=== PATIENT | female | born 1940 | race Caucasian/White ===

== ENCOUNTER 2020-04-09 10:05 | Outpatient (REF) | payer MEDICARE, SELFPAY ==
[2020-04-09 13:27] LABS: MANUAL DIFF FLAG NO
[2020-04-09 13:39] LABS: Basophils Percent Auto 0.5 % (0-2); Eosinophils Absolute Auto 0.2 X10*3/uL (0.0-0.4); Eosinophils Percent Auto 3.2 % (0-4); Hematocrit 36.4 % (37-47); Hemoglobin 11.6 g/dl (12.0-16.0); Imm Gran Abs Auto 0.03 X10*3/uL (0.00-0.03); Imm Gran Pct Auto 0.5 % (0.0-0.4); Lymphocytes Absolute Auto 1.4 X10*3/uL (1.2-4.9); Lymphocytes Percent Auto 25.9 % (20-40); Mean Corpuscular HGB Conc 31.9 g/dl (31.0-35.0); Mean Corpuscular Hemoglobin 29.7 pg (27.0-33.0); Mean Corpuscular Volume 93.3 fL (80-98); Mean Platelet Volume 11.3 fL (9.4-12.3); Monocytes Absolute Auto 0.5 X10*3/uL (0.1-1.2); Monocytes Percent Auto 8.8 % (2-11); Neutrophils Absolute Auto 3.4 X10*3/uL (2.0-8.3); Neutrophils Percent Auto 61.1 % (45-73); Platelet Count 184 X10*3/uL (160-400); Red Cell Distribution Width 12.6 % (11.0-16.0); White Blood Count 5.6 X10*3/uL (4.8-10.8)
[2020-04-09 13:41] LABS: Estimated Average Glucose 128 mg/dL; Hemoglobin A1c % 6.1 %
[2020-04-09 14:14] LABS: Alanine Aminotransferase 7 U/L (0-31); Albumin Level 4.3 g/dL (3.5-5.0); Alkaline Phosphatase 95 U/L (39-117); Anion Gap 14 (12-20); Aspartate Amino Transferase 16 U/L (5-31); Bilirubin Total 0.4 mg/dL (0.0-1.0); Blood Urea Nitrogen 23 mg/dL (9-16); Calcium 9.4 mg/dL (8.4-10.2); Carbon Dioxide 33 mmol/L (22-29); Chloride 96 mmol/L (96-108); Estimated Glomerular Filt Rate 29; Glucose Random 116 mg/dL (60-115); Potassium 4.3 mmol/l (3.3-5.1); Sodium 139 mmol/L (135-145); Total Protein 6.7 g/dL (6.5-8.0)
[2020-04-09 14:27] LABS: Creatinine Urine 25.46 mg/dL; Microalbum/Creatinine Ratio Ur 19.6 ug/mg cr
== END 2020-04-09 10:06 | disposition home or self-care (01) ==
LOC: HO.10HDL 10:05
PROVIDERS: Visit Provider Internal Medicine
DX: E11.22 Type 2 diabetes mellitus with diabetic chronic kidney disease (principal); I12.9 Hypertensive chronic kidney disease with stage 1 through stage 4 chronic kidney disease, or unspecified chronic kidney disease; N18.9 Chronic kidney disease, unspecified; J44.9 Chronic obstructive pulmonary disease, unspecified
CPT/HCPCS: 36415; 80053; 82043; 83036; 85025

== ENCOUNTER 2020-05-11 10:51 | Outpatient (REF) | payer MEDICARE, SELFPAY ==
--- NOTE | 2020-05-11 | MR_ITS ---
EXAMINATION: MR LUMBAR SPINE WITHOUT CONTRAST CLINICAL INFORMATION: Bilateral leg radicular symptoms. COMPARISON: MRI dated 03/20/2017. TECHNIQUE: MRI of the lumbar spine was obtained using routine sequences without contrast. FINDINGS: VERTEBRAL BODIES AND PARASPINAL STRUCTURES: Chronic fatty marrow changes present at the vertebra and bony pelvis. Reduced intradiscal signal and mild to moderate multilevel disc space narrowing with endplate spurring again evident. There is a rightward curvature of the upper lumbar spine. Worsened right lateral endplate edematous changes noted at L4-L5. The paraspinal soft tissues are normal. Sigmoid colonic diverticulosis partially assessed. Bilateral renal cysts are visible. There is significant dilatation of the right renal collecting system and right ureter, otherwise incompletely assessed. CONUS MEDULLARIS AND CAUDA EQUINA: Normal, terminating at the level of L1. No lower cord signal abnormality is seen. The cauda equina nerve roots are normal. SPINAL LEVELS: L1-L2: Disc bulge present with a shallow right paracentral disc protrusion mildly impressing upon the right L2 nerve root in the subarticular zone. Mild facet arthropathy without central canal stenosis and foramina. L2-L3: Diffuse disc bulge present with mild bilateral foraminal encroachment. Hypertrophic facet arthropathy without central canal stenosis. L3-L4: Disc bulge and stable facet arthropathy without central canal stenosis. Bulging disc results in [id number] right foraminal narrowing. Osseous spurring and bulging disc more significantly encroach upon the left neural foramen with the left L3 nerve root, as on prior imaging. L4-L5: Generalized disc bulge with hlqpzoxp-fi-vqbqob facet arthrosis. No central canal stenosis. Previous right subarticular zone disc protrusion has resorbed. Gonidfej-qe-qqtvwm bilateral foraminal narrowing, as on prior imaging. L5-S1: Mild anterolisthesis and disc bulge with severe facet arthropathy, not significantly changed. Facet spurring encroaches upon the right subarticular zone with mass effect upon the right S1 nerve root, as on the prior study. Ezxqefjw-gj-dlpeds foraminal narrowing with compression of the right L5 nerve root due to bulging disc and facet spurring, also stable. MR/MR lumbar spine wo con IMPRESSION: Massive right-sided hydroureteronephrosis. The possibility of an underlying distal obstructing lesion or bladder mass cannot be ruled out. A dedicated CT scan of the abdomen and pelvis with contrast is recommended for further evaluation. New shallow right paracentral disc protrusion at L1-L2 with mild mass effect upon the right L2 nerve root. Previous shallow right subarticular zone disc protrusion at L4-L5 has resorbed. Otherwise, relatively stable moderate multilevel spondylosis without central canal stenosis. Imaging findings discussed with at 3:04 p.m. on 05/11/2020.
== END 2020-05-11 10:52 | disposition home or self-care (01) ==
LOC: HO.MRI 10:51
PROVIDERS: Visit Provider Physician Assistant Medical
DX: M54.16 Radiculopathy, lumbar region (principal)
CPT/HCPCS: 72148

== ENCOUNTER 2020-05-20 10:49 | Outpatient (REF) | payer MEDICARE, SELFPAY ==
[2020-05-20 14:24] LABS: Glucose Urine UA NEG (NEG); Leukocyte Esterase Urine 1+ (NEG); Nitrite Urine NEG (NEG); Urine Blood NEG (NEG); Urine Ketones NEG (NEG); Urine Protein NEG (NEG-TRACE)
[2020-05-20 14:27] LABS: Appearance Urine CLEAR; Color Urine YELLOW
[2020-05-20 14:36] LABS: RBC Urine 0-2 /HPF (0); Squamous Epithelial Cell Urine 1+ /LPF
== END 2020-05-20 10:50 | disposition home or self-care (01) ==
LOC: HO.HMGCLDS 10:49
PROVIDERS: PCP Internal Medicine; Visit Provider Internal Medicine
DX: R30.0 Dysuria (principal)
CPT/HCPCS: 81001; 81003; 87086

== ENCOUNTER 2020-07-09 09:58 | Outpatient (REF) | payer MEDICARE, SELFPAY ==
[2020-07-09 13:51] LABS: MANUAL DIFF FLAG NO
[2020-07-09 14:02] LABS: Basophils Percent Auto 0.6 % (0-2); Eosinophils Absolute Auto 0.3 X10*3/uL (0.0-0.4); Eosinophils Percent Auto 3.9 % (0-4); Glucose Urine UA NEG (NEG); Hemoglobin 10.9 g/dl (12.0-16.0); Imm Gran Abs Auto 0.02 X10*3/uL (0.00-0.03); Imm Gran Pct Auto 0.3 % (0.0-0.4); Leukocyte Esterase Urine 1+ (NEG); Lymphocytes Absolute Auto 1.2 X10*3/uL (1.2-4.9); Lymphocytes Percent Auto 18.9 % (20-40); Mean Corpuscular HGB Conc 31.1 g/dl (31.0-35.0); Mean Corpuscular Hemoglobin 29.7 pg (27.0-33.0); Mean Corpuscular Volume 95.4 fL (80-98); Mean Platelet Volume 11.1 fL (9.4-12.3); Monocytes Absolute Auto 0.6 X10*3/uL (0.1-1.2); Monocytes Percent Auto 9.1 % (2-11); Neutrophils Absolute Auto 4.3 X10*3/uL (2.0-8.3); Neutrophils Percent Auto 67.2 % (45-73); Nitrite Urine NEG (NEG); Platelet Count 213 X10*3/uL (160-400); Red Blood Count 3.67 X10*6/uL (4.20-5.50); Red Cell Distribution Width 13.2 % (11.0-16.0); UACC Culture Trigger YES; Urine Blood NEG (NEG); Urine Ketones NEG (NEG); Urine Protein NEG (NEG-TRACE); White Blood Count 6.4 X10*3/uL (4.8-10.8)
[2020-07-09 14:04] LABS: Appearance Urine CLEAR; Color Urine YELLOW
[2020-07-09 14:14] LABS: Estimated Average Glucose 134 mg/dL; Hemoglobin A1c % 6.3 %
[2020-07-09 14:20] LABS: Bacteria Urine TRACE /LPF; RBC Urine 0-2 /HPF (0); Squamous Epithelial Cell Urine 2+ /LPF
[2020-07-09 14:29] LABS: Creatinine Urine 104.48 mg/dL; Microalbum/Creatinine Ratio Ur 18.1 ug/mg cr
[2020-07-09 14:43] LABS: Alanine Aminotransferase 9 U/L (0-31); Albumin Level 4.2 g/dL (3.5-5.0); Alkaline Phosphatase 90 U/L (39-117); Anion Gap 13 (12-20); Aspartate Amino Transferase 15 U/L (5-31); Bilirubin Total 0.4 mg/dL (0.0-1.0); Blood Urea Nitrogen 24 mg/dL (9-16); C Reactive Protein 1.18 mg/dL (< or = 0.50); Calcium 9.3 mg/dL (8.4-10.2); Carbon Dioxide 35 mmol/L (22-29); Chloride 97 mmol/L (96-108); Estimated Glomerular Filt Rate 33; Glucose Random 112 mg/dL (60-115); Potassium 4.3 mmol/l (3.3-5.1); Sodium 141 mmol/L (135-145); Total Protein 6.5 g/dL (6.5-8.0)
[2020-07-09 15:08] LABS: Free T4 (Free Thyroxine) 1.05 ng/dL (0.71-1.85); Thyroid Stimulating Hormone 2.21 uIU/mL (0.32-4.0)
== END 2020-07-09 09:59 | disposition home or self-care (01) ==
LOC: HO.10HDL 09:58
PROVIDERS: Visit Provider Internal Medicine
DX: E11.22 Type 2 diabetes mellitus with diabetic chronic kidney disease (principal); I12.9 Hypertensive chronic kidney disease with stage 1 through stage 4 chronic kidney disease, or unspecified chronic kidney disease; N18.9 Chronic kidney disease, unspecified; N13.30 Unspecified hydronephrosis; J44.9 Chronic obstructive pulmonary disease, unspecified
CPT/HCPCS: 36415; 80053; 81001; 81003; 82043; 83036; 84439; 84443; 85025; 86140; 87086

== ENCOUNTER 2020-07-16 09:02 | Outpatient (REF) | payer MEDICARE, SELFPAY ==
--- NOTE | 2020-07-16 09:04 | CT_ITS ---
EXAMINATION: CT ABDOMEN AND PELVIS WITHOUT CONTRAST CLINICAL INFORMATION: Right hydronephrosis. COMPARISON: None TECHNIQUE: Multidetector volumetric imaging was performed from the superior aspect of the liver through the pubic symphysis. Sagittal and coronal reformatted images were obtained on the technologist's workstation. This CT examination was performed using dose optimization techniques as appropriate, variously including the following: *Automated exposure control *Adjustment of mA and/or kV according to patient size (this includes techniques or standardized protocols for targeted exams where dose is matched to indication/reason for exam; i.e. extremities or head) *Use of iterative reconstruction technique DLP: 595 mGy-cm FINDINGS: LUNG BASES: Minimal atelectatic changes are seen in the left lung base. There is a small bulla medially in the left lower lobe. The heart size is normal. LIVER, GALLBLADDER, AND BILIARY TREE: The liver is normal in size, shape, and attenuation. No focal hepatic lesion or biliary ductal dilatation is present. The gallbladder is unremarkable with no evidence of radiopaque gallstones, gallbladder wall thickening, or obvious pericholecystic inflammatory changes. PANCREAS: The pancreas is atrophic. SPLEEN: Unremarkable. ADRENAL GLANDS: Unremarkable. KIDNEYS AND URETERS: The kidneys are normal in size, shape, and attenuation. There are no radiopaque renal calculi seen. However, there is soft tissue mass or thick debris in the right distal ureter measuring 27 Hounsfield units with tokplwra-tf-qdnhff hydroureteronephrosis measuring 3 Hounsfield units consistent with water consistency. The left kidney appears unremarkable. BLADDER: Unremarkable. GASTROINTESTINAL TRACT: There is diffuse sigmoid and scattered rest of the colon diverticulosis without mural thickening or pericolic fat stranding. No colonic distention seen. The small bowel loops are unremarkable. ABDOMINAL WALL: No significant hernia is appreciated. LYMPH NODES: Normal. VASCULAR: There is atherosclerotic calcification of the abdominal aorta without aneurysmal dilatation. PELVIC VISCERA: No free fluid or free air. The uterus is likely surgically absent or atrophied. OSSEOUS STRUCTURES: There are degenerative disc changes, vacuum disc phenomenon and moderate spondylosis throughout the lumbar spine. No fracture or lytic process seen. CT/CT abdomen pelvis wo con IMPRESSION: 1. Moderate to significant right hydroureteronephrosis with a soft tissue mass or thick dependent debris in right distal ureter. Recommend cystoscopy. 2. No radiopaque urolith seen. 3. Colonic diverticulosis without diverticulitis.
== END 2020-07-16 09:03 | disposition home or self-care (01) ==
LOC: HO.CT 09:02
PROVIDERS: PCP Internal Medicine; Visit Provider Internal Medicine
DX: N13.2 Hydronephrosis with renal and ureteral calculous obstruction (principal)
CPT/HCPCS: 74176

== ENCOUNTER → 2020-07-20 14:28 | Outpatient (BNVA) | payer MEDICARE, SELFPAY | PROVIDERS: PCP Internal Medicine; Visit Provider Urology | DX: R39.15 Urgency of urination (principal); N13.30 Unspecified hydronephrosis | CPT/HCPCS: 99202 ==

== ENCOUNTER 2020-07-23 10:40 | Outpatient (REF) | payer MEDICARE, SELFPAY ==
[2020-07-23 17:12] LABS: Blood Urea Nitrogen 27 mg/dL (9-16); Estimated Glomerular Filt Rate 31
== END 2020-07-23 10:41 | disposition home or self-care (01) ==
LOC: HO.HMGCLDS 10:40
PROVIDERS: PCP Internal Medicine; Visit Provider Urology
DX: N26.1 Atrophy of kidney (terminal) (principal); N13.30 Unspecified hydronephrosis
CPT/HCPCS: 36415; 82565; 84520

== ENCOUNTER → 2020-07-27 10:51 | Outpatient (REF) | payer MEDICARE, SELFPAY ==
--- NOTE | ~2020-07-27 | NM_ITS ---
EXAMINATION: RENAL DYNAMIC IMAGING STUDY WITH LASIX CLINICAL INFORMATION: Atrophy of kidney. COMPARISON: No previous radionuclide renal scan is available for comparison. The diagnostic CT scan of the abdomen and pelvis, dated 07/16/2020, is available for comparison. TECHNIQUE: Serial gamma scintillation camera images were obtained over the posterior trunk during the initial transit and subsequent distribution of a bolus intravenous injection of 10 mCi of Tc-99m DTPA. At 30 minutes later, 40 mg of Lasix was administered intravenously and an additional 30 minutes of images obtained. FINDINGS: Initial rapid sequence images show prompt perfusion to the left kidney, but this is moderately diminished, as the intensity is significantly less then that of the adjacent spleen on the early images. There is markedly diminished perfusion to the right kidney. Subsequent sequential static images obtained up to 30 minutes show fair but abnormally decreased concentration and the left kidney and moderately to markedly diminished concentration in the right kidney. Excretory function is visualized on the left by 3 minutes post injection. This excretory activity is well visualized in the left renal pelvis which does not appear dilated and in faint activity visualized in the left ureter. The left ureter is visualized by 4 minutes post injection and initial filling of the the urinary bladder at this time is also noted. Excretory function is not well visualized on the right throughout the study, with progressively increasing activity that appears to be predominantly cortical in location. When compared to the CT scan dated 07/16/2020, the markedly dilated right renal collecting system and in particular the dilated right renal pelvis does not show significant accumulation of activity on this current study. The dilated tortuous right ureter visible on the CT images is also not well visualized. Following Lasix administration, there is progressive clearance of activity from the left renal pelvis and filling of the urinary bladder. No definite excretory activity on the right is visualized at any time. Meaningful T-1/2 washout times following Lasix administration cannot be calculated on either side. On the left, there is no significant retention at the time of Lasix administration, and on the right no definite excretory function is visualized. The relative function of the two kidneys based on the 2-3 minute images are: Left 75% and right 25%. NM/NM renal imaging IMPRESSION: LEFT KIDNEY: Mildly diminished perfusion and function. No hydronephrosis or outflow obstruction is present. RIGHT KIDNEY: Poor perfusion and function. The quantitation noted above likely overestimates the functional capacity of the right kidney, as although there is cortical accumulation by 2 to 3 minutes post injection, almost no activity appears to pass into the right renal collecting system which is known to be markedly hydronephrotic.
== END ==
LOC: HO.NUCMED 10:51
PROVIDERS: Visit Provider Urology
DX: N26.1 Atrophy of kidney (terminal) (principal); N13.30 Unspecified hydronephrosis
CPT/HCPCS: 78700; A9539; J1940

== ENCOUNTER → 2020-08-16 07:57 | Day surgery (SDC) | payer MEDICARE, SELFPAY ==
[2020-08-10 12:23] VITALS: BMI 32.3
--- NOTE | 2020-08-13 12:41 | HO.ANESPROP2 ---
Documented by User: Amanda Ramsey 08/13/20 12:44 HPI - Anesthesia Eval Consult details Narrative: 79yo F for Cystoscopy, Ureteroroscopy, Retro, Laser PMFSH Active Problems Active Problems: All Active Problems (Updated 08/10/20 @ 12:02 by Moira Fernández) Hydronephrosis (Acute) Urinary urgency (Acute) Past Medical History Medical History Anxiety Back pain CKD (chronic kidney disease) COPD (chronic obstructive pulmonary disease) DM type 2 (diabetes mellitus, type 2) Elevated cholesterol Family history of anesthesia complication Fibromyalgia GERD (gastroesophageal reflux disease) Hiatal hernia Hypertension On beta elizabeth at home Osteoarthritis Peripheral neuropathy PONV (postoperative nausea and vomiting) Restless leg syndrome Surgical History Surgical History History of cholecystectomy History of hysterectomy History of total left knee replacement Hx of appendectomy Hx of bilateral cataract extraction Hx of colonoscopy Hx of tonsillectomy Social History Social History Are you a primary care management coordinator to a significant other at home: No Do you presently have visiting nurse or other home services: No Smoking Status: Former smoker Smoking Quit Date: ~ 30 yrs ago Use of substances other than those prescribed or required for medical reasons: No Have you been hit, kicked, punched, or otherwise hurt by someone within the past year? If so, by whom?: No Advance Directives: No Advance Directives Information Provided: No Advance Directives on File: No Recently lost weight without trying: No Meds Allergies Allergy/AdvReac Type Severity Reaction Status Date / Time Sulfa (Sulfonamide Allergy Severe Anaphylaxis Verified 08/16/20 08:20 Antibiotics) sulfamethoxazole Allergy Severe ANAPHYLAXIS Verified 08/16/20 08:20 [From BACTRIM] influenza virus vaccine, Allergy Intermediate ARTHRITIC Verified 08/16/20 08:20 specific EFFECTS [FLU VACCINE] nitrofurantoin AdvReac Mild GI UPSET Verified 08/16/20 08:20 [From MACRODANTIN] oxycodone [From PERCOCET] AdvReac Mild GI UPSET Unverified 07/20/20 14:53 Home Medications Medication Instructions Recorded Confirmed Last Taken Type alprazolam 0.5 mg tablet 0.25 mg PO BID PRN 07/20/20 08/10/20 Unknown History amitriptyline 10 mg tablet 10 mg PO BEDTIME 07/20/20 08/10/20 Unknown History atenolol 25 mg tablet 25 mg PO DAILY 07/20/20 08/10/20 08/16/20 06:50 History calcium carbonate 215 mg calcium 215 mg PO BID 07/20/20 08/10/20 Unknown History (500 mg) chewable tablet carbidopa 25 mg-levodopa 100 mg 1 tab PO BEDTIME 07/20/20 08/10/20 Unknown History tablet carbidopa 25 mg-levodopa 100 mg 1 tab PO BID 07/20/20 08/10/20 08/16/20 06:50 History tablet furosemide 40 mg tablet 80 mg PO DAILY 07/20/20 08/10/20 Unknown History glucosamine-chondroitin 250 mg-200 2 tab PO TID 07/20/20 08/10/20 Unknown History mg tablet lisinopril 5 mg tablet 5 mg PO DAILY 07/20/20 08/10/20 Unknown History metformin 500 mg tablet 500 mg PO DAILY 07/20/20 Unknown History omega-3 fatty acids 1,000 mg 1,000 mg PO DAILY 07/20/20 08/10/20 Unknown History capsule omeprazole 20 mg capsule,delayed 40 mg PO DAILY 07/20/20 08/10/20 08/16/20 06:50 History release potassium chloride 10 mEq 10 meq PO DAILY 07/20/20 08/10/20 Unknown History tablet,extended release(part/cryst) tramadol 50 mg tablet 50 mg PO BID PRN 07/20/20 08/10/20 Unknown History atorvastatin 1 tab PO DAILY 08/10/20 08/10/20 Unknown History diltiazem HCl 1 cap PO DAILY 08/10/20 08/10/20 08/16/20 06:50 History fluticasone propionate [Flovent 1 puff INHALATION BID 08/10/20 08/10/20 Unknown History HFA] gabapentin 1 cap PO BID 08/10/20 08/10/20 08/16/20 06:50 History ipratropium bromide [Atrovent HFA] INHALATION 08/10/20 08/16/20 06:50 History Exam Exam Date and Time: August 13, 2020 124 Height,Weight and Vital Signs: Height 5 ft 6 in Weight 90.718 kg Pertinent Lab Results Pertinent Lab Results: Laboratory Tests 07/09/20 07/09/20 07/23/20 10:10 10:10 10:45 WBC 6.4 Hgb 10.9 L Hct 35.0 L Plt Count 213 Sodium 141 Potassium 4.3 Chloride 97 Carbon Dioxide 35 H BUN 27 H Creatinine 1.59 H Assessment and Plan Assessment Anesthesia Assessment: Chart Reviewed Documented by User: Anabel Bergeron 08/16/20 09:05 [facility] Past Medical History Medical History Anxiety Back pain CKD (chronic kidney disease) COPD (chronic obstructive pulmonary disease) DM type 2 (diabetes mellitus, type 2) Elevated cholesterol Family history of anesthesia complication Fibromyalgia GERD (gastroesophageal reflux disease) Hiatal hernia Hypertension On beta elizabeth at home Osteoarthritis Peripheral neuropathy PONV (postoperative nausea and vomiting) Restless leg syndrome Surgical History Surgical History History of cholecystectomy History of hysterectomy History of total left knee replacement Hx of appendectomy Hx of bilateral cataract extraction Hx of colonoscopy Hx of tonsillectomy Social History Social History Are you a primary care management coordinator to a significant other at home: No Do you presently have visiting nurse or other home services: No Smoking Status: Former smoker Smoking Quit Date: ~ 30 yrs ago Use of substances other than those prescribed or required for medical reasons: No Have you been hit, kicked, punched, or otherwise hurt by someone within the past year? If so, by whom?: No Advance Directives: No Advance Directives Information Provided: No Advance Directives on File: No Recently lost weight without trying: No Meds Allergies Allergy/AdvReac Type Severity Reaction Status Date / Time Sulfa (Sulfonamide Allergy Severe Anaphylaxis Verified 08/16/20 08:20 Antibiotics) sulfamethoxazole Allergy Severe ANAPHYLAXIS Verified 08/16/20 08:20 [From BACTRIM] influenza virus vaccine, Allergy Intermediate ARTHRITIC Verified 08/16/20 08:20 specific EFFECTS [FLU VACCINE] nitrofurantoin AdvReac Mild GI UPSET Verified 08/16/20 08:20 [From MACRODANTIN] oxycodone [From PERCOCET] AdvReac Mild GI UPSET Unverified 07/20/20 14:53 Home Medications Medication Instructions Recorded Confirmed Last Taken Type alprazolam 0.5 mg tablet 0.25 mg PO BID PRN 07/20/20 08/10/20 Unknown History amitriptyline 10 mg tablet 10 mg PO BEDTIME 07/20/20 08/10/20 Unknown History atenolol 25 mg tablet 25 mg PO DAILY 07/20/20 08/10/20 08/16/20 06:50 History calcium carbonate 215 mg calcium 215 mg PO BID 07/20/20 08/10/20 Unknown History (500 mg) chewable tablet carbidopa 25 mg-levodopa 100 mg 1 tab PO BEDTIME 07/20/20 08/10/20 Unknown History tablet carbidopa 25 mg-levodopa 100 mg 1 tab PO BID 07/20/20 08/10/20 08/16/20 06:50 History tablet furosemide 40 mg tablet 80 mg PO DAILY 07/20/20 08/10/20 Unknown History glucosamine-chondroitin 250 mg-200 2 tab PO TID 07/20/20 08/10/20 Unknown History mg tablet lisinopril 5 mg tablet 5 mg PO DAILY 07/20/20 08/10/20 Unknown History metformin 500 mg tablet 500 mg PO DAILY 07/20/20 Unknown History omega-3 fatty acids 1,000 mg 1,000 mg PO DAILY 07/20/20 08/10/20 Unknown History capsule omeprazole 20 mg capsule,delayed 40 mg PO DAILY 07/20/20 08/10/20 08/16/20 06:50 History release potassium chloride 10 mEq 10 meq PO DAILY 07/20/20 08/10/20 Unknown History tablet,extended release(part/cryst) tramadol 50 mg tablet 50 mg PO BID PRN 07/20/20 08/10/20 Unknown History atorvastatin 1 tab PO DAILY 08/10/20 08/10/20 Unknown History diltiazem HCl 1 cap PO DAILY 08/10/20 08/10/20 08/16/20 06:50 History fluticasone propionate [Flovent 1 puff INHALATION BID 08/10/20 08/10/20 Unknown History HFA] gabapentin 1 cap PO BID 08/10/20 08/10/20 08/16/20 06:50 History ipratropium bromide [Atrovent HFA] INHALATION 08/10/20 08/16/20 06:50 History Exam Airway Mallampati Class: III (Poor mouth opening) TM Dist: >3cm Neck ROM: Limited Heart: RRR Lungs: clear but slightly diminished throughout Assessment and Plan Assessment Anesthesia Assessment: Anesthesia Plan Discussed and Chart Reviewed Final Anesthetic Review NPO: Yes ASA Class: III Final Preanesthetic Review: Meds/Allgs Chart Reviewed, Consent Obtained/Reviewed and Anes Risks/Benef Reviewed Patient Risk: Intermediate Procedure Risk: Low Anesthetic Plan Anesthetic Plan: GA Disposition: Standard PACU
[2020-08-16 08:33] VITALS: BP 141/68; PULSE 76; RESP 20; TEMP 36.8; O2SAT 92
[2020-08-16 08:35] LABS: Glucose, Whole Blood 169 mg/dL (60-115)
[2020-08-16] MEDS: Lactated Ringers 1,000 ML 100 ML IVCONT (08:42)
[2020-08-16] MEDS: levoFLOXacin 500 MG TABLET PO (08:42)
--- NOTE | 2020-08-16 09:37 | MHC.SHP ---
Pre-Procedural Eval Section A The patient is an INPATIENT: No Changes since office visit: No Cold of Flu in the past 2 weeks, No New Medical Problems, No Changes in Medication and No Patient answered all questions The History & Physical has been completed within 30 days and I have reviewed it.: Yes Section B Chief Complaint: Hydronephrosis Allergies: Allergies Allergy/AdvReac Type Severity Reaction Status Date / Time Sulfa (Sulfonamide Allergy Severe Anaphylaxis Verified 08/16/20 08:20 Antibiotics) sulfamethoxazole Allergy Severe ANAPHYLAXIS Verified 08/16/20 08:20 [From BACTRIM] influenza virus vaccine, Allergy Intermediate ARTHRITIC Verified 08/16/20 08:20 specific EFFECTS [FLU VACCINE] nitrofurantoin AdvReac Mild GI UPSET Verified 08/16/20 08:20 [From MACRODANTIN] oxycodone [From PERCOCET] AdvReac Mild GI UPSET Unverified 07/20/20 14:53 Plan I have reviewed the history and physical and performed a pertinent physical examination on my patient. No changes have occurred unless specified. Cystoscopy, right retrograde, ureteroscopy, possible stent
--- NOTE | 2020-08-16 09:47 | PC.NURSE ---
pt has hx of copd. reports used her inhaler this am. ls clear / dim sats 91-93 at time of arrival to [facility] sitting in chair. pt had audible wheezing noted after getting into [facility] and up into the bed. sats 87-90% pt took one puff of her home inhaler. Dr Bergeron informed./ seen pt at bedside ordered updraft. pt received updraft. resting quietly. lungs have slight exp wheeze bilat sats 91-94 with no talking and taking deep breaths. otherwise 85-[address] Bergeron spoke with Dr Crandall the formerly [facility] pcp. and decision was made to send the pt to the ED for further eval of her respiratiory status. pt agreed/
== END ==
PROVIDERS: PCP Internal Medicine; Visit Provider Urology
DX: N13.30 Unspecified hydronephrosis (principal); Z53.9 Procedure and treatment not carried out, unspecified reason
CPT/HCPCS: 82947; J3010; Q9967

== ENCOUNTER 2020-08-16 10:02 | Inpatient (IN) | payer MEDICARE, SELFPAY ==
[2020-08-16] VITALS (9 sets, daily range): BP systolic 115–138; BP diastolic 43–60; PULSE 65–78; RESP 12–20; TEMP 36.2–37; O2SAT 87–99; BMI 32.3
--- NOTE | ~2020-08-16 | XR_ITS ---
EXAMINATION: XR CHEST CLINICAL INFORMATION: Cough. COMPARISON: Chest 05/23/2019 TECHNIQUE: Frontal view of the chest was obtained. FINDINGS: The lungs are well-expanded and clear. The heart size and pulmonary vascularity is normal. There is moderate spondylosis dorsal spine. No lytic process seen.. XR/XR chest 1V IMPRESSION: Unremarkable chest exam.
--- NOTE | ~2020-08-16 | FL_ITS ---
EXAMINATION: XR FLUOROSCOPY WITH IMAGES CLINICAL INFORMATION: Right ureteral stent placement COMPARISON: Previous CT of the abdomen and pelvis June 2020 and nuclear medicine renal scan July 2020 TECHNIQUE: Fluoroscopy performed by Dr. Terence Bernardo. Fluoroscopy time: 0.5 minutes Cumulative dose: 11.6 mgy Images: 2 FINDINGS: Initial image demonstrates contrast opacification of the right distal ureter with large filling defect. A small amount of contrast seen in the bladder. Second image demonstrates the distal end of an internal ureteral stent. FL/FL guidance in OR IMPRESSION: Fluoroscopy guidance for right internal ureteral stent placement.
--- NOTE | 2020-08-16 10:04 | ECG_ITS ---
Test Reason : HYPOXIA Blood Pressure : / mmHG Vent. Rate : 069 BPM Atrial Rate : 069 BPM P-R Int : 136 ms QRS Dur : 086 ms QT Int : 380 ms P-R-T Axes : 061 064 078 degrees QTc Int : 407 ms Normal sinus rhythm with sinus arrhythmia Nonspecific T wave abnormality Abnormal ECG When compared with ECG of 16-MAR-2014 15:56, Premature ventricular complexes are no longer Present Referred By: Yamilex Abernathy Electronically Signed By:SIDNEY SUTHERLAND
--- NOTE | 2020-08-16 10:06 | ED_ITS ---
HPI - SOB/Dyspnea General Chief Complaint: General Medical Stated Complaint: LOW O2 Time Seen by Provider: 08/16/20 10:04 Source: patient Mode of arrival: other (from short stay surgery ) Limitations: no limitations History of Present Illness HPI Narrative: 79 yo female with COPD not on home O2, HTN, here with low O2 sats in mid 80s on RA at [facility] for cystoscopy - patient did use INH en route to ED, states she was having dyspnea and cough with some sputum production on and off since 2 weeks was on steroid burst at that time, today went for cystoscopy found to have low O2 sats - sent to the ED, she c/o some exertional dyspnea, given neb as well prior to arrival ,no chest pain, she was given prophylactic levofloxacin 500mg PO as well this AM Pertinent past history: COPD Onset (ago): week(s) Context: recent illness Timing: intermittent Severity: moderate Exacerbating factors: exertion Relieving factors: oxygen, rest and bronchodilators Known history of: COPD Associated symptoms: cough and sputum production Treatment prior to arrival: oxygen and bronchodilator Related Data Home Medications Medication Instructions Recorded Confirmed alprazolam 0.5 mg tablet 0.25 mg PO BID PRN 07/20/20 08/10/20 amitriptyline 10 mg tablet 10 mg PO BEDTIME 07/20/20 08/10/20 atenolol 25 mg tablet 25 mg PO DAILY 07/20/20 08/10/20 calcium carbonate 215 mg calcium 215 mg PO BID 07/20/20 08/10/20 (500 mg) chewable tablet carbidopa 25 mg-levodopa 100 mg 1 tab PO BEDTIME 07/20/20 08/10/20 tablet carbidopa 25 mg-levodopa 100 mg 1 tab PO BID 07/20/20 08/10/20 tablet furosemide 40 mg tablet 80 mg PO DAILY 07/20/20 08/10/20 glucosamine-chondroitin 250 mg-200 2 tab PO TID 07/20/20 08/10/20 mg tablet lisinopril 5 mg tablet 5 mg PO DAILY 07/20/20 08/10/20 metformin 500 mg tablet 500 mg PO DAILY 07/20/20 omega-3 fatty acids 1,000 mg 1,000 mg PO DAILY 07/20/20 08/10/20 capsule omeprazole 20 mg capsule,delayed 40 mg PO DAILY 07/20/20 08/10/20 release potassium chloride 10 mEq 10 meq PO DAILY 07/20/20 08/10/20 tablet,extended release(part/cryst) tramadol 50 mg tablet 50 mg PO BID PRN 07/20/20 08/10/20 atorvastatin 1 tab PO DAILY 08/10/20 08/10/20 diltiazem HCl 1 cap PO DAILY 08/10/20 08/10/20 fluticasone propionate [Flovent 1 puff INHALATION BID 08/10/20 08/10/20 HFA] gabapentin 1 cap PO BID 08/10/20 08/10/20 ipratropium bromide [Atrovent HFA] INHALATION 08/10/20 Allergies Allergy/AdvReac Type Severity Reaction Status Date / Time Sulfa (Sulfonamide Allergy Severe Anaphylaxis Verified 08/16/20 08:20 Antibiotics) sulfamethoxazole Allergy Severe ANAPHYLAXIS Verified 08/16/20 08:20 [From BACTRIM] influenza virus vaccine, Allergy Intermediate ARTHRITIC Verified 08/16/20 08:20 specific EFFECTS [FLU VACCINE] nitrofurantoin AdvReac Mild GI UPSET Verified 08/16/20 08:20 [From MACRODANTIN] oxycodone [From PERCOCET] AdvReac Mild GI UPSET Unverified 07/20/20 14:53 Review of Systems Review of Systems: Constitutional : No Fever, No Chills ENT/Mouth : No sore throat, No Rhinorrhea, No Swallowing Difficulty Eyes: No Eye Pain, No Swelling, No Redness Cardiovascular : No Chest Pain, positive SOB, No Orthopnea, no Edema Respiratory : pos Cough, pos Sputum, No Wheezing, positive dyspnea Gastrointestinal : No Nausea, No Vomiting, No Diarrhea, No abdominal Pain, No Hematochezia, No Melena Genitourinary : No Dysuria, No Urinary Frequency, No Hematuria Musculoskeletal : No joint pain, No Myalgias Skin : No Skin Lesions, No rash Neuro : No Weakness, No Numbness, No Dizziness, No Headache Psych : No Anxiety/Panic, No Depression Heme/Lymph: No Bruising, No Lymphadenopathy Endocrine : No Polyuria, No Polydipsia All other systems reviewed and are negative PMFSH Past Medical History Medical History Anxiety Back pain CKD (chronic kidney disease) COPD (chronic obstructive pulmonary disease) DM type 2 (diabetes mellitus, type 2) Elevated cholesterol Family history of anesthesia complication Fibromyalgia GERD (gastroesophageal reflux disease) Hiatal hernia Hypertension On beta elizabeth at home Osteoarthritis Peripheral neuropathy PONV (postoperative nausea and vomiting) Restless leg syndrome Surgical History History of cholecystectomy History of hysterectomy History of total left knee replacement Hx of appendectomy Hx of bilateral cataract extraction Hx of colonoscopy Hx of tonsillectomy Social History Social History Smoking Status: Former smoker Smoked in Last 30 Days: No Use of substances other than those prescribed or required for medical reasons: No Advance Directives: No Advance Directives Information Provided: No Physical Exam Vital Signs: Vital Signs: Last Vital Signs Temp 98.6 F 08/16/20 10:06 Pulse 70 08/16/20 10:16 Resp 14 08/16/20 10:06 BP 138/55 L 08/16/20 10:06 Pulse Ox 98 08/16/20 10:11 Body Mass Index 32.3 Appearance: Alert. Oriented X3. No acute distress. Eyes: Pupils equal, round and reactive to light. ENT: Pharynx normal. Neck: Normal inspection. Neck supple. CVS: Normal heart rate and rhythm. Pulses normal. Respiratory: No respiratory distress. Breath sounds dimished Abdomen: Soft and nontender. Skin: Skin warm and dry. Normal skin color. Normal skin turgor. Extremities: No lower extremity edema. No calf ttp Neuro: Oriented X 3. No motor deficit. No sensory deficit. Course Course Course Narrative: after 2 nebs IV steroids, IV magnesium she still desaturates to 87% on RA, no WBC count no signs of infection or severe sepsis, will admit for new O2 requirement MDM - SOB/Dyspnea MDM Narrative Medical decision making narrative: 79 yo female with COPD with recent need for steroids, found to have low O2 sats in SSS - sent to ED, will need labs, CXR, EKG, COVID swab, repeat neb, IV steroids, dispo per results and findings. Lab Data Result diagrams: 08/16/20 10:23 08/16/20 10:23 Labs: Lab Results 08/16/20 08/16/20 08/16/20 Range/Units 10:23 10:23 10:23 WBC 6.5 (4.8-10.8) X10*3/uL RBC 3.54 L (4.20-5.50) X10*6/uL Hgb 10.6 L (12.0-16.0) g/dl Hct 33.6 L (37-47) % MCV 94.9 (80-98) fL MCH 29.9 (27.0-33.0) pg MCHC 31.5 (31.0-35.0) g/dl RDW 13.1 (11.0-16.0) % Plt Count 167 (160-400) X10*3/uL MPV 10.7 (9.4-12.3) fL Immature Gran % (Auto) 0.6 H (0.0-0.4) % Neut % (Auto) 74.8 H (45-73) % Lymph % (Auto) 11.2 L (20-40) % Elliott % (Auto) 9.5 (2-11) % Eos % (Auto) 3.4 (0-4) % Baso % (Auto) 0.5 (0-2) % Lymph # (Auto) 0.7 L (1.2-4.9) X10*3/uL Elliott # (Auto) 0.6 (0.1-1.2) X10*3/uL Eos # (Auto) 0.2 (0.0-0.4) X10*3/uL Baso # (Auto) 0.0 (0.0-0.2) X10*3/uL Abs Immat Gran (auto) 0.04 H (0.00-0.03) X10*3/uL Absolute Neuts (auto) 4.9 (2.0-8.3) X10*3/uL Absolute Nucleated RBC 0.000 (0.0-0.012) X10*3/uL Nucleated RBC % (auto) 0.0 (0.0-0.2) /100WBC PT (10.8-13.0) SEC INR (0.9-1.1) APTT (24.1-38.0) SEC Sodium 141 (135-145) mmol/L Potassium 4.1 (3.3-5.1) mmol/L Chloride 100 (96-108) mmol/L Carbon Dioxide 32 H (22-29) mmol/L Anion Gap 13 (12-20) BUN 29 H (9-16) mg/dL Creatinine 1.70 H (0.5-1.4) mg/dL Estim Creat Clear Calc 30.4 Estimated GFR 29 Random Glucose 185 H D (60-115) mg/dL Calcium 8.9 (8.4-10.2) mg/dL Magnesium 1.4 L* (1.6-2.6) mg/dL Total Bilirubin 0.6 (0.0-1.0) mg/dL Direct Bilirubin 0.2 (0.0-0.5) mg/dL AST 13 (5-31) U/L ALT < 6 (0-31) U/L Alkaline Phosphatase 89 (39-117) U/L Troponin I High Sens (<3.5-17.0) ng/L B-Natriuretic Peptide 68 (<100) pg/mL Total Protein 6.2 L (6.5-8.0) g/dL Albumin 3.9 (3.5-5.0) g/dL Lipase (8-78) U/L Coronavirus (PCR) (Negative) Influenza Type A (PCR) (Negative) Influenza Type B (PCR) (Negative) RSV RNA Qual (PCR) (Negative) 08/16/20 08/16/20 08/16/20 Range/Units 10:24 10:24 10:24 WBC (4.8-10.8) X10*3/uL RBC (4.20-5.50) X10*6/uL Hgb (12.0-16.0) g/dl Hct (37-47) % MCV (80-98) fL MCH (27.0-33.0) pg MCHC (31.0-35.0) g/dl RDW (11.0-16.0) % Plt Count (160-400) X10*3/uL MPV (9.4-12.3) fL Immature Gran % (Auto) (0.0-0.4) % Neut % (Auto) (45-73) % Lymph % (Auto) (20-40) % Elliott % (Auto) (2-11) % Eos % (Auto) (0-4) % Baso % (Auto) (0-2) % Lymph # (Auto) (1.2-4.9) X10*3/uL Elliott # (Auto) (0.1-1.2) X10*3/uL Eos # (Auto) (0.0-0.4) X10*3/uL Baso # (Auto) (0.0-0.2) X10*3/uL Abs Immat Gran (auto) (0.00-0.03) X10*3/uL Absolute Neuts (auto) (2.0-8.3) X10*3/uL Absolute Nucleated RBC (0.0-0.012) X10*3/uL Nucleated RBC % (auto) (0.0-0.2) /100WBC PT 13.2 H (10.8-13.0) SEC INR 1.1 (0.9-1.1) APTT 38.0 (24.1-38.0) SEC Sodium (135-145) mmol/L Potassium (3.3-5.1) mmol/L Chloride (96-108) mmol/L Carbon Dioxide (22-29) mmol/L Anion Gap (12-20) BUN (9-16) mg/dL Creatinine (0.5-1.4) mg/dL Estim Creat Clear Calc Estimated GFR Random Glucose (60-115) mg/dL Calcium (8.4-10.2) mg/dL Magnesium (1.6-2.6) mg/dL Total Bilirubin (0.0-1.0) mg/dL Direct Bilirubin (0.0-0.5) mg/dL AST (5-31) U/L ALT (0-31) U/L Alkaline Phosphatase (39-117) U/L Troponin I High Sens 3.7 (<3.5-17.0) ng/L B-Natriuretic Peptide (<100) pg/mL Total Protein (6.5-8.0) g/dL Albumin (3.5-5.0) g/dL Lipase 8 (8-78) U/L Coronavirus (PCR) (Negative) Influenza Type A (PCR) (Negative) Influenza Type B (PCR) (Negative) RSV RNA Qual (PCR) (Negative) 08/16/20 Range/Units 10:24 WBC (4.8-10.8) X10*3/uL RBC (4.20-5.50) X10*6/uL Hgb (12.0-16.0) g/dl Hct (37-47) % MCV (80-98) fL MCH (27.0-33.0) pg MCHC (31.0-35.0) g/dl RDW (11.0-16.0) % Plt Count (160-400) X10*3/uL MPV (9.4-12.3) fL Immature Gran % (Auto) (0.0-0.4) % Neut % (Auto) (45-73) % Lymph % (Auto) (20-40) % Elliott % (Auto) (2-11) % Eos % (Auto) (0-4) % Baso % (Auto) (0-2) % Lymph # (Auto) (1.2-4.9) X10*3/uL Elliott # (Auto) (0.1-1.2) X10*3/uL Eos # (Auto) (0.0-0.4) X10*3/uL Baso # (Auto) (0.0-0.2) X10*3/uL Abs Immat Gran (auto) (0.00-0.03) X10*3/uL Absolute Neuts (auto) (2.0-8.3) X10*3/uL Absolute Nucleated RBC (0.0-0.012) X10*3/uL Nucleated RBC % (auto) (0.0-0.2) /100WBC PT (10.8-13.0) SEC INR (0.9-1.1) APTT (24.1-38.0) SEC Sodium (135-145) mmol/L Potassium (3.3-5.1) mmol/L Chloride (96-108) mmol/L Carbon Dioxide (22-29) mmol/L Anion Gap (12-20) BUN (9-16) mg/dL Creatinine (0.5-1.4) mg/dL Estim Creat Clear Calc Estimated GFR Random Glucose (60-115) mg/dL Calcium (8.4-10.2) mg/dL Magnesium (1.6-2.6) mg/dL Total Bilirubin (0.0-1.0) mg/dL Direct Bilirubin (0.0-0.5) mg/dL AST (5-31) U/L ALT (0-31) U/L Alkaline Phosphatase (39-117) U/L Troponin I High Sens (<3.5-17.0) ng/L B-Natriuretic Peptide (<100) pg/mL Total Protein (6.5-8.0) g/dL Albumin (3.5-5.0) g/dL Lipase (8-78) U/L Coronavirus (PCR) NEGATIVE (Negative) Influenza Type A (PCR) NEGATIVE (Negative) Influenza Type B (PCR) NEGATIVE (Negative) RSV RNA Qual (PCR) NEGATIVE (Negative) ECG Data Attestation: I personally reviewed and interpreted this ECG as follows: ECG interpretation date: 08/16/20 ECG interpretation time: 10:28 Interpretation: Rate: 69 Rhythm: NSR [place]: normal Normal P waves. Normal ROBERTO CARLOS. Normal QRS complex. ST T wave : no TYRONE, nonspecific qTC: normal prior studies: no acute ischemia The study has been interpreted contemporaneously by me. . Discharge Plan Discharge Clinical Impression: COPD (chronic obstructive pulmonary disease) Patient Disposition: Admitted As Inpatient Prescriptions: No Action diltiazem HCl 180 mg capsule,extended release 24 hr 1 cap PO DAILY RF: 0 atorvastatin 10 mg tablet 1 tab PO DAILY RF: 0 gabapentin 100 mg capsule 1 cap PO BID RF: 0 Atrovent HFA 17 mcg/actuation HFA aerosol inhaler inhalation RF: 0 Flovent HFA 110 mcg/actuation Hfa Aerosol Inhaler 1 puff INHALATION BID RF: 0 tramadol 50 mg tablet 50 mg PO BID PRN (Reason: Pain) RF: 0 metformin 500 mg tablet 500 mg PO DAILY RF: 0 omeprazole 20 mg capsule,delayed release(DR/EC) 40 mg PO DAILY RF: 0 furosemide 40 mg tablet 80 mg PO DAILY RF: 0 atenolol 25 mg tablet 25 mg PO DAILY RF: 0 carbidopa-levodopa [Sinemet] 25-100 mg tablet 1 tab PO BEDTIME RF: 0 lisinopril 5 mg tablet 5 mg PO DAILY RF: 0 carbidopa-levodopa [Sinemet] 25-100 mg tablet 1 tab PO BID RF: 0 omega-3 fatty acids [Fish Oil Concentrate] 1,000 mg capsule 1,000 mg PO DAILY RF: 0 Antacid Calcium 215 mg calcium (500 mg) tablet,chewable 215 mg PO BID RF: 0 glucosamine-chondroitin [Osteo Bi-Flex] 250-200 mg tablet 2 tab PO TID RF: 0 alprazolam 0.5 mg tablet 0.25 mg PO BID PRN (Reason: Anxiety) RF: 0 amitriptyline 10 mg tablet 10 mg PO BEDTIME RF: 0 potassium chloride 10 mEq tablet,ER particles/crystals 10 meq PO DAILY RF: 0
[2020-08-16] MEDS: Albuterol Sulfate (0.083%) 2.5 MG/3 ML VIAL.NEB INHALE (10:16)
[2020-08-16] MEDS: methylPREDNISolone Sod Succ/PF 125 MG/2 ML VIAL 60 MG IVPUSH (10:27)
[2020-08-16 10:33] LABS: MANUAL DIFF FLAG NO
[2020-08-16 10:42] LABS: INTERNATIONAL NORM RATIO 1.1 (0.9-1.1); Prothrombin Time 13.2 SEC (10.8-13.0)
[2020-08-16 10:44] LABS: Basophils Percent Auto 0.5 % (0-2); Eosinophils Absolute Auto 0.2 X10*3/uL (0.0-0.4); Eosinophils Percent Auto 3.4 % (0-4); Hematocrit 33.6 % (37-47); Hemoglobin 10.6 g/dl (12.0-16.0); Imm Gran Abs Auto 0.04 X10*3/uL (0.00-0.03); Imm Gran Pct Auto 0.6 % (0.0-0.4); Lymphocytes Absolute Auto 0.7 X10*3/uL (1.2-4.9); Lymphocytes Percent Auto 11.2 % (20-40); Mean Corpuscular HGB Conc 31.5 g/dl (31.0-35.0); Mean Corpuscular Hemoglobin 29.9 pg (27.0-33.0); Mean Corpuscular Volume 94.9 fL (80-98); Mean Platelet Volume 10.7 fL (9.4-12.3); Monocytes Absolute Auto 0.6 X10*3/uL (0.1-1.2); Monocytes Percent Auto 9.5 % (2-11); Neutrophils Absolute Auto 4.9 X10*3/uL (2.0-8.3); Neutrophils Percent Auto 74.8 % (45-73); Platelet Count 167 X10*3/uL (160-400); Red Blood Count 3.54 X10*6/uL (4.20-5.50); Red Cell Distribution Width 13.1 % (11.0-16.0); White Blood Count 6.5 X10*3/uL (4.8-10.8)
--- NOTE | 2020-08-16 10:47 | PC.NURSE ---
Pt with a hx of copd transferred to ED from [facility] for low 02 sats pre-cystoscopy with stent placement procedure. She is alert, rr even, speaks in full sentences, skin is pwdi, and she is in in nad. 02sat on arrival is 88% on ra, she was placed on 2l 02 via nc, and 02 sat up to 98%. Pt ambulated from surgical stretcher to ED stretcher at bedside without difficulty. Dr Abernathy in to eval pt and provided orders. Iv line established, blood work obtained and sent, and pt medicated per emar.
[2020-08-16 11:04] LABS: B Type Natriuretic Peptide 68 pg/mL (<100)
[2020-08-16 11:04] LABS: Troponin-I High Sensitivity 3.7 ng/L (<3.5-17.0)
[2020-08-16 11:18] LABS: Influenza A PCR NEGATIVE (Negative); Influenza B PCR NEGATIVE (Negative); Resp Syncy Virus RNA Qual PCR NEGATIVE (Negative); SARS COV2 PCR INHOUSE NEGATIVE (Negative)
[2020-08-16 11:32] LABS: Lipase 8 U/L (8-78)
[2020-08-16 11:40] LABS: Alanine Aminotransferase < 6 U/L (0-31); Albumin Level 3.9 g/dL (3.5-5.0); Alkaline Phosphatase 89 U/L (39-117); Anion Gap 13 (12-20); Aspartate Amino Transferase 13 U/L (5-31); Bilirubin Direct 0.2 mg/dL (0.0-0.5); Bilirubin Total 0.6 mg/dL (0.0-1.0); Blood Urea Nitrogen 29 mg/dL (9-16); Calcium 8.9 mg/dL (8.4-10.2); Carbon Dioxide 32 mmol/L (22-29); Chloride 100 mmol/L (96-108); Creatinine Clr Calc Pharmacy 30.4; Estimated Glomerular Filt Rate 29; Glucose Random 185 mg/dL (60-115); Magnesium 1.4 mg/dL (1.6-2.6); Potassium 4.1 mmol/L (3.3-5.1); Sodium 141 mmol/L (135-145); Total Protein 6.2 g/dL (6.5-8.0)
[2020-08-16] MEDS: Magnesium Sulfate/H2O 2 GM/50 ML PIGGYBACK IV (12:00)
[2020-08-16 12:31] LABS: D Dimer 220 NG/ML
--- NOTE | 2020-08-16 12:40 | PC.NURSE ---
Pt unable to sustain 02sat above 90 without supplementary 02 support. Plan is to present to hospitalist for possible admission. Pt currently on 2L 02 via ND, with 02 sat of 97%. With pt's permission, her son Mark was updated on her status and plan to admit. [phone].
--- NOTE | 2020-08-16 15:21 | HP_ITS ---
DATE OF SERVICE: 08/16/2020 CHIEF COMPLAINT: Hypoxia. HISTORY OF PRESENTING ILLNESS: This is a very pleasant 79-year-old female patient, who was scheduled to undergo cystoscopy due to right-sided hydronephrosis with soft tissue mass or PICC dependent debris in the right distal ureter, but the patient was noted to have hypoxia with oxygenation around 87% to 88% on room air. Therefore, the patient was sent to the emergency room for further workup and treatment. According to the patient, she has shortness of breath and cough productive of green phlegm on and off for the last couple of weeks, for which she was treated with a short course of steroids. The patient has been using her rescue inhalers 3 times a day. Otherwise, she denies any fever or chills. She denies sick contacts, no recent travel. She has had no other symptoms of nausea, vomiting, or headache. She denies any chest pain or shortness of breath. In the emergency room, the patient was noted to have a stable blood pressure and pulse, her respiratory rate was 13, O2 saturation improved to 95% on 2 L of nasal cannula. Her chest x-ray showed no acute infiltrate. D-dimer is 220. Her CBC is 6.5 with a stable hematocrit and platelet count. The patient received 1 dose of Levaquin 500 mg by mouth prophylactically in the OR. PAST MEDICAL HISTORY: Significant for: 1. History of anxiety, history of chronic kidney disease, history of COPD. 2. History of type 2 diabetes mellitus. 3. History of hypercholesterolemia. 4. History of fibromyalgia. 5. History of GERD. 6. History of hiatal hernia. 7. History of hypertension. 8. History of osteoarthritis. 9. History of peripheral neuropathy. 10. History of restless legs syndrome. 11. She also has a family history of anesthesia complications. PAST SURGICAL HISTORY: 1. The patient is status post left knee replacement surgery. 2. Status post hysterectomy. 3. Status post cholecystectomy. 4. Status post appendectomy. 5. Status post bilateral cataract extraction. 6. Status post tonsillectomy. SOCIAL HISTORY: The patient lives at home with her family including the patient's , son, his family and 2 sons. She quit smoking greater than 25 years ago. She does not drink alcohol. She ambulates without assistive device at home and uses a cane for outside. FAMILY HISTORY: There is no family history of premature coronary artery disease. ALLERGIES: THE PATIENT IS ALLERGIC TO SULFA THAT CAUSES ANAPHYLAXIS, INFLUENZA VIRUS CAUSES ARTHRITIC EFFECT, NITROFURANTOIN AND OXYCODONE CAUSES GI UPSET. HOME MEDICATIONS: Xanax 0.5 mg at bedtime, amitriptyline 20 mg at bedtime, atenolol 25 mg daily, Lipitor 10 mg at bedtime, carbidopa levodopa 1 tablet by mouth b.i.d., diltiazem 180 mg daily, Lasix 80 mg daily, gabapentin 100 mg b.i.d., ipratropium 2 inhaler q.i.d. as needed, lisinopril 5 mg daily, metformin 250 daily, omega-3 fatty acid 1000 mg daily, omeprazole 40 mg daily, and potassium chloride 10 mEq daily. REVIEW OF SYSTEMS: COMMUNITY ENGAGEMENT MANAGER: The patient denies any headache, lightheadedness, dizziness. CVS: No chest pain or palpitation. GI: No nausea, no vomiting, no diarrhea. : The patient denies urinary frequency or urgency. SKIN: No rashes. PHYSICAL EXAMINATION: GENERAL: The patient is sitting comfortably, appears anxious. VITAL SIGNS: BP 128/52, pulse 65, respiratory rate 13, O2 saturation 95% on 2 L nasal cannula. HEENT: Pupils equal, round, and reactive to light and accommodation. Extraocular muscles are intact. NECK: Supple. No increased JVD. LUNGS: Clear to auscultation bilaterally with diminished breath sounds. No wheeze, no crackles. No respiratory distress noted. HEART: Regular rate and rhythm. No murmurs, regurg, or gallop appreciated. ABDOMEN: Soft, nontender. Bowel sounds are audible. No guarding or rigidity. EXTREMITIES: Without clubbing, cyanosis, or edema. NEUROLOGIC: Nonfocal. SKIN: No rash. LABORATORY DATA: Sodium 141, potassium 4.1, chloride 100, bicarb 32, BUN 29, creatinine 1.7 close to baseline, blood sugar 185, magnesium low at 1.4, total protein 6.2. High sensitivity troponin 3.7. TSH checked in July 09 is 2.21. EKG showed normal sinus rhythm, nonspecific T-wave abnormality. ASSESSMENT AND PLAN: This is a 79-year-old female patient with past medical history of chronic obstructive pulmonary disease, not on home oxygen, history of hypertension, hyperlipidemia, was sent to [facility] after she was noted to have hypoxia with finger oximetry in mid 80s on room air at short-stay surgery, where she was supposed to undergo cystoscopy. The patient is now being admitted to [facility] due to acute respiratory failure related to chronic obstructive pulmonary disease exacerbation. 1. Mild acute hypoxic respiratory failure due to chronic obstructive pulmonary disease exacerbation. The patient will be admitted to medical floor, will be placed on low-dose IV steroids twice daily, antibiotics for possible bronchitis, cough medication. Continue oxygen support and gradually wean oxygen. We will encourage incentive spirometry, out of bed to chair. The patient will benefit from long acting steroid inhalers upon discharge. 2. Right-sided hydroureteronephrosis due to a soft tissue mass or debris in the right distal ureter. The patient needs cystoscopy. We will consult Urology, Dr. Bernardo. The patient's renal function seems to be at baseline. 3. History of chronic kidney disease stage 3/4. Follow renal function. 4. Hypomagnesemia. The patient received magnesium replacement in the emergency room. We will follow repeat magnesium level. 5. Hypertension. Continue home medication. 6. Deep vein thrombosis prophylaxis. We will use Lovenox subcu 40 mg daily. 7. History of diabetes mellitus. The patient will be placed on diabetic medication, on low-dose metformin at home, that will be continued. We will place the patient on insulin sliding scale. 8. Code status discussed with the patient and the patient wishes to be a full code. MD LAURA Huerta/JAMILAH / [id number]
--- NOTE | 2020-08-16 15:44 | PC.NURSE ---
Report given to Robyn in S3. Pt ready for transport.
[2020-08-16] MEDS: Enoxaparin Sodium 40 MG/0.4 ML SYRINGE SUBCUT (17:54)
[2020-08-16] MEDS: ALPRAZolam 0.5 MG TABLET PO (21:53)
[2020-08-16] MEDS: Gabapentin 100 MG CAPSULE PO (21:53)
[2020-08-16] MEDS: Amitriptyline HCl 10 MG TABLET 20 MG PO (21:53)
[2020-08-17] VITALS (9 sets, daily range): BP systolic 116–136; BP diastolic 54–72; PULSE 74–80; RESP 18–20; TEMP 36.2–36.9; O2SAT 89–99; BMI 32.3
[2020-08-17 06:22] LABS: Anion Gap 14 (12-20); Blood Urea Nitrogen 29 mg/dL (9-16); Calcium 9.2 mg/dL (8.4-10.2); Carbon Dioxide 31 mmol/L (22-29); Chloride 101 mmol/L (96-108); Creatinine Clr Calc Pharmacy 34.9; Estimated Glomerular Filt Rate 34; Glucose Random 246 mg/dL (60-115); Magnesium 2.2 mg/dL (1.6-2.6); Potassium 4.5 mmol/L (3.3-5.1); Sodium 141 mmol/L (135-145)
[2020-08-17] MEDS: Albuterol/Iprat 2.5/0.5MG 3 ML AMPUL.NEB INHALE ×3 (07:45→20:22)
[2020-08-17] MEDS: Gabapentin 100 MG CAPSULE PO ×2 (08:27→21:04)
[2020-08-17] MEDS: atenoloL 25 MG TABLET PO (08:27)
[2020-08-17] MEDS: Omeprazole 20 MG CAPSULE.DR 40 MG PO (08:27)
[2020-08-17] MEDS: dilTIAZem HCL CD 180 MG CAP.ER.24H PO (08:27)
[2020-08-17] MEDS: Furosemide 40 MG TABLET 80 MG PO (08:28)
--- NOTE | 2020-08-17 09:05 | MHC.CM.PN ---
pt lives c her , son and daughter in law. her daughter in law is an rn. pt reports that she is indpendent in her care. although she stays around the house much of the time. she does use a cane c ambulation and has no other medical equipment or svcs in the home. pt will have one of her family provide transportation at dc. pt denies the need for vna at dc. dc plan is home no svcs. cm to cont. to follow.
[2020-08-17] MEDS: Acetaminophen 325 MG TABLET 650 MG PO (09:40)
--- NOTE | 2020-08-17 13:34 | HO.PM.IMPN ---
Subjective Subjective Date of Service: 08/17/20 Interval History: Patient seen and examined at bedside Patient reported shortness of breath improving Review of Systems Constitutional : No Fever, No Chills ENT/Mouth : No sore throat, No Rhinorrhea, No Swallowing Difficulty Eyes: No Eye Pain, No Swelling, No Redness Cardiovascular : No Chest Pain, positive SOB, No Orthopnea, no Edema Respiratory : pos Cough, pos Sputum, No Wheezing, positive dyspnea Gastrointestinal : No Nausea, No Vomiting, No Diarrhea, No abdominal Pain, No Hematochezia, No Melena Genitourinary : No Dysuria, No Urinary Frequency, No Hematuria Musculoskeletal : No joint pain, No Myalgias Skin : No Skin Lesions, No rash Neuro : No Weakness, No Numbness, No Dizziness, No Headache Psych : No Anxiety/Panic, No Depression Heme/Lymph: No Bruising, No Lymphadenopathy Endocrine : No Polyuria, No Polydipsia All other systems reviewed and are negative Physical Exam Vital Signs: Vital Signs: Last Vital Signs Temp 97.5 F 08/17/20 11:45 Pulse 74 08/17/20 11:45 Resp 18 08/17/20 11:45 BP 127/54 L 08/17/20 11:45 Pulse Ox 93 08/17/20 11:45 Body Mass Index 32.3 Const: General: no acute distress Resp: Auscultation: wheezes Cardio: Jugular venous distension: no JVD Heart sounds: S1 normal heart sound present and S2 normal heart sound present GI: Inspection: Yes normal to inspection Objective Data Current Medications Generic Name Dose Route Start Last Admin Trade Name Freq PRN Reason Stop Dose Admin Acetaminophen 650 mg 08/16/20 14:09 08/17/20 09:40 Acetaminophen 325 Mg Tablet PO 650 mg Q6H PRN Administration PAIN Albuterol/Ipratropium 3 ml 08/16/20 20:00 08/17/20 07:45 Albuterol/Iprat 2.5/0.5mg 3 Ml Ampul.Neb INHALE 3 ml RQ6H WHILE AWAKE LISANDRA Administration Alprazolam 0.5 mg 08/16/20 21:00 08/16/20 21:53 Alprazolam 0.5 Mg Tablet PO 0.5 mg BEDTIME LISANDRA Administration Amitriptyline HCl 20 mg 08/16/20 21:00 08/16/20 21:53 Amitriptyline Hcl 10 Mg Tablet PO 20 mg BEDTIME LISANDRA Administration Atenolol 25 mg 08/17/20 09:00 08/17/20 08:27 Atenolol 25 Mg Tablet PO 25 mg DAILY LISANDRA Administration Protocol Diltiazem HCl 180 mg 08/17/20 09:00 08/17/20 08:27 Diltiazem Hcl Cd 180 Mg Cap.Er.24h PO 180 mg DAILY LISANDRA Administration Protocol Doxycycline Hyclate 100 mg 08/17/20 08:00 08/17/20 08:27 Doxycycline Hyclate 100 Mg Tablet PO 100 mg Q12H LISANDRA Administration Enoxaparin Sodium 40 mg 08/16/20 14:15 08/16/20 17:54 Enoxaparin Sodium 40 Mg/0.4 Ml Syringe SUBCUT 40 mg Q24H LISANDRA Administration Furosemide 80 mg 08/17/20 09:00 08/17/20 08:28 Furosemide 40 Mg Tablet PO 80 mg DAILY LISANDRA Administration Protocol Gabapentin 100 mg 08/16/20 21:00 08/17/20 08:27 Gabapentin 100 Mg Capsule PO 100 mg BID LISANDRA Administration Guaifenesin/Dextromethorphan 10 ml 08/16/20 14:15 Guaifenesin Dm 100/10/5 Ml 5 Ml Syrup PO Q6H PRN Cough Ipratropium [place] 2 puff 08/16/20 14:09 Ipratropium [place] 1 Puff/17 Mcg Inhaler INHALE QID PRN Shortness Of Breath Or Wheezing Lisinopril 5 mg 08/17/20 09:00 08/17/20 08:27 Lisinopril 5 Mg Tablet PO 5 mg DAILY LISANDRA Administration Protocol Methylprednisolone Sodium Succinate 40 mg 08/16/20 21:00 08/17/20 08:28 Methylprednisolone Sod Succ/Pf 40 Mg/Ml Vial IVPUSH 40 mg BID LISANDRA Administration Omeprazole 40 mg 08/17/20 09:00 08/17/20 08:27 Omeprazole 20 Mg Capsule.Dr PO 40 mg DAILY LISANDRA Administration Ondansetron HCl 4 mg 08/16/20 14:09 Ondansetron Hcl 4 Mg/2 Ml Vial IVPUSH Q8H PRN Nausea Pharmacy Consult 1 each 08/16/20 12:04 Consult Rx Perform Med Rec MISCELLANE ONCE PRN Consult order Potassium Chloride 10 meq 08/17/20 09:00 08/17/20 08:27 Potassium Chloride Er 10 Meq Capsule.Er PO 10 meq DAILY LISANDRA Administration Labs CBC & Chem 7: 08/16/20 10:23 08/17/20 05:27 Assessment and Plan (1) Hydronephrosis: Status: Acute (2) COPD with exacerbation: Status: Acute Assessment and Plan: 79-year-old female patient with past medical history of chronic obstructive pulmonary disease, not on home oxygen, history of hypertension, hyperlipidemia, was sent to [place] [facility] after she was noted to have hypoxia with finger oximetry in mid 80s on room air at short-stay surgery, where she was supposed to undergo cystoscopy. The patient is now being admitted to [facility] due to acute respiratory failure related to chronic obstructive pulmonary disease exacerbation. Acute hypoxic respiratory failure. secondary to COPD exacerbation continue oxygen supplementation continue nebulizer scheduled and as needed taper steroids Right-sided hydroureteronephrosis due to a soft tissue mass or debris in the right distal ureter plan for cystoscopy by Dr. Bernardo possibly tomorrow Will keep NPO from midnight History of chronic kidney disease stage 3/4. Follow renal function. Hypomagnesemia replaced monitor electrolytes Hypertension. Continue home medication. History of diabetes mellitus. Patient will be placed on diabetic medication, on low-dose metformin at home continue SSI monitor blood glucose Deep vein thrombosis prophylaxis. Lovenox subcu 40 mg daily.
[2020-08-17] MEDS: Butalb/Acetamin/Caff 50/325/40 TABLET 1 TAB PO (15:23)
[2020-08-17] MEDS: Enoxaparin Sodium 40 MG/0.4 ML SYRINGE SUBCUT (15:23)
[2020-08-17] MEDS: Amitriptyline HCl 10 MG TABLET 20 MG PO (21:04)
[2020-08-17] MEDS: ALPRAZolam 0.5 MG TABLET PO (21:04)
[2020-08-17] MEDS: guaiFENesin DM 100/10/5 ML 5 ML SYRUP 10 ML PO (21:12)
[2020-08-18] VITALS (22 sets, daily range): BP systolic 115–147; BP diastolic 50–71; PULSE 59–75; RESP 12–20; TEMP 35.9–37; O2SAT 93–98
[2020-08-18] MEDS: Albuterol/Iprat 2.5/0.5MG 3 ML AMPUL.NEB INHALE ×3 (07:24→19:50)
--- NOTE | 2020-08-18 07:38 | P.PNUR_ITS ---
Subjective Subjective Date of Service: 08/17/20 Patient reports: voiding w/o difficulty Interval history: Was here for right retrograde and stent found to be short of breath has stabilized Plan on procedure sunday Physical Exam Vital Signs: Vital Signs: Last Vital Signs Temp 97.7 F 08/18/20 07:24 Pulse 74 08/18/20 07:25 Resp 19 08/18/20 07:24 BP 142/71 H 08/18/20 07:24 Pulse Ox 93 08/18/20 07:24 Body Mass Index 32.3 Const: General: cooperative, healthy appearing, comfortable and no acute distress Orientation/consciousness: patient oriented x3 HENMT: Face and sinus: Yes normal facial exam Mouth: moist mucous membranes Neck: Neck: Yes normal visual inspection, Yes full ROM and Yes trachea midline Chest: Chest palpation & inspection: normal inspection of the chest Resp: Effort & Inspection: normal respiratory effort, able to speak in complete sentences and no respiratory distress GI: Inspection: Yes normal to inspection Rectal Exam - Female: normal sphincter tone Back/Spine/Pelvis: Cervical Spine: normal cervical lordosis Thoracic/Lumbar Spine: thoracic and lumbar spine normal to inspection Skin: General skin exam: no rashes or lesions noted Neuro: General: patient oriented x3, gait normal, tone normal and moves all extremities Extrem: General: Yes normal to inspection and Yes capillary refill normal Urology Results Labs CBC & Chem 7: 08/16/20 10:23 08/17/20 05:27 Progress Note: A&P Assessment and plan (1) Hydronephrosis: Status: Acute Assessment and Plan: plan for cysto, retrograde, ureteroscopy stent on the righty side Fall Risk Details Current Medications: Current Medications Generic Name Dose Route Start Last Admin Trade Name Freq PRN Reason Stop Dose Admin Acetaminophen 650 mg 08/16/20 14:09 08/17/20 09:40 Acetaminophen 325 Mg Tablet PO 650 mg Q6H PRN Administration PAIN Albuterol/Ipratropium 3 ml 08/16/20 20:00 08/18/20 07:24 Albuterol/Iprat 2.5/0.5mg 3 Ml Ampul.Neb INHALE 3 ml RQ6H WHILE AWAKE LISANDRA Administration Alprazolam 0.5 mg 08/16/20 21:00 08/17/20 21:04 Alprazolam 0.5 Mg Tablet PO 0.5 mg BEDTIME LISANDRA Administration Amitriptyline HCl 20 mg 08/16/20 21:00 08/17/20 21:04 Amitriptyline Hcl 10 Mg Tablet PO 20 mg BEDTIME LISANDRA Administration Atenolol 25 mg 08/17/20 09:00 08/17/20 08:27 Atenolol 25 Mg Tablet PO 25 mg DAILY LISANDRA Administration Protocol Diltiazem HCl 180 mg 08/17/20 09:00 08/17/20 08:27 Diltiazem Hcl Cd 180 Mg Cap.Er.24h PO 180 mg DAILY LISANDRA Administration Protocol Doxycycline Hyclate 100 mg 08/17/20 08:00 08/17/20 21:04 Doxycycline Hyclate 100 Mg Tablet PO 100 mg Q12H LISANDRA Administration Enoxaparin Sodium 40 mg 08/16/20 14:15 08/17/20 15:23 Enoxaparin Sodium 40 Mg/0.4 Ml Syringe SUBCUT 40 mg Q24H LISANDRA Administration Furosemide 80 mg 08/17/20 09:00 08/17/20 08:28 Furosemide 40 Mg Tablet PO 80 mg DAILY LISANDRA Administration Protocol Gabapentin 100 mg 08/16/20 21:00 08/17/20 21:04 Gabapentin 100 Mg Capsule PO 100 mg BID LISANDRA Administration Guaifenesin/Dextromethorphan 10 ml 08/16/20 14:15 08/17/20 21:12 Guaifenesin Dm 100/10/5 Ml 5 Ml Syrup PO 10 ml Q6H PRN Administration Cough Ipratropium [place] 2 puff 08/16/20 14:09 Ipratropium [place] 1 Puff/17 Mcg Inhaler INHALE QID PRN Shortness Of Breath Or Wheezing Levofloxacin 500 mg 08/18/20 07:35 Levofloxacin 500 Mg Tablet PO 08/18/20 07:36 ONCE ONE Lisinopril 5 mg 08/17/20 09:00 08/17/20 08:27 Lisinopril 5 Mg Tablet PO 5 mg DAILY LISANDRA Administration Protocol Methylprednisolone Sodium Succinate 40 mg 08/16/20 21:00 08/17/20 21:06 Methylprednisolone Sod Succ/Pf 40 Mg/Ml Vial IVPUSH 40 mg BID LISANDRA Administration Omeprazole 40 mg 08/17/20 09:00 08/17/20 08:27 Omeprazole 20 Mg Capsule.Dr PO 40 mg DAILY LISANDRA Administration Ondansetron HCl 4 mg 08/16/20 14:09 Ondansetron Hcl 4 Mg/2 Ml Vial IVPUSH Q8H PRN Nausea Pharmacy Consult 1 each 08/16/20 12:04 Consult Rx Perform Med Rec MISCELLANE ONCE PRN Consult order Potassium Chloride 10 meq 08/17/20 09:00 08/17/20 08:27 Potassium Chloride Er 10 Meq Capsule.Er PO 10 meq DAILY LISANDRA Administration Time Spent With Patient Time: Total time spent is greater than 50% in coordination of care (as documented) at patient's floor/unit and/or counseling patient: Time with patient: less than 15 minutes
[2020-08-18] MEDS: Omeprazole 20 MG CAPSULE.DR 40 MG PO (08:11)
[2020-08-18] MEDS: dilTIAZem HCL CD 180 MG CAP.ER.24H PO (08:11)
[2020-08-18] MEDS: Gabapentin 100 MG CAPSULE PO ×2 (08:12→20:44)
[2020-08-18] MEDS: atenoloL 25 MG TABLET PO (08:12)
[2020-08-18] MEDS: Furosemide 40 MG TABLET 80 MG PO (08:12)
[2020-08-18] MEDS: levoFLOXacin 500 MG TABLET PO (08:20)
[2020-08-18 10:55] LABS: Glucose, Whole Blood 230 mg/dL (60-115)
--- NOTE | 2020-08-18 12:10 | MHC.SHP ---
Pre-Procedural Eval Section A The patient is an INPATIENT: Yes Changes since office visit: No Cold of Flu in the past 2 weeks, No New Medical Problems, No Changes in Medication and No Patient answered all questions The History & Physical has been completed within 30 days and I have reviewed it.: Yes Section B Chief Complaint: ACUTE HYPOXIC RESPIRATORY FAILURE Allergies: Allergies Allergy/AdvReac Type Severity Reaction Status Date / Time Sulfa (Sulfonamide Allergy Severe Anaphylaxis Verified 08/16/20 13:56 Antibiotics) sulfamethoxazole Allergy Severe ANAPHYLAXIS Verified 08/16/20 13:56 [From BACTRIM] influenza virus vaccine, Allergy Intermediate ARTHRITIC Verified 08/16/20 13:56 specific EFFECTS [FLU VACCINE] nitrofurantoin AdvReac Mild GI UPSET Verified 08/16/20 13:56 [From MACRODANTIN] oxycodone [From PERCOCET] AdvReac Mild GI UPSET Verified 08/16/20 13:56 Plan Diagnosis/Plan: Unchanged I have reviewed the history and physical and performed a pertinent physical examination on my patient. No changes have occurred unless specified. cysto, right retro, USR, stent
--- NOTE | 2020-08-18 12:49 | P.BOP_ITS ---
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 Cystoscopy with right retrograde 2. Resection of right distal ureteric orifice and intramural portion of ureter with tumor - TURBT large 3. Right stent placement Implants: Right 6 Ethiopian by 22 cm double-J ureteric stent Sixteen Ethiopian Cee catheter Surgeon: Terence Bernardo MD Anesthesia: GLMA Estimated blood loss (mL): 0 Pathology: other (Ureteric tumor) Condition: stable Disposition: same day
--- NOTE | 2020-08-18 12:52 | P.OP_ITS ---
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 Cystoscopy and right retrograde 2. TURBT large of a circumferential frondular tumor from bladder base through intramural wall of bladder 3. Right stent placement Surgeon: Dr Terence Bernardo Anesthesia: General Indications for procedure: 79-year-old female. Known smoker. Had presented with hematuria. On evaluation had right moderate to severe hydronephrosis and question of filling defect distal right ureter. Presented for initial cystoscopy with ureteroscopy and biopsy. Understood risks and benefits. Procedure: After informed consent was verified the patient was brought to the operating room and placed in a supine position. Anesthesia was administered per protocol. Patient was placed in modified dorsal lithotomy position and prepped and draped in a sterile fashion. Safety pause was observed. Antibiotics being given. Twenty-two Tongan cystoscope was inserted per urethra. Frontal tumor was visible extruding from the right ureteric orifice. There was distortion of segment of right ureter within the bladder wall. This was enlarged significantly compared to the left side. Retrograde examination performed showing severe right hydronephrosis and filling defect in the distal portion of the right ureter. This consistent with the tumor lining the ureter through the intramural segment of the ureter. Sensor guidewire was placed. A an open-ended catheter was placed. Resectoscope was used to cut down on the open-ended catheter. We resected back up through the bladder and this segment until there was no more frondular tumor. We then had to carry our resection around the circumference of the ureter in the intramural segment portion which all had superficial cancer. Bleeding areas were controlled. The hydronephrosis was so severe that a resectoscope without be placed up into the distal portion of the ureter without difficulty. The resection was taken back to fat on the intramural bladder segment. A total greater than 5 cm. At the completion of resection bladder tumor sent for pathology. There were no other lesions seen within the bladder. A 6 Tongan by 22 cm double-J stent was placed as well as a 16 Tongan Cee catheter. Catheter remained for 2 weeks and stent will remain for 6 weeks. She tolerated procedure well was extubated in the operating room and transferred in stable condition to the recovery area. Pathology: Bladder tumor within right distal ureter office Drains: Six Tongan by 22 cm double-J catheter. Sixteen Tongan Cee catheter.
[2020-08-18] MEDS: fentaNYL citrate/PF 100 MCG/2 ML VIAL 25 MCG IVPUSH ×4 (13:20→13:35)
--- NOTE | 2020-08-18 13:23 | HO.PM.IMPN ---
Subjective Subjective Date of Service: 08/18/20 Interval History: Patient seen and examined at bedside Patient reported shortness of breath improving Review of Systems Constitutional : No Fever, No Chills ENT/Mouth : No sore throat, No Rhinorrhea, No Swallowing Difficulty Eyes: No Eye Pain, No Swelling, No Redness Cardiovascular : No Chest Pain, positive SOB, No Orthopnea, no Edema Respiratory : pos Cough, pos Sputum, No Wheezing, positive dyspnea Gastrointestinal : No Nausea, No Vomiting, No Diarrhea, No abdominal Pain, No Hematochezia, No Melena Genitourinary : No Dysuria, No Urinary Frequency, No Hematuria Musculoskeletal : No joint pain, No Myalgias Skin : No Skin Lesions, No rash Neuro : No Weakness, No Numbness, No Dizziness, No Headache Psych : No Anxiety/Panic, No Depression Heme/Lymph: No Bruising, No Lymphadenopathy Endocrine : No Polyuria, No Polydipsia All other systems reviewed and are negative Physical Exam Vital Signs: Vital Signs: Last Vital Signs Temp 97.1 F 08/18/20 13:00 Pulse 64 08/18/20 13:00 Resp 12 08/18/20 13:00 BP 133/59 L 08/18/20 13:00 Pulse Ox 97 08/18/20 13:00 Body Mass Index 32.3 Const: General: no acute distress Resp: Auscultation: wheezes Cardio: Jugular venous distension: no JVD Heart sounds: S1 normal heart sound present and S2 normal heart sound present GI: Inspection: Yes normal to inspection Objective Data Current Medications Generic Name Dose Route Start Last Admin Trade Name Freq PRN Reason Stop Dose Admin Acetaminophen 650 mg 08/16/20 14:09 08/17/20 09:40 Acetaminophen 325 Mg Tablet PO 650 mg Q6H PRN Administration PAIN Albuterol/Ipratropium 3 ml 08/16/20 20:00 08/18/20 07:24 Albuterol/Iprat 2.5/0.5mg 3 Ml Ampul.Neb INHALE 3 ml RQ6H WHILE AWAKE LISANDRA Administration Alprazolam 0.5 mg 08/16/20 21:00 08/17/20 21:04 Alprazolam 0.5 Mg Tablet PO 0.5 mg BEDTIME LISANDRA Administration Amitriptyline HCl 20 mg 08/16/20 21:00 08/17/20 21:04 Amitriptyline Hcl 10 Mg Tablet PO 20 mg BEDTIME ILSANDRA Administration Atenolol 25 mg 08/17/20 09:00 08/18/20 08:12 Atenolol 25 Mg Tablet PO 25 mg DAILY LISANDRA Administration Protocol Belladonna Alkaloids/Opium 1 supp 08/18/20 12:58 08/18/20 13:12 Opium/Belladonna 60/16.2 Supp.Rect PA 1 supp DAILY PRN Administration Pain, Mild (Pain Scale 1-3) Diltiazem HCl 180 mg 08/17/20 09:00 08/18/20 08:11 Diltiazem Hcl Cd 180 Mg Cap.Er.24h PO 180 mg DAILY LISANDRA Administration Protocol Doxycycline Hyclate 100 mg 08/17/20 08:00 08/18/20 07:38 Doxycycline Hyclate 100 Mg Tablet PO 100 mg Q12H LISANDRA Administration Enoxaparin Sodium 40 mg 08/16/20 14:15 08/17/20 15:23 Enoxaparin Sodium 40 Mg/0.4 Ml Syringe SUBCUT 40 mg Q24H LISANDRA Administration Furosemide 80 mg 08/17/20 09:00 08/18/20 08:12 Furosemide 40 Mg Tablet PO 80 mg DAILY LISANDRA Administration Protocol Gabapentin 100 mg 08/16/20 21:00 08/18/20 08:12 Gabapentin 100 Mg Capsule PO 100 mg BID LISANDRA Administration Guaifenesin/Dextromethorphan 10 ml 08/16/20 14:15 08/17/20 21:12 Guaifenesin Dm 100/10/5 Ml 5 Ml Syrup PO 10 ml Q6H PRN Administration Cough Ipratropium [place] 2 puff 08/16/20 14:09 Ipratropium [place] 1 Puff/17 Mcg Inhaler INHALE QID PRN Shortness Of Breath Or Wheezing Lisinopril 5 mg 08/17/20 09:00 08/18/20 08:12 Lisinopril 5 Mg Tablet PO 5 mg DAILY LISANDRA Administration Protocol Methylprednisolone Sodium Succinate 40 mg 08/16/20 21:00 08/18/20 08:11 Methylprednisolone Sod Succ/Pf 40 Mg/Ml Vial IVPUSH 40 mg BID LISANDRA Administration Omeprazole 40 mg 08/17/20 09:00 08/18/20 08:11 Omeprazole 20 Mg Capsule.Dr PO 40 mg DAILY LISANDRA Administration Ondansetron HCl 4 mg 08/16/20 14:09 Ondansetron Hcl 4 Mg/2 Ml Vial IVPUSH Q8H PRN Nausea Pharmacy Consult 1 each 08/16/20 12:04 Consult Rx Perform Med Rec MISCELLANE ONCE PRN Consult order Potassium Chloride 10 meq 08/17/20 09:00 08/18/20 08:12 Potassium Chloride Er 10 Meq Capsule.Er PO 10 meq DAILY LISANDRA Administration Labs CBC & Chem 7: 08/16/20 10:23 08/17/20 05:27 Assessment and Plan (1) Hydronephrosis: Status: Acute (2) COPD with exacerbation: Status: Acute Assessment and Plan: 79-year-old female patient with past medical history of chronic obstructive pulmonary disease, not on home oxygen, history of hypertension, hyperlipidemia, was sent to [place] [facility] after she was noted to have hypoxia with finger oximetry in mid 80s on room air at short-stay surgery, where she was supposed to undergo cystoscopy. The patient is now being admitted to [facility] due to acute respiratory failure related to chronic obstructive pulmonary disease exacerbation. Acute hypoxic respiratory failure. secondary to COPD exacerbation IMPROVING continue oxygen supplementation continue nebulizer scheduled and as needed taper steroids Right-sided hydroureteronephrosis due to a soft tissue mass or debris in the right distal ureter plan for cystoscopy by Dr. Bernardo todaY History of chronic kidney disease stage 3/4. Follow renal function. Hypomagnesemia replaced monitor electrolytes Hypertension. Continue home medication. History of diabetes mellitus. Patient will be placed on diabetic medication, on low-dose metformin at home continue SSI monitor blood glucose Deep vein thrombosis prophylaxis. Lovenox subcu 40 mg daily.
[2020-08-18] MEDS: Acetaminophen 325 MG TABLET 650 MG PO ×2 (13:43→20:43)
[2020-08-18] MEDS: Morphine Sulfate 2 MG/ML CARTRIDGE IVPUSH (13:55)
[2020-08-18] MEDS: guaiFENesin DM 100/10/5 ML 5 ML SYRUP 10 ML PO (19:19)
[2020-08-18] MEDS: Amitriptyline HCl 10 MG TABLET 20 MG PO (20:43)
[2020-08-18] MEDS: ALPRAZolam 0.5 MG TABLET PO (20:44)
[2020-08-19 07:36] VITALS: BP 149/73; PULSE 80; RESP 18; TEMP 36.6; O2SAT 93
[2020-08-19] MEDS: Omeprazole 20 MG CAPSULE.DR 40 MG PO (08:12)
[2020-08-19] MEDS: Furosemide 40 MG TABLET 80 MG PO (08:12)
[2020-08-19] MEDS: Gabapentin 100 MG CAPSULE PO ×2 (08:13→22:08)
[2020-08-19] MEDS: dilTIAZem HCL CD 180 MG CAP.ER.24H PO (08:13)
[2020-08-19] MEDS: atenoloL 25 MG TABLET PO (08:13)
[2020-08-19] MEDS: Albuterol/Iprat 2.5/0.5MG 3 ML AMPUL.NEB INHALE ×3 (08:20→21:04)
[2020-08-19 08:21] VITALS: PULSE 69; O2SAT 92
[2020-08-19 08:22] LABS: Basophils Percent Auto 0.1 % (0-2); Hematocrit 32.9 % (37-47); Hemoglobin 10.6 g/dl (12.0-16.0); Imm Gran Abs Auto 0.09 X10*3/uL (0.00-0.03); Imm Gran Pct Auto 0.9 % (0.0-0.4); Lymphocytes Absolute Auto 0.4 X10*3/uL (1.2-4.9); Lymphocytes Percent Auto 3.7 % (20-40); MANUAL DIFF FLAG SCAN; Mean Corpuscular HGB Conc 32.2 g/dl (31.0-35.0); Mean Corpuscular Hemoglobin 30.2 pg (27.0-33.0); Mean Corpuscular Volume 93.7 fL (80-98); Mean Platelet Volume 10.9 fL (9.4-12.3); Monocytes Absolute Auto 0.5 X10*3/uL (0.1-1.2); Monocytes Percent Auto 4.9 % (2-11); Neutrophils Absolute Auto 8.7 X10*3/uL (2.0-8.3); Neutrophils Percent Auto 90.4 % (45-73); Platelet Count 213 X10*3/uL (160-400); Red Blood Count 3.51 X10*6/uL (4.20-5.50); Red Cell Distribution Width 12.7 % (11.0-16.0); SCAN SMEAR FLAG 1; White Blood Count 9.6 X10*3/uL (4.8-10.8)
[2020-08-19 09:00] LABS: Anion Gap 17 (12-20); Blood Urea Nitrogen 54 mg/dL (9-16); Calcium 9.6 mg/dL (8.4-10.2); Carbon Dioxide 29 mmol/L (22-29); Chloride 94 mmol/L (96-108); Creatinine Clr Calc Pharmacy 24.8; Estimated Glomerular Filt Rate 23; Glucose Random 307 mg/dL (60-115); Potassium 4.3 mmol/L (3.3-5.1); Sodium 136 mmol/L (135-145)
[2020-08-19 09:26] LABS: SLIDE REVIEW VERIFIED
--- NOTE | 2020-08-19 11:48 | P.PNIM_ITS ---
Subjective Subjective Date of Service: 08/19/20 Interval History: Patient seen and examined at bedside Patient reported shortness of breath improving Has cystoscopy with removal of bladder tumor he yesterday Reporting hematuria Review of Systems Constitutional : No Fever, No Chills ENT/Mouth : No sore throat, No Rhinorrhea, No Swallowing Difficulty Eyes: No Eye Pain, No Swelling, No Redness Cardiovascular : No Chest Pain, positive SOB, No Orthopnea, no Edema Respiratory : pos Cough, pos Sputum, No Wheezing, positive dyspnea Gastrointestinal : No Nausea, No Vomiting, No Diarrhea, No abdominal Pain, No Hematochezia, No Melena Genitourinary : No Dysuria, No Urinary Frequency, Hematuria Musculoskeletal : No joint pain, No Myalgias Skin : No Skin Lesions, No rash Neuro : No Weakness, No Numbness, No Dizziness, No Headache Psych : No Anxiety/Panic, No Depression Heme/Lymph: No Bruising, No Lymphadenopathy Endocrine : No Polyuria, No Polydipsia All other systems reviewed and are negative Physical Exam Vital Signs: Vital Signs: Last Vital Signs Temp 97.8 F 08/19/20 07:36 Pulse 69 08/19/20 08:21 Resp 18 08/19/20 07:36 BP 149/73 H 08/19/20 07:36 Pulse Ox 93 08/19/20 07:36 Body Mass Index 32.3 Const: General: no acute distress Resp: Auscultation: wheezes Cardio: Jugular venous distension: no JVD Heart sounds: S1 normal heart sound present and S2 normal heart sound present GI: Inspection: Yes normal to inspection Objective Data Current Medications Generic Name Dose Route Start Last Admin Trade Name Rakanq PRN Reason Stop Dose Admin Acetaminophen 650 mg 08/16/20 14:09 08/18/20 20:43 Acetaminophen 325 Mg Tablet PO 650 mg Q6H PRN Administration PAIN Albuterol/Ipratropium 3 ml 08/16/20 20:00 08/19/20 08:20 Albuterol/Iprat 2.5/0.5mg 3 Ml Ampul.Neb INHALE 3 ml RQ6H WHILE AWAKE LISANDRA Administration Alprazolam 0.5 mg 08/16/20 21:00 08/18/20 20:44 Alprazolam 0.5 Mg Tablet PO 0.5 mg BEDTIME LISANDRA Administration Amitriptyline HCl 20 mg 08/16/20 21:00 08/18/20 20:43 Amitriptyline Hcl 10 Mg Tablet PO 20 mg BEDTIME LISANDRA Administration Atenolol 25 mg 08/17/20 09:00 08/19/20 08:13 Atenolol 25 Mg Tablet PO 25 mg DAILY LISANDRA Administration Protocol Belladonna Alkaloids/Opium 1 supp 08/18/20 12:58 08/18/20 13:12 Opium/Belladonna 60/16.2 Supp.Rect [place] 1 supp DAILY PRN Administration Pain, Mild (Pain Scale 1-3) Diltiazem HCl 180 mg 08/17/20 09:00 08/19/20 08:13 Diltiazem Hcl Cd 180 Mg Cap.Er.24h PO 180 mg DAILY LISANDRA Administration Protocol Doxycycline Hyclate 100 mg 08/17/20 08:00 08/19/20 08:13 Doxycycline Hyclate 100 Mg Tablet PO 100 mg Q12H LISANDRA Administration Enoxaparin Sodium 40 mg 08/16/20 14:15 08/18/20 15:18 Enoxaparin Sodium 40 Mg/0.4 Ml Syringe SUBCUT Not Given Q24H COUNTS INCLUDE 234 BEDS AT THE [facility] Furosemide 80 mg 08/17/20 09:00 08/19/20 08:12 Furosemide 40 Mg Tablet PO 80 mg DAILY LISANDRA Administration Protocol Gabapentin 100 mg 08/16/20 21:00 08/19/20 08:13 Gabapentin 100 Mg Capsule PO 100 mg BID COUNTS INCLUDE 234 BEDS AT THE [facility] Administration Guaifenesin/Dextromethorphan 10 ml 08/16/20 14:15 08/18/20 19:19 Guaifenesin Dm 100/10/5 Ml 5 Ml Syrup PO 10 ml Q6H PRN Administration Cough Ipratropium [place] 2 puff 08/16/20 14:09 Ipratropium [place] 1 Puff/17 Mcg Inhaler INHALE QID PRN Shortness Of Breath Or Wheezing Lisinopril 5 mg 08/17/20 09:00 08/19/20 08:13 Lisinopril 5 Mg Tablet PO 5 mg DAILY COUNTS INCLUDE 234 BEDS AT THE [facility] Administration Protocol Methylprednisolone Sodium Succinate 40 mg 08/16/20 21:00 08/19/20 08:13 Methylprednisolone Sod Succ/Pf 40 Mg/Ml Vial IVPUSH 40 mg BID LISANDRA Administration Morphine Sulfate 2 mg 08/18/20 14:15 08/18/20 13:55 Morphine Sulfate 2 Mg/Ml Cartridge IVPUSH 2 mg ONCE PRN Administration Pain, Moderate (Pain Scale 4-6 Omeprazole 40 mg 08/17/20 09:00 08/19/20 08:12 Omeprazole 20 Mg Capsule.Dr PO 40 mg DAILY LISANDRA Administration Ondansetron HCl 4 mg 08/16/20 14:09 Ondansetron Hcl 4 Mg/2 Ml Vial IVPUSH Q8H PRN Nausea Pharmacy Consult 1 each 08/16/20 12:04 Consult Rx Perform Med Rec MISCELLANE ONCE PRN Consult order Potassium Chloride 10 meq 08/17/20 09:00 08/19/20 08:13 Potassium Chloride Er 10 Meq Capsule.Er PO 10 meq DAILY LISANDRA Administration Labs CBC & Chem 7: 08/19/20 08:09 08/19/20 08:09 Assessment and Plan (1) Hydronephrosis: Status: Acute (2) COPD with exacerbation: Status: Acute Assessment and Plan: 79-year-old female patient with past medical history of chronic obstructive pulmonary disease, not on home oxygen, history of hypertension, hyperlipidemia, was sent to [place] [facility] after she was noted to have hypoxia with finger oximetry in mid 80s on room air at short-stay surgery, where she was supposed to undergo cystoscopy. The patient is now being admitted to [facility] due to acute respiratory failure related to chronic obstructive pulmonary disease exacerbation. 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 secondary to COPD exacerbation improving continue oxygen supplementation continue nebulizer scheduled and as needed taper steroids Hypomagnesemia replaced monitor electrolytes Hypertension. Continue home medication. History of diabetes mellitus. continue SSI monitor blood glucose Deep vein thrombosis prophylaxis. Hold Lovenox given hematuria post procedure , will place on Venodyne boot
--- NOTE | 2020-08-19 13:37 | P.PNUR_ITS ---
Subjective Subjective Date of Service: 08/19/20 Interval history: Seen today Urine is clear Creatinine slight elevation Likely due to absorption from bladder Underwent significant resection with exposure of extravesical fat which may have absorbed urine does increasing creatinine Is will well without significant pain From Urology perspective can be discharged home with Cee catheter. Would be seen in 2 weeks with lab work. Physical Exam Vital Signs: Vital Signs: Last Vital Signs Temp 97.8 F 08/19/20 07:36 Pulse 69 08/19/20 08:21 Resp 18 08/19/20 07:36 BP 149/73 H 08/19/20 07:36 Pulse Ox 93 08/19/20 07:36 Body Mass Index 32.3 Const: General: cooperative, healthy appearing, comfortable and no acute distress Nutritional Appearance: average body habitus Orientation/consciousness: oriented to person, oriented to place and oriented to time Eyes: General: appearance normal, both eyes and all related structures Chest: Chest palpation & inspection: normal inspection of the chest Resp: Effort & Inspection: normal respiratory effort Cardio: Rate: regular rate GI: Inspection: Yes normal to inspection Skin: Hair: normal Neuro: General: oriented to person, oriented to place and oriented to time Extrem: General: Yes normal to inspection Urology Results Labs CBC & Chem 7: 08/19/20 08:09 08/19/20 08:09 Labs: Laboratory Results - last 24 hr 08/19/20 08/19/20 08:09 08:09 WBC 9.6 RBC 3.51 L Hgb 10.6 L Hct 32.9 L MCV 93.7 MCH 30.2 MCHC 32.2 RDW 12.7 Plt Count 213 D MPV 10.9 Immature Gran % (Auto) 0.9 H Neut % (Auto) 90.4 H Lymph % (Auto) 3.7 L [place] % (Auto) 4.9 Eos % (Auto) 0.0 Baso % (Auto) 0.1 Lymph # (Auto) 0.4 L [place] # (Auto) 0.5 Eos # (Auto) 0.0 Baso # (Auto) 0.0 Abs Immat Gran (auto) 0.09 H Absolute Neuts (auto) 8.7 H Absolute Nucleated RBC 0.000 Nucleated RBC % (auto) 0.0 Smear Tech's Comments VERIFIED Sodium 136 Potassium 4.3 Chloride 94 L Carbon Dioxide 29 Anion Gap 17 BUN 54 H D Creatinine 2.08 H Estim Creat Clear Calc 24.8 Estimated GFR 23 Random Glucose 307 H Calcium 9.6 Progress Note: A&P Assessment and plan (1) Hydronephrosis: Status: Acute Assessment and Plan: Can discharge home with Cee catheter See urology in 2 weeks Fall Risk Details Current Medications: Current Medications Generic Name Dose Route Start Last Admin Trade Name Freq PRN Reason Stop Dose Admin Acetaminophen 650 mg 08/16/20 14:09 08/18/20 20:43 Acetaminophen 325 Mg Tablet PO 650 mg Q6H PRN Administration PAIN Albuterol/Ipratropium 3 ml 08/16/20 20:00 08/19/20 08:20 Albuterol/Iprat 2.5/0.5mg 3 Ml Ampul.Neb INHALE 3 ml RQ6H WHILE AWAKE LISANDRA Administration Alprazolam 0.5 mg 08/16/20 21:00 08/18/20 20:44 Alprazolam 0.5 Mg Tablet PO 0.5 mg BEDTIME LISANDRA Administration Amitriptyline HCl 20 mg 08/16/20 21:00 08/18/20 20:43 Amitriptyline Hcl 10 Mg Tablet PO 20 mg BEDTIME LISANDRA Administration Atenolol 25 mg 08/17/20 09:00 08/19/20 08:13 Atenolol 25 Mg Tablet PO 25 mg DAILY LISANDRA Administration Protocol Belladonna Alkaloids/Opium 1 supp 08/18/20 12:58 08/18/20 13:12 Opium/Belladonna 60/16.2 Supp.Rect [place] 1 supp DAILY PRN Administration Pain, Mild (Pain Scale 1-3) Diltiazem HCl 180 mg 08/17/20 09:00 08/19/20 08:13 Diltiazem Hcl Cd 180 Mg Cap.Er.24h PO 180 mg DAILY LISANDRA Administration Protocol Doxycycline Hyclate 100 mg 08/17/20 08:00 08/19/20 08:13 Doxycycline Hyclate 100 Mg Tablet PO 100 mg Q12H LISANDRA Administration Furosemide 80 mg 08/17/20 09:00 08/19/20 08:12 Furosemide 40 Mg Tablet PO 80 mg DAILY LISANDRA Administration Protocol Gabapentin 100 mg 08/16/20 21:00 08/19/20 08:13 Gabapentin 100 Mg Capsule PO 100 mg BID LISANDRA Administration Guaifenesin/Dextromethorphan 10 ml 08/16/20 14:15 08/18/20 19:19 Guaifenesin Dm 100/10/5 Ml 5 Ml Syrup PO 10 ml Q6H PRN Administration Cough Ipratropium [place] 2 puff 08/16/20 14:09 Ipratropium [place] 1 Puff/17 Mcg Inhaler INHALE QID PRN Shortness Of Breath Or Wheezing Methylprednisolone Sodium Succinate 40 mg 08/16/20 21:00 08/19/20 08:13 Methylprednisolone Sod Succ/Pf 40 Mg/Ml Vial IVPUSH 40 mg BID LISANDRA Administration Morphine Sulfate 2 mg 08/18/20 14:15 08/18/20 13:55 Morphine Sulfate 2 Mg/Ml Cartridge IVPUSH 2 mg ONCE PRN Administration Pain, Moderate (Pain Scale 4-6 Omeprazole 40 mg 08/17/20 09:00 08/19/20 08:12 Omeprazole 20 Mg Capsule. PO 40 mg DAILY LISANDRA Administration Ondansetron HCl 4 mg 08/16/20 14:09 Ondansetron Hcl 4 Mg/2 Ml Vial IVPUSH Q8H PRN Nausea Pharmacy Consult 1 each 08/16/20 12:04 Consult Rx Perform Med Rec MISCELLANE ONCE PRN Consult order Potassium Chloride 10 meq 08/17/20 09:00 08/19/20 08:13 Potassium Chloride Er 10 Meq Capsule.Er PO 10 meq DAILY LISANDRA Administration Time Spent With Patient Time: Total time spent is greater than 50% in coordination of care (as documented) at patient's floor/unit and/or counseling patient: Time with patient: less than 15 minutes
[2020-08-19] MEDS: Acetaminophen 325 MG TABLET 650 MG PO ×2 (13:44→20:14)
[2020-08-19 15:27] VITALS: BP 119/50; PULSE 64; RESP 16; TEMP 35.8; O2SAT 92
[2020-08-19 15:40] VITALS: PULSE 71; O2SAT 90
--- NOTE | 2020-08-19 16:35 | HO.POSTANES ---
Post Anesthesia Evaluation Post Anesthesia Evaluation Vital Signs: Vital Signs Temp Pulse Resp BP Pulse Ox 08/19/20 15:40 71 08/19/20 15:27 96.5 F L 64 16 119/50 L 92 08/19/20 08:21 69 08/19/20 07:36 97.8 F 80 18 149/73 H 93 Anesthesia: General Mental Status: Awake Pain Control: Satisfactory Nausea/Vomiting: None Hydration: Adequate Anesthesia-Related Issues: No Anes. Related Issues
[2020-08-19 21:04] VITALS: PULSE 71; O2SAT 885
[2020-08-19] MEDS: Amitriptyline HCl 10 MG TABLET 20 MG PO (22:07)
[2020-08-19] MEDS: ALPRAZolam 0.5 MG TABLET PO (22:08)
[2020-08-19 23:15] VITALS: BP 110/47; PULSE 76; RESP 18; TEMP 36.1; O2SAT 93
[2020-08-20] VITALS (8 sets, daily range): BP systolic 116–137; BP diastolic 51–53; PULSE 72–84; RESP 16–18; TEMP 36.3–37.2; O2SAT 92–97
[2020-08-20 06:40] LABS: Basophils Percent Auto 0.2 % (0-2); Hematocrit 31.4 % (37-47); Imm Gran Abs Auto 0.08 X10*3/uL (0.00-0.03); Imm Gran Pct Auto 1.3 % (0.0-0.4); Lymphocytes Absolute Auto 0.3 X10*3/uL (1.2-4.9); Lymphocytes Percent Auto 5.3 % (20-40); MANUAL DIFF FLAG SCAN; Mean Corpuscular HGB Conc 31.8 g/dl (31.0-35.0); Mean Corpuscular Hemoglobin 29.6 pg (27.0-33.0); Mean Corpuscular Volume 92.9 fL (80-98); Mean Platelet Volume 11.4 fL (9.4-12.3); Monocytes Absolute Auto 0.3 X10*3/uL (0.1-1.2); Monocytes Percent Auto 5.3 % (2-11); Neutrophils Absolute Auto 5.6 X10*3/uL (2.0-8.3); Neutrophils Percent Auto 87.9 % (45-73); Platelet Count 175 X10*3/uL (160-400); Red Blood Count 3.38 X10*6/uL (4.20-5.50); Red Cell Distribution Width 12.5 % (11.0-16.0); SCAN SMEAR FLAG 1; White Blood Count 6.4 X10*3/uL (4.8-10.8)
[2020-08-20 07:04] LABS: Anion Gap 18 (12-20); Blood Urea Nitrogen 66 mg/dL (9-16); Calcium 9.2 mg/dL (8.4-10.2); Carbon Dioxide 28 mmol/L (22-29); Chloride 96 mmol/L (96-108); Creatinine Clr Calc Pharmacy 24.4; Estimated Glomerular Filt Rate 22; Glucose Random 422 mg/dL (60-115); Potassium 4.8 mmol/L (3.3-5.1); Sodium 137 mmol/L (135-145)
[2020-08-20 07:23] LABS: SLIDE REVIEW VERIFIED
[2020-08-20] MEDS: Albuterol/Iprat 2.5/0.5MG 3 ML AMPUL.NEB INHALE ×3 (07:25→19:27)
[2020-08-20 08:06] LABS: Glucose, Whole Blood 355 mg/dL (60-115)
--- NOTE | 2020-08-20 08:22 | PC.NURSE ---
Patient random blood glucose 422, Dr. Morrow made aware, no new orders at this time.
[2020-08-20] MEDS: dilTIAZem HCL CD 180 MG CAP.ER.24H PO (09:07)
[2020-08-20] MEDS: Furosemide 40 MG TABLET 80 MG PO (09:08)
[2020-08-20] MEDS: atenoloL 25 MG TABLET PO (09:08)
[2020-08-20] MEDS: Gabapentin 100 MG CAPSULE PO ×2 (09:08→20:31)
[2020-08-20] MEDS: Omeprazole 20 MG CAPSULE.DR 40 MG PO (09:08)
[2020-08-20] MEDS: Acetaminophen 325 MG TABLET 650 MG PO ×2 (09:09→16:06)
[2020-08-20] MEDS: Insulin Lispro 100 UNIT/ML 3 ML VIAL SUBCUT ×4 (11:32→20:57)
[2020-08-20 11:37] LABS: Glucose, Whole Blood 482 mg/dL (60-115)
[2020-08-20 12:26] LABS: Glucose, Whole Blood 466 mg/dL (60-115)
--- NOTE | 2020-08-20 12:56 | HO.PM.IMPN ---
Subjective Subjective Date of Service: 08/20/20 Interval History: Patient seen and examined at bedside Patient reported shortness of breath improving Hematuria clearing up Review of Systems Constitutional : No Fever, No Chills ENT/Mouth : No sore throat, No Rhinorrhea, No Swallowing Difficulty Eyes: No Eye Pain, No Swelling, No Redness Cardiovascular : No Chest Pain, positive SOB, No Orthopnea, no Edema Respiratory : pos Cough, pos Sputum, No Wheezing, positive dyspnea Gastrointestinal : No Nausea, No Vomiting, No Diarrhea, No abdominal Pain, No Hematochezia, No Melena Genitourinary : No Dysuria, No Urinary Frequency, Hematuria Musculoskeletal : No joint pain, No Myalgias Skin : No Skin Lesions, No rash Neuro : No Weakness, No Numbness, No Dizziness, No Headache Psych : No Anxiety/Panic, No Depression Heme/Lymph: No Bruising, No Lymphadenopathy Endocrine : No Polyuria, No Polydipsia All other systems reviewed and are negative Physical Exam Vital Signs: Vital Signs: Last Vital Signs Temp 97.3 F 08/20/20 07:53 Pulse 81 08/20/20 09:08 Resp 18 08/20/20 07:53 BP 137/53 L 08/20/20 09:08 Pulse Ox 93 08/20/20 07:53 Body Mass Index 32.3 Const: General: no acute distress Resp: Auscultation: wheezes Cardio: Jugular venous distension: no JVD Heart sounds: S1 normal heart sound present and S2 normal heart sound present GI: Inspection: Yes normal to inspection Objective Data Current Medications Generic Name Dose Route Start Last Admin Trade Name Freq PRN Reason Stop Dose Admin Acetaminophen 650 mg 08/16/20 14:09 08/20/20 09:09 Acetaminophen 325 Mg Tablet PO 650 mg Q6H PRN Administration PAIN Albuterol/Ipratropium 3 ml 08/16/20 20:00 08/20/20 07:25 Albuterol/Iprat 2.5/0.5mg 3 Ml Ampul.Neb INHALE 3 ml RQ6H WHILE AWAKE LISANDRA Administration Alprazolam 0.5 mg 08/16/20 21:00 08/19/20 22:08 Alprazolam 0.5 Mg Tablet PO 0.5 mg BEDTIME LISANDRA Administration Amitriptyline HCl 20 mg 08/16/20 21:00 08/19/20 22:07 Amitriptyline Hcl 10 Mg Tablet PO 20 mg BEDTIME LISANDRA Administration Atenolol 25 mg 08/17/20 09:00 08/20/20 09:08 Atenolol 25 Mg Tablet PO 25 mg DAILY [facility] Administration Protocol Belladonna Alkaloids/Opium 1 supp 08/18/20 12:58 08/18/20 13:12 Opium/Belladonna 60/16.2 Supp.Rect [place] 1 supp DAILY PRN Administration Pain, Mild (Pain Scale 1-3) Diltiazem HCl 180 mg 08/17/20 09:00 08/20/20 09:07 Diltiazem Hcl Cd 180 Mg Cap.Er.24h PO 180 mg DAILY [facility] Administration Protocol Doxycycline Hyclate 100 mg 08/17/20 08:00 08/20/20 09:08 Doxycycline Hyclate 100 Mg Tablet PO 100 mg Q12H LISANDRA Administration Furosemide 80 mg 08/17/20 09:00 08/20/20 09:08 Furosemide 40 Mg Tablet PO 80 mg DAILY [facility] Administration Protocol Gabapentin 100 mg 08/16/20 21:00 08/20/20 09:08 Gabapentin 100 Mg Capsule PO 100 mg BID LISANDRA Administration Guaifenesin/Dextromethorphan 10 ml 08/16/20 14:15 08/18/20 19:19 Guaifenesin Dm 100/10/5 Ml 5 Ml Syrup PO 10 ml Q6H PRN Administration Cough Sodium Chloride 1,000 mls @ 80 mls/hr 08/20/20 12:30 Ns IVCONT .[id number] [facility] Insulin Human Lispro 0 unit 08/20/20 11:30 08/20/20 11:32 Insulin Lispro 100 Unit/Ml 3 Ml Vial SUBCUT 10 unit QIDACHS [facility] Administration Protocol Ipratropium [place] 2 puff 08/16/20 14:09 Ipratropium [place] 1 Puff/17 Mcg Inhaler INHALE QID PRN Shortness Of Breath Or Wheezing Morphine Sulfate 2 mg 08/18/20 14:15 08/18/20 13:55 Morphine Sulfate 2 Mg/Ml Cartridge IVPUSH 2 mg ONCE PRN Administration Pain, Moderate (Pain Scale 4-6 Omeprazole 40 mg 08/17/20 09:00 08/20/20 09:08 Omeprazole 20 Mg Capsule.Dr PO 40 mg DAILY [facility] Administration Ondansetron HCl 4 mg 08/16/20 14:09 Ondansetron Hcl 4 Mg/2 Ml Vial IVPUSH Q8H PRN Nausea Pharmacy Consult 1 each 08/16/20 12:04 Consult Rx Perform Med Rec MISCELLANE ONCE PRN Consult order Potassium Chloride 10 meq 08/17/20 09:00 08/20/20 09:07 Potassium Chloride Er 10 Meq Capsule.Er PO 10 meq DAILY LISANDRA Administration Labs CBC & Chem 7: 08/20/20 05:44 08/20/20 05:44 Assessment and Plan (1) Hydronephrosis: Status: Acute (2) COPD with exacerbation: Status: Acute Assessment and Plan: 79-year-old female patient with past medical history of chronic obstructive pulmonary disease, not on home oxygen, history of hypertension, hyperlipidemia, was sent to [place] [facility] after she was noted to have hypoxia with finger oximetry in mid 80s on room air at short-stay surgery, where she was supposed to undergo cystoscopy. The patient is now being admitted to [facility] due to acute respiratory failure related to chronic obstructive pulmonary disease exacerbation. 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 secondary to COPD exacerbation improving continue oxygen supplementation continue nebulizer scheduled and as needed Steroid. Hypomagnesemia replaced monitor electrolytes Hypertension. Continue home medication. History of diabetes mellitus. Blood glucose on higher side secondary to steroids continue SSI monitor blood glucose Deep vein thrombosis prophylaxis. Hold Lovenox given hematuria post procedure , on Venodyne boot
--- NOTE | 2020-08-20 13:02 | HO.PM.IMPN ---
Subjective Subjective Date of Service: 08/20/20 Interval History: Patient seen and examined at bedside Patient reported shortness of breath improving Hematuria clearing up Review of Systems Constitutional : No Fever, No Chills ENT/Mouth : No sore throat, No Rhinorrhea, No Swallowing Difficulty Eyes: No Eye Pain, No Swelling, No Redness Cardiovascular : No Chest Pain, positive SOB, No Orthopnea, no Edema Respiratory : pos Cough, pos Sputum, No Wheezing, positive dyspnea Gastrointestinal : No Nausea, No Vomiting, No Diarrhea, No abdominal Pain, No Hematochezia, No Melena Genitourinary : No Dysuria, No Urinary Frequency, Hematuria Musculoskeletal : No joint pain, No Myalgias Skin : No Skin Lesions, No rash Neuro : No Weakness, No Numbness, No Dizziness, No Headache Psych : No Anxiety/Panic, No Depression Heme/Lymph: No Bruising, No Lymphadenopathy Endocrine : No Polyuria, No Polydipsia All other systems reviewed and are negative Physical Exam Vital Signs: Vital Signs: Last Vital Signs Temp 97.3 F 08/20/20 07:53 Pulse 81 08/20/20 09:08 Resp 18 08/20/20 07:53 BP 137/53 L 08/20/20 09:08 Pulse Ox 93 08/20/20 07:53 Body Mass Index 32.3 Const: General: no acute distress Resp: Auscultation: wheezes Cardio: Jugular venous distension: no JVD Heart sounds: S1 normal heart sound present and S2 normal heart sound present GI: Inspection: Yes normal to inspection Objective Data Current Medications Generic Name Dose Route Start Last Admin Trade Name Freq PRN Reason Stop Dose Admin Acetaminophen 650 mg 08/16/20 14:09 08/20/20 09:09 Acetaminophen 325 Mg Tablet PO 650 mg Q6H PRN Administration PAIN Albuterol/Ipratropium 3 ml 08/16/20 20:00 08/20/20 07:25 Albuterol/Iprat 2.5/0.5mg 3 Ml Ampul.Neb INHALE 3 ml RQ6H WHILE AWAKE LISANDRA Administration Alprazolam 0.5 mg 08/16/20 21:00 08/19/20 22:08 Alprazolam 0.5 Mg Tablet PO 0.5 mg BEDTIME LISANDRA Administration Amitriptyline HCl 20 mg 08/16/20 21:00 08/19/20 22:07 Amitriptyline Hcl 10 Mg Tablet PO 20 mg BEDTIME LISANDRA Administration Atenolol 25 mg 08/17/20 09:00 08/20/20 09:08 Atenolol 25 Mg Tablet PO 25 mg DAILY [facility] Administration Protocol Belladonna Alkaloids/Opium 1 supp 08/18/20 12:58 08/18/20 13:12 Opium/Belladonna 60/16.2 Supp.Rect [place] 1 supp DAILY PRN Administration Pain, Mild (Pain Scale 1-3) Diltiazem HCl 180 mg 08/17/20 09:00 08/20/20 09:07 Diltiazem Hcl Cd 180 Mg Cap.Er.24h PO 180 mg DAILY [facility] Administration Protocol Doxycycline Hyclate 100 mg 08/17/20 08:00 08/20/20 09:08 Doxycycline Hyclate 100 Mg Tablet PO 100 mg Q12H LISANDRA Administration Furosemide 80 mg 08/17/20 09:00 08/20/20 09:08 Furosemide 40 Mg Tablet PO 80 mg DAILY [facility] Administration Protocol Gabapentin 100 mg 08/16/20 21:00 08/20/20 09:08 Gabapentin 100 Mg Capsule PO 100 mg BID LISANDRA Administration Guaifenesin/Dextromethorphan 10 ml 08/16/20 14:15 08/18/20 19:19 Guaifenesin Dm 100/10/5 Ml 5 Ml Syrup PO 10 ml Q6H PRN Administration Cough Sodium Chloride 1,000 mls @ 80 mls/hr 08/20/20 12:30 Ns IVCONT .[id number] [facility] Insulin Human Lispro 0 unit 08/20/20 11:30 08/20/20 11:32 Insulin Lispro 100 Unit/Ml 3 Ml Vial SUBCUT 10 unit QIDACHS [facility] Administration Protocol Ipratropium [place] 2 puff 08/16/20 14:09 Ipratropium [place] 1 Puff/17 Mcg Inhaler INHALE QID PRN Shortness Of Breath Or Wheezing Morphine Sulfate 2 mg 08/18/20 14:15 08/18/20 13:55 Morphine Sulfate 2 Mg/Ml Cartridge IVPUSH 2 mg ONCE PRN Administration Pain, Moderate (Pain Scale 4-6 Omeprazole 40 mg 08/17/20 09:00 08/20/20 09:08 Omeprazole 20 Mg Capsule.Dr PO 40 mg DAILY [facility] Administration Ondansetron HCl 4 mg 08/16/20 14:09 Ondansetron Hcl 4 Mg/2 Ml Vial IVPUSH Q8H PRN Nausea Pharmacy Consult 1 each 08/16/20 12:04 Consult Rx Perform Med Rec MISCELLANE ONCE PRN Consult order Potassium Chloride 10 meq 08/17/20 09:00 08/20/20 09:07 Potassium Chloride Er 10 Meq Capsule.Er PO 10 meq DAILY LISANDRA Administration Labs CBC & Chem 7: 08/20/20 05:44 08/20/20 05:44 Assessment and Plan (1) Hydronephrosis: Status: Acute (2) COPD with exacerbation: Status: Acute Assessment and Plan: 79-year-old female patient with past medical history of chronic obstructive pulmonary disease, not on home oxygen, history of hypertension, hyperlipidemia, was sent to [place] [facility] after she was noted to have hypoxia with finger oximetry in mid 80s on room air at short-stay surgery, where she was supposed to undergo cystoscopy. The patient is now being admitted to [facility] due to acute respiratory failure related to chronic obstructive pulmonary disease exacerbation. 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 secondary to COPD exacerbation improving continue oxygen supplementation continue nebulizer scheduled and as needed Steroid. Hypomagnesemia replaced monitor electrolytes Hypertension. Continue home medication. History of diabetes mellitus. Blood glucose on higher side secondary to steroids continue SSI monitor blood glucose Deep vein thrombosis prophylaxis. Hold Lovenox given hematuria post procedure , on Venodyne boot
[2020-08-20] MEDS: 0.9 % Sodium Chloride 1,000 ML 80 ML IVCONT (13:33)
--- NOTE | 2020-08-20 14:43 | MHC.CM.PN ---
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 conitnue current treatment plan , iv solumederol bid, iv fluids discharge plan home with family no services transportation family pcp dr quita cr follow up with urologist dr jama per dicharge instructions .
[2020-08-20 16:25] LABS: Glucose, Whole Blood 422 mg/dL (60-115)
--- NOTE | 2020-08-20 16:44 | PC.NURSE ---
Pt POC 422, MD Morrow made aware, new order for additional 5 units of humalog administered along with 10 units per sliding scale.
[2020-08-20] MEDS: ALPRAZolam 0.5 MG TABLET PO (20:32)
[2020-08-20] MEDS: Amitriptyline HCl 10 MG TABLET 20 MG PO (20:32)
[2020-08-20 20:44] LABS: Glucose, Whole Blood 366 mg/dL (60-115)
[2020-08-21] VITALS (7 sets, daily range): BP systolic 137–144; BP diastolic 59–66; PULSE 72–91; RESP 18–20; TEMP 36.3; O2SAT 84–93
[2020-08-21] MEDS: 0.9 % Sodium Chloride 1,000 ML 80 ML IVCONT (00:46)
[2020-08-21 07:41] LABS: Blood Urea Nitrogen 59 mg/dL (9-16); Creatinine Clr Calc Pharmacy 30.6; Estimated Glomerular Filt Rate 29; Glucose Random 197 mg/dL (60-115)
[2020-08-21 07:52] LABS: Glucose, Whole Blood 182 mg/dL (60-115)
[2020-08-21 08:03] LABS: Anion Gap 12 (12-20); Carbon Dioxide 32 mmol/L (22-29); Chloride 101 mmol/L (96-108); Potassium 4.2 mmol/L (3.3-5.1); Sodium 141 mmol/L (135-145)
[2020-08-21] MEDS: Insulin Lispro 100 UNIT/ML 3 ML VIAL SUBCUT ×3 (08:12→21:51)
[2020-08-21] MEDS: Omeprazole 20 MG CAPSULE.DR 40 MG PO (08:12)
[2020-08-21] MEDS: dilTIAZem HCL CD 180 MG CAP.ER.24H PO (08:12)
[2020-08-21] MEDS: atenoloL 25 MG TABLET PO (08:13)
[2020-08-21] MEDS: Gabapentin 100 MG CAPSULE PO ×2 (08:13→21:50)
[2020-08-21] MEDS: Acetaminophen 325 MG TABLET 650 MG PO ×2 (08:17→14:50)
[2020-08-21 09:23] LABS: Estimated Average Glucose 160 mg/dL; Hemoglobin A1c % 7.2 %
--- NOTE | 2020-08-21 11:04 | W.MHC.F2F ---
Service Date Service Date: 08/21/20 Encounter Date of encounter: 08/19/20 Reasons for Services Reason for penitentiary: medication management and other (oneal catheter) Reason for occupational therapy: home safety and mobility Homebound: Leaving the home is medically contraindicated at this time without the asist of a device and/or another person due th the listed conditions above and below. Certification: Based on the above findings, I certify that this patient is confined to the home and needs intermittent penitentiary care, physical therapy and/or speech therapy, or continues to need occupational therapy. The patient is under my care, and I have initiated the establishment of the plan of care. The patient will be followed by a physician who will periodically review the plan of care.
--- NOTE | 2020-08-21 11:30 | MHC.CM.PN ---
Plan dc home today with [facility]. Met with patient, who chose [facility] as provider, referral sent. RT is setting up home O2, to drive home.
[2020-08-21 11:51] LABS: Glucose, Whole Blood 140 mg/dL (60-115)
--- NOTE | 2020-08-21 12:21 | PM.DS ---
DS: Providers Provider Date of Service: 08/21/20 Date of admission: 08/16/20 14:09 Primary care physician: Edgardo Crandall MD Consults: 08/16/20 14:09 Consult to Urology Routine Consulting Provider: Terence Bernardo Reason for consultation: rt hydronephrosis Has provider been notified: No DS: Diagnosis Discharge Diagnosis (1) Hydronephrosis: Status: Acute (2) COPD with exacerbation: Status: Acute DS: Medications Discharge Medications Home Medications: Home Medications Medication Instructions Recorded Confirmed alprazolam 0.5 mg tablet 0.5 mg PO BEDTIME 07/20/20 08/16/20 amitriptyline 10 mg tablet 20 mg PO BEDTIME 07/20/20 08/16/20 atenolol 25 mg tablet 25 mg PO DAILY 07/20/20 08/16/20 carbidopa 25 mg-levodopa 100 mg 1 tab PO BID 07/20/20 08/16/20 tablet furosemide 40 mg tablet 80 mg PO DAILY 07/20/20 08/16/20 lisinopril 5 mg tablet 5 mg PO DAILY 07/20/20 08/16/20 omega-3 fatty acids 1,000 mg 1,000 mg PO DAILY 07/20/20 08/16/20 capsule omeprazole 20 mg capsule,delayed 40 mg PO DAILY 07/20/20 08/16/20 release Atrovent HFA 2 inh INHALATION QID PRN 08/10/20 08/16/20 atorvastatin 10 mg PO DAILY 08/10/20 08/16/20 gabapentin 100 mg PO BID 08/10/20 08/16/20 diltiazem HCl [Tiadylt ER] 180 mg PO DAILY 08/16/20 08/16/20 potassium chloride [Klor-Con M10] 1 tab PO DAILY 08/16/20 08/16/20 Previous Rx's Medication Instructions Recorded ipratropium-albuterol 3 ml INHALATION RQ6H WHILE AWAKE 08/21/20 #30 ml metformin 500 mg PO DAILY #0 tab 08/21/20 nebulizers #1 ea 08/21/20 DS: Summary Time Spent with Patient Time attestation: Total time spent providing and/or coordinating discharge services: Physical Exam Vital Signs: Vital Signs: Last Vital Signs Temp 97.3 F 08/21/20 07:18 Pulse 75 08/21/20 08:13 Resp 18 08/21/20 07:18 BP 137/66 08/21/20 08:13 Pulse Ox 90 L 08/21/20 07:18 Body Mass Index 32.3 DS: Data Data Completed and Pending Completed studies during hospitalization [Text1]: Pending at discharge 08/18/20 13:01 Surgical [PTH] Routine Labs on day of discharge: Laboratory Results - last 24 hr 08/20/20 08/20/20 08/20/20 08:30 12:20 16:07 Sodium Potassium Chloride Carbon Dioxide Anion Gap BUN Creatinine Estim Creat Clear Calc Estimated GFR POC Glucose 466 H* 422 H* Random Glucose Estimat Average Glucose 160 Hemoglobin A1c % 7.2 Calcium 08/20/20 08/21/20 08/21/20 20:37 06:42 07:16 Sodium 141 Potassium 4.2 Chloride 101 Carbon Dioxide 32 H Anion Gap 12 BUN 59 H Creatinine 1.69 H Estim Creat Clear Calc 30.6 Estimated GFR 29 POC Glucose 366 H* 182 H Random Glucose 197 H D Estimat Average Glucose Hemoglobin A1c % Calcium 9.0 08/21/20 11:18 Sodium Potassium Chloride Carbon Dioxide Anion Gap BUN Creatinine Estim Creat Clear Calc Estimated GFR POC Glucose 140 H Random Glucose Estimat Average Glucose Hemoglobin A1c % Calcium Discharge Plan Discharge Anticipated Discharge Date/Time: 08/21/20 09:28 Patient Disposition: Home Health Service Referrals: [facility] [Outside] Terence Bernardo MD [Physician] - Edgardo Crandall MD [Primary Care Provider] - Discharge Medications: New ipratropium-albuterol 0.5 mg-3 mg(2.5 mg base)/3 mL Solution For Nebulization 3 ml inhalation RQ6H WHILE AWAKE Qty: 30 RF: 0 (DME) nebulizers Misc See Rx Instructions .ROUTE .MEDSUPPLY Qty: 1 RF: 0 Continued atorvastatin 10 mg tablet 10 mg PO DAILY RF: 0 gabapentin 100 mg capsule 100 mg PO BID RF: 0 Atrovent HFA 17 mcg/actuation HFA aerosol inhaler 2 inh inhalation QID PRN (Reason: Shortness Of Breath Or Wheezing) RF: 0 diltiazem HCl [Tiadylt ER] 180 mg capsule,extended release 24 hr 180 mg PO DAILY RF: 0 potassium chloride [Klor-Con M10] 10 mEq tablet,ER particles/crystals 1 tab PO DAILY RF: 0 omeprazole 20 mg capsule,delayed release(DR/EC) 40 mg PO DAILY RF: 0 furosemide 40 mg tablet 80 mg PO DAILY RF: 0 atenolol 25 mg tablet 25 mg PO DAILY RF: 0 lisinopril 5 mg tablet 5 mg PO DAILY RF: 0 carbidopa-levodopa [Sinemet] 25-100 mg tablet 1 tab PO BID RF: 0 omega-3 fatty acids [Fish Oil Concentrate] 1,000 mg capsule 1,000 mg PO DAILY RF: 0 alprazolam 0.5 mg tablet 0.5 mg PO BEDTIME RF: 0 amitriptyline 10 mg tablet 20 mg PO BEDTIME RF: 0 Changed metformin 500 mg tablet 500 mg PO DAILY Qty: 0 RF: 0 Discharge Orders: Discharge Order (Routine); Ordered 08/21/20 Ordered By: Aba Morrow Diet: advance to usual diet Activity on Discharge: As tolerated Stand Alone Forms: Patient Portal Discharge page Care Plan Goals: treat dyspnea , Health Concerns: copd bladder cancer Plan of Treatment: nebulizer
--- NOTE | 2020-08-21 12:54 | P.PNIM_ITS ---
Subjective Subjective Date of Service: 08/21/20 Interval History: Patient seen and examined at bedside Patient was repeating burning at urethral site and lower abdominal discomfort Physical Exam Vital Signs: Vital Signs: Last Vital Signs Temp 97.3 F 08/21/20 07:18 Pulse 75 08/21/20 08:13 Resp 18 08/21/20 07:18 BP 137/66 08/21/20 08:13 Pulse Ox 90 L 08/21/20 07:18 Body Mass Index 32.3 Const: General: no acute distress Resp: Auscultation: wheezes Cardio: Jugular venous distension: no JVD Heart sounds: S1 normal heart sound present and S2 normal heart sound present GI: Inspection: Yes normal to inspection Objective Data Current Medications Generic Name Dose Route Start Last Admin Trade Name Freq PRN Reason Stop Dose Admin Acetaminophen 650 mg 08/16/20 14:09 08/21/20 08:17 Acetaminophen 325 Mg Tablet PO 650 mg Q6H PRN Administration PAIN Albuterol/Ipratropium 3 ml 08/16/20 20:00 08/21/20 08:12 Albuterol/Iprat 2.5/0.5mg 3 Ml Ampul.Neb INHALE Not Given RQ6H WHILE AWAKE LISANDRA Alprazolam 0.5 mg 08/16/20 21:00 08/20/20 20:32 Alprazolam 0.5 Mg Tablet PO 0.5 mg BEDTIME LISANDRA Administration Amitriptyline HCl 20 mg 08/16/20 21:00 08/20/20 20:32 Amitriptyline Hcl 10 Mg Tablet PO 20 mg BEDTIME LISANDRA Administration Atenolol 25 mg 08/17/20 09:00 08/21/20 08:13 Atenolol 25 Mg Tablet PO 25 mg DAILY LISANDRA Administration Protocol Belladonna Alkaloids/Opium 1 supp 08/18/20 12:58 08/18/20 13:12 Opium/Belladonna 60/16.2 Supp.Rect NE 1 supp DAILY PRN Administration Pain, Mild (Pain Scale 1-3) Diltiazem HCl 180 mg 08/17/20 09:00 08/21/20 08:12 Diltiazem Hcl Cd 180 Mg Cap.Er.24h PO 180 mg DAILY LISANDRA Administration Protocol Doxycycline Hyclate 100 mg 08/17/20 08:00 08/21/20 08:12 Doxycycline Hyclate 100 Mg Tablet PO 100 mg Q12H LISANDRA Administration Gabapentin 100 mg 08/16/20 21:00 08/21/20 08:13 Gabapentin 100 Mg Capsule PO 100 mg BID LISANDRA Administration Guaifenesin/Dextromethorphan 10 ml 08/16/20 14:15 08/18/20 19:19 Guaifenesin Dm 100/10/5 Ml 5 Ml Syrup PO 10 ml Q6H PRN Administration Cough Insulin Human Lispro 0 unit 08/20/20 11:30 08/21/20 12:00 Insulin Lispro 100 Unit/Ml 3 Ml Vial SUBCUT Not Given [facility] Protocol Ipratropium [place] 2 puff 08/16/20 14:09 Ipratropium [place] 1 Puff/17 Mcg Inhaler INHALE QID PRN Shortness Of Breath Or Wheezing Morphine Sulfate 2 mg 08/18/20 14:15 08/18/20 13:55 Morphine Sulfate 2 Mg/Ml Cartridge IVPUSH 2 mg ONCE PRN Administration Pain, Moderate (Pain Scale 4-6 Omeprazole 40 mg 08/17/20 09:00 08/21/20 08:12 Omeprazole 20 Mg Capsule.Dr PO 40 mg DAILY LISANDRA Administration Ondansetron HCl 4 mg 08/16/20 14:09 Ondansetron Hcl 4 Mg/2 Ml Vial IVPUSH Q8H PRN Nausea Pharmacy Consult 1 each 08/16/20 12:04 Consult Rx Perform Med Rec MISCELLANE ONCE PRN Consult order Potassium Chloride 10 meq 08/17/20 09:00 08/21/20 08:13 Potassium Chloride Er 10 Meq Capsule.Er PO 10 meq DAILY LISANDRA Administration Labs CBC & Chem 7: 08/20/20 05:44 08/21/20 06:42 Assessment and Plan (1) Hydronephrosis: Status: Acute (2) COPD with exacerbation: Status: Acute Assessment and Plan: 79-year-old female patient with past medical history of chronic obstructive pulmonary disease, not on home oxygen, history of hypertension, hyperlipidemia, was sent to [facility] after she was noted to have hypoxia with finger oximetry in mid 80s on room air at short-stay surgery, where she was supposed to undergo cystoscopy. The patient is now being admitted to [facility] due to acute respiratory failure related to chronic obstructive pulmonary disease exacerbation. Right sided hydronephrosis secondary to bladder tumour Status post cystoscopy with removal of bladder mass on 08/18/2020 Biopsy pending Hematuria improving hold Lovenox Monitor H&H Urology following recommended continue Oneal catheter for 2-[address] Bernardo as outpatient Patient was complaining of burning urination today, UA was checked and positive UTI Will start on IV Rocephin Follow-up urine culture Acute on chronic kidney injury improving Creatinine 2.12 Continue oneal catheter Hold lisinopril Monitor kidney function Acute hypoxic respiratory failure. secondary to COPD exacerbation improving continue oxygen supplementation continue nebulizer scheduled and as needed off Steroid. Will need home oxygen on discharge Hypomagnesemia replaced and resolved monitor electrolytes Hypertension. Continue home medication. History of diabetes mellitus. continue SSI monitor blood glucose Deep vein thrombosis prophylaxis. Hold Lovenox given hematuria post procedure , on Venodyne boot
[2020-08-21 13:53] LABS: Glucose Urine UA NEG (NEG); Leukocyte Esterase Urine 1+ (NEG); Nitrite Urine NEG (NEG); UACC Culture Trigger YES; Urine Blood 3+ (NEG); Urine Ketones NEG (NEG); Urine Protein 2+ MG/DL (NEG-TRACE)
[2020-08-21 13:54] LABS: Appearance Urine CLOUDY; Color Urine PINK
[2020-08-21 14:00] LABS: Bacteria Urine TRACE /LPF; RBC Urine TNTC /HPF (0); Squamous Epithelial Cell Urine 1+ /LPF
[2020-08-21] MEDS: Albuterol/Iprat 2.5/0.5MG 3 ML AMPUL.NEB INHALE ×2 (15:19→19:39)
--- NOTE | 2020-08-21 15:39 | PC.NURSE ---
1252 Patient c/o burning at urethra and lower abdominal pain. Dr. Morrow made aware. Discharge placed on hold. UA ordered. Patient made aware. Patient has no further complaints at this time.
[2020-08-21 16:29] LABS: Glucose, Whole Blood 176 mg/dL (60-115)
[2020-08-21] MEDS: cefTRIAXone sodium 1 GM in 0.9 % Sodium Chloride 50 ML IV (17:27)
[2020-08-21 20:43] LABS: Glucose, Whole Blood 159 mg/dL (60-115)
[2020-08-21] MEDS: Amitriptyline HCl 10 MG TABLET 20 MG PO (21:51)
[2020-08-22] VITALS: BP 126/54; PULSE 69; RESP 16; TEMP 36.6; O2SAT 96
[2020-08-22] MEDS: Acetaminophen 325 MG TABLET 650 MG PO ×2 (00:22→08:47)
[2020-08-22 06:08] LABS: Blood Urea Nitrogen 55 mg/dL (9-16); Calcium 8.5 mg/dL (8.4-10.2); Creatinine Clr Calc Pharmacy 33.2; Estimated Glomerular Filt Rate 32; Glucose Random 118 mg/dL (60-115)
[2020-08-22 06:18] LABS: Anion Gap 11 (12-20); Carbon Dioxide 31 mmol/L (22-29); Chloride 105 mmol/L (96-108); Potassium 3.7 mmol/L (3.3-5.1); Sodium 143 mmol/L (135-145)
[2020-08-22 07:16] VITALS: BP 129/59; PULSE 73; RESP 18; TEMP 36.3; O2SAT 95
[2020-08-22 07:31] LABS: Glucose, Whole Blood 146 mg/dL (60-115)
[2020-08-22] MEDS: Albuterol/Iprat 2.5/0.5MG 3 ML AMPUL.NEB INHALE (07:44)
[2020-08-22 07:45] VITALS: PULSE 72; O2SAT 93
[2020-08-22] MEDS: dilTIAZem HCL CD 180 MG CAP.ER.24H PO (08:48)
[2020-08-22] MEDS: atenoloL 25 MG TABLET PO (08:48)
[2020-08-22] MEDS: Omeprazole 20 MG CAPSULE.DR 40 MG PO (08:48)
[2020-08-22] MEDS: Gabapentin 100 MG CAPSULE PO (08:48)
--- NOTE | 2020-08-22 09:41 | MHC.CM.PN ---
PATIENT IS DC HOME WITH [facility]. RN AWARE OF PLAN. SPOUSE TO TRANSPORT.
[2020-08-22 09:59] VITALS: O2SAT 85
--- NOTE | 2020-08-22 10:28 | P.DS_ITS ---
DS: Providers Provider Date of Service: 08/22/20 Date of admission: 08/16/20 14:09 Primary care physician: Edgardo Crandall MD Consults: 08/16/20 14:09 Consult to Urology Routine Consulting Provider: Terence Bernardo Reason for consultation: rt hydronephrosis Has provider been notified: No DS: Diagnosis Discharge Diagnosis (1) Hydronephrosis: Status: Acute (2) COPD with exacerbation: Status: Acute (3) ROMY (acute kidney injury): Status: Acute (4) Bladder mass: Status: Acute (5) Acute respiratory failure with hypoxia: Status: Acute (6) UTI (urinary tract infection): Status: Acute (7) DM type 2 (diabetes mellitus, type 2): Status: Acute DS: Medications Discharge Medications Home Medications: Home Medications Medication Instructions Recorded Confirmed alprazolam 0.5 mg tablet 0.5 mg PO BEDTIME 07/20/20 08/16/20 amitriptyline 10 mg tablet 20 mg PO BEDTIME 07/20/20 08/16/20 atenolol 25 mg tablet 25 mg PO DAILY 07/20/20 08/16/20 carbidopa 25 mg-levodopa 100 mg 1 tab PO BID 07/20/20 08/16/20 tablet furosemide 40 mg tablet 80 mg PO DAILY 07/20/20 08/16/20 lisinopril 5 mg tablet 5 mg PO DAILY 07/20/20 08/16/20 omega-3 fatty acids 1,000 mg 1,000 mg PO DAILY 07/20/20 08/16/20 capsule omeprazole 20 mg capsule,delayed 40 mg PO DAILY 07/20/20 08/16/20 release Atrovent HFA 2 inh INHALATION QID PRN 08/10/20 08/16/20 atorvastatin 10 mg PO DAILY 08/10/20 08/16/20 gabapentin 100 mg PO BID 08/10/20 08/16/20 diltiazem HCl [Tiadylt ER] 180 mg PO DAILY 08/16/20 08/16/20 potassium chloride [Klor-Con M10] 1 tab PO DAILY 08/16/20 08/16/20 Previous Rx's Medication Instructions Recorded ipratropium-albuterol 3 ml INHALATION RQ6H WHILE AWAKE 08/21/20 #30 ml metformin 500 mg PO DAILY #0 tab 08/21/20 nebulizers #1 ea 08/21/20 cefuroxime axetil 250 mg PO BID #10 tab 08/22/20 DS: Summary Hospital Course Hospital Course: Patient was admitted for acute hypoxic respiratory failure secondary to COPD exacerbation. She was given a course of steroids and her symptoms have resolved. She was noted to have continue his chronic hypoxia and qualified for home oxygen which will be set up. Course was complicated by right-sided hydronephrosis secondary to bladder mass complicated by acute on chronic kidney injury. Patient underwent cystoscopy with removal bladder mass on 08/18/2020, pathology is pending, recommendations are to keep Cee catheter for two to three weeks and follow up with Urology as outpatient. She was also noted to have a positive UA with negative urine culture. However given significant improvement after IV antibiotics will continue 5 more days of p.o. Ceftin. Patient is now feeling much better will be discharged home. Time Spent with Patient Time attestation: Total time spent providing and/or coordinating discharge services: Discharge coordination time: Greater than 30 minutes Physical Exam Vital Signs: Vital Signs: Last Vital Signs Temp 97.3 F 08/22/20 07:16 Pulse 72 08/22/20 07:45 Resp 18 08/22/20 07:16 BP 129/59 L 08/22/20 07:16 Pulse Ox 85 L 08/22/20 09:59 Body Mass Index 32.3 General: AO X 3, no acute distress Resp: CTA bilateral CVS: S1,S2,RRR GI: soft, non tender, non distended Neuro: motor grossly intact Psych: appropriate affect DS: Data Data Completed and Pending Completed studies during hospitalization [Text1]: Pending at discharge 08/18/20 13:01 Surgical [PTH] Routine Labs on day of discharge: Laboratory Results - last 24 hr 08/21/20 08/21/20 08/21/20 11:18 13:38 16:21 Sodium Potassium Chloride Carbon Dioxide Anion Gap BUN Creatinine Estim Creat Clear Calc Estimated GFR POC Glucose 140 H 176 H Random Glucose Calcium Urine Color PINK Urine Appearance CLOUDY Urine pH 6.0 Ur Specific [place] 1.020 Urine Protein 2+ H Urine Glucose (UA) NEG Urine Ketones NEG Urine Blood 3+ H Urine Nitrite NEG Ur Leukocyte Esterase 1+ H Urine RBC TNTC H Urine WBC 5-9 H Ur Squamous Epith Cells 1+ Urine Bacteria TRACE 08/21/20 08/22/20 08/22/20 20:35 05:19 07:16 Sodium 143 Potassium 3.7 Chloride 105 Carbon Dioxide 31 H Anion Gap 11 L BUN 55 H Creatinine 1.56 H Estim Creat Clear Calc 33.2 Estimated GFR 32 POC Glucose 159 H 146 H Random Glucose 118 H D Calcium 8.5 Urine Color Urine Appearance Urine pH Ur Specific [place] Urine Protein Urine Glucose (UA) Urine Ketones Urine Blood Urine Nitrite Ur Leukocyte Esterase Urine RBC Urine WBC Ur Squamous Epith Cells Urine Bacteria Discharge Plan Discharge Anticipated Discharge Date/Time: 08/21/20 09:28 Patient Disposition: Home Health Service Referrals: [facility] [Outside] Terence Bernardo MD [Physician] - Edgardo Crandall MD [Primary Care Provider] - Discharge Medications: New ipratropium-albuterol 0.5 mg-3 mg(2.5 mg base)/3 mL Solution For Nebulization 3 ml inhalation RQ6H WHILE AWAKE Qty: 30 RF: 0 (DME) nebulizers Misc See Rx Instructions .ROUTE .MEDSUPPLY Qty: 1 RF: 0 cefuroxime axetil 250 mg tablet 250 mg PO BID Qty: 10 RF: 0 Continued atorvastatin 10 mg tablet 10 mg PO DAILY RF: 0 gabapentin 100 mg capsule 100 mg PO BID RF: 0 Atrovent HFA 17 mcg/actuation HFA aerosol inhaler 2 inh inhalation QID PRN (Reason: Shortness Of Breath Or Wheezing) RF: 0 diltiazem HCl [Tiadylt ER] 180 mg capsule,extended release 24 hr 180 mg PO DAILY RF: 0 potassium chloride [Klor-Con M10] 10 mEq tablet,ER particles/crystals 1 tab PO DAILY RF: 0 omeprazole 20 mg capsule,delayed release(DR/EC) 40 mg PO DAILY RF: 0 furosemide 40 mg tablet 80 mg PO DAILY RF: 0 atenolol 25 mg tablet 25 mg PO DAILY RF: 0 lisinopril 5 mg tablet 5 mg PO DAILY RF: 0 carbidopa-levodopa [Sinemet] 25-100 mg tablet 1 tab PO BID RF: 0 omega-3 fatty acids [Fish Oil Concentrate] 1,000 mg capsule 1,000 mg PO DAILY RF: 0 alprazolam 0.5 mg tablet 0.5 mg PO BEDTIME RF: 0 amitriptyline 10 mg tablet 20 mg PO BEDTIME RF: 0 Changed metformin 500 mg tablet 500 mg PO DAILY Qty: 0 RF: 0 Discharge Orders: Discharge Order (Routine); Ordered 08/22/20 Ordered By: Jayy Sue Diet: advance to usual diet Activity on Discharge: As tolerated Stand Alone Forms: Patient Portal Discharge page Care Plan Goals: treat dyspnea , Health Concerns: copd bladder cancer Plan of Treatment: nebulizer
[2020-08-22 11:36] LABS: Glucose, Whole Blood 180 mg/dL (60-115)
[2020-08-22] MEDS: Insulin Lispro 100 UNIT/ML 3 ML VIAL SUBCUT (11:54)
== END 2020-08-22 13:05 | disposition home health service (06) | DRG 659 ==
LOC: HO.ED 12:40 → HO.EDOVER 14:25 → HO.S3 14:43
PROVIDERS: Internal Medicine; Urology; Admitting Provider Hospitalist; Emergency Provider Emergency Medicine; PCP Internal Medicine; Visit Provider Internal Medicine
PROC: 0T768DZ Dilation of Right Ureter with Intraluminal Device, Via Natural or Artificial Opening Endoscopic (ICD-10-PCS; principal; 2020-08-18 12:00)
DX: N32.9 Bladder disorder, unspecified (principal); J96.01 Acute respiratory failure with hypoxia; J44.1 Chronic obstructive pulmonary disease with (acute) exacerbation; N18.4 Chronic kidney disease, stage 4 (severe); N13.1 Hydronephrosis with ureteral stricture, not elsewhere classified; N39.0 Urinary tract infection, site not specified; I12.9 Hypertensive chronic kidney disease with stage 1 through stage 4 chronic kidney disease, or unspecified chronic kidney disease; F17.210 Nicotine dependence, cigarettes, uncomplicated; R31.9 Hematuria, unspecified; Z71.6 Tobacco abuse counseling; E83.42 Hypomagnesemia; E11.22 Type 2 diabetes mellitus with diabetic chronic kidney disease; Z20.822 Contact with and (suspected) exposure to COVID-19; Z96.652 Presence of left artificial knee joint; Z88.2 Allergy status to sulfonamides; Z88.5 Allergy status to narcotic agent; Z79.84 Long term (current) use of oral hypoglycemic drugs; Z79.899 Other long term (current) drug therapy
CPT/HCPCS: 0241U; 36415; 71045; 80048; 80076; 81001; 81003; 82947; 83036; 83690; 83735; 83880; 84484; 85025; 85379; 85610; 85730; 87086; 88307; 93005; 94640; 96365; 96375; 99285; C1769; C2617; J0696; J1100; J1650; J2270; J2405; J2920; J2930; J3010; J3475; Q9967

== ENCOUNTER → 2020-09-01 09:36 | Outpatient (BNVA) | payer MEDICARE, SELFPAY | PROVIDERS: PCP Internal Medicine; Visit Provider Urology | DX: D49.4 Neoplasm of unspecified behavior of bladder (principal); N13.30 Unspecified hydronephrosis | CPT/HCPCS: 99212 ==

== ENCOUNTER → 2020-09-15 08:37 | Outpatient (BNVA) | payer MEDICARE, SELFPAY | PROVIDERS: PCP Internal Medicine; Visit Provider Urology | DX: N13.30 Unspecified hydronephrosis (principal); D49.4 Neoplasm of unspecified behavior of bladder | CPT/HCPCS: 99212 ==

== ENCOUNTER 2020-09-20 11:49 | Day surgery (SDC) | payer MEDICARE, SELFPAY ==
--- NOTE | 2020-09-17 13:34 | HO.ANESPROP2 ---
Documented by User: Amanda Ramsey 09/17/20 13:38 HPI - Anesthesia Eval Consult details Narrative: 79yo F for Cystoscopy, Retrograde & Ureteroscopy with Stent Removal s/p cysto,stent 08/18/20 with [facility] Active Problems Active Problems: All Active Problems (Updated 09/01/20 @ 10:26 by Terence Bernardo MD) Hydronephrosis (Acute) Bladder tumor (Acute) UTI (urinary tract infection) (Acute) DM type 2 (diabetes mellitus, type 2) (Acute) Acute respiratory failure with hypoxia (Acute) Bladder mass (Acute) ROMY (acute kidney injury) (Acute) COPD (chronic obstructive pulmonary disease) (Acute) Urinary urgency (Acute) Past Medical History Medical History Acute respiratory failure with hypoxia ROMY (acute kidney injury) Anxiety Back pain Bladder mass CKD (chronic kidney disease) COPD (chronic obstructive pulmonary disease) DM type 2 (diabetes mellitus, type 2) Elevated cholesterol Family history of anesthesia complication Fibromyalgia GERD (gastroesophageal reflux disease) Hiatal hernia Hypertension On beta elizabeth at home Osteoarthritis Peripheral neuropathy PONV (postoperative nausea and vomiting) Restless leg syndrome Surgical History Surgical History History of cholecystectomy History of hysterectomy History of total left knee replacement Hx of appendectomy Hx of bilateral cataract extraction Hx of colonoscopy Hx of tonsillectomy Social History Social History Household Members: Spouse and Children Housing: House Smoking Status: Former smoker Smoked in Last 30 Days: No Use of substances other than those prescribed or required for medical reasons: No Advance Directives: No Advance Directives Information Provided: Yes service: No Current occupational status: retired Meds Allergies Allergy/AdvReac Type Severity Reaction Status Date / Time Sulfa (Sulfonamide Allergy Severe Anaphylaxis Verified 08/16/20 13:56 Antibiotics) sulfamethoxazole Allergy Severe ANAPHYLAXIS Verified 08/16/20 13:56 [From BACTRIM] influenza virus vaccine, Allergy Intermediate ARTHRITIC Verified 08/16/20 13:56 specific EFFECTS [FLU VACCINE] nitrofurantoin AdvReac Mild GI UPSET Verified 08/16/20 13:56 [From MACRODANTIN] oxycodone [From PERCOCET] AdvReac Mild GI UPSET Verified 08/16/20 13:56 Home Medications Medication Instructions Recorded Confirmed Last Taken Type alprazolam 0.5 mg tablet 0.5 mg PO BEDTIME 07/20/20 08/16/20 08/15/20 History amitriptyline 10 mg tablet 20 mg PO BEDTIME 07/20/20 08/16/20 08/15/20 History atenolol 25 mg tablet 25 mg PO DAILY 07/20/20 08/16/20 08/16/20 06:50 History carbidopa 25 mg-levodopa 100 mg 1 tab PO BID 07/20/20 08/16/20 08/16/20 06:50 History tablet furosemide 40 mg tablet 80 mg PO DAILY 07/20/20 08/16/20 08/15/20 History lisinopril 5 mg tablet 5 mg PO DAILY 07/20/20 08/16/20 08/16/20 History omega-3 fatty acids 1,000 mg 1,000 mg PO DAILY 07/20/20 08/16/20 Unknown History capsule omeprazole 20 mg capsule,delayed 40 mg PO DAILY 07/20/20 08/16/20 08/16/20 06:50 History release Atrovent HFA 2 inh INHALATION QID PRN 08/10/20 08/16/20 08/16/20 06:50 History atorvastatin 10 mg PO DAILY 08/10/20 08/16/20 08/15/20 History gabapentin 100 mg PO BID 08/10/20 08/16/20 08/16/20 06:50 History diltiazem HCl [Tiadylt ER] 180 mg PO DAILY 08/16/20 08/16/20 08/15/20 History potassium chloride [Klor-Con M10] 1 tab PO DAILY 08/16/20 08/16/20 Unknown History Exam Exam Date and Time: September 17, 2020 1334 Pertinent Lab Results Pertinent Lab Results: Laboratory Tests 08/20/20 08/22/20 05:44 05:19 WBC 6.4 Hgb 10.0 L Hct 31.4 L Plt Count 175 Sodium 143 Potassium 3.7 Chloride 105 Carbon Dioxide 31 H BUN 55 H Creatinine 1.56 H Narrative Narrative: EKG 08/2020 Vent. Rate : 069 BPM Atrial Rate : 069 BPM P-R Int : 136 ms QRS Dur : 086 ms QT Int : 380 ms P-R-T Axes : 061 064 078 degrees QTc Int : 407 ms Normal sinus rhythm with sinus arrhythmia Nonspecific T wave abnormality Abnormal ECG When compared with ECG of 16-MAR-2014 15:56, Premature ventricular complexes are no longer Present Assessment and Plan Assessment Anesthesia Assessment: Chart Reviewed Documented by User: Anabel Bergeron 09/20/20 14:27 [facility] Past Medical History Medical History Acute respiratory failure with hypoxia ROMY (acute kidney injury) Anxiety Back pain Bladder mass CKD (chronic kidney disease) COPD (chronic obstructive pulmonary disease) DM type 2 (diabetes mellitus, type 2) Elevated cholesterol Family history of anesthesia complication Fibromyalgia GERD (gastroesophageal reflux disease) Hiatal hernia Hypertension On beta elizabeth at home Osteoarthritis Peripheral neuropathy PONV (postoperative nausea and vomiting) Restless leg syndrome Surgical History Surgical History History of cholecystectomy History of hysterectomy History of total left knee replacement Hx of appendectomy Hx of bilateral cataract extraction Hx of colonoscopy Hx of tonsillectomy Social History Social History Household Members: Spouse and Children Housing: House Smoking Status: Former smoker Smoked in Last 30 Days: No Use of substances other than those prescribed or required for medical reasons: No Advance Directives: No Advance Directives Information Provided: Yes service: No Current occupational status: retired Meds Allergies Allergy/AdvReac Type Severity Reaction Status Date / Time Sulfa (Sulfonamide Allergy Severe Anaphylaxis Verified 08/16/20 13:56 Antibiotics) sulfamethoxazole Allergy Severe ANAPHYLAXIS Verified 08/16/20 13:56 [From BACTRIM] influenza virus vaccine, Allergy Intermediate ARTHRITIC Verified 08/16/20 13:56 specific EFFECTS [FLU VACCINE] nitrofurantoin AdvReac Mild GI UPSET Verified 08/16/20 13:56 [From MACRODANTIN] oxycodone [From PERCOCET] AdvReac Mild GI UPSET Verified 08/16/20 13:56 Home Medications Medication Instructions Recorded Confirmed Last Taken Type alprazolam 0.5 mg tablet 0.5 mg PO BEDTIME 07/20/20 08/16/20 08/15/20 History amitriptyline 10 mg tablet 20 mg PO BEDTIME 07/20/20 08/16/20 08/15/20 History atenolol 25 mg tablet 25 mg PO DAILY 07/20/20 08/16/20 08/16/20 06:50 History carbidopa 25 mg-levodopa 100 mg 1 tab PO BID 07/20/20 08/16/20 08/16/20 06:50 History tablet furosemide 40 mg tablet 80 mg PO DAILY 07/20/20 08/16/20 08/15/20 History lisinopril 5 mg tablet 5 mg PO DAILY 07/20/20 08/16/20 08/16/20 History omega-3 fatty acids 1,000 mg 1,000 mg PO DAILY 07/20/20 08/16/20 Unknown History capsule omeprazole 20 mg capsule,delayed 40 mg PO DAILY 07/20/20 08/16/20 08/16/20 06:50 History release Atrovent HFA 2 inh INHALATION QID PRN 08/10/20 08/16/20 08/16/20 06:50 History atorvastatin 10 mg PO DAILY 08/10/20 08/16/20 08/15/20 History gabapentin 100 mg PO BID 08/10/20 08/16/20 08/16/20 06:50 History diltiazem HCl [Tiadylt ER] 180 mg PO DAILY 08/16/20 08/16/20 08/15/20 History potassium chloride [Klor-Con M10] 1 tab PO DAILY 08/16/20 08/16/20 Unknown History Exam Airway Mallampati Class: II TM Dist: >3cm Neck ROM: Full Heart: RRR Lungs: CTA Assessment and Plan Assessment Anesthesia Assessment: Anesthesia Plan Discussed and Chart Reviewed Final Anesthetic Review NPO: Yes ASA Class: III Final Preanesthetic Review: Meds/Allgs Chart Reviewed, Consent Obtained/Reviewed and Anes Risks/Benef Reviewed Patient Risk: Intermediate Procedure Risk: Low Anesthetic Plan Anesthetic Plan: GA Disposition: Standard PACU
--- NOTE | ~2020-09-20 | FL_ITS ---
EXAMINATION: XR FLUOROSCOPY WITH IMAGES CLINICAL INFORMATION: Stones COMPARISON: 08/18/2020 TECHNIQUE: Fluoroscopy performed by Dr. Terence Bernardo. Fluoroscopy time: 7.8 seconds Images: 1 FINDINGS: There is retrograde injection of contrast into the ureter. Single image is coned down to the pelvis. FL/FL guidance in OR IMPRESSION: Fluoroscopic guidance for retrograde pyelogram. Please refer to procedural report for further information.
[2020-09-20 12:41] VITALS: BMI 31.4
[2020-09-20 12:54] VITALS: BP 111/55; PULSE 87; RESP 16; TEMP 36.8; O2SAT 95
[2020-09-20 13:05] LABS: Glucose, Whole Blood 124 mg/dL (60-115)
[2020-09-20] MEDS: Lactated Ringers 1,000 ML 100 ML IVCONT (13:27)
--- NOTE | 2020-09-20 13:39 | MHC.SHP ---
Pre-Procedural Eval Section A The patient is an INPATIENT: No Changes since office visit: No Cold of Flu in the past 2 weeks, No New Medical Problems, No Changes in Medication and No Patient answered all questions The History & Physical has been completed within 30 days and I have reviewed it.: Yes Section B Chief Complaint: hydronephrosis Allergies: Allergies Allergy/AdvReac Type Severity Reaction Status Date / Time Sulfa (Sulfonamide Allergy Severe Anaphylaxis Verified 08/16/20 13:56 Antibiotics) sulfamethoxazole Allergy Severe ANAPHYLAXIS Verified 08/16/20 13:56 [From BACTRIM] influenza virus vaccine, Allergy Intermediate ARTHRITIC Verified 08/16/20 13:56 specific EFFECTS [FLU VACCINE] nitrofurantoin AdvReac Mild GI UPSET Verified 08/16/20 13:56 [From MACRODANTIN] oxycodone [From PERCOCET] AdvReac Mild GI UPSET Verified 08/16/20 13:56 Plan Diagnosis/Plan: Unchanged (Cystoscopy, right stent removal, right retrograde, ureteroscopy) I have reviewed the history and physical and performed a pertinent physical examination on my patient. No changes have occurred unless specified.
[2020-09-20] MEDS: levoFLOXacin 500 MG TABLET PO (13:51)
--- NOTE | 2020-09-20 14:25 | MHC.SHP ---
Pre-Procedural Eval Section A The patient is an INPATIENT: No Changes since office visit: No Cold of Flu in the past 2 weeks, No New Medical Problems, No Changes in Medication and No Patient answered all questions The History & Physical has been completed within 30 days and I have reviewed it.: Yes Section B Chief Complaint: hydronephrosis Allergies: Allergies Allergy/AdvReac Type Severity Reaction Status Date / Time Sulfa (Sulfonamide Allergy Severe Anaphylaxis Verified 08/16/20 13:56 Antibiotics) sulfamethoxazole Allergy Severe ANAPHYLAXIS Verified 08/16/20 13:56 [From BACTRIM] influenza virus vaccine, Allergy Intermediate ARTHRITIC Verified 08/16/20 13:56 specific EFFECTS [FLU VACCINE] nitrofurantoin AdvReac Mild GI UPSET Verified 08/16/20 13:56 [From MACRODANTIN] oxycodone [From PERCOCET] AdvReac Mild GI UPSET Verified 08/16/20 13:56 Plan Diagnosis/Plan: Unchanged (Cystoscopy, right stent removal, right retrograde with possible ureteral soap) I have reviewed the history and physical and performed a pertinent physical examination on my patient. No changes have occurred unless specified.
--- NOTE | 2020-09-20 15:03 | W.PM.OPN ---
Operative Note Operative Note Date of Service: 09/20/20 Narrative: PreOperative Diagnosis: Indwelling right ureteric catheter after TURBT Post Operative Diagnosis: Same Procedure: Cystoscopy, right retrograde, right stent removal, right ureteroscopy Surgeon: Dr Terence Bernardo Anesthesia: Mac Indications for procedure: This is a 79-year-old female. Presented with hematuria. 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 This was resected in had come back as low-grade. At the time it is stent had been placed. A Cee catheter had been placed. The Cee catheter was removed 2 weeks ago. She presents fill examination under anesthesia with ureteroscopy of the transmural defect and stent removal. Procedure: After informed consent was verified the patient was brought to the operating room and placed in a supine position. Anesthesia was administered per protocol. The patient was placed in modified dorsal lithotomy position and prepped and draped in sterile fashion. Safety pause time-out was observed. Antibiotics being given. Twenty-three Maltese cystoscope was inserted per urethra. The stent was seen to be in a good area. The ureteric orifice which had been 100% resected low appeared to be healed. The stent was grasped and moved to the meatus. A wire was placed down the stent in the stent removed. The rigid ureteral scope was placed and this was placed alongside the wire. Retrograde examination was performed. No filling defect was seen. The area was transversed into the ureter. She had persistent hydroureteronephrosis however did not appear to be any evidence of recurrence and there appeared to be a well-healed junction between the ureter in the bladder. Her bladder was emptied. She was transferred in stable condition to the recovery area. Consideration will be given for a course of gemcitabine treatment to minimize chance of recurrence in this area. Pathology: [None Drains: Drain removed
[2020-09-20 15:05] VITALS: BP 118/48; PULSE 84; RESP 14; TEMP 36.3; O2SAT 95
[2020-09-20 15:10] VITALS: BP 120/49; PULSE 85; RESP 18; O2SAT 94
[2020-09-20 15:15] VITALS: BP 125/52; PULSE 83; RESP 18; O2SAT 94
[2020-09-20 15:23] VITALS: BP 138/62; PULSE 83; RESP 18; TEMP 36.2; O2SAT 94
== END 2020-09-20 15:45 | disposition home or self-care (01) ==
PROVIDERS: PCP Internal Medicine; Visit Provider Urology
PROC: (CPT 52310; principal; 2020-09-20 14:00)
DX: N13.30 Unspecified hydronephrosis (principal); C67.6 Malignant neoplasm of ureteric orifice; R31.9 Hematuria, unspecified; E11.22 Type 2 diabetes mellitus with diabetic chronic kidney disease; I12.9 Hypertensive chronic kidney disease with stage 1 through stage 4 chronic kidney disease, or unspecified chronic kidney disease; N18.9 Chronic kidney disease, unspecified; J44.9 Chronic obstructive pulmonary disease, unspecified; Z87.442 Personal history of urinary calculi; Z79.899 Other long term (current) drug therapy; Z79.4 Long term (current) use of insulin; Z88.2 Allergy status to sulfonamides; Z88.7 Allergy status to serum and vaccine; Z88.8 Allergy status to other drugs, medicaments and biological substances; Z87.891 Personal history of nicotine dependence
CPT/HCPCS: 52310; 82947; J2405; J3010; Q9967

== ENCOUNTER 2020-10-08 10:08 | Outpatient (REF) | payer MEDICARE, SELFPAY ==
[2020-10-08 13:33] LABS: MANUAL DIFF FLAG NO
[2020-10-08 13:36] LABS: Basophils Percent Auto 0.2 % (0-2); Eosinophils Absolute Auto 0.1 X10*3/uL (0.0-0.4); Eosinophils Percent Auto 0.9 % (0-4); Hematocrit 30.1 % (37-47); Hemoglobin 8.9 g/dl (12.0-16.0); Imm Gran Abs Auto 0.07 X10*3/uL (0.00-0.03); Imm Gran Pct Auto 0.8 % (0.0-0.4); Lymphocytes Absolute Auto 0.9 X10*3/uL (1.2-4.9); Lymphocytes Percent Auto 9.8 % (20-40); Mean Corpuscular HGB Conc 29.6 g/dl (31.0-35.0); Mean Corpuscular Hemoglobin 27.6 pg (27.0-33.0); Mean Corpuscular Volume 93.5 fL (80-98); Mean Platelet Volume 9.8 fL (9.4-12.3); Monocytes Percent Auto 11.1 % (2-11); Neutrophils Absolute Auto 7.1 X10*3/uL (2.0-8.3); Neutrophils Percent Auto 77.2 % (45-73); Platelet Count 415 X10*3/uL (160-400); Red Blood Count 3.22 X10*6/uL (4.20-5.50); Red Cell Distribution Width 14.4 % (11.0-16.0); White Blood Count 9.2 X10*3/uL (4.8-10.8)
[2020-10-08 13:47] LABS: Estimated Average Glucose 146 mg/dL; Hemoglobin A1c % 6.7 %
[2020-10-08 14:00] LABS: Alanine Aminotransferase < 6 U/L (0-31); Albumin Level 3.4 g/dL (3.5-5.0); Alkaline Phosphatase 98 U/L (39-117); Anion Gap 16 (12-20); Aspartate Amino Transferase 10 U/L (5-31); Bilirubin Total 0.5 mg/dL (0.0-1.0); Blood Urea Nitrogen 24 mg/dL (9-16); Calcium 9.1 mg/dL (8.4-10.2); Carbon Dioxide 28 mmol/L (22-29); Chloride 100 mmol/L (96-108); Estimated Glomerular Filt Rate 27; Glucose Random 154 mg/dL (60-115); Potassium 4.6 mmol/L (3.3-5.1); Sodium 139 mmol/L (135-145); Total Protein 6.2 g/dL (6.5-8.0)
== END 2020-10-08 10:09 | disposition home or self-care (01) ==
LOC: HO.10HDL 10:08
PROVIDERS: Visit Provider Internal Medicine
DX: I12.9 Hypertensive chronic kidney disease with stage 1 through stage 4 chronic kidney disease, or unspecified chronic kidney disease (principal); E11.22 Type 2 diabetes mellitus with diabetic chronic kidney disease; N18.9 Chronic kidney disease, unspecified; J44.9 Chronic obstructive pulmonary disease, unspecified; Z85.51 Personal history of malignant neoplasm of bladder
CPT/HCPCS: 36415; 80053; 83036; 85025

== ENCOUNTER → 2020-11-18 10:55 | Outpatient (BNVA) | payer MEDICARE, SELFPAY | PROVIDERS: Visit Provider Urology | DX: N39.0 Urinary tract infection, site not specified (principal); D49.4 Neoplasm of unspecified behavior of bladder | CPT/HCPCS: 52000; 99212 ==

== ENCOUNTER 2020-11-25 10:12 | Outpatient (REF) | payer MEDICARE, SELFPAY ==
[2020-11-25 12:21] LABS: Anion Gap 16 (12-20); Blood Urea Nitrogen 41 mg/dL (9-16); Calcium 9.8 mg/dL (8.4-10.2); Carbon Dioxide 28 mmol/L (22-29); Chloride 101 mmol/L (96-108); Estimated Glomerular Filt Rate 19; Glucose Random 128 mg/dL (60-115); Potassium 5.3 mmol/L (3.3-5.1); Sodium 140 mmol/L (135-145)
== END 2020-11-25 10:13 | disposition home or self-care (01) ==
LOC: HO.HMGCLDS 10:12
PROVIDERS: PCP Internal Medicine; Visit Provider Internal Medicine
DX: I12.9 Hypertensive chronic kidney disease with stage 1 through stage 4 chronic kidney disease, or unspecified chronic kidney disease (principal); N18.9 Chronic kidney disease, unspecified
CPT/HCPCS: 36415; 80048

== ENCOUNTER 2021-01-05 09:58 | Outpatient (REF) | payer MEDICARE, SELFPAY ==
[2021-01-05 11:10] LABS: Glucose Urine UA NEG (NEG); Leukocyte Esterase Urine 1+ (NEG); Nitrite Urine NEG (NEG); PH 5.5 (5.0-8.0); Specific Gravity - Urine 1.015 (1.005-1.025); Urine Blood NEG (NEG); Urine Ketones NEG (NEG); Urine Protein NEG (NEG-TRACE)
[2021-01-05 11:19] LABS: Creatinine Urine 42.95 mg/dL; Microalbum/Creatinine Ratio Ur 34.9 ug/mg cr
[2021-01-05 11:45] LABS: Appearance Urine HAZY; Color Urine YELLOW
[2021-01-05 11:51] LABS: Bacteria Urine TRACE /LPF; Mucus Urine 1+ /LPF; RBC Urine 0 /HPF (0); Squamous Epithelial Cell Urine 2+ /LPF
[2021-01-05 11:53] LABS: Anion Gap 15 (12-20); Blood Urea Nitrogen 24 mg/dL (9-16); Calcium 9.6 mg/dL (8.4-10.2); Carbon Dioxide 32 mmol/L (22-29); Chloride 99 mmol/L (96-108); Estimated Glomerular Filt Rate 27; Sodium 142 mmol/L (135-145)
[2021-01-06 19:45] LABS: Calcium (PTHI) 9.6 mg/dL (8.6-10.4); PTHI 106 pg/mL (14-64)
== END 2021-01-05 09:59 | disposition home or self-care (01) ==
LOC: HO.LAB 09:58
PROVIDERS: PCP Internal Medicine; Visit Provider Internal Medicine Nephrology
DX: N17.9 Acute kidney failure, unspecified (principal)
CPT/HCPCS: 36415; 80051; 81001; 81003; 82043; 82306; 82310; 82565; 83970; 84520

== ENCOUNTER 2021-01-07 13:03 | Outpatient (REF) | payer MEDICARE, SELFPAY | END 2021-01-07 13:04 | disposition home or self-care (01) | LOC: HO.LAB 13:03 | PROVIDERS: PCP Internal Medicine; Visit Provider Internal Medicine | DX: Z20.822 Contact with and (suspected) exposure to COVID-19 (principal) | CPT/HCPCS: C9803; U0003; U0005 ==

== ENCOUNTER 2021-01-10 13:04 | Outpatient (REF) | payer MEDICARE, SELFPAY ==
--- NOTE | ~2021-01-10 | US_ITS ---
EXAMINATION: US RETROPERITONEAL LIMITED (RENAL ONLY) CLINICAL INFORMATION: Acute kidney injury. COMPARISON: CT abdomen and pelvis without contrast dated 07/16/2020. Renal ultrasound with bladder dated 01/12/2015. TECHNIQUE: Real-time imaging of the kidneys. FINDINGS: RIGHT KIDNEY: 12.4 x 5.2 x 5.7 cm (SAG x AP x TRV). The kidney is normal in size and contour. There is an anechoic cyst in the midpole measuring 1.1 x 1.0 x 0.9 cm and 0.8 x 0.7 x 0.6 cm. No renal calculi seen. There is kavygwia-ac-hcgvor hydronephrosis and hydroureter measuring up to 3.7 cm. Increased cortical echogenicity noted. LEFT KIDNEY: 11.8 x 4.5 x 5.5 cm (SAG x AP x TRV). The kidney is normal in size and contour. There is increased echogenicity seen. There are three anechoic cysts. An upper pole cyst measures 2.7 x 2.1 x 2.1 cm, a midpole cyst measures 0.6 x 0.6 x 0.5 cm, a lower pole cyst measures 1.3 x 0.9 x 1.2 cm. No renal calculi. There is moderate hydronephrosis. INCIDENTAL FINDING: Bladder: Left ureteral jet is demonstrated; right is not. There is a right hydroureter extending to UVJ with echogenic stone or debris seen at the UVJ measuring 0.4 x 0.3 x 0.5 cm. The right ureter is very tortuous. US/US renal BI IMPRESSION: 1. Moderate right hydroureteronephrosis secondary to an echogenic stone at the right UVJ measuring 0.5 cm. 2. Bilateral cortical thinning with bilateral renal cysts. No echogenic renal calculi. There is bilateral hydronephrosis. 3. There is a normal left ureteral jet seen. A right ureteral jet is not seen in the bladder.
== END 2021-01-10 13:05 | disposition home or self-care (01) ==
LOC: HO.HMGCX 13:04
PROVIDERS: PCP Internal Medicine; Visit Provider Internal Medicine Nephrology
DX: N17.9 Acute kidney failure, unspecified (principal)
CPT/HCPCS: 76775

== ENCOUNTER 2021-01-13 14:16 | Outpatient (REF) | payer MEDICARE, SELFPAY ==
--- NOTE | ~2021-01-13 | XR_ITS ---
EXAMINATION: XR CHEST CLINICAL INFORMATION: Covid exposure COMPARISON: Chest x-ray August 16, 2020 TECHNIQUE: PA and lateral views of the chest were obtained. FINDINGS: Lungs are clear. No pulmonary vascular congestion. There is no pleural effusion. The heart size is normal. The cardiac and mediastinal contours are normal. There are calcifications of the thoracic aorta. There are multilevel degenerative changes of dorsal spine. XR/XR chest 2V IMPRESSION: Normal chest.
== END 2021-01-13 14:17 | disposition home or self-care (01) ==
LOC: HO.HMGCX 14:16
PROVIDERS: PCP Internal Medicine; Visit Provider Internal Medicine
DX: Z20.822 Contact with and (suspected) exposure to COVID-19 (principal)
CPT/HCPCS: 71046

== ENCOUNTER 2021-01-26 10:01 | Outpatient (REF) | payer MEDICARE, SELFPAY ==
[2021-01-26 11:11] LABS: MANUAL DIFF FLAG NO
[2021-01-26 11:18] LABS: Basophils Percent Auto 0.3 % (0-2); Eosinophils Absolute Auto 0.2 X10*3/uL (0.0-0.4); Eosinophils Percent Auto 2.3 % (0-4); Hematocrit 33.6 % (37-47); Hemoglobin 10.4 g/dl (12.0-16.0); Imm Gran Abs Auto 0.04 X10*3/uL (0.00-0.03); Imm Gran Pct Auto 0.6 % (0.0-0.4); Lymphocytes Percent Auto 15.1 % (20-40); Mean Corpuscular Hemoglobin 27.5 pg (27.0-33.0); Mean Corpuscular Volume 88.9 fL (80-98); Mean Platelet Volume 10.2 fL (9.4-12.3); Monocytes Absolute Auto 0.7 X10*3/uL (0.1-1.2); Monocytes Percent Auto 10.5 % (2-11); Neutrophils Absolute Auto 4.9 X10*3/uL (2.0-8.3); Neutrophils Percent Auto 71.2 % (45-73); Platelet Count 374 X10*3/uL (160-400); Red Blood Count 3.78 X10*6/uL (4.20-5.50); Red Cell Distribution Width 13.9 % (11.0-16.0); White Blood Count 6.9 X10*3/uL (4.8-10.8)
[2021-01-26 12:30] LABS: Alanine Aminotransferase 6 U/L (0-31); Albumin Level 3.8 g/dL (3.5-5.0); Alkaline Phosphatase 85 U/L (39-117); Anion Gap 16 (12-20); Aspartate Amino Transferase 15 U/L (5-31); Bilirubin Total 0.3 mg/dL (0.0-1.0); Blood Urea Nitrogen 22 mg/dL (9-16); Calcium 9.1 mg/dL (8.4-10.2); Carbon Dioxide 29 mmol/L (22-29); Chloride 100 mmol/L (96-108); Estimated Glomerular Filt Rate 23; Glucose Random 133 mg/dL (60-115); Iron 53 mcg/dL (30-160); Percent Iron Saturation 24 % (15-50); Potassium 3.8 mmol/L (3.3-5.1); Sodium 141 mmol/L (135-145); Total Iron Binding Capacity 225 mcg/dL (228-428); Total Protein 6.8 g/dL (6.5-8.0); Unsaturated Iron Binding 172 ug/dL
[2021-01-26 12:42] LABS: Estimated Average Glucose 140 mg/dL; Hemoglobin A1c % 6.5 %
[2021-01-26 12:52] LABS: Thyroid Stimulating Hormone 1.99 uIU/mL (0.32-4.0)
[2021-01-26 13:47] LABS: Glucose Urine UA NEG (NEG); Leukocyte Esterase Urine 2+ (NEG); Nitrite Urine NEG (NEG); Specific Gravity - Urine 1.015 (1.005-1.025); Urine Blood NEG (NEG); Urine Ketones NEG (NEG); Urine Protein NEG (NEG-TRACE)
[2021-01-26 13:48] LABS: Appearance Urine CLEAR; Color Urine YELLOW
[2021-01-26 14:00] LABS: Bacteria Urine 1+ /LPF; Mucus Urine 1+ /LPF; Renal Epithelial Cells Urine 1+ /LPF; Squamous Epithelial Cell Urine 1+ /LPF
[2021-01-26 14:11] LABS: Microalbum/Creatinine Ratio Ur 10.6 ug/mg cr
== END 2021-01-26 10:02 | disposition home or self-care (01) ==
LOC: HO.HMGCLDS 10:01
PROVIDERS: PCP Internal Medicine; Visit Provider Internal Medicine
DX: E11.22 Type 2 diabetes mellitus with diabetic chronic kidney disease (principal); J44.9 Chronic obstructive pulmonary disease, unspecified; I12.9 Hypertensive chronic kidney disease with stage 1 through stage 4 chronic kidney disease, or unspecified chronic kidney disease; D63.1 Anemia in chronic kidney disease; N18.9 Chronic kidney disease, unspecified
CPT/HCPCS: 36415; 80053; 81001; 82043; 83036; 83540; 84443; 85025

== ENCOUNTER 2021-02-15 11:04 | Outpatient (REF) | payer MEDICARE, SELFPAY ==
[2021-02-15 13:44] LABS: Hematocrit 33.4 % (37-47); Hemoglobin 10.3 g/dl (12.0-16.0); Mean Corpuscular HGB Conc 30.8 g/dl (31.0-35.0); Mean Corpuscular Hemoglobin 27.8 pg (27.0-33.0); Mean Corpuscular Volume 90.3 fL (80-98); Mean Platelet Volume 10.4 fL (9.4-12.3); Platelet Count 217 X10*3/uL (160-400); Red Cell Distribution Width 14.3 % (11.0-16.0); White Blood Count 6.1 X10*3/uL (4.8-10.8)
[2021-02-15 14:08] LABS: Anion Gap 11 (12-20); Blood Urea Nitrogen 20 mg/dL (9-16); Calcium 9.2 mg/dL (8.4-10.2); Carbon Dioxide 34 mmol/L (22-29); Chloride 99 mmol/L (96-108); Estimated Glomerular Filt Rate 30; Potassium 3.8 mmol/L (3.3-5.1); Sodium 140 mmol/L (135-145)
== END 2021-02-15 11:05 | disposition home or self-care (01) ==
LOC: HO.10HDL 11:04
PROVIDERS: Visit Provider Internal Medicine Hypertension Specialist
DX: N18.31 Chronic kidney disease, stage 3a (principal)
CPT/HCPCS: 36415; 80051; 82310; 82565; 84520; 85027

== ENCOUNTER → 2021-02-17 10:47 | Outpatient (BNVA) | payer MEDICARE, SELFPAY | PROVIDERS: PCP Internal Medicine; Visit Provider Urology | DX: D49.4 Neoplasm of unspecified behavior of bladder (principal); N13.30 Unspecified hydronephrosis; E11.22 Type 2 diabetes mellitus with diabetic chronic kidney disease; E11.42 Type 2 diabetes mellitus with diabetic polyneuropathy; I12.9 Hypertensive chronic kidney disease with stage 1 through stage 4 chronic kidney disease, or unspecified chronic kidney disease; N18.9 Chronic kidney disease, unspecified; E78.00 Pure hypercholesterolemia, unspecified; Z88.6 Allergy status to analgesic agent; Z88.2 Allergy status to sulfonamides; Z88.7 Allergy status to serum and vaccine; Z88.8 Allergy status to other drugs, medicaments and biological substances; Z96.652 Presence of left artificial knee joint | CPT/HCPCS: 52000; 99212 ==

== ENCOUNTER 2021-02-28 08:40 | Day surgery (SDC) | payer MEDICARE, SELFPAY ==
--- NOTE | 2021-02-25 10:34 | HO.ANESPROP2 ---
Documented by User: Amanda Ramsey NP 02/25/21 10:40 HPI - Anesthesia Eval Consult details Narrative: 80yo F for Right Cystoscopy, Ureteroroscopy, Retro, Laser,with poss stent s/p cysto, etc 09/20/20 with GA-LMA 4 PMFSH Active Problems Active Problems: All Active Problems (Updated 09/01/20 @ 10:26 by Terence Bernardo MD) Hydronephrosis (Acute) Bladder tumor (Acute) UTI (urinary tract infection) (Acute) DM type 2 (diabetes mellitus, type 2) (Acute) Acute respiratory failure with hypoxia (Acute) Bladder mass (Acute) ROMY (acute kidney injury) (Acute) COPD (chronic obstructive pulmonary disease) (Acute) Urinary urgency (Acute) Past Medical History Medical History Acute respiratory failure with hypoxia ROMY (acute kidney injury) Anxiety Back pain Bladder mass CKD (chronic kidney disease) COPD (chronic obstructive pulmonary disease) DM type 2 (diabetes mellitus, type 2) Elevated cholesterol Family history of anesthesia complication Fibromyalgia GERD (gastroesophageal reflux disease) Hiatal hernia Hypertension On beta elizabeth at home Osteoarthritis Peripheral neuropathy PONV (postoperative nausea and vomiting) Restless leg syndrome Surgical History Surgical History History of cholecystectomy History of hysterectomy History of total left knee replacement Hx of appendectomy Hx of bilateral cataract extraction Hx of colonoscopy Hx of tonsillectomy Social History Social History Household Members: Spouse and Children Housing: House Are you a primary career development coordinator to a significant other at home: No Do you presently have visiting nurse or other home services: No Patient Tobacco Use Status: Former Tobacco user Quit Date: 1994 Tobacco use type: Cigarette Cigarette Packs Per Day: 1 Cigarettes Per Day: 20.0 Years Smoked: 50 Smoked in Last 30 Days: No Use of substances other than those prescribed or required for medical reasons: No Are you DNR?: No Advance Directives: No Advance Directives Information Provided: No service: No Current occupational status: retired Meds Allergies Allergy/AdvReac Type Severity Reaction Status Date / Time Sulfa (Sulfonamide Allergy Severe Anaphylaxis Verified 02/28/21 09:00 Antibiotics) sulfamethoxazole Allergy Severe ANAPHYLAXIS Verified 02/28/21 09:00 [From BACTRIM] influenza virus vaccine, Allergy Intermediate ARTHRITIC Verified 02/28/21 09:00 specific EFFECTS [FLU VACCINE] nitrofurantoin AdvReac Mild GI UPSET Verified 02/28/21 09:00 [From MACRODANTIN] oxycodone [From PERCOCET] AdvReac Mild GI UPSET Verified 02/28/21 09:00 Home Medications Medication Instructions Recorded Confirmed Last Taken Type alprazolam 0.5 mg tablet 0.5 mg PO BEDTIME 07/20/20 08/16/20 08/15/20 History amitriptyline 10 mg tablet 20 mg PO BEDTIME 07/20/20 08/16/20 08/15/20 History atenolol 25 mg tablet 25 mg PO DAILY 07/20/20 08/16/20 08/16/20 06:50 History carbidopa 25 mg-levodopa 100 mg 1 tab PO BID 07/20/20 08/16/20 08/16/20 06:50 History tablet (Sinemet) furosemide 40 mg tablet 80 mg PO DAILY 07/20/20 08/16/20 08/15/20 History lisinopril 5 mg tablet 5 mg PO DAILY 07/20/20 08/16/20 08/16/20 History omega-3 fatty acids 1,000 mg 1,000 mg PO DAILY 07/20/20 08/16/20 02/27/21 08:30 History capsule (Fish Oil Concentrate) omeprazole 20 mg capsule,delayed 40 mg PO DAILY 07/20/20 08/16/20 08/16/20 06:50 History release atorvastatin 10 mg tablet 10 mg PO DAILY 08/10/20 08/16/20 08/15/20 History gabapentin 100 mg capsule 100 mg PO BID 08/10/20 08/16/20 08/16/20 06:50 History ipratropium bromide 17 2 inh INHALATION QID PRN 08/10/20 08/16/20 02/28/21 07:30 History mcg/actuation HFA aerosol inhaler (Atrovent HFA) diltiazem HCl 180 mg capsule,24 180 mg PO DAILY 08/16/20 08/16/20 08/15/20 History hr,extended release (Tiadylt ER) potassium chloride 10 mEq 1 tab PO DAILY 08/16/20 08/16/20 Unknown History tablet,extended release(part/cryst) (Klisis-Con M) Exam Exam Date and Time: February 25, 2021 1035 Pertinent Lab Results Pertinent Lab Results: Laboratory Tests 02/15/21 02/15/21 11:10 11:10 WBC 6.1 Hgb 10.3 L Hct 33.4 L Plt Count 217 D Sodium 140 Potassium 3.8 Chloride 99 Carbon Dioxide 34 H BUN 20 H Creatinine 1.65 H Narrative Narrative: EKG 08/2020 Vent. Rate : 069 BPM ? ? Atrial Rate : 069 BPM ?? P-R Int : 136 ms? QRS Dur : 086 ms ? ? QT Int : 380 ms ? ? ? P-R-T Axes : 061 064 078 degrees ?? QTc Int : 407 ms ? Normal sinus rhythm with sinus arrhythmia Nonspecific T wave abnormality Abnormal ECG When compared with ECG of 16-MAR-2014 15:56, Premature ventricular complexes are no longer Present Assessment and Plan Assessment Anesthesia Assessment: Chart Reviewed Documented by User: Cristal Kirkland MD 02/28/21 10:28 [facility] Past Medical History Medical History Acute respiratory failure with hypoxia ROMY (acute kidney injury) Anxiety Back pain Bladder mass CKD (chronic kidney disease) COPD (chronic obstructive pulmonary disease) DM type 2 (diabetes mellitus, type 2) Elevated cholesterol Family history of anesthesia complication Fibromyalgia GERD (gastroesophageal reflux disease) Hiatal hernia Hypertension On beta elizabeth at home Osteoarthritis Peripheral neuropathy PONV (postoperative nausea and vomiting) Restless leg syndrome Family History Family history of problems with anesthesia: Yes Surgical History Surgical History History of cholecystectomy History of hysterectomy History of total left knee replacement Hx of appendectomy Hx of bilateral cataract extraction Hx of colonoscopy Hx of tonsillectomy History of Problems with Anesthesia: No Social History Social History Household Members: Spouse and Children Housing: House Are you a primary career development coordinator to a significant other at home: No Do you presently have visiting nurse or other home services: No Patient Tobacco Use Status: Former Tobacco user Quit Date: 1994 Tobacco use type: Cigarette Cigarette Packs Per Day: 1 Cigarettes Per Day: 20.0 Years Smoked: 50 Smoked in Last 30 Days: No Use of substances other than those prescribed or required for medical reasons: No Are you DNR?: No Advance Directives: No Advance Directives Information Provided: No service: No Current occupational status: retired [employer] Allergies Allergy/AdvReac Type Severity Reaction Status Date / Time Sulfa (Sulfonamide Allergy Severe Anaphylaxis Verified 02/28/21 09:00 Antibiotics) sulfamethoxazole Allergy Severe ANAPHYLAXIS Verified 02/28/21 09:00 [From BACTRIM] influenza virus vaccine, Allergy Intermediate ARTHRITIC Verified 02/28/21 09:00 specific EFFECTS [FLU VACCINE] nitrofurantoin AdvReac Mild GI UPSET Verified 02/28/21 09:00 [From MACRODANTIN] oxycodone [From PERCOCET] AdvReac Mild GI UPSET Verified 02/28/21 09:00 Home Medications Medication Instructions Recorded Confirmed Last Taken Type alprazolam 0.5 mg tablet 0.5 mg PO BEDTIME 07/20/20 08/16/20 08/15/20 History amitriptyline 10 mg tablet 20 mg PO BEDTIME 07/20/20 08/16/20 08/15/20 History atenolol 25 mg tablet 25 mg PO DAILY 07/20/20 08/16/20 08/16/20 06:50 History carbidopa 25 mg-levodopa 100 mg 1 tab PO BID 07/20/20 08/16/20 08/16/20 06:50 History tablet (Sinemet) furosemide 40 mg tablet 80 mg PO DAILY 07/20/20 08/16/20 08/15/20 History lisinopril 5 mg tablet 5 mg PO DAILY 07/20/20 08/16/20 08/16/20 History omega-3 fatty acids 1,000 mg 1,000 mg PO DAILY 07/20/20 08/16/20 02/27/21 08:30 History capsule (Fish Oil Concentrate) omeprazole 20 mg capsule,delayed 40 mg PO DAILY 07/20/20 08/16/20 08/16/20 06:50 History release atorvastatin 10 mg tablet 10 mg PO DAILY 08/10/20 08/16/20 08/15/20 History gabapentin 100 mg capsule 100 mg PO BID 08/10/20 08/16/20 08/16/20 06:50 History ipratropium bromide 17 2 inh INHALATION QID PRN 08/10/20 08/16/20 02/28/21 07:30 History mcg/actuation HFA aerosol inhaler (Atrovent HFA) diltiazem HCl 180 mg capsule,24 180 mg PO DAILY 08/16/20 08/16/20 08/15/20 History hr,extended release (Tiadylt ER) potassium chloride 10 mEq 1 tab PO DAILY 08/16/20 08/16/20 Unknown History tablet,extended release(part/cryst) (Klor-Con M) Exam Airway Mallampati Class: II TM Dist: >3cm Neck ROM: Limited Assessment and Plan Assessment Anesthesia Assessment: Anesthesia Plan Discussed Final Anesthetic Review Family History of Problems with Anesthesia: Yes History of Problems with Anesthesia: No NPO: Yes ASA Class: III Final Preanesthetic Review: No Changes in Pt Med Stat, Meds/Allgs Chart Reviewed, Consent Obtained/Reviewed and Anes Risks/Benef Reviewed Patient Risk: Intermediate Procedure Risk: Low Assessment/Block/Sedation in SS: Assess/Block/Sedation-SS Anesthetic Plan Anesthetic Plan: GA Disposition: Standard PACU
--- NOTE | ~2021-02-28 | FL_ITS ---
EXAMINATION: Intraoperative fluoroscopy CLINICAL INFORMATION: Stone COMPARISON: Renal ultrasound January 10, 2021 TECHNIQUE: Intraoperative fluoroscopy was provided for use by Dr. Bernardo. A total of 1 image was saved to PACS. A radiologist was not present during imaging. Today's dictation is only for administrative purposes to document intraoperative fluoroscopic usage. TOTAL FLUOROSCOPIC TIME: 27 seconds FL/FL guidance in OR FINDINGS~\^^ Intraoperative fluoroscopy provided for use by Dr. Haynes. Please see operative note for detailed findings.
[2021-02-28 09:01] VITALS: BP 136/42; PULSE 76; RESP 16; TEMP 37.1; O2SAT 94; BMI 30.2
[2021-02-28 09:10] LABS: Glucose, Whole Blood 130 mg/dL (60-115)
[2021-02-28] MEDS: Lactated Ringers 1,000 ML 50 ML IVCONT (09:15)
[2021-02-28] MEDS: levoFLOXacin 500 MG TABLET PO (09:17)
--- NOTE | 2021-02-28 10:06 | MHC.SHP ---
Pre-Procedural Eval Section A Date of Service: 02/28/21 Section B Chief Complaint: Bilateral hydronephrosis Details of Present Illness: Prior TURBT had question of right distal ureteric involvement stent for 6 weeks at this point has right hydronephrosis with left mild hydronephrosis. Plan for bilateral retrograde with right ureteroscopy and possible stent placement Relevant Family History (Specify if Yes): No Relevant Social History: None Present Medications: see Short Stay Collaborative assessment Medical History: Significant History History of Previous Operations: Relevant previous surgery/procedure and date(s) Allergies: Allergies Allergy/AdvReac Type Severity Reaction Status Date / Time Sulfa (Sulfonamide Allergy Severe Anaphylaxis Verified 02/28/21 09:00 Antibiotics) sulfamethoxazole Allergy Severe ANAPHYLAXIS Verified 02/28/21 09:00 [From BACTRIM] influenza virus vaccine, Allergy Intermediate ARTHRITIC Verified 02/28/21 09:00 specific EFFECTS [FLU VACCINE] nitrofurantoin AdvReac Mild GI UPSET Verified 02/28/21 09:00 [From MACRODANTIN] oxycodone [From PERCOCET] AdvReac Mild GI UPSET Verified 02/28/21 09:00 Review of Systems Sugical H&P ROS: Negative: Constitution, Cardiovascular, Respiratory, Neurological, Psychiatric, Hem-Onc, Allergic/Immunologic, Gastrointestinal, Genitourinary, Musculoskeletal, Integumentary, Endocrine and Eyes/Ears/Nose/Throat Exam Surgical H&P Exam: Normal: HEENT, Normal: Heart, Normal: Lungs, Normal: Extremities, Normal: Abdomen, Normal: Skin and Normal: Neurological Plan Diagnosis/Plan: Unchanged (Cystoscopy, bilateral retrograde, right ureteroscopy and possible stent placement) I have reviewed the history and physical and performed a pertinent physical examination on my patient. No changes have occurred unless specified.
[2021-02-28 11:18] VITALS: BP 125/50; PULSE 75; RESP 16; TEMP 36.1; O2SAT 98
[2021-02-28 11:23] VITALS: BP 127/55; PULSE 74; RESP 16; O2SAT 98
[2021-02-28 11:28] VITALS: BP 128/52; PULSE 73; RESP 16; O2SAT 92
--- NOTE | 2021-02-28 11:28 | W.PM.OPN ---
Operative Note Operative Note Date of Service: 02/28/21 Narrative: PreOperative Diagnosis: Right hydronephrosis Post Operative Diagnosis: Obstructed right distal ureter Procedure: Cystoscopy with bilateral retrograde Surgeon: Dr Terence Bernardo Anesthesia: General Indications for procedure: Persistent right hydronephrosis on imaging. History of bladder cancer and opening of distal right ureteric orifice Procedure: After informed consent was verified the patient was brought to the operating room and placed in a supine position. Anesthesia was administered per protocol. Twenty-two Upper Sorbian cystoscope placed without difficulty. Bladder was examined in its entirety. Left ureteric orifice seen. Retrograde examination performed which was normal. Right ureteric orifice was obliterated. There was scarring. Previous opening was now not seen. Using a Gutiérrez hot knife incision was made in the mucosa. We were unable to open on the roof the obstructed ureter. A decision was made to complete the procedure. Cee catheter was placed to stay for 1 day. She will need a right PCN which will be organized She tolerated procedure well was extubated in operating room transferred in stable condition to the recovery area Pathology: None Drains: None
[2021-02-28 11:35] VITALS: BP 132/59; PULSE 74; RESP 16; O2SAT 96
[2021-02-28] MEDS: Acetaminophen 325 MG TABLET 650 MG PO (11:39)
[2021-02-28 11:52] VITALS: BP 129/49; PULSE 70; RESP 16; TEMP 36.1; O2SAT 95
== END 2021-02-28 12:17 | disposition home or self-care (01) ==
PROVIDERS: PCP Internal Medicine; Visit Provider Urology
PROC: (CPT 52341; principal; 2021-02-28 10:40)
DX: N13.1 Hydronephrosis with ureteral stricture, not elsewhere classified (principal); D49.4 Neoplasm of unspecified behavior of bladder; Z85.51 Personal history of malignant neoplasm of bladder; N32.89 Other specified disorders of bladder; E11.22 Type 2 diabetes mellitus with diabetic chronic kidney disease; I12.9 Hypertensive chronic kidney disease with stage 1 through stage 4 chronic kidney disease, or unspecified chronic kidney disease; N18.9 Chronic kidney disease, unspecified; J44.9 Chronic obstructive pulmonary disease, unspecified; G62.9 Polyneuropathy, unspecified; Z88.2 Allergy status to sulfonamides; Z90.49 Acquired absence of other specified parts of digestive tract; Z79.899 Other long term (current) drug therapy; Z88.8 Allergy status to other drugs, medicaments and biological substances; Z88.7 Allergy status to serum and vaccine; Z87.891 Personal history of nicotine dependence
CPT/HCPCS: 52341; 82947; C1758; C1769; J1100; J2370; J2405; J3010; Q9967

== ENCOUNTER 2021-03-08 10:58 | Outpatient (REF) | payer MEDICARE, SELFPAY ==
--- NOTE | ~2021-03-08 | MM_ITS ---
EXAMINATION: MM SCREENING DIGITAL BREAST TOMOSYNTHESIS, BILATERAL CLINICAL INFORMATION: Screening. Asymptomatic. The lifetime risk of breast cancer based on the Tyrer-Cuzick Model is 3.8%. COMPARISON: Mammography: 04/24/2019 and studies dating back to 12/24/2009. TECHNIQUE: Digital breast tomosynthesis is performed in both the craniocaudal and mediolateral oblique views along with computer-aided detection (CAD). Synthesized 2D images are generated from the tomosynthesis. FINDINGS: The breasts are heterogeneously dense, which may obscure small masses (ACR BI-RADS breast composition Category c). There is multiplicity and bilaterality of innumerable calcifications. There is stable parenchymal pattern of the right breast. About the superior aspect of the left breast, approximately 7 cm from nipple, there is a density not definitely seen previously which may represent superimposition of fibroglandular tissue. Margins are irregular. Recommend spot compression view in mediolateral oblique projection and 90-degree mediolateral view. No corresponding craniocaudal lesion is identified. MM/MM tomosynthesis screening BI IMPRESSION: Left breast density mediolateral oblique projection as described. ASSESSMENT: BI-RADS 0: Incomplete - Need Additional Imaging Evaluation RECOMMENDATION: 1. Additional views of the left breast. 2. Targeted ultrasound if warranted after review of the additional views. 3. Radiology department staff will contact the patient for additional imaging. This patient's information was entered into a reminder system with a target due date for their next mammogram.
== END 2021-03-08 10:59 | disposition home or self-care (01) ==
LOC: HO.MAMMO 10:58
PROVIDERS: PCP Internal Medicine; Visit Provider Internal Medicine
DX: Z12.31 Encounter for screening mammogram for malignant neoplasm of breast (principal); N13.30 Unspecified hydronephrosis
CPT/HCPCS: 51798; 77063; 77067; 99212

== ENCOUNTER 2021-03-15 10:42 | Outpatient (REF) | payer MEDICARE, SELFPAY ==
[2021-03-15 11:45] LABS: Partial Thromboplastin Time 40.9 SEC (24.1-38.0)
[2021-03-15 11:50] LABS: Hematocrit 34.6 % (37-47); Hemoglobin 10.7 g/dl (12.0-16.0); Mean Corpuscular HGB Conc 30.9 g/dl (31.0-35.0); Mean Corpuscular Hemoglobin 27.8 pg (27.0-33.0); Mean Corpuscular Volume 89.9 fL (80-98); Mean Platelet Volume 10.9 fL (9.4-12.3); Platelet Count 208 X10*3/uL (160-400); Red Blood Count 3.85 X10*6/uL (4.20-5.50); Red Cell Distribution Width 13.7 % (11.0-16.0); White Blood Count 7.3 X10*3/uL (4.8-10.8)
[2021-03-15 12:00] LABS: Prothrombin Time 11.8 SEC (9.9-13.0)
[2021-03-15 12:08] LABS: Blood Urea Nitrogen 25 mg/dL (9-16); Estimated Glomerular Filt Rate 31
== END 2021-03-15 10:43 | disposition home or self-care (01) ==
LOC: HO.LAB 10:42
PROVIDERS: PCP Internal Medicine; Visit Provider Urology
DX: Z13.9 Encounter for screening, unspecified (principal); N32.89 Other specified disorders of bladder
CPT/HCPCS: 36415; 82565; 84520; 85027; 85610; 85730

== ENCOUNTER 2021-03-18 12:39 | Day surgery (SDC) | payer MEDICARE, SELFPAY ==
--- NOTE | ~2021-03-18 | IR_ITS ---
PROCEDURE: RIGHT NEPHROSTOMY TUBE PLACEMENT CLINICAL INFORMATION: Bladder cancer. Right hydronephrosis. Worsening renal function. COMPARISON: Previous renal ultrasound 01/10/[address] of the abdomen and pelvis 07/16/2020. TECHNIQUE: Procedure and risks and benefits including bleeding, infection and injury to the kidney were discussed with the patient and informed consent was obtained. The patient was positioned in the prone position. All elements of maximal sterile barrier technique followed including use of cap, mask, sterile gown, sterile gloves, a sterile full body drape and hand hygiene. Also followed skin preparation with 2% chlorhexidine for cutaneous antisepsis, and sterile ultrasound preparation with sterile gel and probe cover when applicable. The right flank was prepped and draped in the usual sterile fashion. The skin and soft tissues were anesthetized with 1% lidocaine plain. Using ultrasound guidance and a 22-gauge Chiba needle, right lower pole calyceal access was obtained. Over an .018 wire, a 6 [place] AccuStick system was positioned in the collecting system. Over an .035 wire, an 8.5 [place] Irish nephrostomy tube was positioned pigtail coiled in a dilated upper pole calyx. The patient received Versed 1 mg and fentanyl 50 mcg intravenously during the procedure and Kefzol 2 g IV. Conscious sedation was provided by a registered nurse under my direct supervision with continuous hemodynamic monitoring. Urine specimen was sent for culture and cytology. FLUOROSCOPY TIME: 3.7 minutes. TOTAL SEDATION TIME: 60 minutes. TOTAL DOSE: 850 cGy-cm2. FINDINGS: Renal ultrasound demonstrates interval decrease in right hydronephrosis compared to previous exams. The right kidney appears small with renal cortical thinning. Images post nephrostomy tube placement demonstrate lower pole calyceal access to the collecting system, hydronephrosis and dilatation of the right proximal ureter. IR/IR nephrostomy IMPRESSION: 8.5 [place] Irish right nephrostomy tube placement.
[2021-03-18 13:09] LABS: Glucose, Whole Blood 133 mg/dL (60-115)
[2021-03-18 13:13] VITALS: BP 161/51; PULSE 75; RESP 20; TEMP 37.2; O2SAT 94; BMI 30.2
[2021-03-18 16:30] VITALS: BP 139/58; PULSE 70; RESP 1; O2SAT 96
[2021-03-18] MEDS: iohexoL 300 MG/ML 50 ML INFUS..BTL PR (16:44)
[2021-03-18 16:45] VITALS: BP 139/58; PULSE 66; RESP 17; O2SAT 95
[2021-03-18] MEDS: Lidocaine HCl 1 % MPF 5 ML VIAL INFILTRATI (16:46)
--- NOTE | 2021-03-18 16:57 | HO.RADPN ---
RADIOLOGY Narrative Narrative: 8.5 Fr right nephrostomy placed. Urine sent for culture and cytology.
[2021-03-18 17:00] VITALS: BP 134/50; PULSE 67; RESP 17; TEMP 36.4; O2SAT 96
[2021-03-18] MEDS: Acetaminophen 325 MG TABLET 650 MG PO (17:04)
[2021-03-18 17:12] LABS: Urine Cytology See Pathology rpt
[2021-03-18 17:15] VITALS: BP 136/60; PULSE 68; RESP 16; O2SAT 96
== END 2021-03-18 17:52 | disposition home or self-care (01) ==
PROVIDERS: Radiology Diagnostic Radiology; PCP Internal Medicine; Visit Provider Urology
DX: N13.30 Unspecified hydronephrosis (principal); C67.9 Malignant neoplasm of bladder, unspecified; E11.22 Type 2 diabetes mellitus with diabetic chronic kidney disease; I12.9 Hypertensive chronic kidney disease with stage 1 through stage 4 chronic kidney disease, or unspecified chronic kidney disease; N18.9 Chronic kidney disease, unspecified; Z79.899 Other long term (current) drug therapy
CPT/HCPCS: 50432; 76775; 82947; 87086; 88112; 99152; 99153; C1729; C1769; C1887; C1892; C1894; J0690; J2250; J3010; Q9967

== ENCOUNTER 2021-03-21 10:02 | Outpatient (REF) | payer MEDICARE, SELFPAY ==
--- NOTE | ~2021-03-21 | MM_ITS ---
EXAMINATION: MM DIAGNOSTIC DIGITAL BREAST TOMOSYNTHESIS, LEFT CLINICAL INFORMATION: Recall from screening for question of asymmetric density upper breast on MLO view without CC correlate. TC score 4%. COMPARISON: Mammography: 03/08/2021, 04/24/2019, 04/19/2018 TECHNIQUE: Digital breast tomosynthesis is performed. 2D images are generated from the tomosynthesis. The following views are obtained: Rolled CC x2, ML, spot MLO. FINDINGS: The breasts are heterogeneously dense, which may obscure small masses (ACR BI-RADS breast composition Category c). The additional views show no mass there are persistent asymmetric density or developing density in the area of recent imaging concern. Again, there are scattered round calcifications throughout the breast. There are no significant changes. Results are discussed with the patient at time of visit. MM/MM tomosynthesis added views L IMPRESSION: Additional views show no significant changes from prior exams. ASSESSMENT: BI-RADS 2: Benign RECOMMENDATION: Routine annual mammography screening. This patient's information was entered into a reminder system with a target due date for their next mammogram.
== END 2021-03-21 10:03 | disposition home or self-care (01) ==
LOC: HO.MAMMO 10:02
PROVIDERS: Visit Provider Internal Medicine
DX: R92.2 Inconclusive mammogram (principal)
CPT/HCPCS: 77061; 77065

== ENCOUNTER → 2021-03-25 10:26 | Outpatient (BNVA) | payer MEDICARE, SELFPAY | PROVIDERS: PCP Internal Medicine; Visit Provider Urology ==

== ENCOUNTER 2021-04-11 06:44 | Day surgery (SDC) | payer MEDICARE, SELFPAY ==
[2021-04-05 11:06] VITALS: BMI 30.7
--- NOTE | 2021-04-08 14:21 | P.CONAN_ITS ---
Documented by User: Amanda Ramsey NP 04/08/21 14:37 HPI - Anesthesia Eval Consult details Narrative: 80yo F for Right Cystoscopy antegrade Ureteroscopy pyelogram with laser of ureteric stricture and stent placement Percutaneous nephrostomy tube in situ s/p cysto, etc 02/2021 with GA-LMA 4 *HIGHLY ANXIOUS REGARDING ANY MASK USE!!* PMFSH Active Problems Active Problems: All Active Problems (Updated 04/05/21 @ 10:43 by Moira Fernández RN) Urinary urgency (Acute) COPD (chronic obstructive pulmonary disease) (Acute) UTI (urinary tract infection) (Acute) Bladder tumor (Acute) Hydronephrosis (Acute) DM type 2 (diabetes mellitus, type 2) (Acute) Acute respiratory failure with hypoxia (Acute) Bladder mass (Acute) ROMY (acute kidney injury) (Acute) Past Medical History Medical History Acute respiratory failure with hypoxia ROMY (acute kidney injury) Anxiety Back pain Bladder mass CKD (chronic kidney disease) COPD (chronic obstructive pulmonary disease) DM type 2 (diabetes mellitus, type 2) Elevated cholesterol Family history of anesthesia complication Fibromyalgia GERD (gastroesophageal reflux disease) Hiatal hernia Hypertension On beta elizabeth at home Osteoarthritis Peripheral neuropathy PONV (postoperative nausea and vomiting) Restless leg syndrome Ureteral stricture, right Family History Family history of problems with anesthesia: Yes Surgical History Surgical History History of cholecystectomy History of cystoscopy History of hysterectomy History of total left knee replacement Hx of appendectomy Hx of bilateral cataract extraction Hx of colonoscopy Hx of tonsillectomy Nephrostomy status History of Problems with Anesthesia: Yes (PONV) Social History Social History Household Members: Children Housing: House Housing Other:: Lives with son and family Are you a primary assisted living care manager to a significant other at home: No Do you presently have visiting nurse or other home services: No Patient Tobacco Use Status: Former Tobacco user Quit Date: 1994 Tobacco use type: Cigarette Cigarette Packs Per Day: 1 Cigarettes Per Day: 20.0 Years Smoked: 50 Use of substances other than those prescribed or required for medical reasons: No Have you been hit, kicked, punched, or otherwise hurt by someone within the past year? If so, by whom?: No Are you DNR?: No Advance Directives: No Advance Directives Information Provided: No Advance Directives on File: No Recently lost weight without trying: No Nutrition Risks: No Nutritional Risk Patient : No service: No Current occupational status: retired Meds Allergies Allergy/AdvReac Type Severity Reaction Status Date / Time Sulfa (Sulfonamide Allergy Severe Anaphylaxis Verified 04/05/21 10:12 Antibiotics) sulfamethoxazole Allergy Severe ANAPHYLAXIS Verified 04/05/21 10:12 [From BACTRIM] influenza virus vaccine, Allergy Intermediate ARTHRITIC Verified 04/05/21 10:12 specific EFFECTS [FLU VACCINE] nitrofurantoin AdvReac Mild GI UPSET Verified 04/05/21 10:12 [From MACRODANTIN] oxycodone [From PERCOCET] AdvReac Mild GI UPSET Verified 04/05/21 10:12 Home Medications Medication Instructions Recorded Confirmed Last Taken Type alprazolam 0.5 mg tablet 0.5 mg PO BEDTIME 07/20/20 04/05/21 08/15/20 History amitriptyline 10 mg tablet 20 mg PO BEDTIME 07/20/20 04/05/21 08/15/20 History atenolol 25 mg tablet 25 mg PO DAILY 07/20/20 04/05/21 08/16/20 06:50 History carbidopa 25 mg-levodopa 100 mg 1 tab PO BID 07/20/20 04/05/21 08/16/20 06:50 History tablet (Sinemet) furosemide 40 mg tablet 80 mg PO DAILY 07/20/20 04/05/21 08/15/20 History lisinopril 5 mg tablet 5 mg PO DAILY 07/20/20 04/05/21 08/16/20 History omega-3 fatty acids 1,000 mg 1,000 mg PO DAILY 07/20/20 04/05/21 02/27/21 08:30 History capsule (Fish Oil Concentrate) omeprazole 20 mg capsule,delayed 40 mg PO DAILY 07/20/20 04/05/21 08/16/20 06:50 History release atorvastatin 10 mg tablet 10 mg PO DAILY 08/10/20 04/05/21 08/15/20 History gabapentin 100 mg capsule 100 mg PO BID 08/10/20 04/05/21 08/16/20 06:50 History ipratropium bromide 17 2 inh INHALATION QID PRN 08/10/20 04/05/21 02/28/21 07:30 History mcg/actuation HFA aerosol inhaler (Atrovent HFA) diltiazem HCl 180 mg capsule,24 180 mg PO DAILY 08/16/20 04/05/21 08/15/20 History hr,extended release (Tiadylt ER) potassium chloride 10 mEq 1 tab PO DAILY 08/16/20 04/05/21 Unknown History tablet,extended release(part/cryst) (Klor-Con M) Exam Exam Date and Time: April 08, 2021 1421 Height,Weight and Vital Signs: Height 5 ft 6 in Weight 86.183 kg Pertinent Lab Results Pertinent Lab Results: Laboratory Tests 02/15/21 03/15/21 03/15/21 11:10 11:15 11:15 WBC 7.3 Hgb 10.7 L Hct 34.6 L Plt Count 208 Sodium 140 Potassium 3.8 Chloride 99 Carbon Dioxide 34 H BUN 25 H Creatinine 1.62 H Narrative Narrative: EKG 08/2020 Vent. Rate : 069 BPM ? ? Atrial Rate : 069 BPM ?? P-R Int : 136 ms? QRS Dur : 086 ms ? ? QT Int : 380 ms ? ? ? P-R-T Axes : 061 064 078 degrees ?? QTc Int : 407 ms ? Normal sinus rhythm with sinus arrhythmia Nonspecific T wave abnormality Abnormal ECG When compared with ECG of 16-MAR-2014 15:56, Premature ventricular complexes are no longer Present Assessment and Plan Assessment Anesthesia Assessment: Chart Reviewed Final Anesthetic Review Family History of Problems with Anesthesia: Yes History of Problems with Anesthesia: Yes (PONV) Documented by User: Anabel Bergeron MD 04/11/21 07:46 PMFSH Past Medical History Medical History Acute respiratory failure with hypoxia ROMY (acute kidney injury) Anxiety Back pain Bladder mass CKD (chronic kidney disease) COPD (chronic obstructive pulmonary disease) DM type 2 (diabetes mellitus, type 2) Elevated cholesterol Family history of anesthesia complication Fibromyalgia GERD (gastroesophageal reflux disease) Hiatal hernia Hypertension On beta elizabeth at home Osteoarthritis Peripheral neuropathy PONV (postoperative nausea and vomiting) Restless leg syndrome Ureteral stricture, right Surgical History Surgical History History of cholecystectomy History of cystoscopy History of hysterectomy History of total left knee replacement Hx of appendectomy Hx of bilateral cataract extraction Hx of colonoscopy Hx of tonsillectomy Nephrostomy status History of Problems with Anesthesia: Yes Social History Social History Household Members: Children Housing: House Housing Other:: Lives with son and family Are you a primary assisted living care manager to a significant other at home: No Do you presently have visiting nurse or other home services: No Patient Tobacco Use Status: Former Tobacco user Quit Date: 1994 Tobacco use type: Cigarette Cigarette Packs Per Day: 1 Cigarettes Per Day: 20.0 Years Smoked: 50 Use of substances other than those prescribed or required for medical reasons: No Have you been hit, kicked, punched, or otherwise hurt by someone within the past year? If so, by whom?: No Are you DNR?: No Advance Directives: No Advance Directives Information Provided: No Advance Directives on File: No Recently lost weight without trying: No Nutrition Risks: No Nutritional Risk Patient : No service: No Current occupational status: retired Meds Allergies Allergy/AdvReac Type Severity Reaction Status Date / Time Sulfa (Sulfonamide Allergy Severe Anaphylaxis Verified 04/05/21 10:12 Antibiotics) sulfamethoxazole Allergy Severe ANAPHYLAXIS Verified 04/05/21 10:12 [From BACTRIM] influenza virus vaccine, Allergy Intermediate ARTHRITIC Verified 04/05/21 10:12 specific EFFECTS [FLU VACCINE] nitrofurantoin AdvReac Mild GI UPSET Verified 04/05/21 10:12 [From MACRODANTIN] oxycodone [From PERCOCET] AdvReac Mild GI UPSET Verified 04/05/21 10:12 Home Medications Medication Instructions Recorded Confirmed Last Taken Type alprazolam 0.5 mg tablet 0.5 mg PO BEDTIME 07/20/20 04/05/21 08/15/20 History amitriptyline 10 mg tablet 20 mg PO BEDTIME 07/20/20 04/05/21 08/15/20 History atenolol 25 mg tablet 25 mg PO DAILY 07/20/20 04/05/21 08/16/20 06:50 History carbidopa 25 mg-levodopa 100 mg 1 tab PO BID 07/20/20 04/05/21 08/16/20 06:50 History tablet (Sinemet) furosemide 40 mg tablet 80 mg PO DAILY 07/20/20 04/05/21 08/15/20 History lisinopril 5 mg tablet 5 mg PO DAILY 07/20/20 04/05/21 08/16/20 History omega-3 fatty acids 1,000 mg 1,000 mg PO DAILY 07/20/20 04/05/21 02/27/21 08:30 History capsule (Fish Oil Concentrate) omeprazole 20 mg capsule,delayed 40 mg PO DAILY 07/20/20 04/05/21 08/16/20 06:50 History release atorvastatin 10 mg tablet 10 mg PO DAILY 08/10/20 04/05/21 08/15/20 History gabapentin 100 mg capsule 100 mg PO BID 08/10/20 04/05/21 08/16/20 06:50 History ipratropium bromide 17 2 inh INHALATION QID PRN 08/10/20 04/05/21 02/28/21 07:30 History mcg/actuation HFA aerosol inhaler (Atrovent HFA) diltiazem HCl 180 mg capsule,24 180 mg PO DAILY 08/16/20 04/05/21 08/15/20 History hr,extended release (Tiadylt ER) potassium chloride 10 mEq 1 tab PO DAILY 08/16/20 04/05/21 Unknown History tablet,extended release(part/cryst) (Klor-Con M) Exam Airway Mallampati Class: III (Poor mouth opening) TM Dist: >3cm Neck ROM: Full Heart: RRR Lungs: CTA Assessment and Plan Assessment Anesthesia Assessment: Anesthesia Plan Discussed Final Anesthetic Review History of Problems with Anesthesia: Yes NPO: Yes ASA Class: III Final Preanesthetic Review: Meds/Allgs Chart Reviewed, Consent Obtained/Reviewed and Anes Risks/Benef Reviewed Patient Risk: Intermediate Procedure Risk: Low Anesthetic Plan Anesthetic Plan: GA Disposition: Standard PACU
[2021-04-11] VITALS (9 sets, daily range): BP systolic 114–129; BP diastolic 45–55; PULSE 58–72; RESP 10–20; TEMP 36.2–36.3; O2SAT 91–96
--- NOTE | ~2021-04-11 | FL_ITS ---
EXAMINATION: XR FLUOROSCOPY WITH IMAGES CLINICAL INFORMATION: Cystoscopy and right-sided internal ureteric stent placement. COMPARISON: Right-sided nephrostomy tube placement done on 03/18/2021. TECHNIQUE: Fluoroscopy performed by Dr. Terence Bernardo. Fluoroscopy time: 370 seconds. DAP: 110.08 mGycm2 Images: 5 FINDINGS: Fluoroscopic assistance was provided at the time of cystoscopy and retrograde right-sided internal ureteric stent placement. FL/FL guidance in OR IMPRESSION: Please refer to the operative report for further full details.
[2021-04-11 07:14] LABS: Glucose, Whole Blood 146 mg/dL (60-115)
[2021-04-11] MEDS: Albuterol Sulfate (0.083%) 2.5 MG/3 ML VIAL.NEB INHALE (07:35)
[2021-04-11] MEDS: levoFLOXacin/D5W 500 MG/100 ML PIGGYBACK 100 MG IV (07:46)
--- NOTE | 2021-04-11 08:21 | MHC.SHP ---
Pre-Procedural Eval Section A Date of Service: 04/11/21 Section B Chief Complaint: hydronephrosis Details of Present Illness: right distal ureteric stricture Relevant Social History: Tobacco Use Present Medications: see Short Stay Collaborative assessment Medical History: Significant History History of Previous Operations: Relevant previous surgery/procedure and date(s) Allergies: Allergies Allergy/AdvReac Type Severity Reaction Status Date / Time Sulfa (Sulfonamide Allergy Severe Anaphylaxis Verified 04/05/21 10:12 Antibiotics) sulfamethoxazole Allergy Severe ANAPHYLAXIS Verified 04/05/21 10:12 [From BACTRIM] influenza virus vaccine, Allergy Intermediate ARTHRITIC Verified 04/05/21 10:12 specific EFFECTS [FLU VACCINE] nitrofurantoin AdvReac Mild GI UPSET Verified 04/05/21 10:12 [From MACRODANTIN] oxycodone [From PERCOCET] AdvReac Mild GI UPSET Verified 04/05/21 10:12 Review of Systems Sugical H&P ROS: Negative: Constitution, Cardiovascular, Respiratory, Neurological, Psychiatric, Hem-Onc, Allergic/Immunologic, Gastrointestinal, Genitourinary, Musculoskeletal, Integumentary, Endocrine and Eyes/Ears/Nose/Throat Exam Surgical H&P Exam: Normal: HEENT, Normal: Heart, Normal: Lungs, Normal: Extremities, Normal: Abdomen, Normal: Skin and Normal: Neurological Plan Diagnosis/Plan: Unchanged (Right antegrade pyelogram, antegrade ureteroscopy, laser of stricture and right stent placement) I have reviewed the history and physical and performed a pertinent physical examination on my patient. No changes have occurred unless specified.
--- NOTE | 2021-04-11 09:41 | W.PM.OPN ---
Operative Note Operative Note Date of Service: 04/11/21 Narrative: PreOperative Diagnosis: Distal right ureteric stricture Post Operative Diagnosis: Distal right ureteric stricture Procedure: - right antegrade pyelogram - dilate renal access under fluroscopy - antegrade ureteroscopy with laser of obliterated distal ureter - retrograde stent placement Surgeon: Dr Terence Bernardo Anesthesia: General Indications for procedure: This is an 80-year-old female. 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 Area had been resected and stent had been placed. Was removed after 6 weeks. In follow-up was found to have ureteric stricture with obliteration the distal portion of the ureter. No recurrence of cancer. Recommendation was for PCN placement. At that point they were unable to advance a wire the ureter into the bladder. Recommendation is for attempt at antegrade ureteroscopy with laser of stricture to enter bladder and stent placement. Procedure: After informed consent was verified patient was brought to the operating placed in supine position. Anesthesia was administered per protocol. Patient was placed in modified dorsal lithotomy position with a under her right flank to gain thank access and prepped and draped in a sterile fashion. Safety pause time-out and side of surgery confirmed. Antibiotics confirmed. Using the indwelling PCN right antegrade pyelogram was performed. No contrast dye was visible progressing from the ureter into the bladder. A Sensor guidewire was placed. This was not able to advance down the ureter. The PCN tube was removed. A an open-ended access catheter was placed. The Sensor wire was exchanged for an angled Glidewire. The angled Glidewire was able to be advanced down the ureter. The open-ended catheter was placed over the wire. The angled Glidewire was removed. A Sensor wire was placed. The open-ended catheter was removed. The access through the kidney needed to be dilated under fluoroscopy. We attempted to dilate using the internal catheter the ureteric access sheath. The ureteric access sheath was unable to be passed. Using a Eric dilator we redilated the entrance into the kidney. Again we were unable to advance the ureteric access sheath. The Sensor wire was exchanged for an and plan S Super Stiff wire. We were still not able to advance the ureteric access sheath. Using ureteric dilators we dilated the renal access from a 12 Taiwanese to a 14 Taiwanese. We were then able to advance the ureteric sheath over the superstiff wire into the ureter. We were able to remove the superstiff wire and the internal introducer from the ureteric access sheath. We then performed digital flexible ureteroscopy. We were able to advance to the area of obstruction. There was no visible communication from the hydronephrotic ureter into the bladder. At this point we switched to cystoscopy. We were able to see the above obliterated portion of the ureter and calculated there was approximately a 1 cm gap from the distal portion of the ureter into the bladder. Switching back to the ureter side we used a 260 micron laser with soft tissue settings and lasered through the scarred portion. Once a small hole had been created we then switch back to the cystoscope. It appeared we were still a few mm away from the bladder. We switched back to the ureter side and again continued to laser in the direction of the bladder under fluoroscopy for guidance. Switching back to the bladder side we could see that there appeared to have been some thermal effect on the bladder mucosa. Using a Sensor wire we were able to advance this through the hole and under fluoroscopy could see that had had entered the ureter and advanced to the renal pelvis. This was confirmed visually using the digital ureteral scope. The ureteral scope was removed. The access sheath was withdrawn back to the renal pelvis. Coming from the bladder side we then placed a NephroMax stent. This was reversed from its typical position so the dilated 10 Taiwanese component was on the bladder side crossing the previous obliterated area and entering the ureter. Good coil was seen within the renal pelvis and curl was seen within the bladder. The ureteric access sheath was then removed from the flank. Dressings were applied. She tolerated procedure well was extubated in operating room transferred in stable condition to the recovery area. Stent will stay for a minimum of 6 weeks and will be removed in the operating room under fluoroscopy with all likelihood she will require long-term stent exchange in order to maintain patency of the scarred area of her distal ureter. Pathology: none Drains: Nephromax stent
[2021-04-11] MEDS: fentaNYL citrate/PF 100 MCG/2 ML VIAL 25 MCG IVPUSH ×2 (09:55→10:00)
[2021-04-11] MEDS: Acetaminophen 325 MG TABLET 650 MG PO (09:55)
[2021-04-11] MEDS: oxyCODONE HCl Immed Release 5 MG TABLET PO (09:55)
== END 2021-04-11 11:26 | disposition home or self-care (01) ==
PROVIDERS: PCP Internal Medicine; Visit Provider Urology
PROC: 0TJ98ZZ Inspection of Ureter, Via Natural or Artificial Opening Endoscopic (ICD-10-PCS; CPT 52351; principal; 2021-04-11 08:20)
DX: N13.1 Hydronephrosis with ureteral stricture, not elsewhere classified (principal); Z93.6 Other artificial openings of urinary tract status; C67.9 Malignant neoplasm of bladder, unspecified; E11.22 Type 2 diabetes mellitus with diabetic chronic kidney disease; I12.9 Hypertensive chronic kidney disease with stage 1 through stage 4 chronic kidney disease, or unspecified chronic kidney disease; J44.9 Chronic obstructive pulmonary disease, unspecified; N18.9 Chronic kidney disease, unspecified; Z79.84 Long term (current) use of oral hypoglycemic drugs; Z79.899 Other long term (current) drug therapy; Z87.891 Personal history of nicotine dependence; Z88.2 Allergy status to sulfonamides; Z88.7 Allergy status to serum and vaccine; Z88.8 Allergy status to other drugs, medicaments and biological substances
CPT/HCPCS: 52344; 52332; 82947; 94640; C1769; C1894; J1100; J1956; J2370; J2405; J3010; Q9967

== ENCOUNTER 2021-04-14 08:50 | Inpatient (IN) | payer MEDICARE, SELFPAY ==
[2021-04-14] VITALS (19 sets, daily range): BP systolic 102–180; BP diastolic 41–80; PULSE 81–110; RESP 15–20; TEMP 36.8–40.5; O2SAT 84–100; BMI 27.4
--- NOTE | ~2021-04-14 | XR_ITS ---
EXAMINATION: XR CHEST CLINICAL INFORMATION: Fever COMPARISON: Previous chest x-ray most recent December 2020 TECHNIQUE: Frontal view of the chest was obtained. FINDINGS: The patient is rotated to the left. Taking this into account, the cardiac and mediastinal contours are unremarkable. There is subsegmental atelectasis at the lung bases. The lungs are otherwise clear. There is no pleural effusion or pneumothorax. There are degenerative changes of the spine. XR/XR chest 1V IMPRESSION: Subsegmental atelectasis at the lung bases.
--- NOTE | ~2021-04-14 | XR_ITS ---
EXAMINATION: XR CHEST CLINICAL INFORMATION: Atelectasis. COMPARISON: Chest radiograph dated from 04/14/2021. TECHNIQUE: AP view of the chest was obtained. FINDINGS: Increased airspace opacities in the lung bases and also more apparent interstitial markings bilaterally. There are new small bilateral pleural effusions. Unchanged prominence of the cardiomediastinal silhouette. No acute osseous abnormalities. XR/XR chest 1V IMPRESSION: New airspace opacities in the lung bases with worsening interstitial prominence bilaterally. These findings could reflect worsening pulmonary edema. However, aspiration, atelectasis and infection are difficult to exclude. Small bilateral pleural effusions, also new.
--- NOTE | ~2021-04-14 | FL_ITS ---
EXAMINATION: XR FLUOROSCOPY WITH IMAGES CLINICAL INFORMATION: Right stent removal and replacement. COMPARISON: Previous fluoroscopy exam 04/11/[address] of the abdomen and pelvis 04/14/2021. TECHNIQUE: Fluoroscopy performed by Dr. Terence Bernardo. Fluoroscopy time: 102 seconds Images: 3 Dose: 43 mGy. FINDINGS: Initial image demonstrates the proximal end of the right internal ureteral stent. There is right proximal ureteral dilatation. A second ureteral stent or catheter is seen more inferiorly. Second image demonstrates the proximal end of an internal ureteral stent. There is a wire and contrast opacification of right lower pole calyces which appear dilated. Third image demonstrates the proximal end of the right internal ureteral stent. FL/FL guidance in OR IMPRESSION: Fluoroscopy guidance for right ureteral stent exchange.
--- NOTE | ~2021-04-14 | CT_ITS ---
EXAMINATION: CT ABDOMEN AND PELVIS WITHOUT CONTRAST CLINICAL INFORMATION: Fever. Back pain. Post stent placement. COMPARISON: Previous CT of the abdomen and pelvis 07/16/2020 TECHNIQUE: Multidetector volumetric imaging was performed from the superior aspect of the liver through the pubic symphysis. Sagittal and coronal reformatted images were obtained on the technologist's workstation. This CT examination was performed using dose optimization techniques as appropriate, variously including the following: *Automated exposure control *Adjustment of mA and/or kV according to patient size (this includes techniques or standardized protocols for targeted exams where dose is matched to indication/reason for exam; i.e. extremities or head) *Use of iterative reconstruction technique DLP: 714 mGy-cm FINDINGS: LUNG BASES: There is a small right pleural effusion. There is subsegmental atelectasis seen at the lung bases. LIVER, GALLBLADDER, AND BILIARY TREE: The liver is normal in size, shape, and attenuation. No focal hepatic lesion or biliary ductal dilatation is present. The gallbladder is is not seen and may have been removed. PANCREAS: There is fatty infiltration of the pancreas. The pancreas is otherwise unremarkable. SPLEEN: Unremarkable. ADRENAL GLANDS: Unremarkable. KIDNEYS AND URETERS: The right kidney is smaller than the left. There is right renal cortical thinning. There is a right internal ureteral stent. This appears within the renal pelvis and proximal right ureter. Distally, the stent appears outside a dilated right distal ureter and the pigtail of the distal ureteral stent overlies the dependent posterior wall of the bladder. It is uncertain whether the distal end of the ureteral stent is in the distal ureter and bladder. There is moderate right hydronephrosis and ureteral dilatation. This is decreased from June 2020 exam. There is a small amount of air seen in the collecting system. This may be related to recent instrumentation. Infection cannot be excluded. There is a 2 cm low-attenuation lesion in the upper pole the left kidney probably representing a cyst. No imaging follow-up needed. The left kidney is otherwise unremarkable. BLADDER: The bladder is not optimally distended. There is a Cee catheter in the bladder. There is a small amount of air in the bladder. This may be related to recent instrumentation. Differential would include infection. Again, the distal pigtail of the right internal ureteral stent projects over the right posterior bladder wall and may not be in the bladder. GASTROINTESTINAL TRACT: There is diverticulosis of the colon. There is stool throughout the colon suggestive of constipation. There is equalization of the distal small bowel probably secondary to small bowel stasis. The appendix is not identified. There is a small esophageal hernia. ABDOMINAL WALL: No significant hernia is appreciated. LYMPH NODES: Normal. VASCULAR: There is evidence of atherosclerotic disease. PELVIC VISCERA: Unremarkable. OSSEOUS STRUCTURES: There are degenerative changes of the spine and scoliosis. There are degenerative changes at the hip joints. CT/CT abdomen pelvis wo con IMPRESSION: Right internal ureteral stent. The distal end of the stent may not be in the distal ureter and bladder. This could be better evaluated with cystogram if clinically indicated. Cee catheter in the bladder. Air in the right renal collecting system and bladder. This may be related to recent instrumentation. Differential would include infection. Moderate right hydronephrosis and ureteral dilatation decreased from June 2020 exam. Left renal cyst. Diverticulosis.
--- NOTE | ~2021-04-14 | MR_ITS ---
EXAMINATION: MR THORACIC SPINE WITHOUT AND WITH CONTRAST CLINICAL INFORMATION: MRSA bacteremia and has lumbar spine with question evolving phlegmon. COMPARISON: Lumbar spine MRI April 16, 2021. TECHNIQUE: MRI of the thoracic spine was obtained using routine sequences without and with contrast. A total of 8.5 mL Gadavist was intravenously administered. FINDINGS: There is redemonstration of bilateral retrocrural inflammation adjacent to the aorta on the left side measuring approximately 3.1 x 2.3 cm and on the right measuring 2.2 x 1.9 cm (series 7 image 59/68. Stranding is seen further inferiorly in the retrocrural regions with involvement of both psoas muscles. There is abnormal fluid signal again noted distending the L1-L2 disc. Enhancing epidural soft tissue suspicious for phlegmon is again seen involving the ventral aspect of the epidural space of the L1-L2 level, similar to prior. No drainable epidural fluid collection is seen. The thoracic vertebral bodies maintain normal height and alignment. There is multilevel intervertebral disc height loss. Minimal amount of endplate edema is seen at T7-T8, suspected to be degenerative. No discrete endplate destruction is seen. Small disc bulges/herniations are seen but none of which results in significant narrowing of the spinal canal. The neural foramina are patent. Bilateral moderate sized bilateral pleural effusions are noted. There is bilateral perinephric stranding. A small hiatal hernia is seen. MR/MR thoracic spine wo/w con IMPRESSION: Redemonstration of bilateral retrocrural inflammation with fluid collection on the left measuring up to 3.1 cm and on the right measuring up to 1.9 cm. The imaging features are concerning for abscesses. No findings specific for osteomyelitis/discitis seen in the thoracic spine. Redemonstration of abnormal fluid distending the L1-L2 disc space with enhancement along the ventral epidural space concerning for phlegmon.
--- NOTE | ~2021-04-14 | MR_ITS ---
EXAMINATION: MR LUMBAR SPINE WITHOUT AND WITH CONTRAST CLINICAL INFORMATION: MRSA bacteremia. T11-T12 vertebral involvement. COMPARISON: Thoracic spine MRI from 04/19/2021. Lumbar spine MRI from 04/16/2021. CT abdomen and pelvis from 04/14/2021. TECHNIQUE: MRI of the lumbar spine was obtained using routine sequences without and following the administration of Gadavist intravenous contrast. FINDINGS: Moderate right convex curvature of the lumbar spine. Mild right lateral translation of L4 on L5. Degenerative grade 1 anterolisthesis of L5 on S1. Persistent fluid collection within the L1-L2 disc space progressive marrow replacing edema/enhancement surrounding the L1-L2 intervertebral disc. Redemonstrated peripheral enhancing heterogeneous collection in the right perivertebral/prevertebral soft tissues, measuring 3.3 x 3 x 2.9 cm. Interval development of small or collections within the left psoas musculature, measuring up to 1 cm. Moderate phlegmonous edema throughout the bilateral psoas musculature from T12-L3. Progression of mild phlegmonous expansion of the ventral epidural space posterior to the L1 and L2 vertebral bodies. No demonstrated discrete drainable fluid collection within the epidural space. Similar to prior exam, there is minimal endplate edema/enhancement at L4-L5 without overt disc space enhancement or epidural collection. Findings remain suggestive of degenerative endplate change. Advanced degenerative disc disease at T10-T11, T12-L1, L3-L4, and L4-L5. Moderate degenerative disc disease at all additional levels. Associated mixed Modic type discogenic endplate changes. No additional suspicious marrow edema. The vertebral body heights are largely maintained. The conus medullaris terminates at the level of L1-L2. The distal spinal cord is normal in appearance. No abnormal contrast enhancement. Bilateral periaortic collections of the level of T11-T12 have increased in size compared to 04/16/2021, measuring up to 2 cm on the left (previously 1.4 cm) and 1.2 cm on the right (previously 1.1 cm). Moderate right-sided pleural effusion. Moderate right-sided hydronephrosis/hydroureter. Bilateral T2 hyperintense renal cysts. The abdominal aorta is of normal contour and caliber. AXIAL SPINAL LEVELS: T12-L1: Mild diffuse disc bulge. There is moderate bilateral facet joint arthropathy. There is no neural foraminal stenosis. There is no spinal canal stenosis. L1-L2: Mild diffuse disc bulge. Mild phlegmonous expansion of the ventral epidural space. Perivertebral edema/collection surrounding the disc space. There is moderate bilateral facet joint arthropathy. There is moderate bilateral neural foraminal stenosis. There is narrowing of the subarticular zones with no overt spinal canal stenosis centrally. L2-L3: Moderate diffuse disc bulge. There is moderate bilateral facet joint arthropathy. There is moderate left and mild right neural foraminal stenosis. There is stenosis of the subarticular zones with no overt spinal canal stenosis centrally. L3-L4: Moderate diffuse disc bulge. There is moderate bilateral facet joint arthropathy. There is severe left and moderate right neural foraminal stenosis. There is stenosis of the left worse than right subarticular zones with no overt spinal canal stenosis centrally. L4-L5: Prominent diffuse disc bulge. There is severe left and moderate right facet joint arthropathy. There is severe left and moderate right neural foraminal stenosis. There is stenosis of the subarticular zones with no overt spinal canal stenosis centrally. L5-S1: Moderate diffuse disc bulge exacerbated by uncovering from anterolisthesis. There is severe bilateral facet joint arthropathy. There is severe right and moderate left neural foraminal stenosis. There is stenosis of the subarticular zones with no overt spinal canal stenosis centrally. MR/MR lumbar spine wo/w con IMPRESSION: 1. 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 Persistent fluid collection within the joint space at this level. A moderate right predominant perivertebral/prevertebral collection persists. New smaller collections within the left-sided psoas musculature at this level. Mild interval progression of phlegmonous ventral epidural expansion at L1-L2 without discrete epidural collection. Retrocrural periaortic collections at the level of T11-T12 have increased in size compared to exam from 04/16/2021. 2. Otherwise, moderate multilevel degenerative spondyloarthropathy of the lumbar spine as described in detail above. Most notably, there are narrowings/stenoses of the subarticular zones from L1-S1. Moderate to severe neural foraminal stenoses from L1-S1. No overt spinal canal stenosis centrally.
--- NOTE | ~2021-04-14 | MR_ITS ---
EXAMINATION: MR LUMBAR SPINE WITHOUT AND WITH CONTRAST CLINICAL INFORMATION: Bacteremia. COMPARISON: CT scan of the abdomen and pelvis 04/14 2021. MRI scan of the lumbar spine 05/11/2020. TECHNIQUE: MRI of the lumbar spine was obtained using routine sequences with and without contrast. Intravenous contrast: Gadavist7.5 mL FINDINGS: VERTEBRAL BODIES AND PARASPINAL STRUCTURES: The study redemonstrates a dextroscoliosis in the mid lumbar spine and there is a levoscoliosis at L5. There is a mild grade 1 anterolisthesis of L5 on S1. There are mild retrolistheses of L1 on L2 and L2 on L3. There is multilevel narrowing of intervertebral disc height, and there are degenerative endplate contour changes. Moderate edematous endplate signal changes are seen at L4-L5 which demonstrate mild enhancement following intravenous contrast administration. There is no other abnormal osseous enhancement. The study partially redemonstrates a right ureteral stent. There is fullness in the prevertebral and paravertebral soft tissues at the levels of T12-L2 particularly on the right, with moderate enhancement; this may be consistent with phlegmon. This appears to extend cephalad above T12, but is not included on the available images. There appear to be small retrocrural fluid collections bilaterally with surrounding enhancement at the level of L1 (image 4/32, sequence 8). There is fluid in the intervertebral disc at L1-L2 centrally and toward the right, but this does not demonstrate enhancement. There are prominent osteophytes anteriorly and on the right at the level of L1. There are bilateral renal cysts. The visualized pelvic structures are unremarkable. CONUS MEDULLARIS AND CAUDA EQUINA: Normal, terminating at the level of L1. There is no abnormal enhancement of the lower thoracic spinal cord. The cauda equina nerve roots and filum terminale appear normal. SPINAL LEVELS: L1-L2: There is moderate bilateral facet arthropathy. There is a central and right paracentral disc protrusion with some distortion of the thecal sac and with narrowing of the right subarticular recess. There is mild central stenosis. L2-L3: There is mild bilateral facet arthropathy. There is a posterior disc protrusion extending into the left greater than right neural foramina, and there is mild narrowing of the bilateral subarticular recesses. There is no central stenosis. L3-L4: There is mild to moderate bilateral facet arthropathy. There is a posterior disc protrusion extending far laterally on the left with impingement on the extraforaminal left L3 nerve root. There is narrowing of the bilateral subarticular recesses. There is mild central stenosis. L4-L5: There is severe bilateral facet arthropathy with ligamenta flava hypertrophy and facet joint effusions. There is a posterior disc protrusion which extends into the neural foramina bilaterally with impingement on the exiting L4 nerve roots, more severely on the left. There is narrowing of the right subarticular recess. There is mild central stenosis. L5-S1: There is markedly severe bilateral facet arthropathy with facet joint effusions. There is unroofing of the disc as a result of the anterolisthesis. There are bilateral foraminal disc protrusions, more prominent on the right with compression of the exiting right L5 nerve root. Mild left foraminal narrowing is also noted. There is narrowing of the left subarticular recess with impingement on the traversing left S1 nerve root. There is no central stenosis. MR/MR lumbar spine wo/w con IMPRESSION: 1. There is soft tissue fullness with enhancement in the prevertebral and paravertebral soft tissues between T12 and L2, which may be consistent with evolving phlegmon. There appear to be small retrocrural fluid collections. The most superior aspect of this abnormal signal is not fully included on the available images. This could be further evaluated with MRI scan of the thoracic spine without and with contrast. 2. At L5-S1 there is an anterolisthesis with unroofing of the disc and there is compression of the exiting right L5 nerve root, also with mild left foraminal narrowing. There is narrowing of the left subarticular recess with impingement on the traversing left S1 nerve root. There is no central stenosis. 3. At L4-L5 there is severe facet arthropathy. There is a posterior disc protrusion extending into the neural foramina with impingement on the exiting L4 nerve roots, more severely on the left. There is mild central stenosis. 4. At L3-L4 there is a posterior disc protrusion extending far laterally on the left with impingement on the extraforaminal left L3 nerve root. There is mild central stenosis.
--- NOTE | 2021-04-14 09:22 | ECG_ITS ---
Test Reason : back pain Blood Pressure : / mmHG Vent. Rate : 100 BPM Atrial Rate : 100 BPM P-R Int : 130 ms QRS Dur : 080 ms QT Int : 316 ms P-R-T Axes : 065 070 073 degrees QTc Int : 407 ms Sinus tachycardia Otherwise normal ECG When compared with ECG of 16-AUG-2020 10:23, Nonspecific T wave abnormality, improved in Anterior leads Heart rate has increased Referred By: Delmy Groves Electronically Signed By:JOE CRISTINA MD
--- NOTE | 2021-04-14 09:29 | PC.NURSE ---
Daughter in law, Claudia, aware of current plan of care and will come to ED.
--- NOTE | 2021-04-14 09:29 | ED.GENADULT ---
HPI - General Adult General Chief complaint: Fever Stated complaint: BACK PAIN S/P SURGERY ON SUNDAY Time Seen by Provider: 04/14/21 08:58 Source: patient and EMS Mode of arrival: EMS Limitations: no limitations History of Present Illness HPI narrative: Patient comes to the emergency room from home. Patient complaining of weakness, states that this morning she could not get out of bed. Patient complaining of severe back pain. Patient had on 04/11/2021 a urologic procedure: Right anterograde pyelograms, dilation renal access, anterograde ureteroscopy with laser of obliterated distal ureter, retrograde stent placement. Patient complaining of subjective fever. Patient states the pain started yesterday., shortness of breath, denies dysuria or hematuria. Patient states she took Tylenol prior to arrival. Related Data Home Medications Medication Instructions Recorded Confirmed alprazolam 0.5 mg tablet 0.5 mg PO BEDTIME 07/20/20 04/14/21 amitriptyline 10 mg tablet 20 mg PO BEDTIME 07/20/20 04/14/21 atenolol 25 mg tablet 25 mg PO DAILY 07/20/20 04/14/21 carbidopa 25 mg-levodopa 100 mg 1 tab PO BID 07/20/20 04/14/21 tablet (Sinemet) furosemide 40 mg tablet 80 mg PO DAILY 07/20/20 04/14/21 lisinopril 5 mg tablet 5 mg PO DAILY 07/20/20 04/14/21 omega-3 fatty acids 1,000 mg 1,000 mg PO DAILY 07/20/20 04/14/21 capsule (Fish Oil Concentrate) omeprazole 20 mg capsule,delayed 40 mg PO DAILY 07/20/20 04/14/21 release atorvastatin 10 mg tablet 10 mg PO DAILY 08/10/20 04/14/21 gabapentin 100 mg capsule 100 mg PO BID 08/10/20 04/14/21 ipratropium bromide 17 2 inh INHALATION QID PRN 08/10/20 04/14/21 mcg/actuation HFA aerosol inhaler (Atrovent HFA) diltiazem HCl 180 mg capsule,24 180 mg PO DAILY 08/16/20 04/14/21 hr,extended release (Tiadylt ER) potassium chloride 10 mEq 1 tab PO DAILY 08/16/20 04/14/21 tablet,extended release(part/cryst) (Klor-Con M) Previous Rx's Medication Instructions Recorded ipratropium 0.5 mg-albuterol 3 mg 3 ml INHALATION RQ6H WHILE AWAKE 08/21/20 (2.5 mg base)/3 mL nebulization #30 ml soln metformin 500 mg tablet 500 mg PO DAILY #0 tab 08/21/20 nebulizers #1 ea 08/21/20 ciprofloxacin HCl 250 mg tablet 250 mg PO DAILY 14 Days #14 tab 04/11/21 oxybutynin chloride 5 mg tablet 5 mg PO BID PRN #14 tab 04/11/21 tamsulosin 0.4 mg capsule 0.4 mg PO BEDTIME 14 Days #14 cap 04/11/21 tramadol 50 mg tablet 50 mg PO Q6H PRN #14 tab 04/11/21 Allergies Allergy/AdvReac Type Severity Reaction Status Date / Time Sulfa (Sulfonamide Allergy Severe Anaphylaxis Verified 04/14/21 09:14 Antibiotics) sulfamethoxazole Allergy Severe ANAPHYLAXIS Verified 04/14/21 09:14 [From BACTRIM] influenza virus vaccine, Allergy Intermediate ARTHRITIC Verified 04/14/21 09:14 specific EFFECTS [FLU VACCINE] nitrofurantoin AdvReac Mild GI UPSET Verified 04/14/21 09:14 [From MACRODANTIN] oxycodone [From PERCOCET] AdvReac Mild GI UPSET Verified 04/14/21 09:14 Review of Systems Review of Systems: Constitutional : No Weight loss, complaining of fever, generalized malaise, fatigue, complaining of severe weakness ENT/Mouth : No Hearing loss, No Ear Pain, No Nasal Congestion, No Sinus Pain, No Hoarseness, No sore throat, No Rhinorrhea, No Swallowing Difficulty Eyes: No Eye Pain, No Swelling, No Redness, No Foreign Body, No Discharge, No Vision Changes Cardiovascular : No Chest Pain, No SOB, No Dyspnea on Exertion, No Orthopnea, No Edema, No Palpitations Respiratory : No Cough, No Sputum, No Wheezing, No Smoke Exposure, No Dyspnea Gastrointestinal : No Nausea, No Vomiting, No Diarrhea, No Constipation, No abdominal Pain, No Hematochezia, No Melena Genitourinary : no irregular bleeding, No Dysuria, No Urinary Frequency, No Hematuria, No Urinary Incontinence, No Urgency, complaining of right flank/right-sided back pain, No Urinary Flow Changes, No Hesitancy Musculoskeletal : No joint pain, No Myalgias, No Joint Swelling Skin : No Skin Lesions, No rash Neuro : No Weakness, No Numbness, No Paresthesias, No Loss of Consciousness, No Dizziness, No Headache Psych : No Anxiety/Panic, No Depression, No SI/HI/AH/VH, No Social Issues, Heme/Lymph: No Bruising, No Bleeding,No Lymphadenopathy Endocrine : No Polyuria, No Polydipsia, No Temperature Intolerance [facility] Past Medical History Medical History Acute respiratory failure with hypoxia ROMY (acute kidney injury) Anxiety Back pain Bladder mass CKD (chronic kidney disease) COPD (chronic obstructive pulmonary disease) DM type 2 (diabetes mellitus, type 2) Elevated cholesterol Family history of anesthesia complication Fibromyalgia GERD (gastroesophageal reflux disease) Hiatal hernia Hypertension On beta elizabeth at home Osteoarthritis Peripheral neuropathy PONV (postoperative nausea and vomiting) Restless leg syndrome Ureteral stricture, right Surgical History History of cholecystectomy History of cystoscopy History of hysterectomy History of total left knee replacement Hx of appendectomy Hx of bilateral cataract extraction Hx of colonoscopy Hx of tonsillectomy Nephrostomy status Social History Social History Household Members: Children Housing: House Housing Other:: Lives with son and family Are you a primary career coach to a significant other at home: No Do you presently have visiting nurse or other home services: No Alcohol intake: never Patient Tobacco Use Status: Former Tobacco user Quit Date: 1994 Tobacco use type: Cigarette Cigarette Packs Per Day: 1 Cigarettes Per Day: 20.0 Years Smoked: 50 Use of substances other than those prescribed or required for medical reasons: No Advance Directives: Yes Advance Directives Information Provided: Yes Advance Directives on File: No service: No Current occupational status: retired Physical Exam Vital Signs: Vital Signs: Last Vital Signs Temp 102 F H 04/14/21 10:33 Pulse 95 04/14/21 10:17 Resp 18 04/14/21 10:17 BP 167/71 H 04/14/21 10:17 Pulse Ox 96 04/14/21 10:17 Body Mass Index 27.4 Const: Other: Appearance: Alert. Oriented X3. Looks uncomfortable due to back pain Eyes: Pupils equal, round and reactive to light. ENT: Pharynx normal. Dry oral mucosa Neck: Normal inspection. Neck supple. No lymph nodes noted. No crepitus CVS: Normal heart rate and rhythm. Pulses normal. Normal S1 and S2 Respiratory: No respiratory distress. Breath sounds normal. No Wheezing. No rales Abdomen: Soft and nontender. No rigidity. No distention. Back: Positive CVA tenderness on the right side Skin: Very warm to touch, dry Extremities: No lower extremity edema. No lower extremity edema. No Lacerations. No Rash Neuro: Oriented X 3. No motor deficit. No sensory deficit. Moving all extermities. No slurred speech. Course Course Course Narrative: Patient's CT scan shows Distally, the stent appears outside a dilated right distal ureter and the pigtail of the distal ureteral stent overlies the dependent posterior wall of the bladder. It is uncertain whether the distal end of the ureteral stent is in the distal ureter and bladder.? I discussed this finding with Dr. Bernardo, patient will be going to the operating room today Patient was given 1 dose of ceftriaxone and vancomycin. Medical Decision Making Lab Data Result diagrams: 04/14/21 10:05 04/14/21 10:05 Labs: Lab Results 04/14/21 04/14/21 04/14/21 Range/Units 10:05 10:05 10:05 WBC 11.8 H (4.8-10.8) X10*3/uL RBC 3.51 L (4.20-5.50) X10*6/uL Hgb 10.0 L (12.0-16.0) g/dl Hct 31.8 L (37-47) % MCV 90.6 (80-98) fL MCH 28.5 (27.0-33.0) pg MCHC 31.4 (31.0-35.0) g/dl RDW 13.8 (11.0-16.0) % Plt Count 176 (160-400) X10*3/uL MPV 11.1 (9.4-12.3) fL Immature Gran % (Auto) 0.8 H (0.0-0.4) % Neut % (Auto) 93.0 H (45-73) % Lymph % (Auto) 2.6 L (20-40) % [place] % (Auto) 2.8 (2-11) % Eos % (Auto) 0.5 (0-4) % Baso % (Auto) 0.3 (0-2) % Lymph # (Auto) 0.3 L (1.2-4.9) X10*3/uL [place] # (Auto) 0.3 (0.1-1.2) X10*3/uL Eos # (Auto) 0.1 (0.0-0.4) X10*3/uL Baso # (Auto) 0.0 (0.0-0.2) X10*3/uL Abs Immat Gran (auto) 0.09 H (0.00-0.03) X10*3/uL Absolute Neuts (auto) 10.9 H (2.0-8.3) X10*3/uL Absolute Nucleated RBC 0.000 (0.0-0.012) X10*3/uL Nucleated RBC % (auto) 0.0 (0.0-0.2) /100WBC Smear Tech's Comments VERIFIED PT 13.9 H (9.9-13.0) SEC INR 1.2 H (0.9-1.1) Sodium 139 (135-145) mmol/L Potassium 4.3 (3.3-5.1) mmol/L Chloride 99 (96-108) mmol/L Carbon Dioxide 30 H (22-29) mmol/L Anion Gap 14 (12-20) BUN 34 H (9-16) mg/dL Creatinine 1.89 H (0.5-1.4) mg/dL Estim Creat Clear Calc 24.0 Estimated GFR 26 Random Glucose 191 H (60-115) mg/dL Lactic Acid (0.5-2.0) mmol/L Calcium 8.8 (8.4-10.2) mg/dL Total Bilirubin 0.5 (0.0-1.0) mg/dL Direct Bilirubin 0.3 (0.0-0.5) mg/dL AST 11 (5-31) U/L ALT < 6 (0-31) U/L Alkaline Phosphatase 95 (39-117) U/L Troponin I High Sens (<3.5-17.0) ng/L Total Protein 6.3 L (6.5-8.0) g/dL Albumin 3.8 (3.5-5.0) g/dL Lipase 5 L (8-78) U/L Urine Color Urine Appearance Urine pH (5.0-8.0) Ur Specific [place] (1.005-1.025) Urine Protein (NEG-TRACE) MG/DL Urine Glucose (UA) (NEG) MG/DL Urine Ketones (NEG) MG/DL Urine Blood (NEG) Urine Nitrite (NEG) Ur Leukocyte Esterase (NEG) Urine RBC (0) /HPF Urine WBC (0-4) /HPF Ur Squamous Epith Cells /LPF Urine Bacteria /LPF Coronavirus (PCR) (Negative) Influenza Type A (PCR) (Negative) Influenza Type B (PCR) (Negative) RSV RNA Qual (PCR) (Negative) 04/14/21 04/14/21 04/14/21 Range/Units 10:05 10:05 10:05 WBC (4.8-10.8) X10*3/uL RBC (4.20-5.50) X10*6/uL Hgb (12.0-16.0) g/dl Hct (37-47) % MCV (80-98) fL MCH (27.0-33.0) pg MCHC (31.0-35.0) g/dl RDW (11.0-16.0) % Plt Count (160-400) X10*3/uL MPV (9.4-12.3) fL Immature Gran % (Auto) (0.0-0.4) % Neut % (Auto) (45-73) % Lymph % (Auto) (20-40) % [place] % (Auto) (2-11) % Eos % (Auto) (0-4) % Baso % (Auto) (0-2) % Lymph # (Auto) (1.2-4.9) X10*3/uL [place] # (Auto) (0.1-1.2) X10*3/uL Eos # (Auto) (0.0-0.4) X10*3/uL Baso # (Auto) (0.0-0.2) X10*3/uL Abs Immat Gran (auto) (0.00-0.03) X10*3/uL Absolute Neuts (auto) (2.0-8.3) X10*3/uL Absolute Nucleated RBC (0.0-0.012) X10*3/uL Nucleated RBC % (auto) (0.0-0.2) /100WBC Smear Tech's Comments PT (9.9-13.0) SEC INR (0.9-1.1) Sodium (135-145) mmol/L Potassium (3.3-5.1) mmol/L Chloride (96-108) mmol/L Carbon Dioxide (22-29) mmol/L Anion Gap (12-20) BUN (9-16) mg/dL Creatinine (0.5-1.4) mg/dL Estim Creat Clear Calc Estimated GFR Random Glucose (60-115) mg/dL Lactic Acid 1.4 (0.5-2.0) mmol/L Calcium (8.4-10.2) mg/dL Total Bilirubin (0.0-1.0) mg/dL Direct Bilirubin (0.0-0.5) mg/dL AST (5-31) U/L ALT (0-31) U/L Alkaline Phosphatase (39-117) U/L Troponin I High Sens 14.0 (<3.5-17.0) ng/L Total Protein (6.5-8.0) g/dL Albumin (3.5-5.0) g/dL Lipase (8-78) U/L Urine Color Urine Appearance Urine pH (5.0-8.0) Ur Specific [place] (1.005-1.025) Urine Protein (NEG-TRACE) MG/DL Urine Glucose (UA) (NEG) MG/DL Urine Ketones (NEG) MG/DL Urine Blood (NEG) Urine Nitrite (NEG) Ur Leukocyte Esterase (NEG) Urine RBC (0) /HPF Urine WBC (0-4) /HPF Ur Squamous Epith Cells /LPF Urine Bacteria /LPF Coronavirus (PCR) NEGATIVE (Negative) Influenza Type A (PCR) NEGATIVE (Negative) Influenza Type B (PCR) NEGATIVE (Negative) RSV RNA Qual (PCR) NEGATIVE (Negative) 04/14/21 Range/Units 10:06 WBC (4.8-10.8) X10*3/uL RBC (4.20-5.50) X10*6/uL Hgb (12.0-16.0) g/dl Hct (37-47) % MCV (80-98) fL MCH (27.0-33.0) pg MCHC (31.0-35.0) g/dl RDW (11.0-16.0) % Plt Count (160-400) X10*3/uL MPV (9.4-12.3) fL Immature Gran % (Auto) (0.0-0.4) % Neut % (Auto) (45-73) % Lymph % (Auto) (20-40) % [place] % (Auto) (2-11) % Eos % (Auto) (0-4) % Baso % (Auto) (0-2) % Lymph # (Auto) (1.2-4.9) X10*3/uL [place] # (Auto) (0.1-1.2) X10*3/uL Eos # (Auto) (0.0-0.4) X10*3/uL Baso # (Auto) (0.0-0.2) X10*3/uL Abs Immat Gran (auto) (0.00-0.03) X10*3/uL Absolute Neuts (auto) (2.0-8.3) X10*3/uL Absolute Nucleated RBC (0.0-0.012) X10*3/uL Nucleated RBC % (auto) (0.0-0.2) /100WBC Smear Tech's Comments PT (9.9-13.0) SEC INR (0.9-1.1) Sodium (135-145) mmol/L Potassium (3.3-5.1) mmol/L Chloride (96-108) mmol/L Carbon Dioxide (22-29) mmol/L Anion Gap (12-20) BUN (9-16) mg/dL Creatinine (0.5-1.4) mg/dL Estim Creat Clear Calc Estimated GFR Random Glucose (60-115) mg/dL Lactic Acid (0.5-2.0) mmol/L Calcium (8.4-10.2) mg/dL Total Bilirubin (0.0-1.0) mg/dL Direct Bilirubin (0.0-0.5) mg/dL AST (5-31) U/L ALT (0-31) U/L Alkaline Phosphatase (39-117) U/L Troponin I High Sens (<3.5-17.0) ng/L Total Protein (6.5-8.0) g/dL Albumin (3.5-5.0) g/dL Lipase (8-78) U/L Urine Color YELLOW Urine Appearance HAZY Urine pH 6.0 (5.0-8.0) Ur Specific [place] 1.020 (1.005-1.025) Urine Protein 2+ H (NEG-TRACE) MG/DL Urine Glucose (UA) NEG (NEG) MG/DL Urine Ketones NEG (NEG) MG/DL Urine Blood 3+ H (NEG) Urine Nitrite NEG (NEG) Ur Leukocyte Esterase 2+ H (NEG) Urine RBC 15-29 H (0) /HPF Urine WBC 15-29 H (0-4) /HPF Ur Squamous Epith Cells TRACE /LPF Urine Bacteria 1+ /LPF Coronavirus (PCR) (Negative) Influenza Type A (PCR) (Negative) Influenza Type B (PCR) (Negative) RSV RNA Qual (PCR) (Negative) Imaging Data Chest x-ray: Radiologist's impression: The patient is rotated to the left. Taking this into account, the cardiac and mediastinal contours are unremarkable. There is subsegmental atelectasis at the lung bases. The lungs are otherwise clear. There is no pleural effusion or pneumothorax. There are degenerative changes of the spine. XR/XR chest 1V IMPRESSION: Subsegmental atelectasis at the lung bases. CT scan - abdomen: Radiologist's impression: FINDINGS: LUNG BASES: There is a small right pleural effusion. There is subsegmental atelectasis seen at the lung bases.? LIVER, GALLBLADDER, AND BILIARY TREE: The liver is normal in size, shape, and attenuation. No focal hepatic lesion or biliary ductal dilatation is present. The gallbladder is is not seen and may have been removed. PANCREAS: There is fatty infiltration of the pancreas. The pancreas is otherwise unremarkable.? SPLEEN: Unremarkable.? ADRENAL GLANDS: Unremarkable.? KIDNEYS AND URETERS: The right kidney is smaller than the left. There is right renal cortical thinning. There is a right internal ureteral stent. This appears within the renal pelvis and proximal right ureter. Distally, the stent appears outside a dilated right distal ureter and the pigtail of the distal ureteral stent overlies the dependent posterior wall of the bladder. It is uncertain whether the distal end of the ureteral stent is in the distal ureter and bladder. There is moderate right hydronephrosis and ureteral dilatation. This is decreased from June 2020 exam. There is a small amount of air seen in the collecting system. This may be related to recent instrumentation. Infection cannot be excluded. There is a 2 cm low-attenuation lesion in the upper pole the left kidney probably representing a cyst. No imaging follow-up needed. The left kidney is otherwise unremarkable. BLADDER: The bladder is not optimally distended. There is a Cee catheter in the bladder. There is a small amount of air in the bladder. This may be related to recent instrumentation. Differential would include infection. Again, the distal pigtail of the right internal ureteral stent projects over the right posterior bladder wall and may not be in the bladder. GASTROINTESTINAL TRACT: There is diverticulosis of the colon. There is stool throughout the colon suggestive of constipation. There is equalization of the distal small bowel probably secondary to small bowel stasis. The appendix is not identified. There is a small esophageal hernia. ABDOMINAL WALL: No significant hernia is appreciated.? LYMPH NODES: Normal. VASCULAR: There is evidence of atherosclerotic disease. PELVIC VISCERA: Unremarkable.? OSSEOUS STRUCTURES: There are degenerative changes of the spine and scoliosis. There are degenerative changes at the hip joints.? CT/CT abdomen pelvis wo con IMPRESSION: Right internal ureteral stent. The distal end of the stent may not be in the distal ureter and bladder. This could be better evaluated with cystogram if clinically indicated. Cee catheter in the bladder. Air in the right renal collecting system and bladder. This may be related to recent instrumentation. Differential would include infection. Moderate right hydronephrosis and ureteral dilatation decreased from June 2020 exam. Left renal cyst. Diverticulosis.? Discharge Plan Discharge Clinical Impression: Displacement of ureteral stent, Fever Patient Disposition: Admitted As Inpatient Prescriptions: No Action atorvastatin 10 mg tablet 10 mg PO DAILY RF: 0 gabapentin 100 mg capsule 100 mg PO BID RF: 0 Atrovent HFA 17 mcg/actuation HFA aerosol inhaler 2 inh inhalation QID PRN (Reason: Shortness Of Breath Or Wheezing) RF: 0 diltiazem HCl [Tiadylt ER] 180 mg capsule,extended release 24 hr 180 mg PO DAILY RF: 0 potassium chloride [Klor-Con M10] 10 mEq tablet,ER particles/crystals 1 tab PO DAILY RF: 0 metformin 500 mg tablet 500 mg PO DAILY Qty: 0 RF: 0 ipratropium-albuterol 0.5 mg-3 mg(2.5 mg base)/3 mL Solution For Nebulization 3 ml inhalation RQ6H WHILE AWAKE Qty: 30 RF: 0 (DME) nebulizers Misc See Rx Instructions .ROUTE .MEDSUPPLY Qty: 1 RF: 0 ciprofloxacin HCl 250 mg tablet 250 mg PO DAILY 14 Days Qty: 14 RF: 0 tramadol 50 mg tablet 50 mg PO Q6H PRN (Reason: pain (scale score 4-6)) Qty: 14 RF: 0 tamsulosin 0.4 mg capsule 0.4 mg PO BEDTIME 14 Days Qty: 14 RF: 0 oxybutynin chloride 5 mg tablet 5 mg PO BID PRN (Reason: bladder spasms) Qty: 14 RF: 0 omeprazole 20 mg capsule,delayed release(DR/EC) 40 mg PO DAILY RF: 0 furosemide 40 mg tablet 80 mg PO DAILY RF: 0 atenolol 25 mg tablet 25 mg PO DAILY RF: 0 lisinopril 5 mg tablet 5 mg PO DAILY RF: 0 carbidopa-levodopa [Sinemet] 25-100 mg tablet 1 tab PO BID RF: 0 omega-3 fatty acids [Fish Oil Concentrate] 1,000 mg capsule 1,000 mg PO DAILY RF: 0 alprazolam 0.5 mg tablet 0.5 mg PO BEDTIME RF: 0 amitriptyline 10 mg tablet 20 mg PO BEDTIME RF: 0
--- NOTE | 2021-04-14 09:50 | PC.NURSE ---
REMAINS ALERT. DECLINING HETALRIN D/T JANELES. WILL USE COOLING BLANKET.
--- NOTE | 2021-04-14 10:01 | PHA.MEDREC ---
Pharmacy Consult ? Medication Reconciliation Pharmacy has completed the medication reconciliation. Patient recently started oxybutynin 5mg, tamsulosin 0.4 mg, tramadol 50mg, and a 14 day supply of Ciprofloxacin 250mg daily on 04/11/21.
[2021-04-14] MEDS: Morphine Sulfate 2 MG/ML CARTRIDGE IVPUSH (10:11)
[2021-04-14] MEDS: 0.9 % Sodium Chloride 1,000 ML 999 ML IVCONT ×2 (10:11→12:07)
[2021-04-14] MEDS: cefTRIAXone sodium 1 GM in 0.9 % Sodium Chloride 50 ML IV (10:12)
[2021-04-14 10:19] LABS: Basophils Percent Auto 0.3 % (0-2); Eosinophils Absolute Auto 0.1 X10*3/uL (0.0-0.4); Eosinophils Percent Auto 0.5 % (0-4); Hematocrit 31.8 % (37-47); Imm Gran Abs Auto 0.09 X10*3/uL (0.00-0.03); Imm Gran Pct Auto 0.8 % (0.0-0.4); Lymphocytes Absolute Auto 0.3 X10*3/uL (1.2-4.9); Lymphocytes Percent Auto 2.6 % (20-40); MANUAL DIFF FLAG SCAN; Mean Corpuscular HGB Conc 31.4 g/dl (31.0-35.0); Mean Corpuscular Hemoglobin 28.5 pg (27.0-33.0); Mean Corpuscular Volume 90.6 fL (80-98); Mean Platelet Volume 11.1 fL (9.4-12.3); Monocytes Absolute Auto 0.3 X10*3/uL (0.1-1.2); Monocytes Percent Auto 2.8 % (2-11); Neutrophils Absolute Auto 10.9 X10*3/uL (2.0-8.3); Platelet Count 176 X10*3/uL (160-400); Red Blood Count 3.51 X10*6/uL (4.20-5.50); Red Cell Distribution Width 13.8 % (11.0-16.0); SCAN SMEAR FLAG 1; White Blood Count 11.8 X10*3/uL (4.8-10.8)
[2021-04-14 10:28] LABS: Lactic Acid 1.4 mmol/L (0.5-2.0)
[2021-04-14 10:32] LABS: INTERNATIONAL NORM RATIO 1.2 (0.9-1.1); Prothrombin Time 13.9 SEC (9.9-13.0)
[2021-04-14 10:37] LABS: SLIDE REVIEW VERIFIED
[2021-04-14] MEDS: HYDROmorphone HCl 1 MG/ML SYRINGE IVPUSH ×2 (10:44→13:10)
[2021-04-14 10:46] LABS: Appearance Urine HAZY; Color Urine YELLOW; Glucose Urine UA NEG (NEG); Leukocyte Esterase Urine 2+ (NEG); Nitrite Urine NEG (NEG); UACC Culture Trigger YES; Urine Blood 3+ (NEG); Urine Ketones NEG (NEG); Urine Protein 2+ MG/DL (NEG-TRACE)
--- NOTE | 2021-04-14 10:55 | PC.NURSE ---
Pt's daughter in law, Claudia, at bedside. Is aware of plan of care. had family that was at home confirm that patient did not receive tylenol this am but did receive it last night.
[2021-04-14 11:03] LABS: Alanine Aminotransferase < 6 U/L (0-31); Albumin Level 3.8 g/dL (3.5-5.0); Alkaline Phosphatase 95 U/L (39-117); Anion Gap 14 (12-20); Aspartate Amino Transferase 11 U/L (5-31); Bilirubin Direct 0.3 mg/dL (0.0-0.5); Bilirubin Total 0.5 mg/dL (0.0-1.0); Blood Urea Nitrogen 34 mg/dL (9-16); Calcium 8.8 mg/dL (8.4-10.2); Carbon Dioxide 30 mmol/L (22-29); Chloride 99 mmol/L (96-108); Estimated Glomerular Filt Rate 26; Glucose Random 191 mg/dL (60-115); Lipase 5 U/L (8-78); Potassium 4.3 mmol/L (3.3-5.1); Sodium 139 mmol/L (135-145); Total Protein 6.3 g/dL (6.5-8.0)
[2021-04-14] MEDS: Acetaminophen 325 MG TABLET 650 MG PO (11:12)
[2021-04-14] MEDS: vancomycin HCL 750 MG in 0.9 % Sodium Chloride 250 ML 265 MG IV (11:14)
[2021-04-14 11:24] LABS: Influenza A PCR NEGATIVE (Negative); Influenza B PCR NEGATIVE (Negative); Resp Syncy Virus RNA Qual PCR NEGATIVE (Negative); SARS COV2 PCR INHOUSE NEGATIVE (Negative)
--- NOTE | 2021-04-14 11:25 | PC.NURSE ---
patient with temperature of 103.3 per temp-sensing oneal. Tylenol given. 2nd Abx started. ice packs placed on patient.
[2021-04-14 11:27] LABS: Bacteria Urine 1+ /LPF; Squamous Epithelial Cell Urine TRACE /LPF
[2021-04-14] MEDS: 0.9 % Sodium Chloride 500 ML 999 ML IVCONT (13:10)
--- NOTE | 2021-04-14 14:24 | PM.UROCN ---
History of Present Illness Consult details Consult date: 04/14/21 Narrative: Pamela presented to the emergency room with right flank pain CT scan shows indwelling stent has migrated out of the bladder Underwent laser of ureteric stricture and stent placement on Sunday Recommendation for cystoscopy stent removal and stent repositioning Discussed with Pamela in the emergency room Will go ahead for the procedure Review of Systems Constitutional: Constitutional: Denies chills and Denies fever(s) Cardiovascular: Cardiovascular: Reports no additional cardiovascular complaints and Denies syncope Respiratory: Respiratory: Denies cough Gastrointestinal: Gastrointestinal: Denies abdominal pain and Denies heartburn Genitourinary: Genitourinary: Reports as per HPI and Denies change in libido Neurologic: Denies syncope Psychiatric: Psychiatric: Denies change in libido Endocrine: Endocrine: Denies change in libido [facility] Past Medical History Medical History Acute respiratory failure with hypoxia ROMY (acute kidney injury) Anxiety Back pain Bladder mass CKD (chronic kidney disease) COPD (chronic obstructive pulmonary disease) DM type 2 (diabetes mellitus, type 2) Elevated cholesterol Family history of anesthesia complication Fibromyalgia GERD (gastroesophageal reflux disease) Hiatal hernia Hypertension On beta elizabeth at home Osteoarthritis Peripheral neuropathy PONV (postoperative nausea and vomiting) Restless leg syndrome Ureteral stricture, right Surgical History Surgical History History of cholecystectomy History of cystoscopy History of hysterectomy History of total left knee replacement Hx of appendectomy Hx of bilateral cataract extraction Hx of colonoscopy Hx of tonsillectomy Nephrostomy status Social History Social History Household Members: Children Housing: House Housing Other:: Lives with son and family Are you a primary animal caretaker supervisor to a significant other at home: No Do you presently have visiting nurse or other home services: No Alcohol intake: never Patient Tobacco Use Status: Former Tobacco user Quit Date: 1994 Tobacco use type: Cigarette Cigarette Packs Per Day: 1 Cigarettes Per Day: 20.0 Years Smoked: 50 Use of substances other than those prescribed or required for medical reasons: No Advance Directives: Yes Advance Directives Information Provided: Yes Advance Directives on File: No service: No Current occupational status: retired Meds Allergies Allergy/AdvReac Type Severity Reaction Status Date / Time Sulfa (Sulfonamide Allergy Severe Anaphylaxis Verified 04/14/21 09:14 Antibiotics) sulfamethoxazole Allergy Severe ANAPHYLAXIS Verified 04/14/21 09:14 [From BACTRIM] influenza virus vaccine, Allergy Intermediate ARTHRITIC Verified 04/14/21 09:14 specific EFFECTS [FLU VACCINE] nitrofurantoin AdvReac Mild GI UPSET Verified 04/14/21 09:14 [From MACRODANTIN] oxycodone [From PERCOCET] AdvReac Mild GI UPSET Verified 04/14/21 09:14 Active Medications: Current Medications Pharmacy Consult (Consult Rx Perform Med Rec) 1 each MISCELLANE ONCE PRN PRN Reason: Consult order Home Medications Medication Instructions Recorded Confirmed Last Taken Type alprazolam 0.5 mg tablet 0.5 mg PO BEDTIME 07/20/20 04/14/21 08/15/20 History amitriptyline 10 mg tablet 20 mg PO BEDTIME 07/20/20 04/14/21 08/15/20 History atenolol 25 mg tablet 25 mg PO DAILY 07/20/20 04/14/21 08/16/20 06:50 History carbidopa 25 mg-levodopa 100 mg 1 tab PO BID 07/20/20 04/14/21 08/16/20 06:50 History tablet (Sinemet) furosemide 40 mg tablet 80 mg PO DAILY 07/20/20 04/14/21 08/15/20 History lisinopril 5 mg tablet 5 mg PO DAILY 07/20/20 04/14/21 08/16/20 History omega-3 fatty acids 1,000 mg 1,000 mg PO DAILY 07/20/20 04/14/21 02/27/21 08:30 History capsule (Fish Oil Concentrate) omeprazole 20 mg capsule,delayed 40 mg PO DAILY 07/20/20 04/14/21 08/16/20 06:50 History release atorvastatin 10 mg tablet 10 mg PO DAILY 08/10/20 04/14/21 08/15/20 History gabapentin 100 mg capsule 100 mg PO BID 08/10/20 04/14/21 08/16/20 06:50 History ipratropium bromide 17 2 inh INHALATION QID PRN 08/10/20 04/14/21 02/28/21 07:30 History mcg/actuation HFA aerosol inhaler (Atrovent HFA) diltiazem HCl 180 mg capsule,24 180 mg PO DAILY 08/16/20 04/14/21 08/15/20 History hr,extended release (Tiadylt ER) potassium chloride 10 mEq 1 tab PO DAILY 08/16/20 04/14/21 Unknown History tablet,extended release(part/cryst) (Klor-Con M) Physical Exam Vital Signs: Vital Signs: Last Vital Signs Temp 102 F H 04/14/21 10:33 Pulse 95 04/14/21 10:17 Resp 18 04/14/21 10:17 BP 167/71 H 04/14/21 10:17 Pulse Ox 96 04/14/21 10:17 Body Mass Index 27.4 Const: General: cooperative, healthy appearing, comfortable and no acute distress Orientation/consciousness: patient oriented x3 HENMT: Face and sinus: Yes normal facial exam Mouth: moist mucous membranes Neck: Neck: Yes normal visual inspection, Yes full ROM and Yes trachea midline Chest: Chest palpation & inspection: normal inspection of the chest Resp: Effort & Inspection: normal respiratory effort, able to speak in complete sentences and no respiratory distress GI: Inspection: Yes normal to inspection Back/Spine/Pelvis: Cervical Spine: normal cervical lordosis Thoracic/Lumbar Spine: thoracic and lumbar spine normal to inspection Skin: General skin exam: no rashes or lesions noted Neuro: General: patient oriented x3, gait normal, tone normal and moves all extremities Extrem: General: Yes normal to inspection and Yes capillary refill normal Results Labs Result diagrams: 04/14/21 10:05 04/14/21 10:05 Labs: Abnormal lab results 04/14/21 04/14/21 04/14/21 Range/Units 10:05 10:05 10:05 WBC 11.8 H (4.8-10.8) X10*3/uL RBC 3.51 L (4.20-5.50) X10*6/uL Hgb 10.0 L (12.0-16.0) g/dl Hct 31.8 L (37-47) % Immature Gran % (Auto) 0.8 H (0.0-0.4) % Neut % (Auto) 93.0 H (45-73) % Lymph % (Auto) 2.6 L (20-40) % Lymph # (Auto) 0.3 L (1.2-4.9) X10*3/uL Abs Immat Gran (auto) 0.09 H (0.00-0.03) X10*3/uL Absolute Neuts (auto) 10.9 H (2.0-8.3) X10*3/uL PT 13.9 H (9.9-13.0) SEC INR 1.2 H (0.9-1.1) Carbon Dioxide 30 H (22-29) mmol/L BUN 34 H (9-16) mg/dL Creatinine 1.89 H (0.5-1.4) mg/dL Random Glucose 191 H (60-115) mg/dL Total Protein 6.3 L (6.5-8.0) g/dL Lipase 5 L (8-78) U/L Urine Protein (NEG-TRACE) MG/DL Urine Blood (NEG) Ur Leukocyte Esterase (NEG) Urine RBC (0) /HPF Urine WBC (0-4) /HPF 04/14/ Range/Units 10:06 WBC (4.8-10.8) X10*3/uL RBC (4.20-5.50) X10*6/uL Hgb (12.0-16.0) g/dl Hct (37-47) % Immature Gran % (Auto) (0.0-0.4) % Neut % (Auto) (45-73) % Lymph % (Auto) (20-40) % Lymph # (Auto) (1.2-4.9) X10*3/uL Abs Immat Gran (auto) (0.00-0.03) X10*3/uL Absolute Neuts (auto) (2.0-8.3) X10*3/uL PT (9.9-13.0) SEC INR (0.9-1.1) Carbon Dioxide (22-29) mmol/L BUN (9-16) mg/dL Creatinine (0.5-1.4) mg/dL Random Glucose (60-115) mg/dL Total Protein (6.5-8.0) g/dL Lipase (8-78) U/L Urine Protein 2+ H (NEG-TRACE) MG/DL Urine Blood 3+ H (NEG) Ur Leukocyte Esterase 2+ H (NEG) Urine RBC 15-29 H (0) /HPF Urine WBC 15-29 H (0-4) /HPF Short CBC 04/14/21 Range/Units 10:05 WBC 11.8 H (4.8-10.8) X10*3/uL Hgb 10.0 L (12.0-16.0) g/dl Hct 31.8 L (37-47) % Plt Count 176 (160-400) X10*3/uL BMP 04/14/21 10:05 Sodium 139 Potassium 4.3 Chloride 99 Carbon Dioxide 30 H BUN 34 H Creatinine 1.89 H Calcium 8.8 Liver Function 04/14/21 Range/Units 10:05 Total Bilirubin 0.5 (0.0-1.0) mg/dL Direct Bilirubin 0.3 (0.0-0.5) mg/dL AST 11 (5-31) U/L ALT < 6 (0-31) U/L Alkaline Phosphatase 95 (39-117) U/L Albumin 3.8 (3.5-5.0) g/dL Urine 04/14/21 Range/Units 10:06 Urine Color YELLOW Urine Appearance HAZY Urine pH 6.0 (5.0-8.0) Ur Specific [place] 1.020 (1.005-1.025) Urine Protein 2+ H (NEG-TRACE) MG/DL Urine Glucose (UA) NEG (NEG) MG/DL All other labs normal. Assessment and Plan (1) Migration of ureteral stent: Status: Acute Plan for cystoscopy, right retrograde, stent reposition Risks, benefits and alternatives to therapy were discussed. These include but are not limited to infection, bleeding, damage to local organs and tissues, need for further interventions. Anesthetic risks regarding cardiac arrhythmia, blood clots, and potential mortality were discussed. The patient understands the typical recovery time and the outpatient nature of the procedure. After consideration of these risks the patient gives full informed consent and they wish to move ahead with the procedure. Procedures Date of Service Date of Service: 04/14/21
[2021-04-14] MEDS: Lactated Ringers 1,000 ML 50 ML IVCONT (15:52)
--- NOTE | 2021-04-14 16:37 | P.CONAN_ITS ---
HPI - Anesthesia Eval Consult details Narrative: 80-year-old female presenting for ureteral stent exchange [facility] Active Problems Active Problems: All Active Problems (Updated 04/14/21 @ 14:26 by Terence Bernardo MD) Migration of ureteral stent (Acute) Urinary urgency (Acute) COPD (chronic obstructive pulmonary disease) (Acute) UTI (urinary tract infection) (Acute) Bladder tumor (Acute) Hydronephrosis (Acute) Displacement of ureteral stent (Acute) Fever (Acute) DM type 2 (diabetes mellitus, type 2) (Acute) Acute respiratory failure with hypoxia (Acute) Bladder mass (Acute) ROMY (acute kidney injury) (Acute) Past Medical History Medical History Acute respiratory failure with hypoxia ROMY (acute kidney injury) Anxiety Back pain Bladder mass CKD (chronic kidney disease) COPD (chronic obstructive pulmonary disease) DM type 2 (diabetes mellitus, type 2) Elevated cholesterol Family history of anesthesia complication Fibromyalgia GERD (gastroesophageal reflux disease) Hiatal hernia Hypertension On beta elizabeth at home Osteoarthritis Peripheral neuropathy PONV (postoperative nausea and vomiting) Restless leg syndrome Ureteral stricture, right Family History Family history of problems with anesthesia: No Surgical History Surgical History History of cholecystectomy History of cystoscopy History of hysterectomy History of total left knee replacement Hx of appendectomy Hx of bilateral cataract extraction Hx of colonoscopy Hx of tonsillectomy Nephrostomy status History of Problems with Anesthesia: No Social History Social History Household Members: Children Housing: House Housing Other:: Lives with son and family Are you a primary healthcare financial analyst to a significant other at home: No Do you presently have visiting nurse or other home services: No Alcohol intake: never Patient Tobacco Use Status: Former Tobacco user Quit Date: 1994 Tobacco use type: Cigarette Cigarette Packs Per Day: 1 Cigarettes Per Day: 20.0 Years Smoked: 50 Use of substances other than those prescribed or required for medical reasons: No Are you DNR?: No Advance Directives: Yes Advance Directives Information Provided: Yes Advance Directives on File: No Advance Directives Date on File: 04/14/21 service: No Current occupational status: retired Meds Allergies Allergy/AdvReac Type Severity Reaction Status Date / Time Sulfa (Sulfonamide Allergy Severe Anaphylaxis Verified 04/14/21 09:14 Antibiotics) sulfamethoxazole Allergy Severe ANAPHYLAXIS Verified 04/14/21 09:14 [From BACTRIM] influenza virus vaccine, Allergy Intermediate ARTHRITIC Verified 04/14/21 09:14 specific EFFECTS [FLU VACCINE] nitrofurantoin AdvReac Mild GI UPSET Verified 04/14/21 09:14 [From MACRODANTIN] oxycodone [From PERCOCET] AdvReac Mild GI UPSET Verified 04/14/21 09:14 Active Medications: Current Medications Hydromorphone HCl (Hydromorphone Hcl 0.5 Mg/0.5 Ml Syringe) 0.25 mg IVPUSH Q5M PRN; Protocol PRN Reason: Pain, Severe (Pain Scale 7-10) Lactated Ringer's (Lr) 1,000 mls @ 50 mls/hr IVCONT .Q20H LISANDRA Last Admin: 04/14/21 15:52 Dose: 50 mls/hr Documented by: Ondansetron HCl (Ondansetron Hcl 4 Mg/2 Ml Vial) 4 mg IVPUSH ONCE PRN PRN Reason: Nausea and Vomiting Pharmacy Consult (Consult Rx Perform Med Rec) 1 each MISCELLANE ONCE PRN PRN Reason: Consult order Home Medications Medication Instructions Recorded Confirmed Last Taken Type alprazolam 0.5 mg tablet 0.5 mg PO BEDTIME 07/20/20 04/14/21 08/15/20 History amitriptyline 10 mg tablet 20 mg PO BEDTIME 07/20/20 04/14/21 08/15/20 History atenolol 25 mg tablet 25 mg PO DAILY 07/20/20 04/14/21 08/16/20 06:50 History carbidopa 25 mg-levodopa 100 mg 1 tab PO BID 07/20/20 04/14/21 08/16/20 06:50 History tablet (Sinemet) furosemide 40 mg tablet 80 mg PO DAILY 07/20/20 04/14/21 08/15/20 History lisinopril 5 mg tablet 5 mg PO DAILY 07/20/20 04/14/21 08/16/20 History omega-3 fatty acids 1,000 mg 1,000 mg PO DAILY 02/08/0804/14/21 02/27/21 08:30 History capsule (Fish Oil Concentrate) omeprazole 20 mg capsule,delayed 40 mg PO DAILY 07/20/20 04/14/21 08/16/20 06:50 History release atorvastatin 10 mg tablet 10 mg PO DAILY 08/10/20 04/14/21 08/15/20 History gabapentin 100 mg capsule 100 mg PO BID 08/10/20 04/14/21 08/16/20 06:50 History ipratropium bromide 17 2 inh INHALATION QID PRN 08/10/20 04/14/21 02/28/21 07:30 History mcg/actuation HFA aerosol inhaler (Atrovent HFA) diltiazem HCl 180 mg capsule,24 180 mg PO DAILY 08/16/20 04/14/21 08/15/20 History hr,extended release (Tiadylt ER) potassium chloride 10 mEq 1 tab PO DAILY 08/16/20 04/14/21 Unknown History tablet,extended release(part/cryst) (Shyam-Con M) Exam Exam Date and Time: April 14, 2021 1637 Height,Weight and Vital Signs: Height 5 ft 5 in Weight 165 lb Last Vital Signs Temp 99.4 F 04/14/21 15:41 Pulse 87 04/14/21 15:41 Resp 16 04/14/21 15:41 BP 126/42 L 04/14/21 15:41 Pulse Ox 97 04/14/21 15:41 Pertinent Lab Results Pertinent Lab Results: Laboratory Tests 04/14/21 04/14/21 04/14/21 10:05 10:05 10:05 WBC 11.8 H RBC 3.51 L Hgb 10.0 L Hct 31.8 L MCV 90.6 MCH 28.5 MCHC 31.4 RDW 13.8 Plt Count 176 MPV 11.1 Immature Gran % (Auto) 0.8 H Neut % (Auto) 93.0 H Lymph % (Auto) 2.6 L [place] % (Auto) 2.8 Eos % (Auto) 0.5 Baso % (Auto) 0.3 Lymph # (Auto) 0.3 L [place] # (Auto) 0.3 Eos # (Auto) 0.1 Baso # (Auto) 0.0 Abs Immat Gran (auto) 0.09 H Absolute Neuts (auto) 10.9 H Absolute Nucleated RBC 0.000 Nucleated RBC % (auto) 0.0 Smear Tech's Comments VERIFIED PT 13.9 H INR 1.2 H Sodium 139 Potassium 4.3 Chloride 99 Carbon Dioxide 30 H Anion Gap 14 BUN 34 H Creatinine 1.89 H Estim Creat Clear Calc 24.0 Estimated GFR 26 Random Glucose 191 H Lactic Acid Calcium 8.8 Total Bilirubin 0.5 Direct Bilirubin 0.3 AST 11 ALT < 6 Alkaline Phosphatase 95 Troponin I High Sens Total Protein 6.3 L Albumin 3.8 Lipase 5 L Urine Color Urine Appearance Urine pH Ur Specific [place] Urine Protein Urine Glucose (UA) Urine Ketones Urine Blood Urine Nitrite Ur Leukocyte Esterase Urine RBC Urine WBC Ur Squamous Epith Cells Urine Bacteria Coronavirus (PCR) Influenza Type A (PCR) Influenza Type B (PCR) RSV RNA Qual (PCR) 04/14/21 04/14/21 04/14/21 10:05 10:05 10:05 WBC RBC Hgb Hct MCV MCH MCHC RDW Plt Count MPV Immature Gran % (Auto) Neut % (Auto) Lymph % (Auto) [place] % (Auto) Eos % (Auto) Baso % (Auto) Lymph # (Auto) [place] # (Auto) Eos # (Auto) Baso # (Auto) Abs Immat Gran (auto) Absolute Neuts (auto) Absolute Nucleated RBC Nucleated RBC % (auto) Smear Tech's Comments PT INR Sodium Potassium Chloride Carbon Dioxide Anion Gap BUN Creatinine Estim Creat Clear Calc Estimated GFR Random Glucose Lactic Acid 1.4 Calcium Total Bilirubin Direct Bilirubin AST ALT Alkaline Phosphatase Troponin I High Sens 14.0 Total Protein Albumin Lipase Urine Color Urine Appearance Urine pH Ur Specific [place] Urine Protein Urine Glucose (UA) Urine Ketones Urine Blood Urine Nitrite Ur Leukocyte Esterase Urine RBC Urine WBC Ur Squamous Epith Cells Urine Bacteria Coronavirus (PCR) NEGATIVE Influenza Type A (PCR) NEGATIVE Influenza Type B (PCR) NEGATIVE RSV RNA Qual (PCR) NEGATIVE 04/14/21 10:06 WBC RBC Hgb Hct MCV MCH MCHC RDW Plt Count MPV Immature Gran % (Auto) Neut % (Auto) Lymph % (Auto) [place] % (Auto) Eos % (Auto) Baso % (Auto) Lymph # (Auto) [place] # (Auto) Eos # (Auto) Baso # (Auto) Abs Immat Gran (auto) Absolute Neuts (auto) Absolute Nucleated RBC Nucleated RBC % (auto) Smear Tech's Comments PT INR Sodium Potassium Chloride Carbon Dioxide Anion Gap BUN Creatinine Estim Creat Clear Calc Estimated GFR Random Glucose Lactic Acid Calcium Total Bilirubin Direct Bilirubin AST ALT Alkaline Phosphatase Troponin I High Sens Total Protein Albumin Lipase Urine Color YELLOW Urine Appearance HAZY Urine pH 6.0 Ur Specific [place] 1.020 Urine Protein 2+ H Urine Glucose (UA) NEG Urine Ketones NEG Urine Blood 3+ H Urine Nitrite NEG Ur Leukocyte Esterase 2+ H Urine RBC 15-29 H Urine WBC 15-29 H Ur Squamous Epith Cells TRACE Urine Bacteria 1+ Coronavirus (PCR) Influenza Type A (PCR) Influenza Type B (PCR) RSV RNA Qual (PCR) Airway Mallampati Class: IV TM Dist: <=3cm Neck ROM: Full Loose/Missing/Broken Teeth: No Assessment and Plan Assessment Anesthesia Assessment: Anesthesia Plan Discussed and Chart Reviewed Final Anesthetic Review Family History of Problems with Anesthesia: No History of Problems with Anesthesia: No NPO: Yes ASA Class: III Final Preanesthetic Review: No Changes in Pt Med Stat, Meds/Allgs Chart Reviewed, Consent Obtained/Reviewed and Anes Risks/Benef Reviewed Patient Risk: Intermediate Procedure Risk: Low Anesthetic Plan Anesthetic Plan: GA Disposition: Standard PACU
--- NOTE | 2021-04-14 16:51 | MHC.SHP ---
Pre-Procedural Eval Section A Date of Service: 04/14/21 The patient is an INPATIENT: Yes Changes since office visit: No Cold of Flu in the past 2 weeks, No New Medical Problems, No Changes in Medication and No Patient answered all questions The History & Physical has been completed within 30 days and I have reviewed it.: Yes Section B Chief Complaint: BACK PAIN S/P SURGERY ON SUNDAY Allergies: Allergies Allergy/AdvReac Type Severity Reaction Status Date / Time Sulfa (Sulfonamide Allergy Severe Anaphylaxis Verified 04/14/21 09:14 Antibiotics) sulfamethoxazole Allergy Severe ANAPHYLAXIS Verified 04/14/21 09:14 [From BACTRIM] influenza virus vaccine, Allergy Intermediate ARTHRITIC Verified 04/14/21 09:14 specific EFFECTS [FLU VACCINE] nitrofurantoin AdvReac Mild GI UPSET Verified 04/14/21 09:14 [From MACRODANTIN] oxycodone [From PERCOCET] AdvReac Mild GI UPSET Verified 04/14/21 09:14 Plan Diagnosis/Plan: Unchanged (cysto, right retrograde, stent repositioning) I have reviewed the history and physical and performed a pertinent physical examination on my patient. No changes have occurred unless specified.
--- NOTE | 2021-04-14 17:34 | P.OP_ITS ---
Operative Note Operative Note Date of Service: 04/14/21 Narrative: PreOperative Diagnosis: right ureteric stent migration Post Operative Diagnosis: Right ureteric stent migration Procedure: Cystoscopy, indwelling stent removal, stent placement Surgeon: Dr Terence Bernardo Anesthesia: General Indications for procedure: This is an 80-year-old female. She underwent ureteric stricture and stent placement procedure on Sunday. Presents with temperature over 104 point 1 and a question of stent migration with possible stent outside urinary bladder. Recommendation for cystoscopy with correction of migrated stent. Procedure: After informed consent was verified the patient was brought to the operating room and placed in a supine position. Anesthesia was administered per protocol. Patient was placed in modified dorsal lithotomy position and prepped and draped in sterile fashion. Safety pause time-out was performed. Antibiotics have been given. Twenty-two Stateless cystoscope inserted per urethra. The distal portion of the stent was seen in the bladder. This contraindicated CT findings which suggested the stent may be outside the bladder. Did appear that the stent was not quite in the right position in the renal pelvis. A sensor guidewire was placed alongside the current indwelling stent and up to the level of the renal pelvis. Proximal portion of the ureter was quite dilated and we were unable to pass it appears that the proximal portion of the ureter was not seated in the renal pelvis. The open-ended catheter was placed. Retrograde examination was performed. A Sensor wire was placed all way through the open-ended catheter and used to navigate around the corkscrew ureter and into the renal pelvis. The wire was straighten. The current indwelling stent was then removed under fluoroscopy to ensure that the wire remained in the renal pelvis. Once this was complete a flexi length Cook 6 Stateless stent was placed which should be softer and better tolerated and has a longer length. The bladder was emptied and a Cee catheter placed for overnight drainage She tolerated the procedure and was extubated in operating room transferred in stable condition to the recovery area Pathology: None Drains: Stent exchange
[2021-04-14] MEDS: HYDROmorphone HCl 0.5 MG/0.5 ML SYRINGE 0.25 MG IVPUSH ×2 (17:51→18:03)
[2021-04-14] MEDS: traMADoL HCL 50 MG TABLET PO (18:46)
[2021-04-14] MEDS: Carbidopa/Levodopa 25/100 TABLET 1 TAB PO (20:42)
[2021-04-14] MEDS: Morphine Sulfate 4 MG/ML CARTRIDGE 1 MG IVPUSH (20:42)
[2021-04-14] MEDS: ALPRAZolam 0.5 MG TABLET PO (20:42)
[2021-04-14] MEDS: 0.9 % Sodium Chloride 1,000 ML 80 ML IVCONT (20:43)
[2021-04-15] VITALS (10 sets, daily range): BP systolic 114–152; BP diastolic 55–69; PULSE 75–107; RESP 14–19; TEMP 36.2–37.8; O2SAT 93–98
[2021-04-15] MEDS: Morphine Sulfate 4 MG/ML CARTRIDGE 1 MG IVPUSH ×2 (00:46→06:34)
[2021-04-15] MEDS: traMADoL HCL 50 MG TABLET PO (03:43)
--- NOTE | 2021-04-15 04:58 | PC.NURSE ---
04/14 @ 0949 lab called with critical; blood cultures gram positive cocci. Dr. Bernardo notified via [facility]. Per md, patient was given antibiotics today, will order tomorrow. @ 0030 lab called with critical results; blood cultures gram positive cocci in clusters. Dr. Bernardo notified via [facility] of second blood culture results. No new orders at this time.
--- NOTE | 2021-04-15 05:10 | PC.NURSE ---
0000; Pt reports she had a nephrostomy tube removed Sunday, on right side. Patient's daughter in law asked for dressing to be changed. Upon assessment, dressing clean/dry/intact. 2x2 gauze with film dressing removed, steri strips intact, no drainage visible. Direct incision not visible due to steri strips at incision site. A new dressing of 2x2 with film dressing applied over steri strips. Patient offers no complaints of pain or discomfort at incision site.
[2021-04-15 06:37] LABS: MANUAL DIFF FLAG NO
[2021-04-15 06:52] LABS: Basophils Percent Auto 0.1 % (0-2); Eosinophils Percent Auto 0.1 % (0-4); Hematocrit 27.7 % (37-47); Hemoglobin 8.8 g/dl (12.0-16.0); Imm Gran Abs Auto 0.09 X10*3/uL (0.00-0.03); Imm Gran Pct Auto 0.9 % (0.0-0.4); Lymphocytes Absolute Auto 0.3 X10*3/uL (1.2-4.9); Lymphocytes Percent Auto 2.9 % (20-40); Mean Corpuscular HGB Conc 31.8 g/dl (31.0-35.0); Mean Corpuscular Hemoglobin 28.6 pg (27.0-33.0); Mean Corpuscular Volume 89.9 fL (80-98); Mean Platelet Volume 11.4 fL (9.4-12.3); Monocytes Absolute Auto 0.9 X10*3/uL (0.1-1.2); Monocytes Percent Auto 8.1 % (2-11); Neutrophils Absolute Auto 9.2 X10*3/uL (2.0-8.3); Neutrophils Percent Auto 87.9 % (45-73); Platelet Count 133 X10*3/uL (160-400); Red Blood Count 3.08 X10*6/uL (4.20-5.50); Red Cell Distribution Width 13.9 % (11.0-16.0); White Blood Count 10.4 X10*3/uL (4.8-10.8)
[2021-04-15 07:38] LABS: Anion Gap 12 (12-20); Blood Urea Nitrogen 25 mg/dL (9-16); Calcium 7.9 mg/dL (8.4-10.2); Carbon Dioxide 25 mmol/L (22-29); Chloride 106 mmol/L (96-108); Creatinine Clr Calc Pharmacy 30.4; Estimated Glomerular Filt Rate 34; Glucose Random 130 mg/dL (60-115); Potassium 3.9 mmol/L (3.3-5.1); Sodium 139 mmol/L (135-145)
[2021-04-15] MEDS: lisinopriL 5 MG TABLET PO (08:56)
[2021-04-15] MEDS: Carbidopa/Levodopa 25/100 TABLET 1 TAB PO ×2 (08:56→21:28)
[2021-04-15] MEDS: dilTIAZem HCL CD 180 MG CAP.ER.24H PO (08:56)
[2021-04-15] MEDS: metFORMIN HCl 500 MG TABLET PO (08:56)
[2021-04-15] MEDS: Furosemide 40 MG TABLET 80 MG PO (08:56)
[2021-04-15] MEDS: atenoloL 25 MG TABLET PO (08:56)
--- NOTE | 2021-04-15 09:07 | PHA.PROG ---
Admission Date/Time: April 14, 2021 17:31 Indication:SEPSIS Weight in k.843 kg Adjusted body weight in K.1 KG [place] body weight in K KG Obesity Dosing Indication % IBW: Serum Creatinine - Last 168 Hours 04/14/21 04/15/21 10:05 05:54 Creatinine 1.89 H 1.49 H Estimated CrCl and GFR - Last 168 Hours 04/14/21 04/15/21 10:05 05:54 Estim Creat Clear Calc 24.0 30.4 Estimated GFR 26 34 Vancomycin Loading Dose: 1000 MG GIVEN X 1 IN ED Current Vancomycin Dosing Regimen: 1000 MG Q24H Vancomycin Monitoring using AUC goal of 400 - 600 range with trough as surrogate marker: PREDICTED AUC OF 556 PREDICTED TROUGH OF 18.3 Date and Time for next Vancomycin Level to be drawn: RANDOM LEVEL TO BE DRAWN 04/16/21 @0900 (BEFORE [address] DOSE) Pharmacist Comments on Vancomycin Plan: dOSING AT HIGHER END OF AUC. PLAN TO DRAW RANDOM LEVEL BEFORE 3RD DOSE. MONITOR CR. Vancomycin dosing will take advantage of [employer] as a clinical decision support tool that uses Bayesian modeling to calculate individual patient's pharmacokinetic parameters and forecast the patient's drug concentration time course with the target goal AUC 24 range of 400 - 600 mg/L/hr.
[2021-04-15] MEDS: oxyCODONE HCl Immed Release 5 MG TABLET PO ×3 (09:14→19:42)
[2021-04-15] MEDS: cefTRIAXone sodium 2 GM in 0.9 % Sodium Chloride 50 ML IV (09:16)
[2021-04-15] MEDS: Lactated Ringers 1,000 ML 50 ML IVCONT (09:20)
--- NOTE | 2021-04-15 09:47 | MHC.CM.PN ---
IMM 04/15/21, EMR REVIEWED, PT ADMITTED W/STENT MIGRATION, CM MET W/PT AND SON WHO IS AT BEDSIDE, PT REPORTS SHE LIVES [place], IS INDEPENDENT W/ALL CARE HOWEVER DOES USE A CANE, PT ALSO HAS A WALKER HOWEVER DOES NOT USE IT, PT HAS NO HOME SERVICES, PT AND SON INTERESTED IN HOME HEALTH FOR PT HOWEVER HAVE DECLINED A REFERRAL FOR [facility] D/T NOT WANTING TO PAY ANYTHING OUT OF POCKET, PT IS AGREEABLE TO [facility] IF RECOMMENDED BY HOSPITALIST OR DR YORK. PT VERIFIES PCP YARELIS CRISTINA AND HCP SON STEPHANIE RODRIGUEZ [phone], SON REPORTS PT COMPLETED HCP AND SHOULD BE ON FILE HOWEVER CM UNABLE TO LOCATE AND COPY WILL BE REQUESTED. D/C PLAN: HOME VS HOME W/[facility], FAMILY FOR TRANSPORT
[2021-04-15] MEDS: 0.9 % Sodium Chloride 1,000 ML 80 ML IVCONT ×2 (09:54→22:32)
--- NOTE | 2021-04-15 09:55 | MHC.CLN ---
NUTRITION DIET CHANGED TO 2 GRAM SODIUM DUE TO CKD AND TAKES FUROSEMIDE.
[2021-04-15] MEDS: Omeprazole 40 MG CAPSULE.DR PO (09:57)
[2021-04-15] MEDS: vancomycin HCL 1,000 MG in 0.9 % Sodium Chloride 250 ML 270 MG IV (10:00)
--- NOTE | 2021-04-15 10:30 | PM.UROPN ---
Subjective Subjective Date of Service: 04/15/21 Interval history: Under with stent repositioning last night Stent was not good position exchanged for softer stent for better tolerability Still with pain on right side Will switch from tramadol to oxycodone Blood cultures positive confirming sepsis On vancomycin and cephalosporin for double coverage Waiting culture final results Physical Exam Vital Signs: Vital Signs: Last Vital Signs Temp 100.1 F 04/15/21 08:00 Pulse 106 H 04/15/21 08:00 Resp 18 04/15/21 08:00 BP 152/69 H 04/15/21 08:00 Pulse Ox 93 04/15/21 08:00 Body Mass Index 27.4 Const: General: cooperative, healthy appearing, comfortable and no acute distress Orientation/consciousness: patient oriented x3 HENMT: Face and sinus: Yes normal facial exam Mouth: moist mucous membranes Neck: Neck: Yes normal visual inspection, Yes full ROM and Yes trachea midline Chest: Chest palpation & inspection: normal inspection of the chest Resp: Effort & Inspection: normal respiratory effort, able to speak in complete sentences and no respiratory distress GI: Inspection: Yes normal to inspection Back/Spine/Pelvis: Cervical Spine: normal cervical lordosis Thoracic/Lumbar Spine: thoracic and lumbar spine normal to inspection Skin: General skin exam: no rashes or lesions noted Neuro: General: patient oriented x3, gait normal, tone normal and moves all extremities Extrem: General: Yes normal to inspection and Yes capillary refill normal Urology Results Labs CBC & Chem 7: 04/15/21 05:54 04/15/21 05:54 Labs: Laboratory Results - last 24 hr 04/14/21 04/14/21 04/14/21 10:05 10:05 10:05 WBC RBC Hgb Hct MCV MCH MCHC RDW Plt Count MPV Immature Gran % (Auto) 0.8 H Neut % (Auto) 93.0 H Lymph % (Auto) 2.6 L [place] % (Auto) 2.8 Eos % (Auto) 0.5 Baso % (Auto) 0.3 Lymph # (Auto) 0.3 L [place] # (Auto) 0.3 Eos # (Auto) 0.1 Baso # (Auto) 0.0 Abs Immat Gran (auto) 0.09 H Absolute Neuts (auto) 10.9 H Absolute Nucleated RBC 0.000 Nucleated RBC % (auto) 0.0 Smear Tech's Comments VERIFIED PT 13.9 H INR 1.2 H Sodium 139 Potassium 4.3 Chloride 99 Carbon Dioxide 30 H Anion Gap 14 BUN 34 H Creatinine 1.89 H Estim Creat Clear Calc 24.0 Estimated GFR 26 Random Glucose 191 H Calcium 8.8 Total Bilirubin 0.5 Direct Bilirubin 0.3 AST 11 ALT < 6 Alkaline Phosphatase 95 Troponin I High Sens Total Protein 6.3 L Albumin 3.8 Lipase 5 L Urine Color Urine Appearance Urine pH Ur Specific [place] Urine Protein Urine Glucose (UA) Urine Ketones Urine Blood Urine Nitrite Ur Leukocyte Esterase Urine RBC Urine WBC Ur Squamous Epith Cells Urine Bacteria Coronavirus (PCR) Influenza Type A (PCR) Influenza Type B (PCR) RSV RNA Qual (PCR) 04/14/21 04/14/21 04/14/21 10:05 10:05 10:06 WBC RBC Hgb Hct MCV MCH MCHC RDW Plt Count MPV Immature Gran % (Auto) Neut % (Auto) Lymph % (Auto) [place] % (Auto) Eos % (Auto) Baso % (Auto) Lymph # (Auto) [place] # (Auto) Eos # (Auto) Baso # (Auto) Abs Immat Gran (auto) Absolute Neuts (auto) Absolute Nucleated RBC Nucleated RBC % (auto) Smear Tech's Comments PT INR Sodium Potassium Chloride Carbon Dioxide Anion Gap BUN Creatinine Estim Creat Clear Calc Estimated GFR Random Glucose Calcium Total Bilirubin Direct Bilirubin AST ALT Alkaline Phosphatase Troponin I High Sens 14.0 Total Protein Albumin Lipase Urine Color YELLOW Urine Appearance HAZY Urine pH 6.0 Ur Specific [place] 1.020 Urine Protein 2+ H Urine Glucose (UA) NEG Urine Ketones NEG Urine Blood 3+ H Urine Nitrite NEG Ur Leukocyte Esterase 2+ H Urine RBC 15-29 H Urine WBC 15-29 H Ur Squamous Epith Cells TRACE Urine Bacteria 1+ Coronavirus (PCR) NEGATIVE Influenza Type A (PCR) NEGATIVE Influenza Type B (PCR) NEGATIVE RSV RNA Qual (PCR) NEGATIVE 04/15/21 04/15/21 05:54 05:54 WBC 10.4 RBC 3.08 L Hgb 8.8 L Hct 27.7 L MCV 89.9 MCH 28.6 MCHC 31.8 RDW 13.9 Plt Count 133 L MPV 11.4 Immature Gran % (Auto) 0.9 H Neut % (Auto) 87.9 H Lymph % (Auto) 2.9 L [place] % (Auto) 8.1 Eos % (Auto) 0.1 Baso % (Auto) 0.1 Lymph # (Auto) 0.3 L [place] # (Auto) 0.9 Eos # (Auto) 0.0 Baso # (Auto) 0.0 Abs Immat Gran (auto) 0.09 H Absolute Neuts (auto) 9.2 H Absolute Nucleated RBC 0.000 Nucleated RBC % (auto) 0.0 Smear Tech's Comments PT INR Sodium 139 Potassium 3.9 Chloride 106 Carbon Dioxide 25 Anion Gap 12 BUN 25 H Creatinine 1.49 H Estim Creat Clear Calc 30.4 Estimated GFR 34 Random Glucose 130 H Calcium 7.9 L D Total Bilirubin Direct Bilirubin AST ALT Alkaline Phosphatase Troponin I High Sens Total Protein Albumin Lipase Urine Color Urine Appearance Urine pH Ur Specific [place] Urine Protein Urine Glucose (UA) Urine Ketones Urine Blood Urine Nitrite Ur Leukocyte Esterase Urine RBC Urine WBC Ur Squamous Epith Cells Urine Bacteria Coronavirus (PCR) Influenza Type A (PCR) Influenza Type B (PCR) RSV RNA Qual (PCR) Progress Note: A&P Assessment and plan (1) Migration of ureteral stent: Status: Acute (2) Sepsis: Status: Acute Assessment and Plan: Await final culture to determine antibiotics Continue double coverage Fall Risk Details Current Medications: Current Medications Alprazolam (Alprazolam 0.5 Mg Tablet) 0.5 mg PO BEDTIME LISANDRA Last Admin: 04/14/21 20:42 Dose: 0.5 mg Documented by: Atenolol (Atenolol 25 Mg Tablet) 25 mg PO DAILY LISANDRA; Protocol Last Admin: 04/15/21 08:56 Dose: 25 mg Documented by: Atorvastatin Calcium (Atorvastatin Calcium 10 Mg Tablet) 10 mg PO BEDTIME LISANDRA Carbidopa/Levodopa (Carbidopa/Levodopa 25/100 Tablet) 1 tab PO BID LISANDRA Last Admin: 04/15/21 08:56 Dose: 1 tab Documented by: Diltiazem HCl (Diltiazem Hcl Cd 180 Mg Cap.Er.24h) 180 mg PO DAILY LISANDRA; Protocol Last Admin: 04/15/21 08:56 Dose: 180 mg Documented by: Furosemide (Furosemide 40 Mg Tablet) 80 mg PO DAILY LISANDRA; Protocol Last Admin: 04/15/21 08:56 Dose: 80 mg Documented by: Hydromorphone HCl (Hydromorphone Hcl 0.5 Mg/0.5 Ml Syringe) 0.25 mg IVPUSH Q5M PRN; Protocol PRN Reason: Pain, Severe (Pain Scale 7-10) Last Admin: 04/14/21 18:03 Dose: 0.25 mg Documented by: Sodium Chloride (Ns) 1,000 mls @ 80 mls/hr IVCONT .[id number] [facility] Last Admin: 04/15/21 09:54 Dose: 80 mls/hr Documented by: Vancomycin HCl 1,000 mg/ (Sodium Chloride) 270 mls @ 270 mls/hr IV Q24H [facility] Last Admin: 04/15/21 10:00 Dose: 270 mls/hr Documented by: Ceftriaxone Sodium 2 gm/ (Sodium Chloride) 50 mls @ 100 mls/hr IV Q24H [facility] Last Infusion: 04/15/21 09:46 Dose: Infused Documented by: Ipratropium [place] (Ipratropium [place] 1 Puff/17 Mcg Inhaler) 2 puff INHALE QID PRN PRN Reason: Shortness Of Breath Or Wheezing Lisinopril (Lisinopril 5 Mg Tablet) 5 mg PO DAILY [facility]; Protocol Last Admin: 04/15/21 08:56 Dose: 5 mg Documented by: Metformin HCl (Metformin Hcl 500 Mg Tablet) 500 mg PO DAILY [facility] Last Admin: 04/15/21 08:56 Dose: 500 mg Documented by: Morphine Sulfate (Morphine Sulfate 4 Mg/Ml Cartridge) 1 mg IVPUSH Q4H PRN; Protocol PRN Reason: Pain, Moderate (Pain Scale 4-6 Last Admin: 04/15/21 06:34 Dose: 1 mg Documented by: Omeprazole (Omeprazole 40 Mg Capsule.) 40 mg PO DAILY [facility] Last Admin: 04/15/21 09:57 Dose: 40 mg Documented by: Ondansetron HCl (Ondansetron Hcl 4 Mg/2 Ml Vial) 4 mg IVPUSH ONCE PRN PRN Reason: Nausea and Vomiting Oxycodone HCl (Oxycodone Hcl Immed Release 5 Mg Tablet) 5 mg PO Q6H PRN PRN Reason: Pain, Moderate (Pain Scale 4-6 Last Admin: 04/15/21 09:14 Dose: 5 mg Documented by: Pharmacy Consult (Consult Rx Perform Med Rec) 1 each MISCELLANE ONCE PRN PRN Reason: Consult order Pharmacy Consult (Consult Rx Vancomycin Dosing) 1 each MISCELLANE DAILY PRN PRN Reason: Consult order Sodium Chloride (0.9 % Sodium Chloride Flush 3 Ml Syringe) 3 ml IVFLUSH QSHIFT [facility] Last Admin: 04/15/21 09:24 Dose: Not Given Documented by: Time Spent With Patient Time: Total time spent is greater than 50% in coordination of care (as documented) at patient's floor/unit and/or counseling patient: Time with patient: 15 - 24 minutes
[2021-04-15] MEDS: Ondansetron ODT 4 MG TAB.RAPDIS TRANSLINGU (13:03)
--- NOTE | 2021-04-15 13:33 | HO.PM.IMCN ---
History of Present Illness Data of Consult Service Date: 04/15/21 Primary Care Provider: Edgardo Crandall MD HPI 80 year old female COPD, diabetes, history of bladder cancer diagnosed in august 2020 complicated by obstrutive uropathy and hydronephrosis on the right side. In August, she underwent 1. Cystoscopy and right retrograde 2. TURBT large of a circumferential frondular tumor from bladder base through intramural wall of bladder 3. Right stent placement . In September, she had Cystoscopy, right retrograde, right stent removal, right ureteroscopy. In February, she underwent ?Cystoscopy with bilateral retrograde for Obstructed right distal ureter causing hydronephrosis. On april 11, she underwent ?right antegrade pyelogram, dilate renal access under fluroscopy, antegrade ureteroscopy with laser of obliterated distal ureter retrograde stent placement. On 04/14 she came to the ED with weakness, fever of 105 and back pain and CT showed that indwelling stent has migrated out of the bladder. She was given broad spectrum antibiotics and underwent Cystoscopy, indwelling stent removal, and nother stent placement. Presently her temperature has resolved, her back is better. Blood cultures are growing gram positive coocci. History obtained from record review and talking to [id number] Review of Systems Review of Systems: Back pain fever, weakness, no sob no chest pain. Yes all other systems are reviewed and are negative [facility] Medical History (Updated 04/15/21 @ 15:02 by Cirilo Kan MD) Acute respiratory failure with hypoxia ROMY (acute kidney injury) Anxiety Back pain Bladder mass CKD (chronic kidney disease) COPD (chronic obstructive pulmonary disease) Diverticulosis DM type 2 (diabetes mellitus, type 2) Elevated cholesterol Family history of anesthesia complication Fibromyalgia GERD (gastroesophageal reflux disease) Hiatal hernia Hypertension On beta elizabeth at home Osteoarthritis Peripheral neuropathy PONV (postoperative nausea and vomiting) Restless leg syndrome Ureteral stricture, right Pertinent family history: report no family history of chronic kidney disease, or heart disease Surgical History History of cholecystectomy History of cystoscopy History of hysterectomy History of total left knee replacement Hx of appendectomy Hx of bilateral cataract extraction Hx of colonoscopy Hx of tonsillectomy Nephrostomy status Social History Household Members: Family Housing: House Housing Other:: Lives with son and family Are you a primary childcare center administrator to a significant other at home: No Do you presently have visiting nurse or other home services: No Alcohol intake: never Patient Tobacco Use Status: Former Tobacco user Quit Date: 1994 Tobacco use type: Cigarette Cigarette Packs Per Day: 1 Cigarettes Per Day: 20.0 Years Smoked: 50 Use of substances other than those prescribed or required for medical reasons: No Currently Displaying Signs/Symptoms of Drug Intoxication Withdrawal: No Have you been hit, kicked, punched, or otherwise hurt by someone within the past year? If so, by whom?: No Do you feel safe in your current relationship?: No Current Relationship Is there a partner from a previous relationship who is making you feel unsafe now?: No Are you made to feel afraid or neglected: No Are you DNR?: No Advance Directives: Yes Advance Directives Information Provided: Yes Advance Directives on File: No Advance Directives Date on File: 04/14/21 Do you have thoughts of harming others: None Do you have a plan to hurt others: No Plan Recently lost weight without trying: No Nutrition Risks: No Nutritional Risk service: No Current occupational status: retired Meds Allergies Allergy/AdvReac Type Severity Reaction Status Date / Time Sulfa (Sulfonamide Allergy Severe Anaphylaxis Verified 04/14/21 09:14 Antibiotics) sulfamethoxazole Allergy Severe ANAPHYLAXIS Verified 04/14/21 09:14 [From BACTRIM] influenza virus vaccine, Allergy Intermediate ARTHRITIC Verified 04/14/21 09:14 specific EFFECTS [FLU VACCINE] nitrofurantoin AdvReac Mild GI UPSET Verified 04/14/21 09:14 [From MACRODANTIN] oxycodone [From PERCOCET] AdvReac Mild GI UPSET Verified 04/14/21 09:14 Active Medications: Current Medications Alprazolam (Alprazolam 0.5 Mg Tablet) 0.5 mg PO BEDTIME LISANDRA Last Admin: 04/14/21 20:42 Dose: 0.5 mg Documented by: Atenolol (Atenolol 25 Mg Tablet) 25 mg PO DAILY LISANDRA; Protocol Last Admin: 04/15/21 08:56 Dose: 25 mg Documented by: Atorvastatin Calcium (Atorvastatin Calcium 10 Mg Tablet) 10 mg PO BEDTIME LISANDRA Carbidopa/Levodopa (Carbidopa/Levodopa 25/100 Tablet) 1 tab PO BID [facility] Last Admin: 04/15/21 08:56 Dose: 1 tab Documented by: Diltiazem HCl (Diltiazem Hcl Cd 180 Mg Cap.Er.24h) 180 mg PO DAILY [facility]; Protocol Last Admin: 04/15/21 08:56 Dose: 180 mg Documented by: Furosemide (Furosemide 40 Mg Tablet) 80 mg PO DAILY [facility]; Protocol Last Admin: 04/15/21 08:56 Dose: 80 mg Documented by: Hydromorphone HCl (Hydromorphone Hcl 0.5 Mg/0.5 Ml Syringe) 0.25 mg IVPUSH Q5M PRN; Protocol PRN Reason: Pain, Severe (Pain Scale 7-10) Last Admin: 04/14/21 18:03 Dose: 0.25 mg Documented by: Sodium Chloride (Ns) 1,000 mls @ 80 mls/hr IVCONT .[id number] [facility] Last Admin: 04/15/21 09:54 Dose: 80 mls/hr Documented by: Vancomycin HCl 1,000 mg/ (Sodium Chloride) 270 mls @ 270 mls/hr IV Q24H [facility] Last Infusion: 04/15/21 13:05 Dose: Infused Documented by: Ceftriaxone Sodium 2 gm/ (Sodium Chloride) 50 mls @ 100 mls/hr IV Q24H [facility] Last Infusion: 04/15/21 09:46 Dose: Infused Documented by: Ipratropium [place] (Ipratropium [place] 1 Puff/17 Mcg Inhaler) 2 puff INHALE QID PRN PRN Reason: Shortness Of Breath Or Wheezing Lisinopril (Lisinopril 5 Mg Tablet) 5 mg PO DAILY [facility]; Protocol Last Admin: 04/15/21 08:56 Dose: 5 mg Documented by: Metformin HCl (Metformin Hcl 500 Mg Tablet) 500 mg PO DAILY [facility] Last Admin: 04/15/21 08:56 Dose: 500 mg Documented by: Morphine Sulfate (Morphine Sulfate 4 Mg/Ml Cartridge) 1 mg IVPUSH Q4H PRN; Protocol PRN Reason: Pain, Moderate (Pain Scale 4-6 Last Admin: 04/15/21 06:34 Dose: 1 mg Documented by: Omeprazole (Omeprazole 40 Mg Capsule.Dr) 40 mg PO DAILY [facility] Last Admin: 04/15/21 09:57 Dose: 40 mg Documented by: Ondansetron HCl (Ondansetron Hcl 4 Mg/2 Ml Vial) 4 mg IVPUSH ONCE PRN PRN Reason: Nausea and Vomiting Ondansetron HCl (Ondansetron Odt 4 Mg Tab.Rapdis) 4 mg TRANSLINGU Q6H PRN PRN Reason: Nausea Last Admin: 04/15/21 13:03 Dose: 4 mg Documented by: Oxycodone HCl (Oxycodone Hcl Immed Release 5 Mg Tablet) 5 mg PO Q4H PRN PRN Reason: Pain, Moderate (Pain Scale 4-6 Last Admin: 04/15/21 13:03 Dose: 5 mg Documented by: Pharmacy Consult (Consult Rx Perform Med Rec) 1 each MISCELLANE ONCE PRN PRN Reason: Consult order Pharmacy Consult (Consult Rx Vancomycin Dosing) 1 each MISCELLANE DAILY PRN PRN Reason: Consult order Sodium Chloride (0.9 % Sodium Chloride Flush 3 Ml Syringe) [facility] Last Admin: 04/15/21 09:24 Dose: Not Given Documented by: Home Medications Medication Instructions Recorded Confirmed Last Taken Type alprazolam 0.5 mg tablet 0.5 mg PO BEDTIME 07/20/20 04/14/21 08/15/20 History amitriptyline 10 mg tablet 20 mg PO BEDTIME 07/20/20 04/14/21 08/15/20 History atenolol 25 mg tablet 25 mg PO DAILY 07/20/20 04/14/21 08/16/20 06:50 History carbidopa 25 mg-levodopa 100 mg 1 tab PO BID 07/20/20 04/14/21 08/16/20 06:50 History tablet (Sinemet) furosemide 40 mg tablet 80 mg PO DAILY 07/20/20 04/14/21 08/15/20 History lisinopril 5 mg tablet 5 mg PO DAILY 07/20/20 04/14/21 08/16/20 History omega-3 fatty acids 1,000 mg 1,000 mg PO DAILY 07/20/20 04/14/21 02/27/21 08:30 History capsule (Fish Oil Concentrate) omeprazole 20 mg capsule,delayed 40 mg PO DAILY 07/20/20 04/14/21 08/16/20 06:50 History release atorvastatin 10 mg tablet 10 mg PO DAILY 08/10/20 04/14/21 08/15/20 History gabapentin 100 mg capsule 100 mg PO BID 08/10/20 04/14/21 08/16/20 06:50 History ipratropium bromide 17 2 inh INHALATION QID PRN 08/10/20 04/14/21 02/28/21 07:30 History mcg/actuation HFA aerosol inhaler (Atrovent HFA) diltiazem HCl 180 mg capsule,24 180 mg PO DAILY 08/16/20 04/14/21 08/15/20 History hr,extended release (Tiadylt ER) potassium chloride 10 mEq 1 tab PO DAILY 08/16/20 04/14/21 Unknown History tablet,extended release(part/cryst) (Klor-Con M) Physical Exam Vital Signs and Narrative: Vital Signs: Last Vital Signs Temp 97.5 F 04/15/21 11:45 Pulse 79 04/15/21 11:45 Resp 14 04/15/21 11:45 BP 115/55 L 04/15/21 11:45 Pulse Ox 95 04/15/21 11:45 Body Mass Index 27.4 Const: Other: Constitutional: Alert, in no distress, overweight. Mental Status: Oriented to person, place and time. Eyes: Pupils are equal, round and reactive to light. Ear, Nose and Throat: Oropharynx clear, mucous membranes moist. Ears and nose without eformities. Trachea midline. Respiratory: Clear to auscultation. No wheezing, rales or rhonchi. Cardiovascular: S1 S2 regular. No murmurs, rubs or gallops. Gastrointestinal: Abdomen soft, non-tender, non-distended. Normal bowel sounds.? No CVA tenderness, had difficulty turning on her back Neurologic: Cranial nerves II-XII grossly intact. No focal neurological deficits. Moves all extremities spontaneously.? Skin: No rashes or lesions.? Musculoskeletal: No cyanosis or clubbing. Psychiatric: Normal mood and affect? Results Labs CBC and Chem 7: 04/15/21 05:54 04/15/21 05:54 Labs: Laboratory Results - last 24 hr 04/15/21 04/15/21 05:54 05:54 MCV 89.9 MCH 28.6 MCHC 31.8 RDW 13.9 Plt Count 133 L MPV 11.4 Immature Gran % (Auto) 0.9 H Neut % (Auto) 87.9 H Lymph % (Auto) 2.9 L [place] % (Auto) 8.1 Eos % (Auto) 0.1 Baso % (Auto) 0.1 Lymph # (Auto) 0.3 L [place] # (Auto) 0.9 Eos # (Auto) 0.0 Baso # (Auto) 0.0 Abs Immat Gran (auto) 0.09 H Absolute Neuts (auto) 9.2 H Absolute Nucleated RBC 0.000 Nucleated RBC % (auto) 0.0 Anion Gap 12 Estim Creat Clear Calc 30.4 Estimated GFR 34 Random Glucose 130 H Calcium 7.9 L D Assessment and Plan (1) Sepsis: Status: Acute 80 female with with COPD, history of bladder cancer with history obstructive distal ureter causing right hydronephrosis and has required multiple stent, most recent 5 days ago and came just 4 days later with high grade fever, bacteremia and stent migration and required yet removal and reposition of the stent . 1/ Sesis d/t infected stent, had temp of 105 and tachycardia on presentation--No severe sepsis, renal failure is chronic and not due to sepsis 2/gram positive coocci bacteremia -old stent removed and new on inserted. -I agree with renally adjusted vanco and ceftriaxone -follow culture -ID consult 3/ CKD 3, stable, monitor and if worse, neophrology consult. 4/Diabetes--Stopped Metformin, SSI 5/HTN--stop Losartan due to renal failure, continue atenolol and cardizem, hold Lasix 6/COPD, no exacerbation, continue inhaler 7/Neuropathy--Neurontin 8/HLD--Lipitor 9/Anxiey--Xanax 10GERD--Prilosec 11/Fibromyalgia--Elavil
--- NOTE | 2021-04-15 14:08 | HO.POSTANES ---
Post Anesthesia Evaluation Post Anesthesia Evaluation Vital Signs: Vital Signs Temp Pulse Resp BP Pulse Ox 04/15/21 11:45 97.5 F 79 14 115/55 L 95 04/15/21 08:00 100.1 F 106 H 18 152/69 H 93 04/15/21 06:34 19 04/15/21 06:33 98 19 142/67 H 04/15/21 03:56 98.5 F 107 H 18 134/65 96 Anesthesia: General LMA Mental Status: Awake Pain Control: Satisfactory Nausea/Vomiting: Mild Hydration: Adequate Anesthesia-Related Issues: No Anes. Related Issues
--- NOTE | 2021-04-15 15:57 | P.CNID_ITS ---
History of Present Illness Data of Consult Service Date: 04/15/21 Requesting physician: Cirilo Kan Primary Care Provider: Edgardo Crandall MD [facility] Reason for consult: bacteremia She presents with weakness and 03/27 back pain this morning. She couldnt get out of bed. She had 04/[address] Bernardo She has no dysuria. Review of Systems Review of Systems: Yes all other systems are reviewed and are negative [facility] Past Medical History Medical History Acute respiratory failure with hypoxia ROMY (acute kidney injury) Anxiety Back pain Bladder mass CKD (chronic kidney disease) COPD (chronic obstructive pulmonary disease) Diverticulosis DM type 2 (diabetes mellitus, type 2) Elevated cholesterol Family history of anesthesia complication Fibromyalgia GERD (gastroesophageal reflux disease) Hiatal hernia Hypertension On beta elizabeth at home Osteoarthritis Peripheral neuropathy PONV (postoperative nausea and vomiting) Restless leg syndrome Ureteral stricture, right Family History Family history: reviewed and not pertinent Surgical History Surgical History History of cholecystectomy History of cystoscopy History of hysterectomy History of total left knee replacement Hx of appendectomy Hx of bilateral cataract extraction Hx of colonoscopy Hx of tonsillectomy Nephrostomy status Social History Social History Household Members: Family Housing: House Housing Other:: Lives with son and family Are you a primary director career services to a significant other at home: No Do you presently have visiting nurse or other home services: No Alcohol intake: never Patient Tobacco Use Status: Former Tobacco user Quit Date: 1994 Tobacco use type: Cigarette Cigarette Packs Per Day: 1 Cigarettes Per Day: 20.0 Years Smoked: 50 Use of substances other than those prescribed or required for medical reasons: No Currently Displaying Signs/Symptoms of Drug Intoxication Withdrawal: No Have you been hit, kicked, punched, or otherwise hurt by someone within the past year? If so, by whom?: No Do you feel safe in your current relationship?: No Current Relationship Is there a partner from a previous relationship who is making you feel unsafe now?: No Are you made to feel afraid or neglected: No Are you DNR?: No Advance Directives: Yes Advance Directives Information Provided: Yes Advance Directives on File: No Advance Directives Date on File: 04/14/21 Do you have thoughts of harming others: None Do you have a plan to hurt others: No Plan Recently lost weight without trying: No Nutrition Risks: No Nutritional Risk service: No Current occupational status: retired Meds Allergies Allergy/AdvReac Type Severity Reaction Status Date / Time Sulfa (Sulfonamide Allergy Severe Anaphylaxis Verified 04/14/21 09:14 Antibiotics) sulfamethoxazole Allergy Severe ANAPHYLAXIS Verified 04/14/21 09:14 [From BACTRIM] influenza virus vaccine, Allergy Intermediate ARTHRITIC Verified 04/14/21 09:14 specific EFFECTS [FLU VACCINE] nitrofurantoin AdvReac Mild GI UPSET Verified 04/14/21 09:14 [From MACRODANTIN] oxycodone [From PERCOCET] AdvReac Mild GI UPSET Verified 04/14/21 09:14 Active Medications: Current Medications Alprazolam (Alprazolam 0.5 Mg Tablet) 0.5 mg PO BEDTIME LISANDRA Last Admin: 04/14/21 20:42 Dose: 0.5 mg Documented by: Atenolol (Atenolol 25 Mg Tablet) 25 mg PO DAILY LISANDRA; Protocol Last Admin: 04/15/21 08:56 Dose: 25 mg Documented by: Atorvastatin Calcium (Atorvastatin Calcium 10 Mg Tablet) 10 mg PO BEDTIME LISANDRA Carbidopa/Levodopa (Carbidopa/Levodopa 25/100 Tablet) 1 tab PO BID LISANDRA Last Admin: 04/15/21 08:56 Dose: 1 tab Documented by: Diltiazem HCl (Diltiazem Hcl Cd 180 Mg Cap.Er.24h) 180 mg PO DAILY LISANDRA; Protocol Last Admin: 04/15/21 08:56 Dose: 180 mg Documented by: Furosemide (Furosemide 40 Mg Tablet) 80 mg PO DAILY LISANDRA; Protocol Last Admin: 04/15/21 08:56 Dose: 80 mg Documented by: Heparin Sodium (Porcine) (Heparin Sodium,Porcine 5,000 Unit/Ml Vial) 5,000 unit SUBCUT Q12H LISANDRA Hydromorphone HCl (Hydromorphone Hcl 0.5 Mg/0.5 Ml Syringe) 0.25 mg IVPUSH Q5M PRN; Protocol PRN Reason: Pain, Severe (Pain Scale 7-10) Last Admin: 04/14/21 18:03 Dose: 0.25 mg Documented by: Sodium Chloride (Ns) 1,000 mls @ 80 mls/hr IVCONT .[id number] [facility] Last Admin: 04/15/21 09:54 Dose: 80 mls/hr Documented by: Vancomycin HCl 1,000 mg/ (Sodium Chloride) 270 mls @ 270 mls/hr IV Q24H [facility] Last Infusion: 04/15/21 13:05 Dose: Infused Documented by: Ceftriaxone Sodium 2 gm/ (Sodium Chloride) 50 mls @ 100 mls/hr IV Q24H [facility] Last Infusion: 04/15/21 09:46 Dose: Infused Documented by: Ipratropium [place] (Ipratropium [place] 1 Puff/17 Mcg Inhaler) 2 puff INHALE QID PRN PRN Reason: Shortness Of Breath Or Wheezing Morphine Sulfate (Morphine Sulfate 4 Mg/Ml Cartridge) 2 mg IVPUSH Q4H PRN; Protocol PRN Reason: Pain, Moderate (Pain Scale 4-6 Omeprazole (Omeprazole 40 Mg Capsule.Dr) 40 mg PO DAILY [facility] Last Admin: 04/15/21 09:57 Dose: 40 mg Documented by: Ondansetron HCl (Ondansetron Hcl 4 Mg/2 Ml Vial) 4 mg IVPUSH ONCE PRN PRN Reason: Nausea and Vomiting Ondansetron HCl (Ondansetron Odt 4 Mg Tab.Rapdis) 4 mg TRANSLINGU Q6H PRN PRN Reason: Nausea Last Admin: 04/15/21 13:03 Dose: 4 mg Documented by: Oxycodone HCl (Oxycodone Hcl Immed Release 5 Mg Tablet) 5 mg PO Q4H PRN PRN Reason: Pain, Moderate (Pain Scale 4-6 Last Admin: 04/15/21 13:03 Dose: 5 mg Documented by: Pharmacy Consult (Consult Rx Perform Med Rec) 1 each MISCELLANE ONCE PRN PRN Reason: Consult order Pharmacy Consult (Consult Rx Vancomycin Dosing) 1 each MISCELLANE DAILY PRN PRN Reason: Consult order Sodium Chloride (0.9 % Sodium Chloride Flush 3 Ml Syringe) 3 ml IVFLUSH QSHIFT [facility] Last Admin: 04/15/21 09:24 Dose: Not Given Documented by: Home Medications Medication Instructions Recorded Confirmed Last Taken Type alprazolam 0.5 mg tablet 0.5 mg PO BEDTIME 07/20/20 04/14/21 08/15/20 History amitriptyline 10 mg tablet 20 mg PO BEDTIME 07/20/20 04/14/21 08/15/20 History atenolol 25 mg tablet 25 mg PO DAILY 07/20/20 04/14/21 08/16/20 06:50 History carbidopa 25 mg-levodopa 100 mg 1 tab PO BID 07/20/20 04/14/21 08/16/20 06:50 History tablet (Sinemet) furosemide 40 mg tablet 80 mg PO DAILY 07/20/20 04/14/21 08/15/20 History lisinopril 5 mg tablet 5 mg PO DAILY 07/20/20 04/14/21 08/16/20 History omega-3 fatty acids 1,000 mg 1,000 mg PO DAILY 07/20/20 04/14/21 02/27/21 08:30 History capsule (Fish Oil Concentrate) omeprazole 20 mg capsule,delayed 40 mg PO DAILY 07/20/20 04/14/21 08/16/20 06:50 History release atorvastatin 10 mg tablet 10 mg PO DAILY 08/10/20 04/14/21 08/15/20 History gabapentin 100 mg capsule 100 mg PO BID 08/10/20 04/14/21 08/16/20 06:50 History ipratropium bromide 17 2 inh INHALATION QID PRN 08/10/20 04/14/21 02/28/21 07:30 History mcg/actuation HFA aerosol inhaler (Atrovent HFA) diltiazem HCl 180 mg capsule,24 180 mg PO DAILY 08/16/20 04/14/21 08/15/20 History hr,extended release (Tiadylt ER) potassium chloride 10 mEq 1 tab PO DAILY 08/16/20 04/14/21 Unknown History tablet,extended release(part/cryst) (Klor-Con M) Physical Exam Vital Signs: Vital Signs: Last Vital Signs Temp 97.2 F 04/15/21 15:49 Pulse 75 04/15/21 15:49 Resp 18 04/15/21 15:49 BP 114/55 L 04/15/21 15:49 Pulse Ox 98 04/15/21 15:49 Body Mass Index 27.4 Const: General: cooperative Resp: Effort & Inspection: normal respiratory effort Cardio: Rate: regular rate Rhythm: regular rhythm GI: Palpation (GI): Soft to palpation and Tenderness to palpation present (GI) (right CVA) Extrem: General: Yes normal to inspection Results Labs CBC & Chem 7: 04/15/21 05:54 04/15/21 05:54 Labs: Short CBC 04/15/21 Range/Units 05:54 WBC 10.4 (4.8-10.8) X10*3/uL Hgb 8.8 L (12.0-16.0) g/dl Hct 27.7 L (37-47) % Plt Count 133 L (160-400) X10*3/uL BMP 04/15/21 05:54 Sodium 139 Potassium 3.9 Chloride 106 Carbon Dioxide 25 BUN 25 H Creatinine 1.49 H Calcium 7.9 L D Microbiology Microbiology Results: Microbiology 04/14/21 Unknown Urine Catheterized - Straight Catheter Urine Culture - Preliminary Staphylococcus species 04/14/21 10:05 Blood - Venous Blood Culture - Preliminary Gram positive cocci 04/14/21 10:05 Blood - Venous Blood Culture - Preliminary Prelim: GPC Gram Stain only Assessment and Plan (1) Sepsis: Status: Acute There is gram positive cocci in urine and bacteremia She has concern over staph and strep also (2) Migration of ureteral stent: Status: Acute Vancomycin and Ceftriaxone for now Change based on culture and sensitivities Urology is following
[2021-04-15] MEDS: Heparin Sodium,Porcine 5,000 UNIT/ML VIAL 5000 UNIT SUBCUT (17:02)
[2021-04-15] MEDS: 0.9 % Sodium Chloride Flush 3 ML SYRINGE IVFLUSH (17:02)
[2021-04-15] MEDS: ALPRAZolam 0.5 MG TABLET PO (21:28)
[2021-04-15] MEDS: Atorvastatin Calcium 10 MG TABLET PO (21:28)
[2021-04-15] MEDS: HYDROmorphone HCl 0.5 MG/0.5 ML SYRINGE 0.25 MG IVPUSH (22:33)
[2021-04-16] VITALS (8 sets, daily range): BP systolic 98–120; BP diastolic 39–58; PULSE 73–92; RESP 16–18; TEMP 36–37.6; O2SAT 92–98
[2021-04-16] MEDS: 0.9 % Sodium Chloride Flush 3 ML SYRINGE IVFLUSH ×2 (01:56→15:30)
[2021-04-16] MEDS: Heparin Sodium,Porcine 5,000 UNIT/ML VIAL 5000 UNIT SUBCUT ×2 (04:41→15:30)
[2021-04-16] MEDS: oxyCODONE HCl Immed Release 5 MG TABLET PO ×3 (05:42→20:28)
[2021-04-16 06:39] LABS: Creatinine Clr Calc Pharmacy 25.6; Estimated Glomerular Filt Rate 28
[2021-04-16] MEDS: cefTRIAXone sodium 2 GM in 0.9 % Sodium Chloride 50 ML IV (08:41)
[2021-04-16] MEDS: Furosemide 40 MG TABLET 80 MG PO (08:43)
[2021-04-16] MEDS: Carbidopa/Levodopa 25/100 TABLET 1 TAB PO ×2 (08:43→20:18)
[2021-04-16] MEDS: Omeprazole 40 MG CAPSULE.DR PO (08:44)
[2021-04-16] MEDS: dilTIAZem HCL CD 180 MG CAP.ER.24H PO (08:44)
[2021-04-16] MEDS: atenoloL 25 MG TABLET PO (08:44)
--- NOTE | 2021-04-16 09:32 | HO.PM.IMPN ---
Subjective Subjective Date of Service: 04/16/21 Interval History: Seen in f/u for sepsis, bacteremia, Still having excruciating back pain Review of Systems no fever back no urinary or stool incontinence Physical Exam Vital Signs: Vital Signs: Last Vital Signs Temp 96.8 F 04/16/21 08:00 Pulse 73 04/16/21 08:00 Resp 18 04/16/21 08:00 BP 110/46 L 04/16/21 08:00 Pulse Ox 95 04/16/21 08:00 Oxygen Flow Rate 2 04/15/21 15:44 Body Mass Index 27.4 General: AO X 3, in pain Resp: CTA bilateral CVS: S1,S2,RRR GI: +BS, NT, no distention Skin: No rash Neuro: motor grossly intact motor function in lower extremity, unable to examined back due to excruting pain on right lower back Psych: appropriate affect Objective Data Active Medications Alprazolam (Alprazolam 0.5 Mg Tablet) 0.5 mg PO BEDTIME LISANDRA Last Admin: 04/15/21 21:28 Dose: 0.5 mg Documented by: TK Atenolol (Atenolol 25 Mg Tablet) 25 mg PO DAILY LISANDRA; Protocol Last Admin: 04/16/21 08:44 Dose: 25 mg Documented by: QUAN Atorvastatin Calcium (Atorvastatin Calcium 10 Mg Tablet) 10 mg PO BEDTIME LISANDRA Last Admin: 04/15/21 21:28 Dose: 10 mg Documented by: TK Carbidopa/Levodopa (Carbidopa/Levodopa 25/100 Tablet) 1 tab PO BID LISANDRA Last Admin: 04/16/21 08:43 Dose: 1 tab Documented by: QUAN Diltiazem HCl (Diltiazem Hcl Cd 180 Mg Cap.Er.24h) 180 mg PO DAILY LISANDRA; Protocol Last Admin: 04/16/21 08:44 Dose: 180 mg Documented by: QUAN Furosemide (Furosemide 40 Mg Tablet) 80 mg PO DAILY LISANDRA; Protocol Last Admin: 04/16/21 08:43 Dose: 80 mg Documented by: QUAN Heparin Sodium (Porcine) (Heparin Sodium,Porcine 5,000 Unit/Ml Vial) 5,000 unit SUBCUT Q12H [facility]AN[facility] Last Admin: 04/16/21 04:41 Dose: 5,000 unit Documented by: TK Hydromorphone HCl (Hydromorphone Hcl 0.5 Mg/0.5 Ml Syringe) 0.25 mg IVPUSH Q5M PRN; Protocol PRN Reason: Pain, Severe (Pain Scale 7-10) Last Admin: 04/15/21 22:33 Dose: 0.25 mg Documented by: TK Sodium Chloride (Ns) 1,000 mls @ 80 mls/hr IVCONT .[id number] [facility] Last Admin: 04/15/21 22:32 Dose: 80 mls/hr Documented by: TK Vancomycin HCl 1,000 mg/ (Sodium Chloride) 270 mls @ 270 mls/hr IV Q24H [facility] Last Infusion: 04/15/21 13:05 Dose: 270 mls/hr Documented by: FARHANA Ceftriaxone Sodium 2 gm/ (Sodium Chloride) 50 mls @ 100 mls/hr IV Q24H [facility] Last Admin: 04/16/21 08:41 Dose: 100 mls/hr Documented by: QUAN Ipratropium [place] (Ipratropium [place] 1 Puff/17 Mcg Inhaler) 2 puff INHALE QID PRN PRN Reason: Shortness Of Breath Or Wheezing Morphine Sulfate (Morphine Sulfate 4 Mg/Ml Cartridge) 2 mg IVPUSH Q4H PRN; Protocol PRN Reason: Pain, Moderate (Pain Scale 4-6 Omeprazole (Omeprazole 40 Mg Capsule.Dr) 40 mg PO DAILY [facility] Last Admin: 04/16/21 08:44 Dose: 40 mg Documented by: QUAN Ondansetron HCl (Ondansetron Hcl 4 Mg/2 Ml Vial) 4 mg IVPUSH ONCE PRN PRN Reason: Nausea and Vomiting Ondansetron HCl (Ondansetron Odt 4 Mg Tab.Rapdis) 4 mg TRANSLINGU Q6H PRN PRN Reason: Nausea Last Admin: 04/15/21 13:03 Dose: 4 mg Documented by: FARHANA Oxycodone HCl (Oxycodone Hcl Immed Release 5 Mg Tablet) 5 mg PO Q4H PRN PRN Reason: Pain, Moderate (Pain Scale 4-6 Last Admin: 04/16/21 05:42 Dose: 5 mg Documented by: TK Pharmacy Consult (Consult Rx Perform Med Rec) 1 each MISCELLANE ONCE PRN PRN Reason: Consult order Pharmacy Consult (Consult Rx Vancomycin Dosing) 1 each MISCELLANE DAILY PRN PRN Reason: Consult order Sodium Chloride (0.9 % Sodium Chloride Flush 3 Ml Syringe) 3 ml IVFLUSH QSHIFT [facility] Last Admin: 04/16/21 07:51 Dose: Not Given Documented by: QUAN Non-Admin Reason: IV Running Labs CBC & Chem 7: 04/15/21 05:54 04/16/21 05:38 Labs: Laboratory Results - last 24 hr 04/16/21 05:38 Estim Creat Clear Calc 25.6 Estimated GFR 28 Microbiology Microbiology Results: Microbiology 04/14/21 Unknown Urine Culture - Final Urine Catheterized - Straight Catheter Methicillin Res Staph Aureus 04/14/21 10:05 Blood Culture - Preliminary Blood - Venous Gram positive cocci 04/14/21 10:05 Blood Culture - Preliminary Blood - Venous Prelim: GPC Gram Stain only Assessment and Plan (1) Sepsis: Status: Acute (2) Migration of ureteral stent: Status: Acute (3) Bacteremia: Status: Acute Assessment and Plan: 80 female with? with COPD, history of bladder cancer with history obstructive distal ureter causing right hydronephrosis and has required multiple stent, most recent 5 days ago and came just 4 days later with high grade fever, bacteremia and stent migration? and required yet removal and reposition of the stent . 1/ Sesis d/t infected stent, had temp of 105 and tachycardia on presentation--No severe sepsis, renal failure is chronic and not due to sepsis 2/gram positive coocci bacteremia sensitivity pending, Urine culture MRSA -old stent removed and new on inserted. -I agree with renally adjusted vanco and ceftriaxone for nw -follow culture -ID consult -consider lumbar spine MRI d/t persitent back pain 3/ CKD 3, stable, monitor and if worse, neophrology consult. 4/Diabetes--Stopped Metformin, SSI 5/HTN--stop Losartan due to renal failure, continue atenolol and cardizem, hold Lasix 6/COPD, no exacerbation, continue inhaler 7/Neuropathy--Neurontin 8/HLD--Lipitor 9/Anxiey--Xanax 10GERD--Prilosec 11/Fibromyalgia--Elavil DVT prophylaxis --Heparin Quality Stroke Does the patient have a stroke diagnosis?: No VTE Prior VTE?: No VTE Risk Level:: Medical - moderate - high VTE Device Contraindication: Treatment Not Indicated VTE Drug Contraindication: N/A - Med Ordered
[2021-04-16 10:03] LABS: Vancomycin Random 10.8 mcg/mL (15-20)
[2021-04-16] MEDS: vancomycin HCL 1,000 MG in 0.9 % Sodium Chloride 250 ML 270 MG IV (10:31)
[2021-04-16] MEDS: Morphine Sulfate 4 MG/ML CARTRIDGE 2 MG IVPUSH ×2 (10:32→15:30)
[2021-04-16] MEDS: 0.9 % Sodium Chloride 1,000 ML 80 ML IVCONT (10:33)
--- NOTE | 2021-04-16 15:25 | P.PNUR_ITS ---
Subjective Subjective Date of Service: 04/16/21 Interval history: Seen Pain secondary to distal ureter disruption which has stent across area but is exposed Cee draining urine Expect pain to come under control in next 3 days as starts to heal Home medications appropriately adjusted by hospitalist ID following with ABx recommendations Might switch to orals on Sunday if WBC down and no temp for 48 hrs Physical Exam Vital Signs: Vital Signs: Last Vital Signs Temp 97.6 F 04/16/21 11:15 Pulse 77 04/16/21 11:15 Resp 18 04/16/21 11:15 BP 115/56 L 04/16/21 11:15 Pulse Ox 93 04/16/21 11:15 Oxygen Flow Rate 2 04/15/21 15:44 Body Mass Index 27.4 Const: General: cooperative, healthy appearing, comfortable and no acute distress Orientation/consciousness: patient oriented x3 HENMT: Face and sinus: Yes normal facial exam Mouth: moist mucous membranes Neck: Neck: Yes normal visual inspection, Yes full ROM and Yes trachea midline Chest: Chest palpation & inspection: normal inspection of the chest Resp: Effort & Inspection: normal respiratory effort, able to speak in complete sentences and no respiratory distress GI: Inspection: Yes normal to inspection Back/Spine/Pelvis: Cervical Spine: normal cervical lordosis Thoracic/Lumbar Spine: thoracic and lumbar spine normal to inspection Skin: General skin exam: no rashes or lesions noted Neuro: General: patient oriented x3, gait normal, tone normal and moves all extremities Extrem: General: Yes normal to inspection and Yes capillary refill normal Urology Results Labs CBC & Chem 7: 04/15/21 05:54 04/16/21 05:38 Labs: Laboratory Results - last 24 hr 04/16/21 04/16/21 05:38 08:53 Creatinine 1.77 H Estim Creat Clear Calc 25.6 Estimated GFR 28 Random Vancomycin 10.8 L Progress Note: A&P Assessment and plan (1) Migration of ureteral stent: Status: Acute (2) Bacteremia: Status: Acute (3) Sepsis: Status: Acute Assessment and Plan: Continue with IVF until fluid intake increases Abx per levels and culture results Fall Risk Details Current Medications: Current Medications Alprazolam (Alprazolam 0.5 Mg Tablet) 0.5 mg PO BEDTIME LISANDRA Last Admin: 04/15/21 21:28 Dose: 0.5 mg Documented by: Atenolol (Atenolol 25 Mg Tablet) 25 mg PO DAILY [facility]; Protocol Last Admin: 04/16/21 08:44 Dose: 25 mg Documented by: Atorvastatin Calcium (Atorvastatin Calcium 10 Mg Tablet) 10 mg PO BEDTIME [facility] Last Admin: 04/15/21 21:28 Dose: 10 mg Documented by: Carbidopa/Levodopa (Carbidopa/Levodopa 25/100 Tablet) 1 tab PO BID [facility] Last Admin: 04/16/21 08:43 Dose: 1 tab Documented by: Diltiazem HCl (Diltiazem Hcl Cd 180 Mg Cap.Er.24h) 180 mg PO DAILY [facility]; Protocol Last Admin: 04/16/21 08:44 Dose: 180 mg Documented by: Furosemide (Furosemide 40 Mg Tablet) 80 mg PO DAILY [facility]; Protocol Last Admin: 04/16/21 08:43 Dose: 80 mg Documented by: Heparin Sodium (Porcine) (Heparin Sodium,Porcine 5,000 Unit/Ml Vial) 5,000 unit SUBCUT Q12H [facility] Last Admin: 04/16/21 04:41 Dose: 5,000 unit Documented by: Hydromorphone HCl (Hydromorphone Hcl 0.5 Mg/0.5 Ml Syringe) 0.25 mg IVPUSH Q5M PRN; Protocol PRN Reason: Pain, Severe (Pain Scale 7-10) Last Admin: 04/15/21 22:33 Dose: 0.25 mg Documented by: Sodium Chloride (Ns) 1,000 mls @ 80 mls/hr IVCONT .[id number] [facility] Last Admin: 04/16/21 10:33 Dose: 80 mls/hr Documented by: Vancomycin HCl 1,000 mg/ (Sodium Chloride) 270 mls @ 270 mls/hr IV Q24H [facility] Last Infusion: 04/16/21 11:31 Dose: Infused Documented by: Ceftriaxone Sodium 2 gm/ (Sodium Chloride) 50 mls @ 100 mls/hr IV Q24H [facility] Last Infusion: 04/16/21 09:11 Dose: Infused Documented by: Ipratropium [place] (Ipratropium [place] 1 Puff/17 Mcg Inhaler) 2 puff INHALE QID PRN PRN Reason: Shortness Of Breath Or Wheezing Morphine Sulfate (Morphine Sulfate 4 Mg/Ml Cartridge) 2 mg IVPUSH Q4H PRN; Protocol PRN Reason: Pain, Moderate (Pain Scale 4-6 Last Admin: 04/16/21 10:32 Dose: 2 mg Documented by: Omeprazole (Omeprazole 40 Mg Capsule.Dr) 40 mg PO DAILY [facility] Last Admin: 04/16/21 08:44 Dose: 40 mg Documented by: Ondansetron HCl (Ondansetron Hcl 4 Mg/2 Ml Vial) 4 mg IVPUSH ONCE PRN PRN Reason: Nausea and Vomiting Ondansetron HCl (Ondansetron Odt 4 Mg Tab.Rapdis) 4 mg TRANSLINGU Q6H PRN PRN Reason: Nausea Last Admin: 04/15/21 13:03 Dose: 4 mg Documented by: Oxycodone HCl (Oxycodone Hcl Immed Release 5 Mg Tablet) 5 mg PO Q4H PRN PRN Reason: Pain, Moderate (Pain Scale 4-6 Last Admin: 04/16/21 13:25 Dose: 5 mg Documented by: Pharmacy Consult (Consult Rx Perform Med Rec) 1 each MISCELLANE ONCE PRN PRN Reason: Consult order Pharmacy Consult (Consult Rx Vancomycin Dosing) 1 each MISCELLANE DAILY PRN PRN Reason: Consult order Sodium Chloride (0.9 % Sodium Chloride Flush 3 Ml Syringe) 3 ml IVFLUSH QSHIFT [facility] Last Admin: 04/16/21 07:51 Dose: Not Given Documented by: Time Spent With Patient Time: Total time spent is greater than 50% in coordination of care (as documented) at patient's floor/unit and/or counseling patient: Time with patient: 15 - 24 minutes Progress Note: Quality Stroke Does the patient have a stroke diagnosis?: No
[2021-04-16] MEDS: Atorvastatin Calcium 10 MG TABLET PO (20:18)
[2021-04-16] MEDS: ALPRAZolam 0.5 MG TABLET PO (20:18)
[2021-04-17] MEDS: 0.9 % Sodium Chloride 1,000 ML 80 ML IVCONT ×2 (01:35→16:01)
[2021-04-17] MEDS: Heparin Sodium,Porcine 5,000 UNIT/ML VIAL 5000 UNIT SUBCUT ×2 (03:05→16:00)
[2021-04-17 03:12] VITALS: BP 131/62; PULSE 75; RESP 18; TEMP 36.6; O2SAT 98
[2021-04-17] MEDS: oxyCODONE HCl Immed Release 5 MG TABLET PO ×4 (03:31→20:38)
[2021-04-17] MEDS: Morphine Sulfate 4 MG/ML CARTRIDGE 2 MG IVPUSH ×2 (05:56→12:52)
[2021-04-17 06:46] LABS: Creatinine Clr Calc Pharmacy 26.4; Estimated Glomerular Filt Rate 29
[2021-04-17 07:34] LABS: Anion Gap 13 (12-20); Blood Urea Nitrogen 29 mg/dL (9-16); Carbon Dioxide 28 mmol/L (22-29); Chloride 102 mmol/L (96-108); Glucose Random 133 mg/dL (60-115); Magnesium 1.5 mg/dL (1.6-2.6); Potassium 3.2 mmol/L (3.3-5.1); Sodium 140 mmol/L (135-145)
[2021-04-17 07:54] VITALS: BP 117/55; PULSE 73; RESP 18; TEMP 36.6; O2SAT 94
--- NOTE | 2021-04-17 09:16 | P.PNIM_ITS ---
Subjective Subjective Date of Service: 04/17/21 Interval History: Seen in f/u for sepsis, bacteremia, Still has back pain but better Review of Systems no fever back no urinary or stool incontinence Physical Exam Vital Signs: Vital Signs: Last Vital Signs Temp 97.8 F 04/17/21 07:54 Pulse 73 04/17/21 07:54 Resp 18 04/17/21 07:54 BP 117/55 L 04/17/21 07:54 Pulse Ox 94 04/17/21 07:54 Oxygen Flow Rate 2 04/15/21 15:44 Body Mass Index 27.4 General: AO X 3, in pain Resp:? CTA bilateral CVS: S1,S2,RRR GI: +BS, NT, no distention Skin: No rash Neuro:? motor grossly intact motor function in lower extremity,? unable to examined back due to excruting pain on right lower back Psych: appropriate affect ? Objective Data Active Medications Alprazolam (Alprazolam 0.5 Mg Tablet) 0.5 mg PO BEDTIME [facility] Last Admin: 04/16/21 20:18 Dose: 0.5 mg Documented by: LUNA Atenolol (Atenolol 25 Mg Tablet) 25 mg PO DAILY [facility]; Protocol Last Admin: 04/16/21 08:44 Dose: 25 mg Documented by: QUAN Atorvastatin Calcium (Atorvastatin Calcium 10 Mg Tablet) 10 mg PO BEDTIME [facility] Last Admin: 04/16/21 20:18 Dose: 10 mg Documented by: LUNA Carbidopa/Levodopa (Carbidopa/Levodopa 25/100 Tablet) 1 tab PO BID [facility] Last Admin: 04/16/21 20:18 Dose: 1 tab Documented by: LUNA Diltiazem HCl (Diltiazem Hcl Cd 180 Mg Cap.Er.24h) 180 mg PO DAILY [facility]; Protocol Last Admin: 04/16/21 08:44 Dose: 180 mg Documented by: QUAN Furosemide (Furosemide 40 Mg Tablet) 80 mg PO DAILY [facility]; Protocol Last Admin: 04/16/21 08:43 Dose: 80 mg Documented by: QUAN Heparin Sodium (Porcine) (Heparin Sodium,Porcine 5,000 Unit/Ml Vial) 5,000 unit SUBCUT Q12H [facility] Last Admin: 04/17/21 03:05 Dose: 5,000 unit Documented by: LUNA Hydromorphone HCl (Hydromorphone Hcl 0.5 Mg/0.5 Ml Syringe) 0.25 mg IVPUSH Q5M PRN; Protocol PRN Reason: Pain, Severe (Pain Scale 7-10) Last Admin: 04/15/21 22:33 Dose: 0.25 mg Documented by: TK Sodium Chloride (Ns) 1,000 mls @ 80 mls/hr IVCONT .[id number] [facility] Last Admin: 04/17/21 01:35 Dose: 80 mls/hr Documented by: LUNA Vancomycin HCl 1,000 mg/ (Sodium Chloride) 270 mls @ 270 mls/hr IV Q24H [facility] Last Infusion: 04/16/21 11:31 Dose: 0 mls/hr Documented by: QUAN Ipratropium [place] (Ipratropium [place] 1 Puff/17 Mcg Inhaler) 2 puff INHALE QID PRN PRN Reason: Shortness Of Breath Or Wheezing Morphine Sulfate (Morphine Sulfate 4 Mg/Ml Cartridge) 2 mg IVPUSH Q4H PRN; Protocol PRN Reason: Pain, Moderate (Pain Scale 4-6 Last Admin: 04/17/21 05:56 Dose: 2 mg Documented by: LUNA Omeprazole (Omeprazole 40 Mg Capsule.Dr) 40 mg PO DAILY [facility] Last Admin: 04/16/21 08:44 Dose: 40 mg Documented by: QUAN Ondansetron HCl (Ondansetron Hcl 4 Mg/2 Ml Vial) 4 mg IVPUSH ONCE PRN PRN Reason: Nausea and Vomiting Ondansetron HCl (Ondansetron Odt 4 Mg Tab.Rapdis) 4 mg TRANSLINGU Q6H PRN PRN Reason: Nausea Last Admin: 04/15/21 13:03 Dose: 4 mg Documented by: FARHANA Oxycodone HCl (Oxycodone Hcl Immed Release 5 Mg Tablet) 5 mg PO Q4H PRN PRN Reason: Pain, Moderate (Pain Scale 4-6 Last Admin: 04/17/21 03:31 Dose: 5 mg Documented by: LUNA Pharmacy Consult (Consult Rx Perform Med Rec) 1 each MISCELLANE ONCE PRN PRN Reason: Consult order Pharmacy Consult (Consult Rx Vancomycin Dosing) 1 each MISCELLANE DAILY PRN PRN Reason: Consult order Sodium Chloride (0.9 % Sodium Chloride Flush 3 Ml Syringe) 3 ml IVFLUSH QSHIFT [facility] Last Admin: 04/16/21 21:13 Dose: Not Given Documented by: LUNA Non-Admin Reason: IV Running Labs CBC & Chem 7: 04/15/21 05:54 04/17/21 05:53 Labs: Laboratory Results - last 24 hr 04/16/21 04/17/21 08:53 05:53 Anion Gap 13 Estim Creat Clear Calc 26.4 Estimated GFR 29 Random Glucose 133 H Calcium 8.0 L Magnesium 1.5 L Random Vancomycin 10.8 L Microbiology Microbiology Results: Microbiology 04/14/21 10:05 Blood Culture - Final Blood - Venous Methicillin Res Staph Aureus 04/14/21 10:05 Blood Culture - Final Blood - Venous Methicillin Res Staph Aureus 04/14/21 Unknown Urine Culture - Final Urine Catheterized - Straight Catheter Methicillin Res Staph Aureus Assessment and Plan (1) Sepsis: Status: Acute (2) Migration of ureteral stent: Status: Acute (3) Bacteremia: Status: Acute Assessment and Plan: 80 female with? with COPD, history of bladder cancer with history obstructive distal ureter causing right hydronephrosis and has required multiple stent, most recent 5 days ago and came just 4 days later with high grade fever, bacteremia and stent migration? and required yet removal and reposition of the stent . 1/ Sesis d/t infected stent, had temp of 105 and tachycardia on presentation--No severe sepsis, renal failure is chronic and not due to sepsis 2/MRSA bacteremia, Urine culture MRSA -old stent removed and new on inserted. -Continue Vanco and Ceftriaxone D4 -follow culture -ID following -MRI of lumbar spine showing enhancement in the prevertebral and paravertebral soft tissues between T12 and L2, which may be consistent with evolving phlegmon. -Repeat MRI tomorrow with thoracic view as suggested by radiology 3/ CKD 3, stable, monitor and if worse, neophrology consult. 4/Diabetes--No Metformin, SSI 5/HTN--stop Losartan due to renal failure, continue atenolol and cardizem, hold Lasix 6/COPD, no exacerbation, continue inhaler 7/Neuropathy--Neurontin 8/HLD--Lipitor 9/Anxiey--Xanax 10GERD--Prilosec 11/Fibromyalgia--Elavil DVT prophylaxis --Heparin Quality Stroke Does the patient have a stroke diagnosis?: No VTE Prior VTE?: No VTE Risk Level:: Medical - moderate - high VTE Device Contraindication: Treatment Not Indicated VTE Drug Contraindication: N/A - Med Ordered
[2021-04-17] MEDS: Furosemide 40 MG TABLET 80 MG PO (10:06)
[2021-04-17] MEDS: atenoloL 25 MG TABLET PO (10:06)
[2021-04-17] MEDS: Carbidopa/Levodopa 25/100 TABLET 1 TAB PO ×2 (10:06→20:33)
[2021-04-17] MEDS: dilTIAZem HCL CD 180 MG CAP.ER.24H PO (10:06)
[2021-04-17] MEDS: Omeprazole 40 MG CAPSULE.DR PO (10:06)
[2021-04-17 10:42] LABS: Vancomycin Trough 14.1 mcg/mL (10.0-20.0)
[2021-04-17 11:28] VITALS: BP 116/56; PULSE 77; RESP 18; TEMP 36.7; O2SAT 92
[2021-04-17] MEDS: ondansetron HCL 4 MG/2 ML VIAL IVPUSH (11:42)
[2021-04-17] MEDS: vancomycin HCL 750 MG in 0.9 % Sodium Chloride 250 ML 265 MG IV (11:42)
[2021-04-17 15:59] VITALS: BP 113/58; PULSE 68; RESP 16; TEMP 36.6; O2SAT 96
--- NOTE | 2021-04-17 16:02 | PM.EVENT ---
Event Note Date of Service: 04/17/21 Event Note: Spoke to patient about having repeat MRI and she doesn't want it and further would not want operation to the back done.
--- NOTE | 2021-04-17 16:17 | PC.NURSE ---
Addendum entered by Alesia Asencio RN 04/17/21 17:32: Patient refused CT thoracic spine ordered today. Original Note: Witnessed Dr Kan speaking/suggesting to the patient repeat MRI but she refused. Patient is alert and oriented.
[2021-04-17 19:37] VITALS: BP 112/65; PULSE 70; RESP 16; TEMP 36.9; O2SAT 94
[2021-04-17] MEDS: 0.9 % Sodium Chloride Flush 3 ML SYRINGE IVFLUSH (20:33)
[2021-04-17] MEDS: ALPRAZolam 0.5 MG TABLET PO (20:33)
[2021-04-17] MEDS: Atorvastatin Calcium 10 MG TABLET PO (20:33)
[2021-04-17 23:48] VITALS: BP 104/51; PULSE 70; RESP 14; TEMP 35.8; O2SAT 96
[2021-04-18] VITALS (8 sets, daily range): BP systolic 102–123; BP diastolic 38–55; PULSE 62–75; RESP 16–19; TEMP 36.1–36.9; O2SAT 92–98
[2021-04-18] MEDS: Morphine Sulfate 4 MG/ML CARTRIDGE 2 MG IVPUSH ×4 (00:02→20:30)
[2021-04-18] MEDS: Heparin Sodium,Porcine 5,000 UNIT/ML VIAL 5000 UNIT SUBCUT ×2 (03:10→14:59)
[2021-04-18 06:03] LABS: Creatinine Clr Calc Pharmacy 25.8; Estimated Glomerular Filt Rate 28
[2021-04-18] MEDS: 0.9 % Sodium Chloride Flush 3 ML SYRINGE IVFLUSH ×3 (07:15→21:59)
[2021-04-18] MEDS: dilTIAZem HCL CD 180 MG CAP.ER.24H PO (09:00)
[2021-04-18] MEDS: Furosemide 40 MG TABLET 80 MG PO (09:00)
[2021-04-18] MEDS: atenoloL 25 MG TABLET PO (09:00)
[2021-04-18] MEDS: Carbidopa/Levodopa 25/100 TABLET 1 TAB PO ×2 (09:00→21:59)
[2021-04-18] MEDS: oxyCODONE HCl Immed Release 5 MG TABLET PO ×2 (09:01→14:22)
[2021-04-18] MEDS: Omeprazole 40 MG CAPSULE.DR PO (09:01)
--- NOTE | 2021-04-18 09:04 | P.PNUR_ITS ---
Subjective Subjective Date of Service: 04/18/21 Interval history: Slow improvement Fever has resolved Appetite is still suppressed Pain is starting to ease on right side Will keep Cee catheter until tomorrow Physical Exam Vital Signs: Vital Signs: Last Vital Signs Temp 97.4 F 04/18/21 07:48 Pulse 72 04/18/21 07:48 Resp 19 04/18/21 07:48 BP 111/47 L 04/18/21 07:48 Pulse Ox 95 04/18/21 07:48 Oxygen Flow Rate 2 04/15/21 15:44 Body Mass Index 27.4 Const: General: cooperative, healthy appearing, comfortable and no acute distress Orientation/consciousness: patient oriented x3 HENMT: Face and sinus: Yes normal facial exam Mouth: moist mucous membranes Neck: Neck: Yes normal visual inspection, Yes full ROM and Yes trachea midline Chest: Chest palpation & inspection: normal inspection of the chest Resp: Effort & Inspection: normal respiratory effort, able to speak in complete sentences and no respiratory distress GI: Inspection: Yes normal to inspection Back/Spine/Pelvis: Cervical Spine: normal cervical lordosis Thoracic/Lumbar Spine: thoracic and lumbar spine normal to inspection Skin: General skin exam: no rashes or lesions noted Neuro: General: patient oriented x3, gait normal, tone normal and moves all extremities Extrem: General: Yes normal to inspection and Yes capillary refill normal Urology Results Labs CBC & Chem 7: 04/15/21 05:54 04/18/21 05:16 Labs: Laboratory Results - last 24 hr 04/17/21 04/18/21 10:07 05:16 Creatinine 1.76 H Estim Creat Clear Calc 25.8 Estimated GFR 28 Vancomycin Trough 14.1 Progress Note: A&P Assessment and plan (1) Bacteremia: Status: Acute (2) Sepsis: Status: Acute (3) Migration of ureteral stent: Status: Acute Assessment and Plan: Cee catheter removal tomorrow Continue antibiotics Fall Risk Details Current Medications: Current Medications Alprazolam (Alprazolam 0.5 Mg Tablet) 0.5 mg PO BEDTIME REPLACED BY [facility] Last Admin: 04/17/21 20:33 Dose: 0.5 mg Documented by: Atenolol (Atenolol 25 Mg Tablet) 25 mg PO DAILY [facility]; Protocol Last Admin: 04/18/21 09:00 Dose: 25 mg Documented by: Atorvastatin Calcium (Atorvastatin Calcium 10 Mg Tablet) 10 mg PO BEDTIME REPLACED BY [facility] Last Admin: 04/17/21 20:33 Dose: 10 mg Documented by: Carbidopa/Levodopa (Carbidopa/Levodopa 25/100 Tablet) 1 tab PO BID REPLACED BY [facility] Last Admin: 04/18/21 09:00 Dose: 1 tab Documented by: Diltiazem HCl (Diltiazem Hcl Cd 180 Mg Cap.Er.24h) 180 mg PO DAILY REPLACED BY [facility]; Protocol Last Admin: 04/18/21 09:00 Dose: 180 mg Documented by: Furosemide (Furosemide 40 Mg Tablet) 80 mg PO DAILY REPLACED BY [facility]; Protocol Last Admin: 04/18/21 09:00 Dose: 80 mg Documented by: Heparin Sodium (Porcine) (Heparin Sodium,Porcine 5,000 Unit/Ml Vial) 5,000 unit SUBCUT Q12H REPLACED BY [facility] Last Admin: 04/18/21 03:10 Dose: 5,000 unit Documented by: Hydromorphone HCl (Hydromorphone Hcl 0.5 Mg/0.5 Ml Syringe) 0.25 mg IVPUSH Q5M PRN; Protocol PRN Reason: Pain, Severe (Pain Scale 7-10) Last Admin: 04/15/21 22:33 Dose: 0.25 mg Documented by: Vancomycin HCl 750 mg/ Sodium (Chloride) 265 mls @ 265 mls/hr IV Q24H REPLACED BY [facility] Last Infusion: 04/17/21 12:43 Dose: Infused Documented by: Ipratropium [place] (Ipratropium [place] 1 Puff/17 Mcg Inhaler) 2 puff INHALE QID PRN PRN Reason: Shortness Of Breath Or Wheezing Morphine Sulfate (Morphine Sulfate 4 Mg/Ml Cartridge) 2 mg IVPUSH Q4H PRN; Protocol PRN Reason: Pain, Moderate (Pain Scale 4-6 Last Admin: 04/18/21 04:21 Dose: 2 mg Documented by: Omeprazole (Omeprazole 40 Mg Capsule.Dr) 40 mg PO DAILY REPLACED BY [facility] Last Admin: 04/18/21 09:01 Dose: 40 mg Documented by: Ondansetron HCl (Ondansetron Hcl 4 Mg/2 Ml Vial) 4 mg IVPUSH ONCE PRN PRN Reason: Nausea and Vomiting Last Admin: 04/17/21 11:42 Dose: 4 mg Documented by: Ondansetron HCl (Ondansetron Odt 4 Mg Tab.Rapdis) 4 mg TRANSLINGU Q6H PRN PRN Reason: Nausea Last Admin: 04/15/21 13:03 Dose: 4 mg Documented by: Oxycodone HCl (Oxycodone Hcl Immed Release 5 Mg Tablet) 5 mg PO Q4H PRN PRN Reason: Pain, Moderate (Pain Scale 4-6 Last Admin: 04/18/21 09:01 Dose: 5 mg Documented by: Pharmacy Consult (Consult Rx Perform Med Rec) 1 each MISCELLANE ONCE PRN PRN Reason: Consult order Pharmacy Consult (Consult Rx Vancomycin Dosing) 1 each MISCELLANE DAILY PRN PRN Reason: Consult order Sodium Chloride (0.9 % Sodium Chloride Flush 3 Ml Syringe) 3 ml IVFLUSH QSHIFT [facility] Last Admin: 04/18/21 07:15 Dose: 3 ml Documented by: Time Spent With Patient Time: Total time spent is greater than 50% in coordination of care (as docume nted) at patient's floor/unit and/or counseling patient: Time with patient: less than 15 minutes Progress Note: Quality Stroke Does the patient have a stroke diagnosis?: No
[2021-04-18] MEDS: vancomycin HCL 750 MG in 0.9 % Sodium Chloride 250 ML 265 MG IV (11:35)
--- NOTE | 2021-04-18 13:43 | MHC.CM.PN ---
nurse care tech note electronic medical record, reviewed along with case discussed with hospitlaist on roundsper histroy and physical patient was admitted for bacteremia, sepsis and migration of stent, followed by urology, oneal cath in place with plans to remove 04/19/21 per physician notes. continues with iv abx,analgeics , anticoagulants discharge plan home- initial home with son no services vs home with new vna care tech to continue to follow for discharge needs,
--- NOTE | 2021-04-18 14:24 | P.PNIM_ITS ---
Subjective Subjective Date of Service: 04/18/21 Interval History: Seen in f/u for sepsis, bacteremia, Still has back pain but better, repeat blood cultures are positive. She had an episode of confusion when O2 was off O2 sat dropped into 50 but promptly went up and is more awake alert now Review of Systems no fever back no urinary or stool incontinence Physical Exam Vital Signs: Vital Signs: Last Vital Signs Temp 98.3 F 04/18/21 11:22 Pulse 70 04/18/21 11:22 Resp 17 04/18/21 11:22 BP 114/55 L 04/18/21 11:22 Pulse Ox 96 04/18/21 11:22 Oxygen Flow Rate 2 04/15/21 15:44 Body Mass Index 27.4 General: AO X 3, in pain Resp:? CTA bilateral CVS: S1,S2,RRR GI: +BS, NT, no distention Skin: No rash Neuro:? motor grossly intact motor function in lower extremity,? unable to examined back due to excruting pain on right lower back Psych: appropriate affect ? Objective Data Active Medications Alprazolam (Alprazolam 0.5 Mg Tablet) 0.5 mg PO BEDTIME [facility] Last Admin: 04/17/21 20:33 Dose: 0.5 mg Documented by: LUMA Atenolol (Atenolol 25 Mg Tablet) 25 mg PO DAILY [facility]; Protocol Last Admin: 04/18/21 09:00 Dose: 25 mg Documented by: QUAN Atorvastatin Calcium (Atorvastatin Calcium 10 Mg Tablet) 10 mg PO BEDTIME [facility] Last Admin: 04/17/21 20:33 Dose: 10 mg Documented by: LUMA Carbidopa/Levodopa (Carbidopa/Levodopa 25/100 Tablet) 1 tab PO BID [facility] Last Admin: 04/18/21 09:00 Dose: 1 tab Documented by: QUAN Diltiazem HCl (Diltiazem Hcl Cd 180 Mg Cap.Er.24h) 180 mg PO DAILY [facility]; Protocol Last Admin: 04/18/21 09:00 Dose: 180 mg Documented by: QUAN Furosemide (Furosemide 40 Mg Tablet) 80 mg PO DAILY [facility]; Protocol Last Admin: 04/18/21 09:00 Dose: 80 mg Documented by: QUAN Heparin Sodium (Porcine) (Heparin Sodium,Porcine 5,000 Unit/Ml Vial) 5,000 unit SUBCUT Q12H [facility] Last Admin: 04/18/21 03:10 Dose: 5,000 unit Documented by: CASTILSamara Hydromorphone HCl (Hydromorphone Hcl 0.5 Mg/0.5 Ml Syringe) 0.25 mg IVPUSH Q5M PRN; Protocol PRN Reason: Pain, Severe (Pain Scale 7-10) Last Admin: 04/15/21 22:33 Dose: 0.25 mg Documented by: TK Vancomycin HCl 750 mg/ Sodium (Chloride) 265 mls @ 265 mls/hr IV Q24H [facility] Last Infusion: 04/18/21 12:35 Dose: 0 mls/hr Documented by: QUAN Ipratropium [place] (Ipratropium [place] 1 Puff/17 Mcg Inhaler) 2 puff INHALE QID PRN PRN Reason: Shortness Of Breath Or Wheezing Morphine Sulfate (Morphine Sulfate 4 Mg/Ml Cartridge) 2 mg IVPUSH Q4H PRN; Protocol PRN Reason: Pain, Moderate (Pain Scale 4-6 Last Admin: 04/18/21 11:35 Dose: 2 mg Documented by: QUAN Omeprazole (Omeprazole 40 Mg Capsule.Dr) 40 mg PO DAILY [facility] Last Admin: 04/18/21 09:01 Dose: 40 mg Documented by: QUAN Ondansetron HCl (Ondansetron Hcl 4 Mg/2 Ml Vial) 4 mg IVPUSH ONCE PRN PRN Reason: Nausea and Vomiting Last Admin: 04/17/21 11:42 Dose: 4 mg Documented by: JULIANE Ondansetron HCl (Ondansetron Odt 4 Mg Tab.Rapdis) 4 mg TRANSLINGU Q6H PRN PRN Reason: Nausea Last Admin: 04/15/21 13:03 Dose: 4 mg Documented by: FARHANA Oxycodone HCl (Oxycodone Hcl Immed Release 5 Mg Tablet) 5 mg PO Q4H PRN PRN Reason: Pain, Moderate (Pain Scale 4-6 Last Admin: 04/18/21 14:22 Dose: 5 mg Documented by: QUAN Pharmacy Consult (Consult Rx Perform Med Rec) 1 each MISCELLANE ONCE PRN PRN Reason: Consult order Pharmacy Consult (Consult Rx Vancomycin Dosing) 1 each MISCELLANE DAILY PRN PRN Reason: Consult order Sodium Chloride (0.9 % Sodium Chloride Flush 3 Ml Syringe) 3 ml IVFLUSH QSHIFT [facility] Last Admin: 04/18/21 07:15 Dose: 3 ml Documented by: QUAN Labs CBC & Chem 7: 04/15/21 05:54 04/18/21 05:16 Labs: Laboratory Results - last 24 hr 04/18/21 05:16 Estim Creat Clear Calc 25.8 Estimated GFR 28 Microbiology Microbiology Results: Microbiology 04/17/21 10:07 Blood Culture - Preliminary Blood - Venous No growth after 24 hours. 04/17/21 10:15 Blood Culture - Preliminary Blood - Venous No growth after 24 hours. Assessment and Plan (1) Sepsis: Status: Acute (2) Migration of ureteral stent: Status: Acute (3) Bacteremia: Status: Acute Assessment and Plan: 80 female with? with COPD, history of bladder cancer with history obstructive distal ureter causing right hydronephrosis and has required multiple stent, most recent 5 days ago and came just 4 days later with high grade fever, bacteremia and stent migration? and required yet removal and reposition of the stent . 1/ Sesis d/t infected stent, had temp of 105 and tachycardia on presentation--No severe sepsis, renal failure is chronic and not due to sepsis 2/MRSA bacteremia, Urine culture MRSA, repeat culture still positive, get another set tomorrow. -old stent removed and new on inserted. -Continue Vanco and Ceftriaxone D4 -follow culture -ID following -MRI of lumbar spine showing enhancement in the prevertebral and paravertebral soft tissues between T12 and L2, which may be consistent with evolving phlegmon. -Repeat MRI tomorrow with thoracic view as suggested by radiology -She declined MRI yesterday and continues to decline this today -Will continue IV vanco, get Neuro consult -MRI finding were discussed with [facility] and no indication for intervention. -2 sons at the bedside were able to convince her to get MRI done, and so she's now agreable, will request thoracic spine MRI 3/ CKD 3, stable, monitor and if worse, neophrology consult. 4/Diabetes--No Metformin, SSI 5/HTN--stop Losartan due to renal failure, continue atenolol and cardizem, hold Lasix 6/COPD, no exacerbation, continue inhaler 7/Neuropathy--Neurontin 8/HLD--Lipitor 9/Anxiey--Xanax 10GERD--Prilosec 11/Fibromyalgia--Elavil DVT prophylaxis --Heparin Discussedwith 2 sons at the bedside Quality Stroke Does the patient have a stroke diagnosis?: No VTE Prior VTE?: No VTE Risk Level:: Medical - moderate - high VTE Device Contraindication: Treatment Not Indicated VTE Drug Contraindication: N/A - Med Ordered
--- NOTE | 2021-04-18 18:43 | PC.NURSE ---
1520: Pt staring at ceiling, not answering questions appropriately. Increased confusion. room air sats difficult to obtain, pt had removed o2. BP 103/38 HR 74. Replaced cannula, sats 92% on 5L NC. after a few minutes, pt was able to answer questions appropriately. Dr Kan notified and in to evaluate pt. 1600: Dr Kan in to speak with patients 2 sons.
[2021-04-18] MEDS: Atorvastatin Calcium 10 MG TABLET PO (21:59)
[2021-04-18] MEDS: ALPRAZolam 0.5 MG TABLET PO (21:59)
[2021-04-19] VITALS (11 sets, daily range): BP systolic 125–177; BP diastolic 53–68; PULSE 65–75; RESP 16–19; TEMP 35.7–37.2; O2SAT 92–100
[2021-04-19] MEDS: Heparin Sodium,Porcine 5,000 UNIT/ML VIAL 5000 UNIT SUBCUT ×2 (03:16→16:15)
[2021-04-19 06:12] LABS: Creatinine Clr Calc Pharmacy 24.5; Estimated Glomerular Filt Rate 26
[2021-04-19] MEDS: Omeprazole 40 MG CAPSULE.DR PO (08:34)
[2021-04-19] MEDS: Carbidopa/Levodopa 25/100 TABLET 1 TAB PO ×2 (08:34→21:04)
[2021-04-19] MEDS: dilTIAZem HCL CD 180 MG CAP.ER.24H PO (08:34)
[2021-04-19] MEDS: atenoloL 25 MG TABLET PO (08:34)
[2021-04-19] MEDS: Furosemide 40 MG TABLET 80 MG PO (08:34)
[2021-04-19] MEDS: 0.9 % Sodium Chloride Flush 3 ML SYRINGE IVFLUSH ×2 (08:35→21:05)
[2021-04-19 09:11] LABS: VBG Base Excess 8.5 mmol/L; VBG HCO3 35 mmol/L (22-26); VBG pCO2 64 mmHg; VBG pH 7.35 (7.32-7.43); VBG pO2 48 mmHg
[2021-04-19 09:15] LABS: Venous Blood Gas Refer to POC result
[2021-04-19 10:27] LABS: Anion Gap 12 (12-20); Blood Urea Nitrogen 36 mg/dL (9-16); Calcium 8.5 mg/dL (8.4-10.2); Carbon Dioxide 33 mmol/L (22-29); Chloride 98 mmol/L (96-108); Creatinine Clr Calc Pharmacy 23.6; Estimated Glomerular Filt Rate 25; Glucose Random 159 mg/dL (60-115); Magnesium 1.7 mg/dL (1.6-2.6); Sodium 140 mmol/L (135-145)
[2021-04-19] MEDS: Morphine Sulfate 4 MG/ML CARTRIDGE 2 MG IVPUSH ×2 (11:37→16:15)
[2021-04-19] MEDS: Albuterol/Iprat 2.5/0.5MG 3 ML AMPUL.NEB INHALE ×3 (11:44→20:58)
--- NOTE | 2021-04-19 13:04 | P.PNID_ITS ---
Subjective Subjective Date of Service: 04/19/21 Critical Care Time (minutes): 15 Comment: she complains of 9/10 mid thoracic pain thoracic MRI pending Objective Data Labs CBC & Chem 7: 04/15/21 05:54 04/19/21 09:50 Labs: Laboratory Results - last 24 hr 04/19/21 04/19/21 04/19/21 05:34 09:03 09:50 VBG pH 7.35 VBG pCO2 64 VBG pO2 48 VBG HCO3 35 H VBG O2 Saturation 72.0 VBG Base Excess 8.5 Sodium 140 Potassium 3.0 L Chloride 98 Carbon Dioxide 33 H Anion Gap 12 BUN 36 H Creatinine 1.85 H 1.92 H Estim Creat Clear Calc 24.5 23.6 Estimated GFR 26 25 Random Glucose 159 H Calcium 8.5 D Magnesium 1.7 Microbiology Microbiology Results: Microbiology 04/17/21 10:15 Blood - Venous Blood Culture - Preliminary Staphylococcus aureus 04/17/21 10:07 Blood - Venous Blood Culture - Preliminary Staphylococcus aureus 04/14/21 10:05 Blood - Venous Blood Culture - Final Methicillin Res Staph Aureus 04/14/21 10:05 Blood - Venous Blood Culture - Final Methicillin Res Staph Aureus 04/14/21 Unknown Urine Catheterized - Straight Catheter Urine Culture - Final Methicillin Res Staph Aureus Physical Exam Vital Signs: Vital Signs: Last Vital Signs Temp 97.2 F 04/19/21 11:17 Pulse 68 04/19/21 11:47 Resp 16 04/19/21 11:17 BP 129/53 L 04/19/21 11:17 Pulse Ox 98 04/19/21 11:17 Oxygen Flow Rate 2 04/18/21 14:24 Body Mass Index 27.4 HENMT: Head: Yes normal to inspection Mouth: Normal oral and palatal mucosa present Resp: Effort & Inspection: normal respiratory effort Cardio: Rate: regular rate Rhythm: regular rhythm GI: Palpation (GI): Soft to palpation and nontender Back/Spine/Pelvis: Thoracic/Lumbar Spine: thoracic spinal tenderness Assessment and Plan Assessment and plan (1) Bacteremia: Problem details: back pain ,concern over abscess with MRSA. Case has been passed by Neurosurgery and nothing to do reported. Patient has no neurologic changes at this time Continue Vancomycin Prognosis guarded Status: Acute (2) Sepsis: Status: Acute Time Spent With Patient Time: Total time spent is greater than 50% in coordination of care (as do cumented) at patient's floor/unit and/or counseling patient: Time with patient: 15 - 24 minutes
[2021-04-19] MEDS: vancomycin HCL 750 MG in 0.9 % Sodium Chloride 250 ML 265 MG IV (13:55)
--- NOTE | 2021-04-19 17:46 | P.PNIM_ITS ---
Subjective Subjective Date of Service: 04/19/21 Interval History: sepsis sec to infected stent, bacteremia Review of Systems No new episode of any fever No confusion or any speech changes Actually patient is saying that she is moving her legs slightly better than yesterday No urinary or stool incontinence Says that her back pain is remain in the similar. Physical Exam Vital Signs: Vital Signs: Last Vital Signs Temp 97.3 F 04/19/21 15:35 Pulse 68 04/19/21 16:13 Resp 19 04/19/21 15:35 BP 140/57 H 04/19/21 15:35 Pulse Ox 99 04/19/21 15:35 Oxygen Flow Rate 2 04/18/21 14:24 Body Mass Index 27.4 General: AO X 3, in pain Resp:? CTA bilateral, no rales or wheezing, slightly dimished at bases CVS: S1,S2,RRR GI: +BS, NT, no distention Skin: No rashor cyanosis Neuro:? motor grossly intact motor function in lower extremity,could able to examine back-lower throacic spine area mild pain Psych: appropriate affect Objective Data Active Medications Albuterol/Ipratropium (Albuterol/Iprat 2.5/0.5mg 3 Ml Ampul.Neb) 3 ml INHALE RQ 4H WHILE AWAKE [facility] Last Admin: 04/19/21 16:12 Dose: 3 ml Documented by: NESTOR Alprazolam (Alprazolam 0.5 Mg Tablet) 0.5 mg PO BEDTIME L[facility]ANDR[facility] Last Admin: 04/18/21 21:59 Dose: 0.5 mg Documented by: LILI Atenolol (Atenolol 25 Mg Tablet) 25 mg PO DAILY LISANDRA; Protocol Last Admin: 04/19/21 08:34 Dose: 25 mg Documented by: JIM Atorvastatin Calcium (Atorvastatin Calcium 10 Mg Tablet) 10 mg PO BEDTIME L[facility]ANDRA Last Admin: 04/18/21 21:59 Dose: 10 mg Documented by: LILI Carbidopa/Levodopa (Carbidopa/Levodopa 25/100 Tablet) 1 tab PO BID LISANDRA Last Admin: 04/19/21 08:34 Dose: 1 tab Documented by: JIM Diltiazem HCl (Diltiazem Hcl Cd 180 Mg Cap.Er.24h) 180 mg PO DAILY LISANDRA; Protocol Last Admin: 04/19/21 08:34 Dose: 180 mg Documented by: JIM Furosemide (Furosemide 40 Mg Tablet) 80 mg PO DAILY [facility]; Protocol Last Admin: 04/19/21 08:34 Dose: 80 mg Documented by: JIM Heparin Sodium (Porcine) (Heparin Sodium,Porcine 5,000 Unit/Ml Vial) 5,000 unit SUBCUT Q12H [facility] Last Admin: 04/19/21 16:15 Dose: 5,000 unit Documented by: JIM Vancomycin HCl 750 mg/ Sodium (Chloride) 265 mls @ 265 mls/hr IV Q24H [facility] Last Infusion: 04/19/21 17:13 Dose: 0 mls/hr Documented by: JIM Ipratropium [place] (Ipratropium [place] 1 Puff/17 Mcg Inhaler) 2 puff INHALE QID PRN PRN Reason: Shortness Of Breath Or Wheezing Morphine Sulfate (Morphine Sulfate 4 Mg/Ml Cartridge) 2 mg IVPUSH Q4H PRN; Protocol PRN Reason: Pain, Moderate (Pain Scale 4-6 Last Admin: 04/19/21 16:15 Dose: 2 mg Documented by: JIM Omeprazole (Omeprazole 40 Mg Capsule.Dr) 40 mg PO DAILY [facility] Last Admin: 04/19/21 08:34 Dose: 40 mg Documented by: JIM Ondansetron HCl (Ondansetron Hcl 4 Mg/2 Ml Vial) 4 mg IVPUSH ONCE PRN PRN Reason: Nausea and Vomiting Last Admin: 04/17/21 11:42 Dose: 4 mg Documented by: JULIANE Ondansetron HCl (Ondansetron Odt 4 Mg Tab.Rapdis) 4 mg TRANSLINGU Q6H PRN PRN Reason: Nausea Last Admin: 04/15/21 13:03 Dose: 4 mg Documented by: FARHANA Oxycodone HCl (Oxycodone Hcl Immed Release 5 Mg Tablet) 5 mg PO Q4H PRN PRN Reason: Pain, Moderate (Pain Scale 4-6 Last Admin: 04/18/21 14:22 Dose: 5 mg Documented by: QUAN Pharmacy Consult (Consult Rx Perform Med Rec) 1 each MISCELLANE ONCE PRN PRN Reason: Consult order Pharmacy Consult (Consult Rx Vancomycin Dosing) 1 each MISCELLANE DAILY PRN PRN Reason: Consult order Sodium Chloride (0.9 % Sodium Chloride Flush 3 Ml Syringe) 3 ml IVFLUSH QSHIFT [facility]ANDRA Last Admin: 04/19/21 17:05 Dose: Not Given Documented by: JIM Non-Admin Reason: IV Running Labs CBC & Chem 7: 04/15/21 05:54 04/19/21 09:50 Labs: Laboratory Results - last 24 hr 04/19/21 04/19/21 04/19/21 05:34 09:03 09:50 VBG pH 7.35 VBG pCO2 64 VBG pO2 48 VBG HCO3 35 H VBG O2 Saturation 72.0 VBG Base Excess 8.5 Anion Gap 12 Estim Creat Clear Calc 24.5 23.6 Estimated GFR 26 25 Random Glucose 159 H Calcium 8.5 D Magnesium 1.7 Microbiology Microbiology Results: Microbiology 04/17/21 10:15 Blood Culture - Preliminary Blood - Venous Staphylococcus aureus 04/17/21 10:07 Blood Culture - Preliminary Blood - Venous Staphylococcus aureus Assessment and Plan (1) Back pain: Status: Acute (2) Bacteremia: Status: Acute Assessment and Plan: 80 female with? with COPD, history of bladder cancer with history obstructive distal ureter causing right hydronephrosis and has required multiple stent, most recent 5 days ago and came just 4 days later with high grade fever, bacteremia and stent migration? and required yet removal and reposition of the stent . 1/ Sesis d/t infected stent, had temp of 105 and tachycardia on presentation--No severe sepsis, renal failure is chronic and not due to sepsis 2/MRSA bacteremia, Urine culture MRSA, repeat culture still positive,? get another set tomorrow. -old stent removed and new on inserted. vanco trough was 14 on 04/17, next trough in am -MRI of lumbar spine showing?enhancement in the prevertebral and paravertebral soft tissues between T12 and L2, which may be consistent with evolving phlegmon. -Repeat MRI tomorrow with thoracic view as suggested by radiology -She declined MRI yesterday and continues to decline this today continue IV vanco, MRI finding were discussed with [facility] yesterday and no indication for intervention neuro recomended -continue IV antibiotics, repeat back imaging in 4-5 days. 3/ CKD 3, stable, monitor and if worse, neophrology consult. 4/Diabetes--No Metformin, SSI 5/HTN--stop Losartan due to renal failure, continue atenolol and cardizem, hold Lasix 6/COPD, no exacerbation, continue inhaler 7/Neuropathy--Neurontin 8/HLD--Lipitor 9/Anxiey--Xanax 10GERD--Prilosec 11/Fibromyalgia--Elavil DVT prophylaxis --hold Heparin Above management discussed with patient and patient family in detail-currently patient is refusing for any neurosurgical intervention, though they want to follow-up with Neurology but currently they do not want any procedure including IR guided. Family understands the risks of ongoing infection involving spine including . they want continue antibiotics, also they decided-patient is DNR DNI, if patient condition worsen we will update family. Quality Stroke Does the patient have a stroke diagnosis?: No VTE Prior VTE?: No VTE Risk Level:: Medical - moderate - high VTE Device Contraindication: Treatment Not Indicated VTE Drug Contraindication: N/A - Med Ordered
--- NOTE | 2021-04-19 18:32 | P.CNNE_ITS ---
History of Present Illness Data of Consult Service Date: 04/19/21 Primary Care Provider: Edgardo Crandall MD [facility] Reason for consult: back pain 80 year old female? with h/o COPD, diabetes, bladder cancer diagnosed in August 2020 complicated by obstrutive uropathy and hydronephrosis on the right side. In August, she underwent Cystoscopy and right retrograde TURBT of a circumferential frondular tumor from bladder base through intramural wall of bladder and Right stent placement . In September, she had Cystoscopy, right retrograde, right stent removal, right ureteroscopy.? In February, she underwent ?Cystoscopy with bi lateral retrograde for? Obstructed right distal ureter causing hydronephrosis. ? On april 11, she? underwent? ?right antegrade pyelogram,? dilate renal access under fluroscopy, antegrade ureteroscopy with laser of obliterated distal ureter retrograde stent placement. On 04/14 she came to the ED with weakness, fever of 105 and back pain and CT showed that indwelling stent has migrated out of the bladder. She was given broad spectrum antibiotics and underwent Cystoscopy, indwelling stent removal,? and nother stent placement.CT scan shows indication of an infectious process at L1 to without extension into the spinal canal. There is a pre-and perivertebral area of swelling and enhancement suggesting a phlegmon. She's had an MRI of the thoracic spine which does not show any evidence of intraspinal abscess or mass. Additionally, she has extensive multilevel degenerative disc disease and spinal stenosis with root impingement from disc herniations in the lower 3 levels of the lumbosacral spine. Review of Systems Review of Systems: No new episode of any fever No confusion or any speech changes Actually patient is saying that she is moving her legs slightly better than yesterday No urinary or stool incontinence Says that her back pain is remain in the similar. Yes all other systems are reviewed and are negative Constitutional: Constitutional: Denies chills and Denies fever(s) Cardiovascular: Cardiovascular: Reports no additional cardiovascular complaints and Denies syncope Respiratory: Respiratory: Denies cough Gastrointestinal: Gastrointestinal: Denies abdominal pain and Denies heartburn Genitourinary: Genitourinary: Denies change in libido Neurologic: Denies syncope Psychiatric: Psychiatric: Denies change in libido Endocrine: Endocrine: Denies change in libido [facility] Past Medical History Medical History (Updated 04/19/21 @ 18:38 by Pradip Antoine MD) Acute respiratory failure with hypoxia ROMY (acute kidney injury) Anxiety Back pain Bladder mass CKD (chronic kidney disease) COPD (chronic obstructive pulmonary disease) Diverticulosis DM type 2 (diabetes mellitus, type 2) Elevated cholesterol Family history of anesthesia complication Fibromyalgia GERD (gastroesophageal reflux disease) Hiatal hernia Hypertension On beta elizabeth at home Osteoarthritis Peripheral neuropathy PONV (postoperative nausea and vomiting) Restless leg syndrome Ureteral stricture, right Family History Pertinent family history: report no family history of chronic kidney disease, or heart disease Family history: reviewed and not pertinent Surgical History Surgical History History of cholecystectomy History of cystoscopy History of hysterectomy History of total left knee replacement Hx of appendectomy Hx of bilateral cataract extraction Hx of colonoscopy Hx of tonsillectomy Nephrostomy status Social History Social History Household Members: Family Housing: House Housing Other:: Lives with son and family Are you a primary healthcare corporate account director to a significant other at home: No Do you presently have visiting nurse or other home services: No Alcohol intake: never Patient Tobacco Use Status: Former Tobacco user Quit Date: 1994 Tobacco use type: Cigarette Cigarette Packs Per Day: 1 Cigarettes Per Day: 20.0 Years Smoked: 50 Use of substances other than those prescribed or required for medical reasons: No Currently Displaying Signs/Symptoms of Drug Intoxication Withdrawal: No Have you been hit, kicked, punched, or otherwise hurt by someone within the past year? If so, by whom?: No Do you feel safe in your current relationship?: No Current Relationship Is there a partner from a previous relationship who is making you feel unsafe now?: No Are you made to feel afraid or neglected: No Are you DNR?: No Advance Directives: Yes Advance Directives Information Provided: Yes Advance Directives on File: No Advance Directives Date on File: 04/14/21 Do you have thoughts of harming others: None Do you have a plan to hurt others: No Plan Recently lost weight without trying: No Nutrition Risks: No Nutritional Risk service: No Current occupational status: retired Meds Allergies Allergy/AdvReac Type Severity Reaction Status Date / Time Sulfa (Sulfonamide Allergy Severe Anaphylaxis Verified 04/14/21 09:14 Antibiotics) sulfamethoxazole Allergy Severe ANAPHYLAXIS Verified 04/14/21 09:14 [From BACTRIM] influenza virus vaccine, Allergy Intermediate ARTHRITIC Verified 04/14/21 09:14 specific EFFECTS [FLU VACCINE] nitrofurantoin AdvReac Mild GI UPSET Verified 04/14/21 09:14 [From MACRODANTIN] oxycodone [From PERCOCET] AdvReac Mild GI UPSET Verified 04/14/21 09:14 Active Medications: Current Medications Albuterol/Ipratropium (Albuterol/Iprat 2.5/0.5mg 3 Ml Ampul.Neb) 3 ml INHALE RQ4H WHILE AWAKE [facility] Last Admin: 04/19/21 16:12 Dose: 3 ml Documented by: Alprazolam (Alprazolam 0.5 Mg Tablet) 0.5 mg PO BEDTIME LISANDRA Last Admin: 04/18/21 21:59 Dose: 0.5 mg Documented by: Atenolol (Atenolol 25 Mg Tablet) 25 mg PO DAILY LISANDRA; Protocol Last Admin: 04/19/21 08:34 Dose: 25 mg Documented by: Atorvastatin Calcium (Atorvastatin Calcium 10 Mg Tablet) 10 mg PO BEDTIME LISANDRA Last Admin: 04/18/21 21:59 Dose: 10 mg Documented by: Carbidopa/Levodopa (Carbidopa/Levodopa 25/100 Tablet) 1 tab PO BID L[facility]ANDRA Last Admin: 04/19/21 08:34 Dose: 1 tab Documented by: Diltiazem HCl (Diltiazem Hcl Cd 180 Mg Cap.Er.24h) 180 mg PO DAILY LISANDRA; Protocol Last Admin: 04/19/21 08:34 Dose: 180 mg Documented by: Furosemide (Furosemide 40 Mg Tablet) 80 mg PO DAILY LISANDRA; Protocol Last Admin: 04/19/21 08:34 Dose: 80 mg Documented by: Heparin Sodium (Porcine) (Heparin Sodium,Porcine 5,000 Unit/Ml Vial) 5,000 unit SUBCUT Q12H [facility] Last Admin: 04/19/21 16:15 Dose: 5,000 unit Documented by: Vancomycin HCl 750 mg/ Sodium (Chloride) 265 mls @ 265 mls/hr IV Q24H [facility]AN[facility] Last Infusion: 04/19/21 17:13 Dose: Infused Documented by: Ipratropium [place] (Ipratropium [place] 1 Puff/17 Mcg Inhaler) 2 puff INHALE QID PRN PRN Reason: Shortness Of Breath Or Wheezing Morphine Sulfate (Morphine Sulfate 4 Mg/Ml Cartridge) 2 mg IVPUSH Q4H PRN; Protocol PRN Reason: Pain, Moderate (Pain Scale 4-6 Last Admin: 04/19/21 16:15 Dose: 2 mg Documented by: Omeprazole (Omeprazole 40 Mg Capsule.Dr) 40 mg PO DAILY [facility] Last Admin: 04/19/21 08:34 Dose: 40 mg Documented by: Ondansetron HCl (Ondansetron Hcl 4 Mg/2 Ml Vial) 4 mg IVPUSH ONCE PRN PRN Reason: Nausea and Vomiting Last Admin: 04/17/21 11:42 Dose: 4 mg Documented by: Ondansetron HCl (Ondansetron Odt 4 Mg Tab.Rapdis) 4 mg TRANSLINGU Q6H PRN PRN Reason: Nausea Last Admin: 04/15/21 13:03 Dose: 4 mg Documented by: Oxycodone HCl (Oxycodone Hcl Immed Release 5 Mg Tablet) 5 mg PO Q4H PRN PRN Reason: Pain, Moderate (Pain Scale 4-6 Last Admin: 04/18/21 14:22 Dose: 5 mg Documented by: Pharmacy Consult (Consult Rx Perform Med Rec) 1 each MISCELLANE ONCE PRN PRN Reason: Consult order Pharmacy Consult (Consult Rx Vancomycin Dosing) 1 each MISCELLANE DAILY PRN PRN Reason: Consult order Sodium Chloride (0.9 % Sodium Chloride Flush 3 Ml Syringe) 3 ml IVFLU QSUC [facility] Last Admin: 04/19/21 17:05 Dose: Not Given Documented by: Home Medications Medication Instructions Recorded Confirmed Last Taken Type alprazolam 0.5 mg tablet 0.5 mg PO BEDTIME 07/20/20 04/14/21 08/15/20 History amitriptyline 10 mg tablet 20 mg PO BEDTIME 07/20/20 04/14/21 08/15/20 History atenolol 25 mg tablet 25 mg PO DAILY 07/20/20 04/14/21 08/16/20 06:50 History carbidopa 25 mg-levodopa 100 mg 1 tab PO BID 07/20/20 04/14/21 08/16/20 06:50 History tablet (Sinemet) furosemide 40 mg tablet 80 mg PO DAILY 07/20/20 04/14/21 08/15/20 History lisinopril 5 mg tablet 5 mg PO DAILY 07/20/20 04/14/21 08/16/20 History omega-3 fatty acids 1,000 mg 1,000 mg PO DAILY 07/20/20 04/14/21 02/27/21 08:30 History capsule (Fish Oil Concentrate) omeprazole 20 mg capsule,delayed 40 mg PO DAILY 07/20/20 04/14/21 08/16/20 06:50 History release atorvastatin 10 mg tablet 10 mg PO DAILY 08/10/20 04/14/21 08/15/20 History gabapentin 100 mg capsule 100 mg PO BID 08/10/20 04/14/21 08/16/20 06:50 History ipratropium bromide 17 2 inh INHALATION QID PRN 08/10/20 04/14/21 02/28/21 07:30 History mcg/actuation HFA aerosol inhaler (Atrovent HFA) diltiazem HCl 180 mg capsule,24 180 mg PO DAILY 08/16/20 04/14/21 08/15/20 History hr,extended release (Tiadylt ER) potassium chloride 10 mEq 1 tab PO DAILY 08/16/20 04/14/21 Unknown History tablet,extended release(part/cryst) (Klor-Con M) Physical Exam Vital Signs: Vital Signs: Last Vital Signs Temp 97.3 F 04/19/21 15:35 Pulse 68 04/19/21 16:13 Resp 19 04/19/21 15:35 BP 140/57 H 04/19/21 15:35 Pulse Ox 99 04/19/21 15:35 Oxygen Flow Rate 2 04/18/21 14:24 Body Mass Index 27.4 Const: General: cooperative, healthy appearing, comfortable and no acute distress Orientation/consciousness: patient oriented x3 HENMT: Head: Yes normal to inspection Face and sinus: Yes normal facial exam Mouth: Normal oral and palatal mucosa present and moist mucous membranes Neck: Neck: Yes normal visual inspection, Yes full ROM and Yes trachea midline Chest: Chest palpation & inspection: normal inspection of the chest Resp: Effort & Inspection: normal respiratory effort, able to speak in complete sentences and no respiratory distress Cardio: Rate: regular rate Rhythm: regular rhythm GI: Inspection: Yes normal to inspection Palpation (GI): Soft to palpation and nontender Back/Spine/Pelvis: Cervical Spine: normal cervical lordosis Thoracic/Lumbar Spine: thoracic and lumbar spine normal to inspection and thoracic spinal tenderness Skin: General skin exam: no rashes or lesions noted Neuro: Other: Limited examination of the lower extremities because of back pain but no gross abnormalities. Gait was not tested because of extreme pain on movement. General: patient oriented x3, tone normal and moves all extremities Extrem: General: Yes normal to inspection and Yes capillary refill normal Results Labs CBC & Chem 7: 04/15/21 05:54 04/19/21 09:50 Labs: BMP 04/19/21 04/19/21 05:34 09:50 Sodium 140 Potassium 3.0 L Chloride 98 Carbon Dioxide 33 H BUN 36 H Creatinine 1.85 H 1.92 H Calcium 8.5 D Microbiology Microbiology Results: Microbiology 04/17/21 10:15 Blood - Venous Blood Culture - Preliminary Staphylococcus aureus 04/17/21 10:07 Blood - Venous Blood Culture - Preliminary Staphylococcus aureus 04/14/21 10:05 Blood - Venous Blood Culture - Final Methicillin Res Staph Aureus 04/14/21 10:05 Blood - Venous Blood Culture - Final Methicillin Res Staph Aureus 04/14/21 Unknown Urine Catheterized - Straight Catheter Urine Culture - Final Methicillin Res Staph Aureus Assessment and Plan (1) Bacteremia: Status: Acute (2) Sepsis: Status: Acute Her back pain is related to the MRSA infection in the prevertebral tissues mostly soft tissue without any clear involvement of the epidural space or an abscess. My recommendation would be to continue coverage with vancomycin to which the MRSA appears to be sensitive and repeat MRI of the thoracic and lumbar spine in 4 or 5 days Procedures Date of Service Date of Service: 04/19/21
[2021-04-19 18:39] LABS: Procalcitonin 1.69 ng/mL
[2021-04-19] MEDS: Atorvastatin Calcium 10 MG TABLET PO (21:04)
[2021-04-20] VITALS (13 sets, daily range): BP systolic 106–162; BP diastolic 50–72; PULSE 65–75; RESP 15–20; TEMP 36.2–37.3; O2SAT 91–96
[2021-04-20] MEDS: Heparin Sodium,Porcine 5,000 UNIT/ML VIAL 5000 UNIT SUBCUT ×2 (04:29→14:22)
[2021-04-20 06:20] LABS: Creatinine Clr Calc Pharmacy 27.3; Estimated Glomerular Filt Rate 30
[2021-04-20] MEDS: Albuterol/Iprat 2.5/0.5MG 3 ML AMPUL.NEB INHALE ×3 (07:24→15:06)
[2021-04-20] MEDS: 0.9 % Sodium Chloride Flush 3 ML SYRINGE IVFLUSH ×3 (08:13→18:00)
[2021-04-20 08:38] LABS: Potassium 2.6 mmol/L (3.3-5.1)
[2021-04-20 08:44] LABS: B Type Natriuretic Peptide 382 pg/mL (<100)
--- NOTE | 2021-04-20 09:01 | PM.CNPUL ---
History of Present Illness History of Present Illness Consult date: 04/20/21 Chief complaint: Stent migration Narrative: This patient is 80 years old very pleasant female, initially admitted mainly because of back pain , fever, and increased shortness of breath. Past history is reviewed from the medical records and mainly she has bladder cancer, with hydronephrosis, and she has had ureteral stent placed, many times before But more recently only a few days prior to admission. She started having fever chills and back pain. Also had mild cough mostly nonproductive. She is found to have bacteremia, and being treated with combination of vancomycin and ceftriaxone. I see in the medical records that the family has requested her to be treated more conservatively, and with no further intervention. Patient does have history of chronic obstructive pulmonary disease which has been mild and controlled. At present she requires the oxygen supplementation, she complains of mild cough, denies any respiratory distress. Review of Systems Review of Systems: Yes Unobtainable due to mental condition PMFSH Past Medical History Medical History (Updated 04/20/21 @ 09:08 by Pradip Randall MD) Acute respiratory failure with hypoxia ROMY (acute kidney injury) Anxiety Back pain Bladder mass CKD (chronic kidney disease) COPD (chronic obstructive pulmonary disease) Diverticulosis DM type 2 (diabetes mellitus, type 2) Elevated cholesterol Family history of anesthesia complication Fibromyalgia GERD (gastroesophageal reflux disease) Hiatal hernia Hypertension Mild basilar atelectasis of both lungs On beta elizabeth at home Osteoarthritis Peripheral neuropathy PONV (postoperative nausea and vomiting) Restless leg syndrome Ureteral stricture, right Family History Family history: reviewed and not pertinent Surgical History Surgical History History of cholecystectomy History of cystoscopy History of hysterectomy History of total left knee replacement Hx of appendectomy Hx of bilateral cataract extraction Hx of colonoscopy Hx of tonsillectomy Nephrostomy status Social History Social History Household Members: Family Housing: House Housing Other:: Lives with son and family Are you a primary child care group leader to a significant other at home: No Do you presently have visiting nurse or other home services: No Alcohol intake: never Patient Tobacco Use Status: Former Tobacco user Quit Date: 1994 Tobacco use type: Cigarette Cigarette Packs Per Day: 1 Cigarettes Per Day: 20.0 Years Smoked: 50 Use of substances other than those prescribed or required for medical reasons: No Currently Displaying Signs/Symptoms of Drug Intoxication Withdrawal: No Have you been hit, kicked, punched, or otherwise hurt by someone within the past year? If so, by whom?: No Do you feel safe in your current relationship?: No Current Relationship Is there a partner from a previous relationship who is making you feel unsafe now?: No Are you made to feel afraid or neglected: No Are you DNR?: No Advance Directives: Yes Advance Directives Information Provided: Yes Advance Directives on File: No Advance Directives Date on File: 04/14/21 Do you have thoughts of harming others: None Do you have a plan to hurt others: No Plan Recently lost weight without trying: No Nutrition Risks: No Nutritional Risk service: No Current occupational status: retired [employer] Allergies Allergy/AdvReac Type Severity Reaction Status Date / Time Sulfa (Sulfonamide Allergy Severe Anaphylaxis Verified 04/14/21 09:14 Antibiotics) sulfamethoxazole Allergy Severe ANAPHYLAXIS Verified 04/14/21 09:14 [From BACTRIM] influenza virus vaccine, Allergy Intermediate ARTHRITIC Verified 04/14/21 09:14 specific EFFECTS [FLU VACCINE] nitrofurantoin AdvReac Mild GI UPSET Verified 04/14/21 09:14 [From MACRODANTIN] oxycodone [From PERCOCET] AdvReac Mild GI UPSET Verified 04/14/21 09:14 Active Medications: Current Medications Albuterol/Ipratropium (Albuterol/Iprat 2.5/0.5mg 3 Ml Ampul.Neb) 3 ml INHALE RQ4H WHILE AWAKE [facility] Last Admin: 04/20/21 07:24 Dose: 3 ml Documented by: Atenolol (Atenolol 25 Mg Tablet) 25 mg PO DAILY [facility]; Protocol Last Admin: 04/19/21 08:34 Dose: 25 mg Documented by: Atorvastatin Calcium (Atorvastatin Calcium 10 Mg Tablet) 10 mg PO BEDTIME [facility] Last Admin: 04/19/21 21:04 Dose: 10 mg Documented by: Carbidopa/Levodopa (Carbidopa/Levodopa 25/100 Tablet) 1 tab PO BID [facility] Last Admin: 04/19/21 21:04 Dose: 1 tab Documented by: Diltiazem HCl (Diltiazem Hcl Cd 180 Mg Cap.Er.24h) 180 mg PO DAILY [facility]; Protocol Last Admin: 04/19/21 08:34 Dose: 180 mg Documented by: Furosemide (Furosemide 40 Mg/4 Ml Vial) 40 mg IVPUSH BID@0900,1800 [facility]; Protocol Heparin Sodium (Porcine) (Heparin Sodium,Porcine 5,000 Unit/Ml Vial) 5,000 unit SUBCUT Q12H [facility] Last Admin: 04/20/21 04:29 Dose: 5,000 unit Documented by: Vancomycin HCl 750 mg/ Sodium (Chloride) 265 mls @ 265 mls/hr IV Q24H [facility] Last Infusion: 04/19/21 17:13 Dose: Infused Documented by: Ipratropium [place] (Ipratropium [place] 1 Puff/17 Mcg Inhaler) 2 puff INHALE QID PRN PRN Reason: Shortness Of Breath Or Wheezing Morphine Sulfate (Morphine Sulfate 4 Mg/Ml Cartridge) 2 mg IVPUSH Q4H PRN; Protocol PRN Reason: Pain, Moderate (Pain Scale 4-6 Last Admin: 04/19/21 16:15 Dose: 2 mg Documented by: Omeprazole (Omeprazole 40 Mg Capsule.Dr) 40 mg PO DAILY [facility] Last Admin: 04/19/21 08:34 Dose: 40 mg Documented by: Ondansetron HCl (Ondansetron Hcl 4 Mg/2 Ml Vial) 4 mg IVPUSH ONCE PRN PRN Reason: Nausea and Vomiting Last Admin: 04/17/21 11:42 Dose: 4 mg Documented by: Ondansetron HCl (Ondansetron Odt 4 Mg Tab.Rapdis) 4 mg TRANSLINGU Q6H PRN PRN Reason: Nausea Last Admin: 04/15/21 13:03 Dose: 4 mg Documented by: Oxycodone HCl (Oxycodone Hcl Immed Release 5 Mg Tablet) 5 mg PO Q4H PRN PRN Reason: Pain, Moderate (Pain Scale 4-6 Last Admin: 04/18/21 14:22 Dose: 5 mg Documented by: Pharmacy Consult (Consult Rx Perform Med Rec) 1 each MISCELLANE ONCE PRN PRN Reason: Consult order Pharmacy Consult (Consult Rx Vancomycin Dosing) 1 each MISCELLANE DAILY PRN PRN Reason: Consult order Sodium Chloride (0.9 % Sodium Chloride Flush 3 Ml Syringe) 3 ml IVFLUSH QSHIFT [facility] Last Admin: 04/20/21 08:13 Dose: 3 ml Documented by: Home Medications Medication Instructions Recorded Confirmed Last Taken Type alprazolam 0.5 mg tablet 0.5 mg PO BEDTIME 07/20/20 04/14/21 08/15/20 History amitriptyline 10 mg tablet 20 mg PO BEDTIME 07/20/20 04/14/21 08/15/20 History atenolol 25 mg tablet 25 mg PO DAILY 07/20/20 04/14/21 08/16/20 06:50 History carbidopa 25 mg-levodopa 100 mg 1 tab PO BID 07/20/20 04/14/21 08/16/20 06:50 History tablet (Sinemet) furosemide 40 mg tablet 80 mg PO DAILY 07/20/20 04/14/21 08/15/20 History lisinopril 5 mg tablet 5 mg PO DAILY 07/20/20 04/14/21 08/16/20 History omega-3 fatty acids 1,000 mg 1,000 mg PO DAILY 07/20/20 04/14/21 02/27/21 08:30 History capsule (Fish Oil Concentrate) omeprazole 20 mg capsule,delayed 40 mg PO DAILY 07/20/20 04/14/21 08/16/20 06:50 History release atorvastatin 10 mg tablet 10 mg PO DAILY 08/10/20 04/14/21 08/15/20 History gabapentin 100 mg capsule 100 mg PO BID 08/10/20 04/14/21 08/16/20 06:50 History ipratropium bromide 17 2 inh INHALATION QID PRN 08/10/20 04/14/21 02/28/21 07:30 History mcg/actuation HFA aerosol inhaler (Atrovent HFA) diltiazem HCl 180 mg capsule,24 180 mg PO DAILY 08/16/20 04/14/21 08/15/20 History hr,extended release (Tiadylt ER) potassium chloride 10 mEq 1 tab PO DAILY 08/16/20 04/14/21 Unknown History tablet,extended release(part/cryst) (Klor-Con M) Physical Exam Vital Signs: Vital Signs: Last Vital Signs Temp 98.7 F 04/20/21 08:09 Pulse 72 04/20/21 08:09 Resp 18 04/20/21 08:09 BP 162/70 H 04/20/21 08:09 Pulse Ox 91 L 04/20/21 08:09 Oxygen Flow Rate 2 04/18/21 14:24 Body Mass Index 27.4 Const: General: no acute distress (But quite ability dated and slightly short of breath), alert and awake Orientation/consciousness: patient oriented x3 HENMT: Head: Yes normal to inspection General nose exam: No nasal polyps present and No nasal discharge present Face and sinus: Yes sinuses nontender Mouth: oropharynx normal Throat: Yes posterior oropharynx normal Eyes: General: appearance normal, both eyes and all related structures Neck: Neck: Yes normal visual inspection, Yes no lymphadenopathy, Yes trachea midline and Yes no JVD Thyroid: Thyroid normal Chest: Chest palpation & inspection: normal inspection of the chest, normal palpation of entire chest wall and no tenderness Resp: Other: Breath sounds are distant with prolonged expiratory phase. There are inspiratory crackles over the basilar areas, no wheezes. Cardio: Palpation: normal PMI Rate: regular rate Rhythm: regular rhythm Heart sounds: no gallops and no murmurs GI: Palpation (GI): Soft to palpation, nontender, No hepatosplenomegaly present and no masses Auscultation: normal bowel sounds Back/Spine/Pelvis: Other: Could not examine , patient is relatively a.m. 0 by limb the bed. Thoracic/Lumbar Spine: thoracic and lumbar spine normal to inspection Skin: General skin exam: no rashes or lesions noted Neuro: General: patient oriented x3 and no focal motor deficits Cranial nerves: Yes CN's II-XII intact bilaterally Extrem: General: Yes no calf tenderness and Yes venous stasis dermatitis Psych: Speech and movement: Normal speech and movement present Results Laboratory Findings CBC and BMP: 04/15/21 05:54 04/20/21 05:51 ABG, PT/INR, D-dimer: PT/INR, D-dimer PT 13.9 SEC (9.9-13.0) H 04/14/21 10:05 INR 1.2 (0.9-1.1) H 04/14/21 10:05 Abnormal lab findings: Abnormal Labs 04/14/21 04/14/21 04/14/21 10:05 10:05 10:05 WBC 11.8 H RBC 3.51 L Hgb 10.0 L Hct 31.8 L Plt Count Immature Gran % (Auto) 0.8 H Neut % (Auto) 93.0 H Lymph % (Auto) 2.6 L Lymph # (Auto) 0.3 L Abs Immat Gran (auto) 0.09 H Absolute Neuts (auto) 10.9 H PT 13.9 H INR 1.2 H VBG HCO3 Potassium Carbon Dioxide 30 H BUN 34 H Creatinine 1.89 H Random Glucose 191 H Calcium Magnesium B-Natriuretic Peptide Total Protein 6.3 L Lipase 5 L Urine Protein Urine Blood Ur Leukocyte Esterase Urine RBC Urine WBC Random Vancomycin 04/14/21 04/15/21 04/15/21 10:06 05:54 05:54 WBC RBC 3.08 L Hgb 8.8 L Hct 27.7 L Plt Count 133 L Immature Gran % (Auto) 0.9 H Neut % (Auto) 87.9 H Lymph % (Auto) 2.9 L Lymph # (Auto) 0.3 L Abs Immat Gran (auto) 0.09 H Absolute Neuts (auto) 9.2 H PT INR VBG HCO3 Potassium Carbon Dioxide BUN 25 H Creatinine 1.49 H Random Glucose 130 H Calcium 7.9 L D Magnesium B-Natriuretic Peptide Total Protein Lipase Urine Protein 2+ H Urine Blood 3+ H Ur Leukocyte Esterase 2+ H Urine RBC 15-29 H Urine WBC 15-29 H Random Vancomycin 04/16/21 04/16/21 04/17/21 05:38 08:53 05:53 WBC RBC Hgb Hct Plt Count Immature Gran % (Auto) Neut % (Auto) Lymph % (Auto) Lymph # (Auto) Abs Immat Gran (auto) Absolute Neuts (auto) PT INR VBG HCO3 Potassium 3.2 L Carbon Dioxide BUN 29 H Creatinine 1.77 H 1.72 H Random Glucose 133 H Calcium 8.0 L Magnesium 1.5 L B-Natriuretic Peptide Total Protein Lipase Urine Protein Urine Blood Ur Leukocyte Esterase Urine RBC Urine WBC Random Vancomycin 10.8 L 04/18/21 04/19/21 04/19/21 05:16 05:34 09:03 WBC RBC Hgb Hct Plt Count Immature Gran % (Auto) Neut % (Auto) Lymph % (Auto) Lymph # (Auto) Abs Immat Gran (auto) Absolute Neuts (auto) PT INR VBG HCO3 35 H Potassium Carbon Dioxide BUN Creatinine 1.76 H 1.85 H Random Glucose Calcium Magnesium B-Natriuretic Peptide Total Protein Lipase Urine Protein Urine Blood Ur Leukocyte Esterase Urine RBC Urine WBC Random Vancomycin 04/19/21 04/20/21 04/20/21 09:50 05:51 05:51 WBC RBC Hgb Hct Plt Count Immature Gran % (Auto) Neut % (Auto) Lymph % (Auto) Lymph # (Auto) Abs Immat Gran (auto) Absolute Neuts (auto) PT INR VBG HCO3 Potassium 3.0 L 2.6 L Carbon Dioxide 33 H BUN 36 H Creatinine 1.92 H 1.66 H Random Glucose 159 H Calcium Magnesium B-Natriuretic Peptide Total Protein Lipase Urine Protein Urine Blood Ur Leukocyte Esterase Urine RBC Urine WBC Random Vancomycin 04/20/21 05:51 WBC RBC Hgb Hct Plt Count Immature Gran % (Auto) Neut % (Auto) Lymph % (Auto) Lymph # (Auto) Abs Immat Gran (auto) Absolute Neuts (auto) PT INR VBG HCO3 Potassium Carbon Dioxide BUN Creatinine Random Glucose Calcium Magnesium B-Natriuretic Peptide 382 H Total Protein Lipase Urine Protein Urine Blood Ur Leukocyte Esterase Urine RBC Urine WBC Random Vancomycin Microbiology: Microbiology 04/17/21 10:15 Blood - Venous Blood Culture - Final Methicillin Res Staph Aureus 04/17/21 10:07 Blood - Venous Blood Culture - Final Methicillin Res Staph Aureus 04/14/21 10:05 Blood - Venous Blood Culture - Final Methicillin Res Staph Aureus 04/14/21 10:05 Blood - Venous Blood Culture - Final Methicillin Res Staph Aureus 04/14/21 Unknown Urine Catheterized - Straight Catheter Urine Culture - Final Methicillin Res Staph Aureus Diagnostic Findings Chest x-ray: report reviewed and image reviewed Assessment and Plan (1) Back pain: Status: Acute (2) Bacteremia: Status: Acute Patient is being treated with appropriate antibiotics at this time and followed by ID service (3) COPD (chronic obstructive pulmonary disease): Qualifiers: COPD type: unspecified COPD Qualified Code(s): J44.9 - Chronic obstructive pulmonary disease, unspecified Status: Acute Patient has history of mild chronic obstructive pulmonary disease. At present the she does havebibasilar Atalectasis , mild . I agree with the current treatment . Cont. Duoneb UDs q 6 hrs W/A and O2 by NC , Adjust to keep O2 above 90 % (4) Mild basilar atelectasis of both lungs: Status: Acute Chest Xray is suggestive of Bibasilar Atalectasis . If Patient can do it , should do deep Breathing exercises with Incentive Spirometry q 2 Hrs . Procedures Date of Service Date of Service: 04/20/21
[2021-04-20] MEDS: Potassium Chloride/H20 10 MEQ/100 ML PIGGYBACK 100 MEQ IV ×4 (10:13→14:24)
[2021-04-20] MEDS: Omeprazole 40 MG CAPSULE.DR PO (10:14)
[2021-04-20] MEDS: Potassium Chloride Packet 20 MEQ PACKET PO (10:14)
[2021-04-20] MEDS: dilTIAZem HCL CD 180 MG CAP.ER.24H PO (10:14)
[2021-04-20] MEDS: Carbidopa/Levodopa 25/100 TABLET 1 TAB PO ×2 (10:14→21:03)
[2021-04-20] MEDS: atenoloL 25 MG TABLET PO (10:14)
[2021-04-20] MEDS: Furosemide 40 MG/4 ML VIAL IVPUSH ×2 (10:15→18:01)
--- NOTE | 2021-04-20 10:56 | PM.UROPN ---
Subjective Subjective Date of Service: 04/19/21 Interval history: Pamela Seen with her [id number] who is a nurse Discussion regarding antibiotic treatment Microbiology shows Staph aureus Has been on vancomycin Is only just starting to improve today Has been limited appetite Discussed use of dietary supplements such as Ensure or boost. Orders placed Physical Exam Vital Signs: Vital Signs: Last Vital Signs Temp 98.7 F 04/20/21 08:09 Pulse 72 04/20/21 10:14 Resp 18 04/20/21 08:09 BP 162/70 H 04/20/21 10:14 Pulse Ox 91 L 04/20/21 08:09 Oxygen Flow Rate 2 04/18/21 14:24 Body Mass Index 27.4 Const: General: cooperative, healthy appearing, comfortable and no acute distress Orientation/consciousness: patient oriented x3 HENMT: Face and sinus: Yes normal facial exam Mouth: moist mucous membranes Neck: Neck: Yes normal visual inspection, Yes full ROM and Yes trachea midline Chest: Chest palpation & inspection: normal inspection of the chest Resp: Effort & Inspection: normal respiratory effort, able to speak in complete sentences and no respiratory distress GI: Inspection: Yes normal to inspection Back/Spine/Pelvis: Cervical Spine: normal cervical lordosis Thoracic/Lumbar Spine: thoracic and lumbar spine normal to inspection Skin: General skin exam: no rashes or lesions noted Neuro: General: patient oriented x3, gait normal, tone normal and moves all extremities Extrem: General: Yes normal to inspection and Yes capillary refill normal Urology Results Labs CBC & Chem 7: 04/15/21 05:54 04/20/21 05:51 Labs: Laboratory Results - last 24 hr 04/19/21 04/20/21 04/20/21 09:50 05:51 05:51 Potassium 2.6 L Creatinine 1.66 H Estim Creat Clear Calc 27.3 Estimated GFR 30 B-Natriuretic Peptide Procalcitonin 1.69 04/20/21 05:51 Potassium Creatinine Estim Creat Clear Calc Estimated GFR B-Natriuretic Peptide 382 H Procalcitonin Progress Note: A&P Assessment and plan (1) Bacteremia: Status: Acute (2) Ureter, stricture: Status: Acute Assessment and Plan: Continue antibiotics with Infectious Disease input and hospitalist direction Fall Risk Details Current Medications: Current Medications Albuterol/Ipratropium (Albuterol/Iprat 2.5/0.5mg 3 Ml Ampul.Neb) 3 ml INHALE RQ4H WHILE AWAKE [facility] Last Admin: 04/20/21 07:24 Dose: 3 ml Documented by: Atenolol (Atenolol 25 Mg Tablet) 25 mg PO DAILY [facility]; Protocol Last Admin: 04/20/21 10:14 Dose: 25 mg Documented by: Atorvastatin Calcium (Atorvastatin Calcium 10 Mg Tablet) 10 mg PO BEDTIME [facility] Last Admin: 04/19/21 21:04 Dose: 10 mg Documented by: Carbidopa/Levodopa (Carbidopa/Levodopa 25/100 Tablet) 1 tab PO BID [facility] Last Admin: 04/20/21 10:14 Dose: 1 tab Documented by: Diltiazem HCl (Diltiazem Hcl Cd 180 Mg Cap.Er.24h) 180 mg PO DAILY [facility]; Protocol Last Admin: 04/20/21 10:14 Dose: 180 mg Documented by: Furosemide (Furosemide 40 Mg/4 Ml Vial) 40 mg IVPUSH BID@0900,1800 [facility]; Protocol Last Admin: 04/20/21 10:15 Dose: 40 mg Documented by: Heparin Sodium (Porcine) (Heparin Sodium,Porcine 5,000 Unit/Ml Vial) 5,000 unit SUBCUT Q12H [facility] Last Admin: 04/20/21 04:29 Dose: 5,000 unit Documented by: Vancomycin HCl 750 mg/ Sodium (Chloride) 265 mls @ 265 mls/hr IV Q24H [facility] Last Infusion: 04/19/21 17:13 Dose: Infused Documented by: Potassium Chloride () 10 meq in 100 mls @ 100 mls/hr IV Q1H [facility] Stop: 04/20/21 13:14 Last Admin: 04/20/21 10:13 Dose: 100 mls/hr Documented by: Ipratropium [place] (Ipratropium [place] 1 Puff/17 Mcg Inhaler) 2 puff INHALE QID PRN PRN Reason: Shortness Of Breath Or Wheezing Morphine Sulfate (Morphine Sulfate 4 Mg/Ml Cartridge) 2 mg IVPUSH Q4H PRN; Protocol PRN Reason: Pain, Moderate (Pain Scale 4-6 Last Admin: 04/19/21 16:15 Dose: 2 mg Documented by: Omeprazole (Omeprazole 40 Mg Capsule.Dr) 40 mg PO DAILY [facility] Last Admin: 04/20/21 10:14 Dose: 40 mg Documented by: Ondansetron HCl (Ondansetron Hcl 4 Mg/2 Ml Vial) 4 mg IVPUSH ONCE PRN PRN Reason: Nausea and Vomiting Last Admin: 04/17/21 11:42 Dose: 4 mg Documented by: Ondansetron HCl (Ondansetron Odt 4 Mg Tab.Rapdis) 4 mg TRANSLINGU Q6H PRN PRN Reason: Nausea Last Admin: 04/15/21 13:03 Dose: 4 mg Documented by: Oxycodone HCl (Oxycodone Hcl Immed Release 5 Mg Tablet) 5 mg PO Q4H PRN PRN Reason: Pain, Moderate (Pain Scale 4-6 Last Admin: 04/18/21 14:22 Dose: 5 mg Documented by: Pharmacy Consult (Consult Rx Perform Med Rec) 1 each MISCELLANE ONCE PRN PRN Reason: Consult order Pharmacy Consult (Consult Rx Vancomycin Dosing) 1 each MISCELLANE DAILY PRN PRN Reason: Consult order Sodium Chloride (0.9 % Sodium Chloride Flush 3 Ml Syringe) 3 ml IVFLUSH [facility] Last Admin: 04/20/21 10:15 Dose: 3 ml Documented by: Time Spent With Patient Time: Total time spent is greater than 50% in coordination of care (as documented) at patient's floor/unit and/or counseling patient: Time with patient: 15 - 24 minutes Progress Note: Quality Stroke Does the patient have a stroke diagnosis?: No
--- NOTE | 2021-04-20 11:48 | MHC.CARE ---
Pt is an 80 y/o, , [place] speaking female who is previously unknown to the CARE Team. Pt is admitted to the third floor for medical issues and was not a pt in crisis.? Today, Dr. Jones placed a consult for CARE Team to meet with pt as there was a concern that pt may be experiencing depression.? Pt is alert and oriented and is screened in her room in [address] [facility] floor [facility].? Pt was dressed in hospital attire, appears moderately disheveled, is engaged in the screening and at times, appears as though she is in physical discomfort.? Her speech and eye contact are within normal limits.? She describes her mood as ?fine?, and her affect is variable.? She does not appear to be delusional or experiencing symptoms of psychosis.? She denies SI, HI, , and self-harm urges.? Her insight, judgement, memory, concentration and impulse control do not appear compromised. Pt denies depression, stating that she no longer wants to be here, here being the hospital.? She is tired of the testing, procedures and etc.? Pt states that she just wants to return home and ?see my kids?.??? She denies a hx of depression and stated that to the best of her knowledge there is no family history of depression. Pt?s nurse advises CARE Team that pt has been in a great deal of discomfort related to her medical condition.? Pt had advised her nurse that she no longer wishes to be here.? Pt?s nurse mentioned that earlier today pt asked where she was and was told the hospital. CARE Team was advised that pt?s in January of this year and she has been on a physical decline since that time. CARE Team is available as needed
--- NOTE | 2021-04-20 11:58 | HE.PHANOTE ---
PT trough increased to 19, renal function improving, changed dose to 500 mg and scheduled dose about 36 hrs since last dose. will recheck trough tomorrow. Latasha Arceo PharmD
--- NOTE | 2021-04-20 12:53 | HO.PM.IMPN ---
Subjective Subjective Date of Service: 04/20/21 Interval History: MRSA bacteremia, Review of Systems Patient denies any chest pain or shortness of breath or abdominal pain or any urinary or bowel incontinence. Still has some back pain Still able to move lower extremity and upper extremities similar as of yesterday. Physical Exam Vital Signs: Vital Signs: Last Vital Signs Temp 97.4 F 04/20/21 11:50 Pulse 74 04/20/21 11:50 Resp 18 04/20/21 11:50 BP 140/63 H 04/20/21 11:50 Pulse Ox 95 04/20/21 11:50 Oxygen Flow Rate 2 04/18/21 14:24 Body Mass Index 27.4 ?AO X 3, in pain Resp:? CTA bilateral, no rales or wheezing, slightly dimished at bases CVS: S1,S2,RRR GI: +BS, NT, no distention Skin: No rashor cyanosis Neuro:? motor grossly intact motor function in lower extremity,could able to examine back-lower throacic spine area mild pain Psych: appropriate affec Objective Data Active Medications Albuterol/Ipratropium (Albuterol/Iprat 2.5/0.5mg 3 Ml Ampul.Neb) 3 ml INHALE RQ4H WHILE AWAKE [facility] Last Admin: 04/20/21 11:00 Dose: 3 ml Documented by: RYAN Atenolol (Atenolol 25 Mg Tablet) 25 mg PO DAILY [facility]; Protocol Last Admin: 04/20/21 10:14 Dose: 25 mg Documented by: JIM Atorvastatin Calcium (Atorvastatin Calcium 10 Mg Tablet) 10 mg PO BEDTIME [facility] Last Admin: 04/19/21 21:04 Dose: 10 mg Documented by: LIIL Carbidopa/Levodopa (Carbidopa/Levodopa 25/100 Tablet) 1 tab PO BID [facility] Last Admin: 04/20/21 10:14 Dose: 1 tab Documented by: JIM Diltiazem HCl (Diltiazem Hcl Cd 180 Mg Cap.Er.24h) 180 mg PO DAILY [facility]; Protocol Last Admin: 04/20/21 10:14 Dose: 180 mg Documented by: JIM Furosemide (Furosemide 40 Mg/4 Ml Vial) 40 mg IVPUSH BID@0900,1800 [facility]; Protocol Last Admin: 04/20/21 10:15 Dose: 40 mg Documented by: JIM Heparin Sodium (Porcine) (Heparin Sodium,Porcine 5,000 Unit/Ml Vial) 5,000 unit SUBCUT Q12H [facility] Last Admin: 04/20/21 04:29 Dose: 5,000 unit Documented by: LILI Potassium Chloride () 10 meq in 100 mls @ 100 mls/hr IV Q1H [facility] Stop: 04/20/21 13:14 Last Infusion: 04/20/21 12:50 Dose: 0 mls/hr Documented by: JIM Vancomycin HCl 500 mg/ Sodium (Chloride) 110 mls @ 110 mls/hr IV Q24H [facility] Ipratropium Warren (Ipratropium Warren 1 Puff/17 Mcg Inhaler) 2 puff INHALE QID PRN PRN Reason: Shortness Of Breath Or Wheezing Morphine Sulfate (Morphine Sulfate 4 Mg/Ml Cartridge) 2 mg IVPUSH Q4H PRN; Protocol PRN Reason: Pain, Moderate (Pain Scale 4-6 Last Admin: 04/19/21 16:15 Dose: 2 mg Documented by: JIM Omeprazole (Omeprazole 40 Mg Capsule.Dr) 40 mg PO DAILY [facility] Last Admin: 04/20/21 10:14 Dose: 40 mg Documented by: JIM Ondansetron HCl (Ondansetron Hcl 4 Mg/2 Ml Vial) 4 mg IVPUSH ONCE PRN PRN Reason: Nausea and Vomiting Last Admin: 04/17/21 11:42 Dose: 4 mg Documented by: JULIANE Ondansetron HCl (Ondansetron Odt 4 Mg Tab.Rapdis) 4 mg TRANSLINGU Q6H PRN PRN Reason: Nausea Last Admin: 04/15/21 13:03 Dose: 4 mg Documented by: FARHANA Oxycodone HCl (Oxycodone Hcl Immed Release 5 Mg Tablet) 5 mg PO Q4H PRN PRN Reason: Pain, Moderate (Pain Scale 4-6 Last Admin: 04/18/21 14:22 Dose: 5 mg Documented by: QUAN Pharmacy Consult (Consult Rx Perform Med Rec) 1 each MISCELLANE ONCE PRN PRN Reason: Consult order Pharmacy Consult (Consult Rx Vancomycin Dosing) 1 each MISCELLANE DAILY PRN PRN Reason: Consult order Sodium Chloride (0.9 % Sodium Chloride Flush 3 Ml Syringe) 3 ml IVFLUSH QSHIFT [facility] Last Admin: 04/20/21 10:15 Dose: 3 ml Documented by: JIM Labs CBC & Chem 7: 04/15/21 05:54 04/20/21 05:51 Labs: Laboratory Results - last 24 hr 04/19/21 04/20/21 04/20/21 09:50 05:51 05:51 Estim Creat Clear Calc 27.3 Estimated GFR 30 B-Natriuretic Peptide 382 H Procalcitonin 1.69 Vancomycin Trough 04/20/21 10:10 Estim Creat Clear Calc Estimated GFR B-Natriuretic Peptide Procalcitonin Vancomycin Trough 19.0 Microbiology Microbiology Results: Microbiology 04/17/21 10:15 Blood Culture - Final Blood - Venous Methicillin Res Staph Aureus 04/17/21 10:07 Blood Culture - Final Blood - Venous Methicillin Res Staph Aureus Assessment and Plan (1) Sepsis: Status: Acute (2) ROMY (acute kidney injury): Status: Acute (3) CHF (congestive heart failure): Status: Acute Assessment and Plan: 80 female with? with COPD, history of bladder cancer with history obstructive distal ureter causing right hydronephrosis and has required multiple stent, most recent 5 days ago and came just 4 days later with high grade fever, bacteremia and stent migration? and required yet removal and reposition of the stent . 1/ Sesis d/t infected stent, had temp of 105 and tachycardia on presentation--No severe sepsis, renal failure is chronic and not due to sepsis 2/MRSA bacteremia, Urine culture MRSA, repeat culture still positive,? get another set tomorrow. -old stent removed and new on inserted. vanco trough was 19 on 04/20, next trough in am -MRI of lumbar spine showing?enhancement in the prevertebral and paravertebral soft tissues between T12 and L2, which may be consistent with evolving phlegmon. T spine MRI:bilateral retrocrural inflammation with fluid collection on the left measuring up to 3.1 cm and on the right measuring up to 1.9 cm continue IV vanco , close monitering vanco levels , bmp and electrolytes. MRI finding were discussed with [facility] yesterday after T -spine mri and also Lspine MRI on 04/18/21:no indication for intervention( neurosurg KALIE Miller). told radiology to update imgaing inlyla. neuro recomended -continue IV antibiotics, repeat back imaging in 4-5 days. Patient currently refusing any neuro surgical intervention also. She also declined needle aspiration procedure the thoracic spine findings. infectious disease updated about above , following Acute hypoxemic respiratory failure -probably multifactorial Chf excerebation , atelectasis-probable diastolic Does not have any cough echo noted EF is 60-65%, mild or moderate TR bnp 380's pleural effusions Started on IV Lasix, moniter i/o cardio eval 3/ CKD 3, stable, monitor and if worse, neophrology follwoing. 4/Diabetes--No Metformin, SSI 5/HTN--stop Losartan due to renal failure, continue atenolol and cardizem, hold Lasix 6/COPD, no exacerbation, continue inhaler 7/Neuropathy--Neurontin 8/HLD--Lipitor 9/Anxiey--Xanax 10GERD--Prilosec 11/Fibromyalgia--Elavil DVT prophylaxis --restartHeparin Quality Stroke Does the patient have a stroke diagnosis?: No VTE Prior VTE?: No VTE Risk Level:: Medical - moderate - high VTE Device Contraindication: Treatment Not Indicated VTE Drug Contraindication: N/A - Med Ordered
--- NOTE | 2021-04-20 14:00 | CA_ITS ---
Transthoracic Echocardiogram Patient (Last, First, Middle): Pamela Escalante C Gender: Female Date of : 1940 Age: 80 Procedure Date: 04/20/2021 Procedure Type: Transthoracic Echocardiogram Location: S3E Height: 165.1 cm Weight: 74.84 kg BSA: 1.82 m2 Heart Rate: bpm BP: 145 / 63 mmHg Cokeman: ADRIANNE Minaya MD: Spencer Jones MD Hvac Refrigeration Technician: Jose Alfredo Lugo MD Symptoms: mrsa bactermia Study Quality: Fair ECG Rhythm: Sinus Conclusions: - 1. Normal LV systolic function with impaired relaxation filling pattern 2. Mildly dilated left atrium 3. Cardiac valves not well visualized and vegetations cannot be entirely ruled out on this study 4. [id number] tricuspid regurgitation with mildly elevated right ventricular systolic pressure 5. Pericardium not well visualized Findings Left Ventricle Normal left ventricular size, thickness, and systolic function. The visually estimated ejection fraction is between 60-65%. Spectral Doppler is indicative of an impaired relaxation filling pattern. E/E prime ratio is between 8 and 15 consistent with indeterminate filling pressures. Right Ventricle Mildly increased right ventricular cavity size. There is normal right ventricular systolic function. Atria The left atrium is mildly dilated. Interatrial shunt cannot be excluded. The right atrium is normal in size. Aortic Valve The aortic valve was not well visualized. There is no aortic valve stenosis. There is no aortic valve regurgitation. Mitral Valve There is mild anterior and posterior mitral leaflet thickening. There is trace mitral valve regurgitation. There is no mitral valve stenosis. Pulmonic Valve The pulmonic valve was not well visualized. Tricuspid Valve The tricuspid valve was not well visualized. There is mild to moderate tricuspid valve regurgitation. Normal right atrial pressure. Mild pulmonary hypertension is present. Great Vessels All visible segments of the aorta are normal in size. The pulmonary artery was not well visualized. Venous The inferior vena cava was not well visualized. The inferior vena cava is normal in size. Pericardium/Pleural The pericardium was not well visualized. Prior Study Comparison No previous study in the last 5 years for comparison Measurements 2D Linear Measurements IVSd: 0.93 0.6-0.9/0.6-1.0 cm LVIDd: 4.78 3.9-5.3/4.2-5.9 cm LVIDd Index: 2.63 2.4-3.2/2.2-3.1 cm/m2 LVIDs: 2.83 2.0-3.6 cm LVPWd: 0.91 0.7-1.1 cm Ao Root: 3.20 2.1-3.5 cm LA Diam: 4.00 2.7-3.8/3.0-4.0 cm LAIDs Index: 2.20 1.5-2.3 cm/m2 LV Mass: 187.32 67-162/88-224 g LV Mass Index: 102.92 43-95/49-115 g/m2 LVOT Diam: 2.00 3.0+(-)1.3 cm Mitral Valve MV Pk E: 0.82 MV PK A: 1.05 MV Decel Time: 156.00 E/A: 0.80 E'Lateral: 8.27 E'Medial: 6.31 E/E' Med: 13.00 E/E' Lat: 9.90 PHT: 46.00 MVA PHT: 4.78 Decel Gove: 5.25 Aortic Valve AoV Pk Jose Maria: 1.66 AoV Mn Jose Maria: 1.14 AoV VTI: 0.34 AoV Pk Grad: 11.00 Aov Mn Grad: 6.00 SARAH Cont.VTI: 2.41 LVOT LVOT Pk Jose Maria: 1.11 LVOT Mn Jose Maria: 0.81 LVOT VTI: 0.26 LVOT Pk Grad: 5.00 LVOT Mn Grad: 3.00 LVOT Diam: 2.00 LVOT Area: 3.14 Diastolic Function MV Pk E: 0.82 MV Pk A: 1.05 E/A: 0.80 E'Medial: 6.31 E/E' Med: 13.00 E' Laterial: 8.27 E/E' Lat: 9.90 Right Ventricle TAPSE (mm): 2.56 TVS' Jose Maria: 17.60 Tricuspid Valve TR Pk Jose Maria: 3.07 TR Pk Grad: 38.00 RA Press: 3.00 RVSP: 41.00 Great Vessels Aorta Ao Root-2D: 3.20 2.0-3.7 cm Ao Asc: 3.20 2.1-3.4 cm Ao Arch: 2.40 Updated in Other Vendor System with Status of Final Jose Alfredo Lugo MD electronically signed on 04/20/2021 12:35:09 PM with status of Final
--- NOTE | 2021-04-20 14:19 | P.CONCA_ITS ---
History of Present Illness History of Present Illness Date of Service: 04/20/21 Requesting physician: Spencer Jones Chief complaint: Hypoxic respiratory failure Narrative: I was requested to see a needs an cardiology consultation today because of increasing hypoxia and shortness of breath and chest x-ray finding probably suggestive of congestive heart failure. There also could be possibility of aspiration pneumonia or atelectasis. Patient has been admitted t o the hospital with MRSA sepsis with persistent recurrent MRSA bacteremia. Noted to have possible abscess in the lumbar spinal area. Patient is currently refusing to undergo any further interventions at this point time. She has progressively got more short of breath and hypoxic. Therefore workup was performed in the suggestion of heart failure with elevated BNP as well as chest x-ray finding consistent with pulmonary edema. She has been given Lasix with overnight negative balance of about 2500 cc although over her hospitalization she is still positive balance of about 4 L. she to me denies any chest pain or shortness of breath. She says she is breathing okay with the oxygen on. Review of Systems Constitutional: Constitutional: Denies chills, Reports fatigue, Denies fever(s) and Reports malaise Cardiovascular: Cardiovascular: Reports no additional cardiovascular complaints and Reports dyspnea Respiratory: Respiratory: Reports dyspnea Gastrointestinal: Gastrointestinal: Reports no additional gastrointestinal complaints Genitourinary: Genitourinary: Reports no additional female genitourinary complaints Musculoskeletal: Musculoskeletal: Reports no additional musculoskeletal complaints Integumentary/Breasts: Skin/Breast: Reports system reviewed and no additional complaints, except as docu Neurologic: Reports system reviewed and no additional complaints, except as documented Psychiatric: Psychiatric: Reports no additional psychiatric complaints Endocrine: Endocrine: Reports fatigue PMF Past Medical History Medical History (Updated 04/20/21 @ 14:24 by Jose Alfredo Lugo MD) Acute respiratory failure with hypoxia ROMY (acute kidney injury) Anxiety Back pain Bladder mass CKD (chronic kidney disease) COPD (chronic obstructive pulmonary disease) Diverticulosis DM type 2 (diabetes mellitus, type 2) Elevated cholesterol Family history of anesthesia complication Fibromyalgia GERD (gastroesophageal reflux disease) Hiatal hernia Hypertension Mild basilar atelectasis of both lungs On beta elizabeth at home Osteoarthritis Peripheral neuropathy PONV (postoperative nausea and vomiting) Restless leg syndrome Ureteral stricture, right Family History Family history: reviewed and not pertinent Surgical History Surgical History History of cholecystectomy History of cystoscopy History of hysterectomy History of total left knee replacement Hx of appendectomy Hx of bilateral cataract extraction Hx of colonoscopy Hx of tonsillectomy Nephrostomy status Social History Social History Household Members: Family Housing: House Housing Other:: Lives with son and family Are you a primary medicare nurse to a significant other at home: No Do you presently have visiting nurse or other home services: No Alcohol intake: never Patient Tobacco Use Status: Former Tobacco user Quit Date: 1994 Tobacco use type: Cigarette Cigarette Packs Per Day: 1 Cigarettes Per Day: 20.0 Years Smoked: 50 Use of substances other than those prescribed or required for medical reasons: No Currently Displaying Signs/Symptoms of Drug Intoxication Withdrawal: No Have you been hit, kicked, punched, or otherwise hurt by someone within the past year? If so, by whom?: No Do you feel safe in your current relationship?: No Current Relationship Is there a partner from a previous relationship who is making you feel unsafe now?: No Are you made to feel afraid or neglected: No Are you DNR?: No Advance Directives: Yes Advance Directives Information Provided: Yes Advance Directives on File: No Advance Directives Date on File: 04/14/21 Do you have thoughts of harming others: None Do you have a plan to hurt others: No Plan Recently lost weight without trying: No Nutrition Risks: No Nutritional Risk service: No Current occupational status: retired Meds Allergies Allergy/AdvReac Type Severity Reaction Status Date / Time Sulfa (Sulfonamide Allergy Severe Anaphylaxis Verified 04/14/21 09:14 Antibiotics) sulfamethoxazole Allergy Severe ANAPHYLAXIS Verified 04/14/21 09:14 [From BACTRIM] influenza virus vaccine, Allergy Intermediate ARTHRITIC Verified 04/14/21 09:14 specific EFFECTS [FLU VACCINE] nitrofurantoin AdvReac Mild GI UPSET Verified 04/14/21 09:14 [From MACRODANTIN] oxycodone [From PERCOCET] AdvReac Mild GI UPSET Verified 04/14/21 09:14 Active Medications: Current Medications Albuterol/Ipratropium (Albuterol/Iprat 2.5/0.5mg 3 Ml Ampul.Neb) 3 ml INHALE RQ4H WHILE AWAKE [facility] Last Admin: 04/20/21 11:00 Dose: 3 ml Documented by: Atenolol (Atenolol 25 Mg Tablet) 25 mg PO DAILY [facility]; Protocol Last Admin: 04/20/21 10:14 Dose: 25 mg Documented by: Atorvastatin Calcium (Atorvastatin Calcium 10 Mg Tablet) 10 mg PO BEDTIME [facility] Last Admin: 04/19/21 21:04 Dose: 10 mg Documented by: Carbidopa/Levodopa (Carbidopa/Levodopa 25/100 Tablet) 1 tab PO BID [facility] Last Admin: 04/20/21 10:14 Dose: 1 tab Documented by: Diltiazem HCl (Diltiazem Hcl Cd 180 Mg Cap.Er.24h) 180 mg PO DAILY [facility]; Protocol Last Admin: 04/20/21 10:14 Dose: 180 mg Documented by: Furosemide (Furosemide 40 Mg/4 Ml Vial) 40 mg IVPUSH BID@0900,1800 [facility]; Protocol Last Admin: 04/20/21 10:15 Dose: 40 mg Documented by: Heparin Sodium (Porcine) (Heparin Sodium,Porcine 5,000 Unit/Ml Vial) 5,000 unit SUBCUT Q12H [facility] Last Admin: 04/20/21 04:29 Dose: 5,000 unit Documented by: Vancomycin HCl 500 mg/ Sodium (Chloride) 110 mls @ 110 mls/hr IV Q24H [facility] Ipratropium Pierce (Ipratropium Pierce 1 Puff/17 Mcg Inhaler) 2 puff INHALE QID PRN PRN Reason: Shortness Of Breath Or Wheezing Morphine Sulfate (Morphine Sulfate 4 Mg/Ml Cartridge) 2 mg IVPUSH Q4H PRN; Protocol PRN Reason: Pain, Moderate (Pain Scale 4-6 Last Admin: 04/19/21 16:15 Dose: 2 mg Documented by: Omeprazole (Omeprazole 40 Mg Capsule.Dr) 40 mg PO DAILY [facility] Last Admin: 04/20/21 10:14 Dose: 40 mg Documented by: Ondansetron HCl (Ondansetron Hcl 4 Mg/2 Ml Vial) 4 mg IVPUSH ONCE PRN PRN Reason: Nausea and Vomiting Last Admin: 04/17/21 11:42 Dose: 4 mg Documented by: Ondansetron HCl (Ondansetron Odt 4 Mg Tab.Rapdis) 4 mg TRANSLINGU Q6H PRN PRN Reason: Nausea Last Admin: 04/15/21 13:03 Dose: 4 mg Documented by: Pharmacy Consult (Consult Rx Perform Med Rec) 1 each MISCELLANE ONCE PRN PRN Reason: Consult order Pharmacy Consult (Consult Rx Vancomycin Dosing) 1 each MISCELLANE DAILY PRN PRN Reason: Consult order Sodium Chloride (0.9 % Sodium Chloride Flush 3 Ml Syringe) [facility] Last Admin: 04/20/21 10:15 Dose: 3 ml Documented by: Home Medications Medication Instructions Recorded Confirmed Last Taken Type alprazolam 0.5 mg tablet 0.5 mg PO BEDTIME 07/20/20 04/14/21 08/15/20 History amitriptyline 10 mg tablet 20 mg PO BEDTIME 07/20/20 04/14/21 08/15/20 History atenolol 25 mg tablet 25 mg PO DAILY 07/20/20 04/14/21 08/16/20 06:50 History carbidopa 25 mg-levodopa 100 mg 1 tab PO BID 07/20/20 04/14/21 08/16/20 06:50 History tablet (Sinemet) furosemide 40 mg tablet 80 mg PO DAILY 07/20/20 04/14/21 08/15/20 History lisinopril 5 mg tablet 5 mg PO DAILY 07/20/20 04/14/21 08/16/20 History omega-3 fatty acids 1,000 mg 1,000 mg PO DAILY 07/20/20 04/14/21 02/27/21 08:30 History capsule (Fish Oil Concentrate) omeprazole 20 mg capsule,delayed 40 mg PO DAILY 07/20/20 04/14/21 08/16/20 06:50 History release atorvastatin 10 mg tablet 10 mg PO DAILY 08/10/20 04/14/21 08/15/20 History gabapentin 100 mg capsule 100 mg PO BID 08/10/20 04/14/21 08/16/20 06:50 History ipratropium bromide 17 2 inh INHALATION QID PRN 08/10/20 04/14/21 02/28/21 07:30 History mcg/actuation HFA aerosol inhaler (Atrovent HFA) diltiazem HCl 180 mg capsule,24 180 mg PO DAILY 08/16/20 04/14/21 08/15/20 History hr,extended release (Tiadylt ER) potassium chloride 10 mEq 1 tab PO DAILY 08/16/20 04/14/21 Unknown History tablet,extended release(part/cryst) (Klor-Con M) Physical Exam Vital Signs: Vital Signs: Last Vital Signs Temp 97.4 F 04/20/21 11:50 Pulse 74 04/20/21 11:50 Resp 18 04/20/21 11:50 BP 140/63 H 04/20/21 11:50 Pulse Ox 95 04/20/21 11:50 Oxygen Flow Rate 2 04/18/21 14:24 Body Mass Index 27.4 Const: General: cooperative, comfortable, no acute distress, alert, awake and tired appearing Nutritional Appearance: overweight Orientation/consciousness: patient oriented x3 HENMT: Head: Yes normocephalic and Yes atraumatic Neck: Neck: Yes trachea midline, Yes supple and Yes no JVD Resp: Effort & Inspection: normal respiratory effort Auscultation: no crackles, no rales, no wheezes and diminished lung sounds Cardio: Jugular venous distension: no JVD Palpation: normal PMI Rate: regular rate Rhythm: regular rhythm Heart sounds: S1 normal heart sound present, S2 normal heart sound present, no click, no gallops and no murmurs GI: Auscultation: normal bowel sounds Skin: General skin exam: no rashes or lesions noted Neuro: General: patient oriented x3 Extrem: General: Yes normal exam except as noted Results Labs and Meds Result diagrams: 04/15/21 05:54 04/20/21 05:51 Lab results: Laboratory Results - last 24 hr 04/19/21 04/20/21 04/20/21 09:50 05:51 05:51 Potassium 2.6 L Creatinine 1.66 H Estim Creat Clear Calc 27.3 Estimated GFR 30 B-Natriuretic Peptide Procalcitonin 1.69 Vancomycin Trough 04/20/21 04/20/21 05:51 10:10 Potassium Creatinine Estim Creat Clear Calc Estimated GFR B-Natriuretic Peptide 382 H Procalcitonin Vancomycin Trough 19.0 Imaging Radiologist's impression: Impressions Thoracic Spine MRI 04/19/21 13:00 IMPRESSION: Redemonstration of bilateral retrocrural inflammation with fluid collection on the left measuring up to 3.1 cm and on the right measuring up to 1.9 cm. The imaging features are concerning for abscesses. No findings specific for osteomyelitis/discitis seen in the thoracic spine. Redemonstration of abnormal fluid distending the L1-L2 disc space with enhancement along the ventral epidural space concerning for phlegmon. Assessment and Plan (1) Respiratory failure with hypoxia: Status: Acute Patient requiring high level of oxygen consistent with respiratory failure with hypoxemia. This appears to be multifactorial. She is definitely fluid overloaded throughout her hospitalization with still positive balance of 4 L. Chest x-ray findings could suggestive of congestive heart failure, ARDS is also likely in patient who has recurrent bacteremia with MRSA and ongoing abscess versus atelectasis. Chest PT as well as incentive spirometry should be provid ed. Continue gentle diuresis. Patient does not appear to be significantly fluid overloaded. Continue to monitor intake and output. Continue monitor BMP. Supportive care. Continue treat underlying infective process aggressively. Will sign of the case. Thank you for allowing us to partake in the care Procedures Date of Service Date of Service: 04/20/21
[2021-04-20] MEDS: Morphine Sulfate 4 MG/ML CARTRIDGE 2 MG IVPUSH ×2 (14:23→21:04)
[2021-04-20] MEDS: Atorvastatin Calcium 10 MG TABLET PO (21:03)
[2021-04-20] MEDS: vancomycin HCL 500 MG in 0.9 % Sodium Chloride 100 ML 110 MG IV (21:03)
[2021-04-21] VITALS (11 sets, daily range): BP systolic 113–156; BP diastolic 47–74; PULSE 64–92; RESP 16–19; TEMP 36.3–37.3; O2SAT 3–98
[2021-04-21] MEDS: Heparin Sodium,Porcine 5,000 UNIT/ML VIAL 5000 UNIT SUBCUT ×2 (02:43→13:48)
[2021-04-21 05:59] LABS: Anion Gap 14 (12-20); Blood Urea Nitrogen 36 mg/dL (9-16); Calcium 8.2 mg/dL (8.4-10.2); Carbon Dioxide 35 mmol/L (22-29); Chloride 95 mmol/L (96-108); Creatinine Clr Calc Pharmacy 27.8; Estimated Glomerular Filt Rate 30; Glucose Random 138 mg/dL (60-115); Potassium 2.6 mmol/L (3.3-5.1); Sodium 141 mmol/L (135-145)
[2021-04-21 06:03] LABS: B Type Natriuretic Peptide 190 pg/mL (<100)
[2021-04-21 07:26] LABS: Magnesium 1.5 mg/dL (1.6-2.6)
[2021-04-21] MEDS: Magnesium Sulfate/H2O 2 GM/50 ML PIGGYBACK IV (08:06)
[2021-04-21] MEDS: Albuterol/Iprat 2.5/0.5MG 3 ML AMPUL.NEB INHALE ×3 (08:07→15:47)
[2021-04-21] MEDS: 0.9 % Sodium Chloride Flush 3 ML SYRINGE IVFLUSH ×3 (08:11→21:15)
[2021-04-21] MEDS: Furosemide 40 MG/4 ML VIAL IVPUSH (08:12)
[2021-04-21] MEDS: atenoloL 25 MG TABLET PO (08:13)
[2021-04-21] MEDS: dilTIAZem HCL CD 180 MG CAP.ER.24H PO (08:13)
[2021-04-21] MEDS: Magnesium Oxide 400 MG TABLET 800 MG PO (08:13)
[2021-04-21] MEDS: Omeprazole 40 MG CAPSULE.DR PO (08:13)
[2021-04-21] MEDS: Carbidopa/Levodopa 25/100 TABLET 1 TAB PO ×2 (08:13→21:14)
[2021-04-21] MEDS: Potassium Chloride Packet 20 MEQ PACKET 40 MEQ PO (08:14)
[2021-04-21] MEDS: Potassium Chloride/H20 10 MEQ/100 ML PIGGYBACK 100 MEQ IV ×4 (09:41→13:49)
--- NOTE | 2021-04-21 13:32 | HO.PM.IMPN ---
Subjective Subjective Date of Service: 04/21/21 Interval History: MRSA bacteremia,bilateral retrocrural inflammation with fluid collection - concerning for abscesses. Review of Systems Denies any new complaint of chest pain or abdominal pain or fever or chills or nausea or vomiting Denies any cough Denies any weakness or numbness. sob seems slightly improving Physical Exam Vital Signs: Vital Signs: Last Vital Signs Temp 97.6 F 04/21/21 11:58 Pulse 64 04/21/21 11:58 Resp 16 04/21/21 11:58 BP 140/58 H 04/21/21 11:58 Pulse Ox 93 04/21/21 11:58 Oxygen Flow Rate 2 04/18/21 14:24 Body Mass Index 27.4 AO X 3, in pain Resp:?air entry improving CVS: S1,S2,RRR GI: +BS, NT, no distention, soft. Skin: No rash or cyanosis, trace edema Neuro:? motor grossly intact motor function in lower extremity,could able to examine back-lower throacic spine area mild pain, no flacuatation palpable . no bowel and bladder incontinence as per patient/staff. Psych: appropriate affec Objective Data Active Medications Albuterol/Ipratropium (Albuterol/Iprat 2.5/0.5mg 3 Ml Ampul.Neb) 3 ml INHALE RQ4H WHILE AWAKE [facility] Last Admin: 04/21/21 11:46 Dose: 3 ml Documented by: NESTOR Atenolol (Atenolol 25 Mg Tablet) 25 mg PO DAILY [facility]; Protocol Last Admin: 04/21/21 08:13 Dose: 25 mg Documented by: JUSTINO Atorvastatin Calcium (Atorvastatin Calcium 10 Mg Tablet) 10 mg PO BEDTIME L[facility]ANDR[facility] Last Admin: 04/20/21 21:03 Dose: 10 mg Documented by: GRACE Carbidopa/Levodopa (Carbidopa/Levodopa 25/100 Tablet) 1 tab PO BID [facility] Last Admin: 04/21/21 08:13 Dose: 1 tab Documented by: JUSTINO Diltiazem HCl (Diltiazem Hcl Cd 180 Mg Cap.Er.24h) 180 mg PO DAILY [facility]; Protocol Last Admin: 04/21/21 08:13 Dose: 180 mg Documented by: JUSTINO Furosemide (Furosemide 40 Mg Tablet) 80 mg PO DAILY [facility]; Protocol Heparin Sodium (Porcine) (Heparin Sodium,Porcine 5,000 Unit/Ml Vial) 5,000 unit SUBCUT Q12H [facility] Last Admin: 04/21/21 02:43 Dose: 5,000 unit Documented by: GRACE Vancomycin HCl 500 mg/ Sodium (Chloride) 110 mls @ 110 mls/hr IV Q24H [facility] Last Infusion: 04/20/21 22:03 Dose: 0 mls/hr Documented by: GRACE Ipratropium [place] (Ipratropium [place] 1 Puff/17 Mcg Inhaler) 2 puff INHALE QID PRN PRN Reason: Shortness Of Breath Or Wheezing Magnesium Oxide (Magnesium Oxide 400 Mg Tablet) 800 mg PO DAILY [facility] Last Admin: 04/21/21 08:13 Dose: 800 mg Documented by: JUSTINO Morphine Sulfate (Morphine Sulfate 4 Mg/Ml Cartridge) 2 mg IVPUSH Q4H PRN; Protocol PRN Reason: Pain, Moderate (Pain Scale 4-6 Last Admin: 04/20/21 21:04 Dose: 2 mg Documented by: GRACE Omeprazole (Omeprazole 40 Mg Capsule.Dr) 40 mg PO DAILY [facility] Last Admin: 04/21/21 08:13 Dose: 40 mg Documented by: JUSTINO Ondansetron HCl (Ondansetron Hcl 4 Mg/2 Ml Vial) 4 mg IVPUSH ONCE PRN PRN Reason: Nausea and Vomiting Last Admin: 04/17/21 11:42 Dose: 4 mg Documented by: JULIANE Ondansetron HCl (Ondansetron Odt 4 Mg Tab.Rapdis) 4 mg TRANSLINGU Q6H PRN PRN Reason: Nausea Last Admin: 04/15/21 13:03 Dose: 4 mg Documented by: FARHANA Pharmacy Consult (Consult Rx Perform Med Rec) 1 each MISCELLANE ONCE PRN PRN Reason: Consult order Pharmacy Consult (Consult Rx Vancomycin Dosing) 1 each MISCELLANE DAILY PRN PRN Reason: Consult order Sodium Chloride (0.9 % Sodium Chloride Flush 3 Ml Syringe) 3 ml IVFLUSH QSHIFT [facility] Last Admin: 04/21/21 08:11 Dose: 3 ml Documented by: JUSTINO Labs CBC & Chem 7: 04/15/21 05:54 04/21/21 05:20 Labs: Laboratory Results - last 24 hr 04/21/21 04/21/21 04/21/21 05:20 05:20 05:20 Anion Gap 14 Estim Creat Clear Calc Cancelled 27.8 Estimated GFR Cancelled 30 Random Glucose 138 H Calcium 8.2 L Magnesium 1.5 L B-Natriuretic Peptide 190 H Assessment and Plan (1) CHF (congestive heart failure): Status: Acute (2) Bacteremia: Status: Acute Assessment and Plan: 80 female with? with COPD, history of bladder cancer with history obstructive distal ureter causing right hydronephrosis and has required multiple stent, most recent 5 days ago and came just 4 days later with high grade fever, bacteremia and stent migration? and required yet removal and reposition of the stent . 1/ Sesis d/t infected stent, had temp of 105 and tachycardia on presentation--No severe sepsis, renal failure is chronic and not due to sepsis 2/MRSA bacteremia, Urine culture MRSA, repeat culture still positive,? get another set tomorrow. -old stent removed and new on inserted. vanco trough was 19 on 04/20, next trough in am as per pharmacy -MRI of lumbar spine showing?enhancement in the prevertebral and paravertebral soft tissues between T12 and L2, which may be consistent with evolving phlegmon. T spine MRI:bilateral retrocrural inflammation with fluid collection on the left measuring up to 3.1 cm and on the right measuring up to 1.9 cm-concerning abscesses continue IV vanco , close monitering vanco levels , bmp and electrolytes. MRI finding were discussed with [facility] NeuroSurg yesterday after T -spine mri? and also Lspine MRI on 04/18/21:no indication for intervention( neurosurg KALIE Miller). told radiology to update imgaing inlyla. Patient management discussed with [facility] neurosurgery PA-Shiva Contreras -currently did not recommend any neurosurgical intervention after reviewing images on [facility]. Again discussed with the family that we can offer IR guided drainage of the abscesses but patient and family's declined again today-risks discussed with them in detail-patient condition can get worse including . They only want to continue antibiotic for now and consider reimaging as per Neuro. neuro recomended -continue IV antibiotics, repeat back imaging in 4-5 days. 2.Acute hypoxemic respiratory failure -probably multifactorial Chf excerebation , atelectasis-probable diastolic Does not have any cough sob imrpoving ?echo noted EF is 60-65%, mild or moderate TR bnp 380 -improving to 190. Electrolytes hypokalemia and hypomagnesemia-repleted IV and p.o.. pleural effusions Started on IV Lasix, will consider taper Lasix if hypoxia seems improving moniter i/o cardio eval 3/ CKD 3, stable, monitor and if worse, neophrology follwoing. 4/Diabetes--No Metformin, SSI 5/HTN--stop Losartan due to renal failure, continue atenolol and cardizem, hold Lasix 6/COPD, no exacerbation, continue inhaler 7/Neuropathy--Neurontin 8/HLD--Lipitor 9/Anxiey--Xanax 10GERD--Prilosec 11/Fibromyalgia--Elavil DVT prophylaxis --restartHeparin Quality Stroke Does the patient have a stroke diagnosis?: No VTE Prior VTE?: No VTE Risk Level:: Medical - moderate - high VTE Device Contraindication: Treatment Not Indicated VTE Drug Contraindication: N/A - Med Ordered
[2021-04-21] MEDS: Morphine Sulfate 4 MG/ML CARTRIDGE 2 MG IVPUSH (14:06)
[2021-04-21 16:20] LABS: Potassium 3.6 mmol/L (3.3-5.1)
[2021-04-21 20:47] LABS: Vancomycin Random 15.1 mcg/mL (15-20)
[2021-04-21] MEDS: Atorvastatin Calcium 10 MG TABLET PO (21:14)
[2021-04-21] MEDS: vancomycin HCL 500 MG in 0.9 % Sodium Chloride 100 ML 110 MG IV (21:14)
[2021-04-22] VITALS (10 sets, daily range): BP systolic 113–144; BP diastolic 49–66; PULSE 63–88; RESP 17–18; TEMP 36.2–36.9; O2SAT 92–99
[2021-04-22] MEDS: Heparin Sodium,Porcine 5,000 UNIT/ML VIAL 5000 UNIT SUBCUT ×2 (03:40→17:22)
[2021-04-22 05:41] LABS: Hematocrit 30.1 % (37.0-47.0); Hemoglobin 9.5 g/dl (12.0-16.0); Mean Corpuscular HGB Conc 31.6 g/dl (31.0-35.0); Mean Corpuscular Hemoglobin 27.9 pg (27.0-33.0); Mean Corpuscular Volume 88.3 fL (80.0-98.0); Mean Platelet Volume 10.1 fL (9.4-12.3); Platelet Count 246 X10*3/uL (160-400); Red Blood Count 3.41 X10*6/uL (4.20-5.50); Red Cell Distribution Width 14.2 % (11.0-16.0); White Blood Count 9.8 X10*3/uL (4.8-10.8)
[2021-04-22 06:08] LABS: Anion Gap 12 (12-20); Blood Urea Nitrogen 34 mg/dL (9-16); Calcium 8.7 mg/dL (8.4-10.2); Carbon Dioxide 37 mmol/L (22-29); Chloride 92 mmol/L (96-108); Estimated Glomerular Filt Rate 31; Glucose Random 169 mg/dL (60-115); Potassium 3.4 mmol/L (3.3-5.1); Sodium 138 mmol/L (135-145)
[2021-04-22 06:11] LABS: B Type Natriuretic Peptide 176 pg/mL (<100)
[2021-04-22 06:13] LABS: Creatinine Clr Calc Pharmacy 28.1; Estimated Glomerular Filt Rate 31
[2021-04-22] MEDS: atenoloL 25 MG TABLET PO (09:03)
[2021-04-22] MEDS: dilTIAZem HCL CD 180 MG CAP.ER.24H PO (09:03)
[2021-04-22] MEDS: Carbidopa/Levodopa 25/100 TABLET 1 TAB PO ×2 (09:03→20:07)
[2021-04-22] MEDS: Magnesium Oxide 400 MG TABLET 800 MG PO (09:03)
[2021-04-22] MEDS: Omeprazole 40 MG CAPSULE.DR PO (09:03)
[2021-04-22] MEDS: Furosemide 40 MG TABLET 80 MG PO (09:03)
[2021-04-22] MEDS: 0.9 % Sodium Chloride Flush 3 ML SYRINGE IVFLUSH ×2 (09:04→17:23)
--- NOTE | 2021-04-22 09:07 | PM.UROPN ---
Subjective Subjective Date of Service: 04/22/21 Interval history: Improvement continues today Appetite is returning Imaging shows spinal abscesses are resolving with IV therapy Creatinine is stable Back pain is resolving slowly Cee catheter can be removed today Physical Exam Vital Signs: Vital Signs: Last Vital Signs Temp 98.4 F 04/22/21 07:00 Pulse 70 04/22/21 07:00 Resp 18 04/22/21 07:00 BP 140/57 H 04/22/21 07:00 Pulse Ox 96 04/22/21 07:00 Oxygen Flow Rate 2 04/18/21 14:24 Body Mass Index 27.4 Const: General: cooperative, healthy appearing, comfortable and no acute distress Orientation/consciousness: patient oriented x3 HENMT: Face and sinus: Yes normal facial exam Mouth: moist mucous membranes Neck: Neck: Yes normal visual inspection, Yes full ROM and Yes trachea midline Chest: Chest palpation & inspection: normal inspection of the chest Resp: Effort & Inspection: normal respiratory effort, able to speak in complete sentences and no respiratory distress GI: Inspection: Yes normal to inspection Back/Spine/Pelvis: Cervical Spine: normal cervical lordosis Thoracic/Lumbar Spine: thoracic and lumbar spine normal to inspection Skin: General skin exam: no rashes or lesions noted Neuro: General: patient oriented x3, gait normal, tone normal and moves all extremities Extrem: General: Yes normal to inspection and Yes capillary refill normal Urology Results Labs CBC & Chem 7: 04/22/21 05:20 04/22/21 05:20 Labs: Laboratory Results - last 24 hr 04/21/21 04/21/21 04/22/21 15:47 20:02 05:20 WBC RBC Hgb Hct MCV MCH MCHC RDW Plt Count MPV Absolute Nucleated RBC Nucleated RBC % (auto) Sodium Potassium 3.6 D Chloride Carbon Dioxide Anion Gap BUN Creatinine 1.61 H Estim Creat Clear Calc 28.1 Estimated GFR 31 Random Glucose Calcium B-Natriuretic Peptide Random Vancomycin 15.1 04/22/21 04/22/21 04/22/21 05:20 05:20 05:20 WBC 9.8 RBC 3.41 L Hgb 9.5 L Hct 30.1 L MCV 88.3 MCH 27.9 MCHC 31.6 RDW 14.2 Plt Count 246 MPV 10.1 Absolute Nucleated RBC 0.000 Nucleated RBC % (auto) 0.0 Sodium 138 Potassium 3.4 Chloride 92 L Carbon Dioxide 37 H Anion Gap 12 BUN 34 H Creatinine 1.62 H Estim Creat Clear Calc 28.0 Estimated GFR 31 Random Glucose 169 H Calcium 8.7 D B-Natriuretic Peptide 176 H Random Vancomycin Progress Note: A&P Assessment and plan (1) Ureter, stricture: Status: Acute (2) Sepsis: Status: Acute Assessment and Plan: Cee catheter can be removed today Antibiotics per Infectious Disease Fall Risk Details Current Medications: Current Medications Albuterol/Ipratropium (Albuterol/Iprat 2.5/0.5mg 3 Ml Ampul.Neb) 3 ml INHALE RQ4H WHILE AWAKE [facility] Last Admin: 04/22/21 08:08 Dose: Not Given Documented by: Atenolol (Atenolol 25 Mg Tablet) 25 mg PO DAILY [facility]; Protocol Last Admin: 04/22/21 09:03 Dose: 25 mg Documented by: Atorvastatin Calcium (Atorvastatin Calcium 10 Mg Tablet) 10 mg PO BEDTIME LISANDR[facility] Last Admin: 04/21/21 21:14 Dose: 10 mg Documented by: Carbidopa/Levodopa (Carbidopa/Levodopa 25/100 Tablet) 1 tab PO BID [facility] Last Admin: 04/22/21 09:03 Dose: 1 tab Documented by: Diltiazem HCl (Diltiazem Hcl Cd 180 Mg Cap.Er.24h) 180 mg PO DAILY [facility]; Protocol Last Admin: 04/22/21 09:03 Dose: 180 mg Documented by: Furosemide (Furosemide 40 Mg Tablet) 80 mg PO DAILY [facility]; Protocol Last Admin: 04/22/21 09:03 Dose: 80 mg Documented by: Heparin Sodium (Porcine) (Heparin Sodium,Porcine 5,000 Unit/Ml Vial) 5,000 unit SUBCUT Q12H [facility] Last Admin: 04/22/21 03:40 Dose: 5,000 unit Documented by: Vancomycin HCl 500 mg/ Sodium (Chloride) 110 mls @ 110 mls/hr IV Q24H [facility] Last Infusion: 04/21/21 22:49 Dose: Infused Documented by: Ipratropium [place] (Ipratropium [place] 1 Puff/17 Mcg Inhaler) 2 puff INHALE QID PRN PRN Reason: Shortness Of Breath Or Wheezing Magnesium Oxide (Magnesium Oxide 400 Mg Tablet) 800 mg PO DAILY [facility] Last Admin: 04/22/21 09:03 Dose: 800 mg Documented by: Morphine Sulfate (Morphine Sulfate 4 Mg/Ml Cartridge) 2 mg IVPUSH Q4H PRN; Protocol PRN Reason: Pain, Moderate (Pain Scale 4-6 Last Admin: 04/21/21 14:06 Dose: 2 mg Documented by: Omeprazole (Omeprazole 40 Mg Capsule.Dr) 40 mg PO DAILY [facility] Last Admin: 04/22/21 09:03 Dose: 40 mg Documented by: Ondansetron HCl (Ondansetron Hcl 4 Mg/2 Ml Vial) 4 mg IVPUSH ONCE PRN PRN Reason: Nausea and Vomiting Last Admin: 04/17/21 11:42 Dose: 4 mg Documented by: Ondansetron HCl (Ondansetron Odt 4 Mg Tab.Rapdis) 4 mg TRANSLINGU Q6H PRN PRN Reason: Nausea Last Admin: 04/15/21 13:03 Dose: 4 mg Documented by: Pharmacy Consult (Consult Rx Perform Med Rec) 1 each MISCELLANE ONCE PRN PRN Reason: Consult order Pharmacy Consult (Consult Rx Vancomycin Dosing) 1 each MISCELLANE DAILY PRN PRN Reason: Consult order Sodium Chloride (0.9 % Sodium Chloride Flush 3 Ml Syringe) 3 ml IVFLUSH QSHIFT [facility] Last Admin: 04/22/21 09:04 Dose: 3 ml Documented by: Time Spent With Patient Time: Total time spent is greater than 50% in coordination of care (as documented) at patient's floor/unit and/or counseling patient: Time with patient: less than 15 minutes No Severe Sepsis: No Severe Sepsis Progress Note: Quality Stroke Does the patient have a stroke diagnosis?: No
[2021-04-22] MEDS: Albuterol/Iprat 2.5/0.5MG 3 ML AMPUL.NEB INHALE ×3 (11:45→20:14)
[2021-04-22] MEDS: Morphine Sulfate 4 MG/ML CARTRIDGE 2 MG IVPUSH (12:18)
--- NOTE | 2021-04-22 13:43 | P.PNIM_ITS ---
Subjective Subjective Date of Service: 04/22/21 Interval History: ?MRSA bacteremia,bilateral retrocrural inflammation with fluid collection - concerning for abscesses. Review of Systems Denies any cough or new complaint of chest pain or abdominal pain or fever or chills or nausea or vomitingor weakness or numbness. sob seems slightly improving back pain slightly improving Physical Exam Vital Signs: Vital Signs: Last Vital Signs Temp 97.6 F 04/22/21 11:00 Pulse 63 04/22/21 11:00 Resp 18 04/22/21 11:00 BP 133/58 L 04/22/21 11:00 Pulse Ox 99 04/22/21 11:00 Oxygen Flow Rate 2 04/18/21 14:24 Body Mass Index 27.4 AO X 3, in pain Resp:?air entry improving CVS: S1,S2,RRR GI: +BS, NT, no distention, soft. Skin: No rash or cyanosis, trace edema Neuro:? motor grossly intact motor function in lower extremity,could able to examine back-lower throacic spine area mild pain, no flacuatation palpable . no bowel and bladder incontinence as per patient/staff. Psych: appropriate affec Objective Data Active Medications Albuterol/Ipratropium (Albuterol/Iprat 2.5/0.5mg 3 Ml Ampul.Neb) 3 ml INHALE RQ4H WHILE [facility]KE [facility] Last Admin: 04/22/21 11:45 Dose: 3 ml Documented by: RYAN Atenolol (Atenolol 25 Mg Tablet) 25 mg PO DAILY [facility]; Protocol Last Admin: 04/22/21 09:03 Dose: 25 mg Documented by: MELINDA Atorvastatin Calcium (Atorvastatin Calcium 10 Mg Tablet) 10 mg PO BEDTIME [facility] Last Admin: 04/21/21 21:14 Dose: 10 mg Documented by: LG Carbidopa/Levodopa (Carbidopa/Levodopa 25/100 Tablet) 1 tab PO BID [facility] Last Admin: 04/22/21 09:03 Dose: 1 tab Documented by: MELINDA Diltiazem HCl (Diltiazem Hcl Cd 180 Mg Cap.Er.24h) 180 mg PO DAILY [facility]; Protocol Last Admin: 04/22/21 09:03 Dose: 180 mg Documented by: MELINDA Furosemide (Furosemide 40 Mg Tablet) 80 mg PO DAILY [facility]; Protocol Last Admin: 04/22/21 09:03 Dose: 80 mg Documented by: MELINDA Heparin Sodium (Porcine) (Heparin Sodium,Porcine 5,000 Unit/Ml Vial) 5,000 unit SUBCUT Q12H [facility] Last Admin: 04/22/21 03:40 Dose: 5,000 unit Documented by: LG Vancomycin HCl 500 mg/ Sodium (Chloride) 110 mls @ 110 mls/hr IV Q24H [facility] Last Infusion: 04/21/21 22:49 Dose: 0 mls/hr Documented by: LG Ipratropium [place] (Ipratropium [place] 1 Puff/17 Mcg Inhaler) 2 puff INHALE QID PRN PRN Reason: Shortness Of Breath Or Wheezing Magnesium Oxide (Magnesium Oxide 400 Mg Tablet) 800 mg PO DAILY [facility] Last Admin: 04/22/21 09:03 Dose: 800 mg Documented by: MELINDA Morphine Sulfate (Morphine Sulfate 4 Mg/Ml Cartridge) 2 mg IVPUSH Q4H PRN; Protocol PRN Reason: Pain, Moderate (Pain Scale 4-6 Last Admin: 04/22/21 12:18 Dose: 2 mg Documented by: MELINDA Omeprazole (Omeprazole 40 Mg Capsule.Dr) 40 mg PO DAILY [facility] Last Admin: 04/22/21 09:03 Dose: 40 mg Documented by: MELINDA Ondansetron HCl (Ondansetron Hcl 4 Mg/2 Ml Vial) 4 mg IVPUSH ONCE PRN PRN Reason: Nausea and Vomiting Last Admin: 04/17/21 11:42 Dose: 4 mg Documented by: JULIANE Ondansetron HCl (Ondansetron Odt 4 Mg Tab.Rapdis) 4 mg TRANSLINGU Q6H PRN PRN Reason: Nausea Last Admin: 04/15/21 13:03 Dose: 4 mg Documented by: FARHANA Pharmacy Consult (Consult Rx Perform Med Rec) 1 each MISCELLANE ONCE PRN PRN Reason: Consult order Pharmacy Consult (Consult Rx Vancomycin Dosing) 1 each MISCELLANE DAILY PRN PRN Reason: Consult order Sodium Chloride (0.9 % Sodium Chloride Flush 3 Ml Syringe) 3 ml IVFLUSH QSHIFT [facility] Last Admin: 04/22/21 09:04 Dose: 3 ml Documented by: MELINDA Tramadol HCl (Tramadol Hcl 50 Mg Tablet) 25 mg PO Q6H PRN PRN Reason: Pain, Mild (Pain Scale 1-3) Labs CBC & Chem 7: 04/22/21 05:20 04/22/21 05:20 Labs: Laboratory Results - last 24 hr 04/21/21 04/22/21 04/22/21 20:02 05:20 05:20 MCV 88.3 MCH 27.9 MCHC 31.6 RDW 14.2 Plt Count 246 MPV 10.1 Absolute Nucleated RBC 0.000 Nucleated RBC % (auto) 0.0 Anion Gap Estim Creat Clear Calc 28.1 Estimated GFR 31 Random Glucose Calcium B-Natriuretic Peptide Random Vancomycin 15.1 04/22/21 04/22/21 05:20 05:20 MCV MCH MCHC RDW Plt Count MPV Absolute Nucleated RBC Nucleated RBC % (auto) Anion Gap 12 Estim Creat Clear Calc 28.0 Estimated GFR 31 Random Glucose 169 H Calcium 8.7 D B-Natriuretic Peptide 176 H Random Vancomycin Assessment and Plan (1) CHF (congestive heart failure): Status: Acute (2) Bacteremia: Status: Acute (3) Sepsis: Status: Acute Assessment and Plan: 80 female with? with COPD, history of bladder cancer with history obstructive distal ureter causing right hydronephrosis and has required multiple stent, most recent 5 days ago and came just 4 days later with high grade fever, bacteremia and stent migration? and required yet removal and reposition of the stent . 1/ Sesis d/t infected stent, had temp of 105 and tachycardia on presentation--No severe sepsis, renal failure is chronic and not due to sepsis 2/MRSA bacteremia, Urine culture MRSA, repeat culture still positive,? get another set tomorrow. -old stent removed and new on inserted. vanco trough was 19 on 04/20, next trough in am as per pharmacy -MRI of lumbar spine showing?enhancement in the prevertebral and paravertebral soft tissues between T12 and L2, which may be consistent with evolving phlegmon. T spine MRI:bilateral retrocrural inflammation with fluid collection on the left measuring up to 3.1 cm and on the right measuring up to 1.9 cm-concerning abscesses continue IV vanco , close monitering vanco levels , bmp and electrolytes. MRI finding were discussed with [facility] yesterday after T -spine mri? and also Lspine MRI on 04/18/21:no indication for intervention( neurosurg KALIE Miller). told radiology to update imgaing inlyla. Patient management discussed with [facility] neurosurgery KALIE-Shiva Contreras - currently did not recommend any neurosurgical intervention after reviewing images on [place]. Again discussed with the family that we can offer IR guided drainage of the abscesses but patient and family's declined again today-risks discussed with them in detail-patient condition can get worse including . They only want to continue antibiotic for now and consider reimaging as per Neuro. neuro recomended -continue IV antibiotics, repeat back imaging in 4-5 days-next mri around 04/24 2.Acute hypoxemic respiratory failure -probably multifactorial Chf excerebation , atelectasis-probable diastolic Does not have any cough sob imrpoving ?echo noted EF is 60-65%, mild or moderate TR bnp 380 -improving to 190. Electrolytes hypokalemia and hypomagnesemia-repleted IV and p.o.. pleural effusions will switch to po lasix, hypoxia and oxygen demand improving. Does not appear to be significantly of fluid overloaded. moniter i/o cardio eval noted. 3/ CKD 3, stable, monitor and if worse, neophrology follwoing. 4/Diabetes--No Metformin, SSI 5/HTN--stop Losartan due to renal failure, continue atenolol and cardizem, hold Lasix 6/COPD, no exacerbation, continue inhaler 7/Neuropathy--Neurontin 8/HLD--Lipitor 9/Anxiey--Xanax 10GERD--Prilosec 11/Fibromyalgia--Elavil DVT prophylaxis --restartHeparin Quality Stroke Does the patient have a stroke diagnosis?: No VTE Prior VTE?: No VTE Risk Level:: Medical - moderate - high VTE Device Contraindication: Treatment Not Indicated VTE Drug Contraindication: N/A - Med Ordered
--- NOTE | 2021-04-22 15:31 | MHC.CM.PN ---
EMR REVIEWED, PT 2ND SET OF BC'S POSITIVE FOR MRSA BACTEREMIA, PT REMAINS ON IV VANCO, BC'S WILL BE REDRAWN TOMORROW 04/23/21, PER HOSPITALIST PT WILL HAVE REPEAT MRI ON SUNDAY, [facility] NEUROS[facility]ERY CONSULTED AND NO INTERVENTION AT THIS TIME, PT & FAMILY DECLINING IR DRAINAGE OF SPINAL ABSCESS. NO D/C PLANNED AT THIS TIME. CM MET W/PT WHO REPORTS HER PLAN CONT'S TO BE HOME W/SERVICES.
[2021-04-22] MEDS: Atorvastatin Calcium 10 MG TABLET PO (20:07)
[2021-04-22 20:25] LABS: Vancomycin Random 13.7 mcg/mL (15-20)
[2021-04-22] MEDS: vancomycin HCL 750 MG in 0.9 % Sodium Chloride 250 ML 265 MG IV (21:57)
[2021-04-23] VITALS (8 sets, daily range): BP systolic 109–138; BP diastolic 48–62; PULSE 56–64; RESP 17–20; TEMP 35.5–36.7; O2SAT 91–97
[2021-04-23] MEDS: Heparin Sodium,Porcine 5,000 UNIT/ML VIAL 5000 UNIT SUBCUT ×2 (04:05→16:50)
[2021-04-23 06:02] LABS: Creatinine Clr Calc Pharmacy 29.5; Estimated Glomerular Filt Rate 32
[2021-04-23] MEDS: dilTIAZem HCL CD 180 MG CAP.ER.24H PO (09:48)
[2021-04-23] MEDS: Omeprazole 40 MG CAPSULE.DR PO (09:48)
[2021-04-23] MEDS: Magnesium Oxide 400 MG TABLET 800 MG PO (09:49)
[2021-04-23] MEDS: Carbidopa/Levodopa 25/100 TABLET 1 TAB PO ×2 (09:49→21:38)
[2021-04-23] MEDS: Furosemide 40 MG TABLET 80 MG PO (09:49)
[2021-04-23] MEDS: atenoloL 25 MG TABLET PO (09:49)
[2021-04-23] MEDS: 0.9 % Sodium Chloride Flush 3 ML SYRINGE IVFLUSH ×2 (09:49→16:50)
[2021-04-23] MEDS: traMADoL HCL 50 MG TABLET 25 MG PO (10:49)
[2021-04-23] MEDS: Loperamide HCl 2 MG CAPSULE PO (10:50)
[2021-04-23] MEDS: Albuterol/Iprat 2.5/0.5MG 3 ML AMPUL.NEB INHALE ×2 (11:27→19:41)
--- NOTE | 2021-04-23 13:41 | P.PNIM_ITS ---
Subjective Subjective Date of Service: 04/23/21 Interval History: MRSA bacteremia,bilateral retrocrural inflammation with fluid collection - concerning for abscesse Review of Systems back apin seems improving , moving lower extremity slightly better today Denies any chest pain or shortness of breath or abdominal pain or fever. Physical Exam Vital Signs: Vital Signs: Last Vital Signs Temp 98 F 04/23/21 11:00 Pulse 56 04/23/21 11:00 Resp 19 04/23/21 11:00 BP 116/55 L 04/23/21 11:00 Pulse Ox 97 04/23/21 11:00 Oxygen Flow Rate 2 04/18/21 14:24 Body Mass Index 27.4 Physical exam: AO X 3, in pain Resp:?air entry improving CVS: S1,S2,RRR GI: +BS, NT, no distention, soft. Skin: No rash or cyanosis, trace edema Neuro:? motor grossly intact motor function in lower extremity,could able to examine back-lower throacic spine area pain seems slightly better, no flacuatation palpable . no bowel and bladder incontinence as per patient/staff. Psych: appropriate affec Objective Data Active Medications Albuterol/Ipratropium (Albuterol/Iprat 2.5/0.5mg 3 Ml Ampul.Neb) 3 ml INHALE RQ4H WHILE AWAKE [facility] Last Admin: 04/23/21 11:27 Dose: 3 ml Documented by: YRAN Atenolol (Atenolol 25 Mg Tablet) 25 mg PO DAILY [facility]; Protocol Last Admin: 04/23/21 09:49 Dose: 25 mg Documented by: MELINDA Atorvastatin Calcium (Atorvastatin Calcium 10 Mg Tablet) 10 mg PO BEDTIME [facility] Last Admin: 04/22/21 20:07 Dose: 10 mg Documented by: LILI Carbidopa/Levodopa (Carbidopa/Levodopa 25/100 Tablet) 1 tab PO BID [facility] Last Admin: 04/23/21 09:49 Dose: 1 tab Documented by: MELINDA Diltiazem HCl (Diltiazem Hcl Cd 180 Mg Cap.Er.24h) 180 mg PO DAILY [facility]; Protocol Last Admin: 04/23/21 09:48 Dose: 180 mg Documented by: MELINDA Furosemide (Furosemide 40 Mg Tablet) 80 mg PO DAILY [facility]; Protocol Last Admin: 04/23/21 09:49 Dose: 80 mg Documented by: MELINDA Heparin Sodium (Porcine) (Heparin Sodium,Porcine 5,000 Unit/Ml Vial) 5,000 unit SUBCUT Q12H [facility] Last Admin: 04/23/21 04:05 Dose: 5,000 unit Documented by: LILI Vancomycin HCl 750 mg/ Sodium (Chloride) 265 mls @ 265 mls/hr IV Q24H [facility] Last Infusion: 04/22/21 23:14 Dose: 0 mls/hr Documented by: LILI Ipratropium [place] (Ipratropium [place] 1 Puff/17 Mcg Inhaler) 2 puff INHALE QID PRN PRN Reason: Shortness Of Breath Or Wheezing Magnesium Oxide (Magnesium Oxide 400 Mg Tablet) 800 mg PO DAILY [facility] Last Admin: 04/23/21 09:49 Dose: 800 mg Documented by: MELINDA Morphine Sulfate (Morphine Sulfate 4 Mg/Ml Cartridge) 2 mg IVPUSH Q4H PRN; Protocol PRN Reason: Pain, Moderate (Pain Scale 4-6 Last Admin: 04/22/21 12:18 Dose: 2 mg Documented by: MELINDA Omeprazole (Omeprazole 40 Mg Capsule.Dr) 40 mg PO DAILY [facility] Last Admin: 04/23/21 09:48 Dose: 40 mg Documented by: MELINDA Ondansetron HCl (Ondansetron Hcl 4 Mg/2 Ml Vial) 4 mg IVPUSH ONCE PRN PRN Reason: Nausea and Vomiting Last Admin: 04/17/21 11:42 Dose: 4 mg Documented by: JULIANE Ondansetron HCl (Ondansetron Odt 4 Mg Tab.Rapdis) 4 mg TRANSLINGU Q6H PRN PRN Reason: Nausea Last Admin: 04/15/21 13:03 Dose: 4 mg Documented by: FARHANA Pharmacy Consult (Consult Rx Perform Med Rec) 1 each MISCELLANE ONCE PRN PRN Reason: Consult order Pharmacy Consult (Consult Rx Vancomycin Dosing) 1 each MISCELLANE DAILY PRN PRN Reason: Consult order Sodium Chloride (0.9 % Sodium Chloride Flush 3 Ml Syringe) 3 ml IVFLUSH QSHIFT [facility] Last Admin: 04/23/21 09:49 Dose: 3 ml Documented by: MELINDA Tramadol HCl (Tramadol Hcl 50 Mg Tablet) 25 mg PO Q6H PRN PRN Reason: Pain, Mild (Pain Scale 1-3) Last Admin: 04/23/21 10:49 Dose: 25 mg Documented by: MELINDA Labs CBC & Chem 7: 04/22/21 05:20 04/23/21 05:36 Labs: Laboratory Results - last 24 hr 04/22/21 04/23/21 19:47 05:36 Estim Creat Clear Calc 29.5 Estimated GFR 32 Random Vancomycin 13.7 L Assessment and Plan (1) CHF (congestive heart failure): Status: Acute (2) Sepsis: Status: Acute Assessment and Plan: 80 female with? with COPD, history of bladder cancer with history obstructive distal ureter causing right hydronephrosis and has required multiple stent, most recent 5 days ago and came just 4 days later with high grade fever, bacteremia and stent migration? and required yet removal and reposition of the stent . 1/ Sesis d/t infected stent, had temp of 105 and tachycardia on presentation--No severe sepsis, renal failure is chronic and not due to sepsis 2/MRSA bacteremia, Urine culture MRSA , repeat culture still positive mrsa,? added another set blood culture today. -old stent removed and new on inserted. vanco trough was 13.7 on 04/22, next trough in am as per pharmacy -MRI of lumbar spine showing?enhancement in the prevertebral and paravertebral soft tissues between T12 and L2, which may be consistent with evolving phlegmon. T spine MRI:bilateral retrocrural inflammation with fluid collection on the left measuring up to 3.1 cm and on the right measuring up to 1.9 cm-concerning abscesses continue IV vanco , close monitering vanco levels , bmp and electrolytes. MRI finding were discussed with [facility] NeuroSurg yesterday after T -spine mri? and also Lspine MRI on 04/18/21:no indication for intervention( neurosurg KALIE Miller). told radiology to update imgaing [place]. echo: normal LV function Normal LV systolic function with impaired relaxation ? ? ? filling pattern? 2. Mildly dilated left atrium? 3. Cardiac valves not well visualized and vegetations cannot be? entirely ruled out on this study ? 4. [id number] tricuspid regurgitation with mildly elevated right ventricular systolic pressure? Patient management discussed with [facility] neurosurgery PA-Shiva Contreras - currently did not recommend any neurosurgical intervention after reviewing images on [place]. Again discussed with the family that we can offer IR guided drainage of the abscesses but patient and family's declined again today-risks discussed with them in detail-patient condition can get worse including . They only want to continue antibiotic for now and consider reimaging as per Neuro. neuro recomended -continue IV antibiotics, repeat back imaging in 4-5 days-next? mri around 04/24 2.Acute hypoxemic respiratory failure -probably multifactorial Chf excerebation , atelectasis-probable diastolic Does not have any cough sob imrpoving ?echo noted EF is 60-65%, mild or moderate TR bnp 380 -improving to 190. Electrolytes hypokalemia and hypomagnesemia-repleted IV and p.o.. pleural effusions will switch to po lasix, hypoxia and oxygen demand improving.? Does not appear to be significantly of fluid overloaded. moniter i/o cardio eval noted. 3/ CKD 3, stable, monitor and if worse, neophrology follwoing. 4/Diabetes--No Metformin, SSI 5/HTN--stop Losartan due to renal failure, continue atenolol and cardizem, hold Lasix 6/COPD, no exacerbation, continue inhaler 7/Neuropathy--Neurontin 8/HLD--Lipitor 9/Anxiey--Xanax 10GERD--Prilosec 11/Fibromyalgia--Elavil DVT prophylaxis - s/cHeparin Above management discussed with patient family in detail length. Currently will continue antibiotic management and repeat imaging study MRI of the lumbar spine on04/24 if clinical condition worsen before then may need to repeat mri earlier. Quality Stroke Does the patient have a stroke diagnosis?: No VTE Prior VTE?: No VTE Risk Level:: Medical - moderate - high VTE Device Contraindication: Treatment Not Indicated VTE Drug Contraindication: N/A - Med Ordered
[2021-04-23 20:30] LABS: Vancomycin Random 16.4 mcg/mL (15-20)
[2021-04-23] MEDS: vancomycin HCL 750 MG in 0.9 % Sodium Chloride 250 ML 265 MG IV (21:38)
[2021-04-23] MEDS: Atorvastatin Calcium 10 MG TABLET PO (21:38)
[2021-04-24] VITALS (12 sets, daily range): BP systolic 104–127; BP diastolic 47–56; PULSE 58–86; RESP 18–20; TEMP 35.5–37.7; O2SAT 89–98
[2021-04-24] MEDS: 0.9 % Sodium Chloride Flush 3 ML SYRINGE IVFLUSH ×4 (01:05→23:12)
[2021-04-24] MEDS: Morphine Sulfate 4 MG/ML CARTRIDGE 2 MG IVPUSH (01:12)
[2021-04-24] MEDS: traMADoL HCL 50 MG TABLET 25 MG PO ×2 (03:26→13:54)
[2021-04-24] MEDS: Heparin Sodium,Porcine 5,000 UNIT/ML VIAL 5000 UNIT SUBCUT ×2 (03:26→13:45)
[2021-04-24] MEDS: Ondansetron ODT 4 MG TAB.RAPDIS TRANSLINGU (06:04)
[2021-04-24 06:13] LABS: Creatinine Clr Calc Pharmacy 29.1; Estimated Glomerular Filt Rate 32
[2021-04-24] MEDS: Omeprazole 40 MG CAPSULE.DR PO (09:29)
[2021-04-24] MEDS: Furosemide 40 MG TABLET 80 MG PO (09:29)
[2021-04-24] MEDS: Carbidopa/Levodopa 25/100 TABLET 1 TAB PO ×2 (09:30→21:55)
[2021-04-24] MEDS: atenoloL 25 MG TABLET PO (09:30)
[2021-04-24] MEDS: dilTIAZem HCL CD 180 MG CAP.ER.24H PO (09:30)
[2021-04-24] MEDS: Magnesium Oxide 400 MG TABLET 800 MG PO (09:30)
--- NOTE | 2021-04-24 10:04 | HO.PM.IMPN ---
Subjective Subjective Date of Service: 04/24/21 Interval History: mrsa bactermia , bilateral retrocrural inflammation with fluid collection - concerning for abscesse Review of Systems , moving lower extremity slightly better than yesterday,back pain seems improving than yesterday sob improved , off oxygen Denies any chest pain or abdominal pain or fever. Physical Exam Vital Signs: Vital Signs: Last Vital Signs Temp 96 F L 04/24/21 07:11 Pulse 75 04/24/21 07:11 Resp 20 04/24/21 07:11 BP 117/55 L 04/24/21 07:11 Pulse Ox 91 L 04/24/21 07:11 Oxygen Flow Rate 2 04/18/21 14:24 Body Mass Index 27.4 AO X 3, in pain Resp:?air entry improving CVS: S1,S2,RRR GI: +BS, NT, no distention, soft. Skin: No rash or cyanosis, trace edema Neuro:? motor grossly intact motor function in lower extremity,could able to examine back-lower throacic spine area pain seems slightly better, no flacuatation palpable . no bowel and bladder incontinence as per patient/staff. Psych: appropriate affec Objective Data Active Medications Albuterol/Ipratropium (Albuterol/Iprat 2.5/0.5mg 3 Ml Ampul.Neb) 3 ml INHALE RQ4H WHILE AWAKE [facility] Last Admin: 04/24/21 07:40 Dose: Not Given Documented by: RYAN Non-Admin Reason: Patient Refused Atenolol (Atenolol 25 Mg Tablet) 25 mg PO DAILY [facility]; Protocol Last Admin: 04/24/21 09:30 Dose: 25 mg Documented by: MELINDA Atorvastatin Calcium (Atorvastatin Calcium 10 Mg Tablet) 10 mg PO BEDTIME [facility] Last Admin: 04/23/21 21:38 Dose: 10 mg Documented by: SURY Carbidopa/Levodopa (Carbidopa/Levodopa 25/100 Tablet) 1 tab PO BID [facility] Last Admin: 04/24/21 09:30 Dose: 1 tab Documented by: MELINDA Diltiazem HCl (Diltiazem Hcl Cd 180 Mg Cap.Er.24h) 180 mg PO DAILY [facility]; Protocol Last Admin: 04/24/21 09:30 Dose: 180 mg Documented by: MELINDA Furosemide (Furosemide 40 Mg Tablet) 80 mg PO DAILY [facility]; Protocol Last Admin: 04/24/21 09:29 Dose: 80 mg Documented by: MELINDA Heparin Sodium (Porcine) (Heparin Sodium,Porcine 5,000 Unit/Ml Vial) 5,000 unit SUBCUT Q12H [facility] Last Admin: 04/24/21 03:26 Dose: 5,000 unit Documented by: GRAY Vancomycin HCl 750 mg/ Sodium (Chloride) 265 mls @ 265 mls/hr IV Q24H [facility] Last Infusion: 04/23/21 22:44 Dose: 0 mls/hr Documented by: SURY Ipratropium [place] (Ipratropium [place] 1 Puff/17 Mcg Inhaler) 2 puff INHALE QID PRN PRN Reason: Shortness Of Breath Or Wheezing Magnesium Oxide (Magnesium Oxide 400 Mg Tablet) 800 mg PO DAILY [facility] Last Admin: 04/24/21 09:30 Dose: 800 mg Documented by: MELINDA Morphine Sulfate (Morphine Sulfate 4 Mg/Ml Cartridge) 2 mg IVPUSH Q4H PRN; Protocol PRN Reason: Pain, Moderate (Pain Scale 4-6 Last Admin: 04/24/21 01:12 EDT Dose: 2 mg Documented by: GRAY Omeprazole (Omeprazole 40 Mg Capsule.Dr) 40 mg PO DAILY [facility] Last Admin: 04/24/21 09:29 Dose: 40 mg Documented by: MELINDA Ondansetron HCl (Ondansetron Hcl 4 Mg/2 Ml Vial) 4 mg IVPUSH ONCE PRN PRN Reason: Nausea and Vomiting Last Admin: 04/17/21 11:42 Dose: 4 mg Documented by: JULIANE Ondansetron HCl (Ondansetron Odt 4 Mg Tab.Rapdis) 4 mg TRANSLINGU Q6H PRN PRN Reason: Nausea Last Admin: 04/24/21 06:04 Dose: 4 mg Documented by: GRAY Pharmacy Consult (Consult Rx Perform Med Rec) 1 each MISCELLANE ONCE PRN PRN Reason: Consult order Pharmacy Consult (Consult Rx Vancomycin Dosing) 1 each MISCELLANE DAILY PRN PRN Reason: Consult order Sodium Chloride (0.9 % Sodium Chloride Flush 3 Ml Syringe) 3 ml IVFLUSH QSHIFT [facility] Last Admin: 04/24/21 09:30 Dose: 3 ml Documented by: MELINDA Tramadol HCl (Tramadol Hcl 50 Mg Tablet) 25 mg PO Q6H PRN PRN Reason: Pain, Mild (Pain Scale 1-3) Last Admin: 04/24/21 03:26 Dose: 25 mg Documented by: GRAY Labs CBC & Chem 7: 04/22/21 05:20 04/24/21 05:41 Labs: Laboratory Results - last 24 hr 04/23/21 04/24/21 20:00 05:41 Estim Creat Clear Calc 29.1 Estimated GFR 32 Random Vancomycin 16.4 Assessment and Plan (1) CHF (congestive heart failure): Status: Acute (2) Sepsis: Status: Acute (3) MRSA bacteremia: Status: Acute Assessment and Plan: 80 female with? with COPD, history of bladder cancer with history obstructive distal ureter causing right hydronephrosis and has required multiple stent, most recent 5 days ago and came just 4 days later with high grade fever, bacteremia and stent migration? and required yet removal and reposition of the stent . 1/ Sesis d/t infected stent, had temp of 105 and tachycardia on presentation--No severe sepsis, renal failure is chronic and not due to sepsis 2/MRSA bacteremia, Urine culture MRSA , repeat culture still positive mrsa,? added another set blood culture -1/2 positive gram positive cocci. -old stent removed and new on inserted. vanco trough was 16.4on 04/23, next trough in am as per pharmacy -MRI of lumbar spine showing?enhancement in the prevertebral and paravertebral soft tissues between T12 and L2, which may be consistent with evolving phlegmon. T spine MRI:bilateral retrocrural inflammation with fluid collection on the left measuring up to 3.1 cm and on the right measuring up to 1.9 cm-concerning abscesses continue IV vanco , close monitering vanco levels , bmp and electrolytes. MRI finding were discussed with [facility] NeuroSurg yesterday after T -spine mri? and also Lspine MRI on 04/18/21:no indication for intervention( neurosurg KALIE Miller). told radiology to update imgaing in [place]. ? echo noted EF is 60-65%, mild or moderate TR, patient and family declined WILLIAM. Patient management discussed with [facility] neurosurgery KALIE-Shiva Contreras -currently did not recommend any neurosurgical intervention after reviewing images on [place]. Again discussed with the family that we can offer IR guided drainage of the abscesses but patient and family's declined again today-risks discussed with them in detail-patient condition can get worse including . They only want to continue antibiotic for now and consider reimaging as per Neuro. neuro recomended -continue IV antibiotics, repeat back imaging in 4-5 days-next? mri tomorrow ( after discussion with patient she wants tomorrow). 2.Acute hypoxemic respiratory failure -probably multifactorial Chf excerebation , atelectasis-probable diastolic Does not have any cough sob imrpoving ?echo noted EF is 60-65%, mild or moderate TR, patient and family declined WILLIAM. bnp 380 -improving to 190. Electrolytes hypokalemia and hypomagnesemia-repleted IV and p.o.. pleural effusions will switch to po lasix, hypoxia and oxygen demand improving.? Does not appear to be significantly of fluid overloaded. moniter i/o cardio eval noted. 3/ CKD 3, stable, monitor and if worse, neophrology follwoing. 4/Diabetes--No Metformin, SSI 5/HTN--stop Losartan due to renal failure, continue atenolol and cardizem, hold Lasix 6/COPD, no exacerbation, continue inhaler 7/Neuropathy--Neurontin 8/HLD--Lipitor 9/Anxiey--Xanax 10GERD--Prilosec 11/Fibromyalgia--Elavil DVT prophylaxis - s/cHeparin Above management discussed with patient family in detail length.? Currently will continue antibiotic management and repeat imaging study MRI of the lumbar spine on04/24 if clinical condition worsen before then may need to repeat? mri earlier. Quality Stroke Does the patient have a stroke diagnosis?: No VTE Prior VTE?: No VTE Risk Level:: Medical - moderate - high VTE Device Contraindication: Treatment Not Indicated VTE Drug Contraindication: N/A - Med Ordered
[2021-04-24] MEDS: Albuterol/Iprat 2.5/0.5MG 3 ML AMPUL.NEB INHALE ×3 (11:07→20:32)
--- NOTE | 2021-04-24 21:30 | P.PNUR_ITS ---
Subjective Subjective Date of Service: 04/24/21 Interval history: Continue improvement Increased energy Better appetite Creatinine 1.56, WBC 9.8 Course of antibiotic therapy to be determined by imaging response and Infectious Disease Physical Exam Vital Signs: Vital Signs: Last Vital Signs Temp 99.8 F 04/24/21 19:20 Pulse 63 04/24/21 20:34 Resp 18 04/24/21 19:20 BP 121/47 L 04/24/21 19:20 Pulse Ox 98 04/24/21 19:20 Oxygen Flow Rate 2 04/18/21 14:24 Body Mass Index 27.4 Const: General: cooperative, healthy appearing, comfortable and no acute distress Orientation/consciousness: patient oriented x3 HENMT: Face and sinus: Yes normal facial exam Mouth: moist mucous membranes Neck: Neck: Yes normal visual inspection, Yes full ROM and Yes trachea midline Chest: Chest palpation & inspection: normal inspection of the chest Resp: Effort & Inspection: normal respiratory effort, able to speak in complete sentences and no respiratory distress GI: Inspection: Yes normal to inspection Back/Spine/Pelvis: Cervical Spine: normal cervical lordosis Thoracic/Lumbar Spine: thoracic and lumbar spine normal to inspection Skin: General skin exam: no rashes or lesions noted Neuro: General: patient oriented x3, gait normal, tone normal and moves all extremities Extrem: General: Yes normal to inspection and Yes capillary refill normal Urology Results Labs CBC & Chem 7: 04/22/21 05:20 04/24/21 05:41 Labs: Laboratory Results - last 24 hr 04/24/21 05:41 Creatinine 1.56 H Estim Creat Clear Calc 29.1 Estimated GFR 32 Progress Note: A&P Assessment and plan (1) MRSA bacteremia: Status: Acute (2) Discitis thoracic region: Status: Acute (3) Psoas abscess, right: Status: Acute Assessment and Plan: Slowly resolving retrocrural abscess and lumbar discitis Antibiotic management per ID Fall Risk Details Current Medications: Current Medications Albuterol/Ipratropium (Albuterol/Iprat 2.5/0.5mg 3 Ml Ampul.Neb) 3 ml INHALE RQ4H WHILE AWAKE [facility] Last Admin: 04/24/21 20:32 Dose: 3 ml Documented by: Atenolol (Atenolol 25 Mg Tablet) 25 mg PO DAILY [facility]; Protocol Last Admin: 04/24/21 09:30 Dose: 25 mg Documented by: Atorvastatin Calcium (Atorvastatin Calcium 10 Mg Tablet) 10 mg PO BEDTIME [facility] Last Admin: 04/23/21 21:38 Dose: 10 mg Documented by: Carbidopa/Levodopa (Carbidopa/Levodopa 25/100 Tablet) 1 tab PO BID [facility] Last Admin: 04/24/21 09:30 Dose: 1 tab Documented by: Diltiazem HCl (Diltiazem Hcl Cd 180 Mg Cap.Er.24h) 180 mg PO DAILY [facility]; Protocol Last Admin: 04/24/21 09:30 Dose: 180 mg Documented by: Furosemide (Furosemide 40 Mg Tablet) 80 mg PO DAILY [facility]; Protocol Last Admin: 04/24/21 09:29 Dose: 80 mg Documented by: Heparin Sodium (Porcine) (Heparin Sodium,Porcine 5,000 Unit/Ml Vial) 5,000 unit SUBCUT Q12H [facility] Last Admin: 04/24/21 13:45 Dose: 5,000 unit Documented by: Vancomycin HCl 750 mg/ Sodium (Chloride) 265 mls @ 265 mls/hr IV Q24H [facility] Last Infusion: 04/23/21 22:44 Dose: Infused Documented by: Ipratropium [place] (Ipratropium [place] 1 Puff/17 Mcg Inhaler) 2 puff INHALE QID PRN PRN Reason: Shortness Of Breath Or Wheezing Magnesium Oxide (Magnesium Oxide 400 Mg Tablet) 800 mg PO DAILY [facility] Last Admin: 04/24/21 09:30 Dose: 800 mg Documented by: Morphine Sulfate (Morphine Sulfate 4 Mg/Ml Cartridge) 2 mg IVPUSH Q4H PRN; Protocol PRN Reason: Pain, Moderate (Pain Scale 4-6 Last Admin: 04/24/21 01:12 EDT Dose: 2 mg Documented by: Omeprazole (Omeprazole 40 Mg Capsule.Dr) 40 mg PO DAILY [facility] Last Admin: 04/24/21 09:29 Dose: 40 mg Documented by: Ondansetron HCl (Ondansetron Hcl 4 Mg/2 Ml Vial) 4 mg IVPUSH ONCE PRN PRN Reason: Nausea and Vomiting Last Admin: 04/17/21 11:42 Dose: 4 mg Documented by: Ondansetron HCl (Ondansetron Odt 4 Mg Tab.Rapdis) 4 mg TRANSLINGU Q6H PRN PRN Reason: Nausea Last Admin: 04/24/21 06:04 Dose: 4 mg Documented by: Pharmacy Consult (Consult Rx Perform Med Rec) 1 each MISCELLANE ONCE PRN PRN Reason: Consult order Pharmacy Consult (Consult Rx Vancomycin Dosing) 1 each MISCELLANE DAILY PRN PRN Reason: Consult order Sodium Chloride (0.9 % Sodium Chloride Flush 3 Ml Syringe) 3 ml IVFLUSH QSHIFT [facility] Last Admin: 04/24/21 18:21 Dose: 3 ml Documented by: Tramadol HCl (Tramadol Hcl 50 Mg Tablet) 25 mg PO Q6H PRN PRN Reason: Pain, Mild (Pain Scale 1-3) Last Admin: 04/24/21 13:54 Dose: 25 mg Documented by: Time Spent With Patient Time: Total time spent is greater than 50% in coordination of care (as documented) at patient's floor/unit and/or counseling patient: Time with patient: less than 15 minutes Progress Note: Quality Stroke Does the patient have a stroke diagnosis?: No
[2021-04-24] MEDS: vancomycin HCL 750 MG in 0.9 % Sodium Chloride 250 ML 265 MG IV (21:55)
[2021-04-24] MEDS: Atorvastatin Calcium 10 MG TABLET PO (21:55)
[2021-04-25] VITALS (7 sets, daily range): BP systolic 115–123; BP diastolic 58–60; PULSE 58–86; RESP 17–18; TEMP 36.2–36.8; O2SAT 88–94
[2021-04-25] MEDS: Heparin Sodium,Porcine 5,000 UNIT/ML VIAL 5000 UNIT SUBCUT (03:08)
[2021-04-25] MEDS: Morphine Sulfate 4 MG/ML CARTRIDGE 2 MG IVPUSH (06:20)
[2021-04-25 06:38] LABS: Creatinine Clr Calc Pharmacy 28.7; Estimated Glomerular Filt Rate 31
[2021-04-25] MEDS: Albuterol/Iprat 2.5/0.5MG 3 ML AMPUL.NEB INHALE ×2 (08:13→20:06)
[2021-04-25] MEDS: 0.9 % Sodium Chloride Flush 3 ML SYRINGE IVFLUSH ×3 (08:51→23:06)
[2021-04-25] MEDS: dilTIAZem HCL CD 180 MG CAP.ER.24H PO (08:51)
[2021-04-25] MEDS: Omeprazole 40 MG CAPSULE.DR PO (08:51)
[2021-04-25] MEDS: Carbidopa/Levodopa 25/100 TABLET 1 TAB PO ×2 (08:51→21:45)
[2021-04-25] MEDS: atenoloL 25 MG TABLET PO (08:51)
[2021-04-25] MEDS: traMADoL HCL 50 MG TABLET 25 MG PO ×3 (08:51→21:51)
[2021-04-25] MEDS: Furosemide 40 MG TABLET 80 MG PO (08:51)
[2021-04-25] MEDS: Magnesium Oxide 400 MG TABLET 800 MG PO (08:51)
--- NOTE | 2021-04-25 10:34 | P.PNIM_ITS ---
Subjective Subjective Date of Service: 04/25/21 Interval History: mrsa bacteremia,bilateral retrocrural inflammation with fluid collection - concerning for abscesse Review of Systems moving lower extremity slowly better ,back pain seems improving than yesterday Denies any chest pain? or abdominal pain or fever or nausea or vomiting or any new weakness numbness or blurry vision. Physical Exam Vital Signs: Vital Signs: Last Vital Signs Temp 97.7 F 04/25/21 07:00 Pulse 62 04/25/21 08:15 Resp 17 04/25/21 07:00 BP 118/58 L 04/25/21 07:00 Pulse Ox 93 04/25/21 07:00 Oxygen Flow Rate 2 04/18/21 14:24 Body Mass Index 27.4 AO X 3, in pain Resp:?air entry improving CVS: S1,S2,RRR GI: +BS, NT, no distention, soft. Skin: No rash or cyanosis, trace edema Neuro:? motor grossly intact motor function in lower extremity,back spinal area lumber -pain improving , no flacuatation palpable . no bowel and bladder incontinence . cn2-12 intact sensations intact Psych: appropriate affect Objective Data Active Medications Albuterol/Ipratropium (Albuterol/Iprat 2.5/0.5mg 3 Ml Ampul.Neb) 3 ml INHALE RQ4H WHILE AWAKE [facility] Last Admin: 04/25/21 08:13 Dose: 3 ml Documented by: TABATHA Atenolol (Atenolol 25 Mg Tablet) 25 mg PO DAILY LISANDRA; Protocol Last Admin: 04/25/21 08:51 Dose: 25 mg Documented by: KVNG Atorvastatin Calcium (Atorvastatin Calcium 10 Mg Tablet) 10 mg PO BEDTIME LISANDRA Last Admin: 04/24/21 21:55 Dose: 10 mg Documented by: JUNO Carbidopa/Levodopa (Carbidopa/Levodopa 25/100 Tablet) 1 tab PO BID [facility]ISANDR[facility] Last Admin: 04/25/21 08:51 Dose: 1 tab Documented by: KVNG Diltiazem HCl (Diltiazem Hcl Cd 180 Mg Cap.Er.24h) 180 mg PO DAILY LISANDRA; Protocol Last Admin: 04/25/21 08:51 Dose: 180 mg Documented by: KVNG Furosemide (Furosemide 40 Mg Tablet) 80 mg PO DAILY LISANDR[facility]; Protocol Last Admin: 04/25/21 08:51 Dose: 80 mg Documented by: KVNG Heparin Sodium (Porcine) (Heparin Sodium,Porcine 5,000 Unit/Ml Vial) 5,000 unit SUBCUT Q12H [facility] Last Admin: 04/25/21 03:08 Dose: 5,000 unit Documented by: JUNO Vancomycin HCl 750 mg/ Sodium (Chloride) 265 mls @ 265 mls/hr IV Q24H [facility] Last Infusion: 04/24/21 23:15 Dose: 0 mls/hr Documented by: JUNO Ipratropium [place] (Ipratropium [place] 1 Puff/17 Mcg Inhaler) 2 puff INHALE QID PRN PRN Reason: Shortness Of Breath Or Wheezing Magnesium Oxide (Magnesium Oxide 400 Mg Tablet) 800 mg PO DAILY [facility] Last Admin: 04/25/21 08:51 Dose: 800 mg Documented by: KVNG Morphine Sulfate (Morphine Sulfate 4 Mg/Ml Cartridge) 2 mg IVPUSH Q4H PRN; Protocol PRN Reason: Pain, Moderate (Pain Scale 4-6 Last Admin: 04/25/21 06:20 Dose: 2 mg Documented by: JUNO Omeprazole (Omeprazole 40 Mg Capsule.Dr) 40 mg PO DAILY [facility] Last Admin: 04/25/21 08:51 Dose: 40 mg Documented by: KVNG Ondansetron HCl (Ondansetron Hcl 4 Mg/2 Ml Vial) 4 mg IVPUSH ONCE PRN PRN Reason: Nausea and Vomiting Last Admin: 04/17/21 11:42 Dose: 4 mg Documented by: JULIANE Ondansetron HCl (Ondansetron Odt 4 Mg Tab.Rapdis) 4 mg TRANSLINGU Q6H PRN PRN Reason: Nausea Last Admin: 04/24/21 06:04 Dose: 4 mg Documented by: GRAY Pharmacy Consult (Consult Rx Perform Med Rec) 1 each MISCELLANE ONCE PRN PRN Reason: Consult order Pharmacy Consult (Consult Rx Vancomycin Dosing) 1 each MISCELLANE DAILY PRN PRN Reason: Consult order Sodium Chloride (0.9 % Sodium Chloride Flush 3 Ml Syringe) 3 ml IVFLUSH QSHIFT [facility] Last Admin: 04/25/21 08:51 Dose: 3 ml Documented by: KVNG Tramadol HCl (Tramadol Hcl 50 Mg Tablet) 25 mg PO Q6H PRN PRN Reason: Pain, Mild (Pain Scale 1-3) Last Admin: 04/25/21 08:51 Dose: 25 mg Documented by: KVNG Labs CBC & Chem 7: 04/22/21 05:20 04/25/21 05:47 Labs: Laboratory Results - last 24 hr 04/25/21 05:47 Estim Creat Clear Calc 28.7 Estimated GFR 31 Microbiology Microbiology Results: Microbiology 04/23/21 15:09 Blood Culture - Preliminary Blood - Venous Staphylococcus aureus 04/23/21 15:05 Blood Culture - Preliminary Blood - Venous Staphylococcus aureus Assessment and Plan (1) MRSA bacteremia: Status: Acute (2) CHF (congestive heart failure): Status: Acute Assessment and Plan: 80 female with? with COPD, history of bladder cancer with history obstructive distal ureter causing right hydronephrosis and has required multiple stent, most recent 5 days ago and came just 4 days later with high grade fever, bacteremia and stent migration? and required yet removal and reposition of the stent . 1/ Sesis d/t infected stent, had temp of 105 and tachycardia on presentation--No severe sepsis, renal failure is chronic and not due to sepsis 2/MRSA bacteremia, Urine culture MRSA , repeat culture still positive mrsa,? added another set blood culture -2/2 positive gram positive cocci. -old stent removed and new on inserted. vanco trough was 16.4on 04/23, pharmacy following -MRI of lumbar spine showing?enhancement in the prevertebral and paravertebral soft tissues between T12 and L2, which may be consistent with evolving phlegmon. T spine MRI:bilateral retrocrural inflammation with fluid collection on the left measuring up to 3.1 cm and on the right measuring up to 1.9 cm-concerning abscesses continue IV vanco , close monitering vanco levels , bmp and electrolytes. MRI finding were discussed with [facility] NeuroSurg yesterday after T -spine mri? and also Lspine MRI on 04/18/21:no indication for intervention( neurosurg KALIE Miller). told radiology to update imgaing in [place]. ? echo noted EF is 60-65%, mild or moderate TR. Patient management discussed with [facility] neurosurgery KALIE-Shiva Contreras - currently did not recommend any neurosurgical intervention after reviewing images on [place]. Again discussed with the family that we can offer IR guided drainage of the abscesses but patient and family's declined again today-risks discussed with them in detail-patient condition can get worse including . They only want to continue antibiotic for now and consider reimaging as per Neuro. neuro recomended -continue IV antibiotics, mri L-spine added. 2.Acute hypoxemic respiratory failure -probably multifactorial Chf excerebation , atelectasis-probable diastolic Does not have any cough sob imrpoving ?echo noted EF is 60-65%, mild or moderate TR. bnp 380 -improving to 190. pleural effusions will switch to po lasix, hypoxia and oxygen demand improving.? Does not appear to be significantly of fluid overloaded. moniter i/o cardio eval noted. 3/ CKD 3, stable, monitor and if worse, neophrology follwoing. 4/Diabetes--No Metformin, SSI 5/HTN--stop Losartan due to renal failure, continue atenolol and cardizem, hold Lasix 6/COPD, no exacerbation, continue inhaler 7/Neuropathy--Neurontin 8/HLD--Lipitor 9/Anxiey--Xanax 10GERD--Prilosec 11/Fibromyalgia--Elavil DVT prophylaxis - on hold for Heparin in until mri results incase need IR draining of collections Above management discussed with patient family in detail length.? Currently will continue antibiotic management and repeat imaging study MRI of the lumbar spine . ID and neuro followup Quality Stroke Does the patient have a stroke diagnosis?: No VTE Prior VTE?: No VTE Risk Level:: Medical - moderate - high VTE Device Contraindication: Treatment Not Indicated VTE Drug Contraindication: N/A - Med Ordered
[2021-04-25 12:32] LABS: Potassium 3.1 mmol/L (3.3-5.1)
[2021-04-25] MEDS: Morphine Sulfate 2 MG/ML CARTRIDGE IVPUSH (13:05)
--- NOTE | 2021-04-25 14:33 | MHC.CM.PN ---
EMR REVIEWED, PER HOSPITALIST PT W/PERSISTANT MRSA BACTERIA, WILL CONSULT ID AGAIN, REPEAT MRI TODAY, ANTIC D/C 1-2 DAYS. CM RECEIVED A CALL FROM PT'S DTR DANO WHO WOULD LIKE PT TO GO TO [facility], DTR IS CONCERNED D/T PT'S INABILITY TO WALK, PER PHYSICAL THERAPY PT HAS ONLY TAKEN A FEW STEPS TO CHAIR NEXT TO BED. CM WILL REVISIT D/C PLAN W/PT.
--- NOTE | 2021-04-25 17:49 | PC.NURSE ---
IR called twice left on 2nd attempt to call this RN back r/t PICC placement necessary for discharge. no return call. discussed with brew house supervisor and MD. Pt informed that she will have PICC placed tomorrow 04/25/21 - pt expressed understanding.
[2021-04-25] MEDS: DAPTOmycin 600 MG in 0.9 % Sodium Chloride 50 ML 100 MG IV (18:39)
[2021-04-25] MEDS: Atorvastatin Calcium 10 MG TABLET PO (21:45)
[2021-04-26] VITALS (8 sets, daily range): BP systolic 108–132; BP diastolic 52–63; PULSE 57–95; RESP 16–18; TEMP 36–37.3; O2SAT 87–98
--- NOTE | 2021-04-26 06:27 | PC.NURSE ---
She could not keep her oxygen above 90 on room air after 4am. Trials for several minutes with cough and deep breathing did not bring her above 90. 2L applied and she is now at 94
[2021-04-26] MEDS: Albuterol/Iprat 2.5/0.5MG 3 ML AMPUL.NEB INHALE ×2 (07:51→11:51)
[2021-04-26] MEDS: 0.9 % Sodium Chloride Flush 3 ML SYRINGE IVFLUSH ×3 (09:16→20:05)
[2021-04-26] MEDS: Carbidopa/Levodopa 25/100 TABLET 1 TAB PO ×2 (09:17→20:05)
[2021-04-26] MEDS: dilTIAZem HCL CD 180 MG CAP.ER.24H PO (09:17)
[2021-04-26] MEDS: atenoloL 25 MG TABLET PO (09:17)
[2021-04-26] MEDS: Furosemide 40 MG TABLET 80 MG PO (09:17)
[2021-04-26] MEDS: Omeprazole 40 MG CAPSULE.DR PO (09:17)
[2021-04-26] MEDS: Magnesium Oxide 400 MG TABLET 800 MG PO (09:17)
[2021-04-26] MEDS: traMADoL HCL 50 MG TABLET 25 MG PO (09:24)
--- NOTE | 2021-04-26 09:30 | MHC.CM.PN ---
CM MET W/PT TO DISCUSS DCP, CM DISCUSSED FAMILY CONCERNS AND PT IS AGREEABLE TO GO TO [facility], WHEN PREFERENCES DISCUSSED PT PREFERS [facility] W/BACK UP OF [facility]. REFERRALS PLACED 04/25/21 AND [facility] IS FOLLOWING, STILL AWAITING RESPONSE FROM [facility] HOWEVER UNLIKELY PT WILL RECEIVE BED OFFER D/T STAFFING AND DECREASED #OF REHAB BEDS. CM WILL CONT TO FOLLOW D/C NEEDS.
[2021-04-26] MEDS: Morphine Sulfate 2 MG/ML CARTRIDGE 0.5 MG IVPUSH ×2 (10:56→20:05)
[2021-04-26 11:05] LABS: Anion Gap 14 (12-20); Blood Urea Nitrogen 20 mg/dL (9-16); Calcium 8.3 mg/dL (8.4-10.2); Carbon Dioxide 36 mmol/L (22-29); Chloride 85 mmol/L (96-108); Creatinine Clr Calc Pharmacy 25.8; Estimated Glomerular Filt Rate 28; Glucose Random 153 mg/dL (60-115); Potassium 2.9 mmol/L (3.3-5.1); Sodium 132 mmol/L (135-145)
--- NOTE | 2021-04-26 11:50 | HO.PM.IMPN ---
Subjective Subjective Date of Service: 04/26/21 Interval History: pt seen and examined at bedside. Daughter in law who is a nurse was also at bedside. she is eating and drinking better Pain is better controlled not ready to have IR drainage of abscess today would like to further discuss it with Neurology and ID Denies any numbness, tingling, or weakness, no abd pain, no n/v, no diarrhea or constipation Review of Systems Review of Systems: Yes all other systems are reviewed and are negative Physical Exam Vital Signs: Vital Signs: Last Vital Signs Temp 99.2 F 04/26/21 07:40 Pulse 61 04/26/21 07:57 Resp 17 04/26/21 07:40 BP 120/58 L 04/26/21 07:57 Pulse Ox 97 04/26/21 07:57 Oxygen Flow Rate 2 04/18/21 14:24 Body Mass Index 27.4 Const: General: cooperative and no acute distress Orientation/consciousness: patient oriented x3 Resp: Effort & Inspection: normal respiratory effort Auscultation: clear to auscultation bilaterally Cardio: Rate: regular rate Rhythm: regular rhythm Neuro: Other: No neurological deficits General: patient oriented x3 Cognition (Neuro): normal cognition Extrem: General: Yes normal to inspection and Yes no pedal edema Objective Data Active Medications Albuterol/Ipratropium (Albuterol/Iprat 2.5/0.5mg 3 Ml Ampul.Neb) 3 ml INHALE RQ4H WHILE AWAKE [facility] Last Admin: 04/26/21 07:51 Dose: 3 ml Documented by: NESTOR Atenolol (Atenolol 25 Mg Tablet) 25 mg PO DAILY [facility]; Protocol Last Admin: 04/26/21 09:17 Dose: 25 mg Documented by: KVNG Atorvastatin Calcium (Atorvastatin Calcium 10 Mg Tablet) 10 mg PO BEDTIME [facility]ISANDRA Last Admin: 04/25/21 21:45 Dose: 10 mg Documented by: JUNO Carbidopa/Levodopa (Carbidopa/Levodopa 25/100 Tablet) 1 tab PO BID [facility] Last Admin: 04/26/21 09:17 Dose: 1 tab Documented by: KVNG Diltiazem HCl (Diltiazem Hcl Cd 180 Mg Cap.Er.24h) 180 mg PO DAILY [facility]; Protocol Last Admin: 04/26/21 09:17 Dose: 180 mg Documented by: KVNG Furosemide (Furosemide 40 Mg Tablet) 80 mg PO DAILY [facility]; Protocol Last Admin: 04/26/21 09:17 Dose: 80 mg Documented by: KVNG Heparin Sodium (Porcine) (Heparin Sodium,Porcine 5,000 Unit/Ml Vial) 5,000 unit SUBCUT Q12H [facility] Last Admin: 04/25/21 03:08 Dose: 5,000 unit Documented by: JUNO Daptomycin 600 mg/ Sodium (Chloride) 62 mls @ 100 mls/hr IV Q48H [facility] Last Infusion: 04/25/21 21:01 Dose: 0 mls/hr Documented by: JUNO Ipratropium [place] (Ipratropium [place] 1 Puff/17 Mcg Inhaler) 2 puff INHALE QID PRN PRN Reason: Shortness Of Breath Or Wheezing Magnesium Oxide (Magnesium Oxide 400 Mg Tablet) 800 mg PO DAILY [facility] Last Admin: 04/26/21 09:17 Dose: 800 mg Documented by: KVNG Morphine Sulfate (Morphine Sulfate 2 Mg/Ml Cartridge) 0.5 mg IVPUSH Q6H PRN; Protocol PRN Reason: Pain, Severe (Pain Scale 7-10) Last Admin: 04/26/21 10:56 Dose: 0.5 mg Documented by: KVNG Omeprazole (Omeprazole 40 Mg Capsule.Dr) 40 mg PO DAILY [facility] Last Admin: 04/26/21 09:17 Dose: 40 mg Documented by: KVNG Ondansetron HCl (Ondansetron Hcl 4 Mg/2 Ml Vial) 4 mg IVPUSH ONCE PRN PRN Reason: Nausea and Vomiting Last Admin: 04/17/21 11:42 Dose: 4 mg Documented by: JULIANE Ondansetron HCl (Ondansetron Odt 4 Mg Tab.Rapdis) 4 mg TRANSLINGU Q6H PRN PRN Reason: Nausea Last Admin: 04/24/21 06:04 Dose: 4 mg Documented by: GRAY Pharmacy Consult (Consult Rx Perform Med Rec) 1 each MISCELLANE ONCE PRN PRN Reason: Consult order Pharmacy Consult (Consult Rx Vancomycin Dosing) 1 each MISCELLANE DAILY PRN PRN Reason: Consult order Sodium Chloride (0.9 % Sodium Chloride Flush 3 Ml Syringe) 3 ml IVFLUSH QSHIFT [facility] Last Admin: 04/26/21 09:16 Dose: 3 ml Documented by: KVNG Tramadol HCl (Tramadol Hcl 50 Mg Tablet) 25 mg PO Q6H PRN PRN Reason: Pain, Mild (Pain Scale 1-3) Last Admin: 04/26/21 09:24 Dose: 25 mg Documented by: KVNG Labs CBC & Chem 7: 04/22/21 05:20 04/26/21 10:31 Labs: Laboratory Results - last 24 hr 04/25/21 04/26/21 12:00 10:31 Anion Gap 14 Estim Creat Clear Calc 25.8 Estimated GFR 28 Random Glucose 153 H Calcium 8.3 L Magnesium 2.0 Microbiology Microbiology Results: Microbiology 04/23/21 15:09 Blood Culture - Final Blood - Venous Methicillin Res Staph Aureus 04/23/21 15:05 Blood Culture - Final Blood - Venous Methicillin Res Staph Aureus Assessment and Plan (1) Psoas abscess, right: Status: Acute (2) Discitis thoracic region: Status: Acute (3) MRSA bacteremia: Status: Acute Assessment and Plan: This is an 80 female with COPD, history of bladder cancer with 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, most recently done on 04/11 came to the hospital on 04/14 with high grade fever, bacteremia and stent migration as well as sepsis required yet removal and reposition of the stent found to have epidural abscess currently on IV abx 1/ Sesis- resolved - d/t infected stent, as well as 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 - T spine MRI:bilateral retrocrural inflammation with fluid collection on the left measuring up to 3.1 cm and on the right measuring up to 1.9 cm-concerning abscesses - Discussed possible IR drainage with pt and her daughter-in law, pt would like to discuss case further with neurology and ID continue IV vanco , close monitering vanco levels , bmp and electrolytes. 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 - echo noted EF is 60-65%, mild or moderate TR. - Patient management discussed with [facility] neurosurgery PA-Shiva Contreras -currently did not recommend any neurosurgical intervention after reviewing images on [place]. Again discussed with the family that we can offer IR guided drainage of the abscesses but patient and family's declined again today-risks discussed with them in detail-patient condition can get worse including . 3.Acute hypoxemic respiratory failure -probably multifactorial Chf excerebation , atelectasis-probable diastolic - Dyspnea improved - echo noted EF is 60-65%, mild or moderate TR. - bnp 380 -improving to 190. - pleural effusions - Swithced to po lasix, hypoxia and oxygen demand improving.? Does not appear to be significantly of fluid overloaded. - moniter i/o - cardio eval noted. 4. hypokalemia - repleted - follow bmp 5. CKD 3 - stable, - Cr at baseline 6.Diabetes-- - No Metformin, SSI - diabetic diet 7. HTN -stop Losartan due to renal failure, continue atenolol and cardizem, 6/COPD, - no exacerbation, continue inhaler 7/Neuropathy--Neurontin 8/HLD--Lipitor 9/Anxiey--Xanax 10GERD--Prilosec 11/Fibromyalgia--Elavil DVT prophylaxis - on hold for Heparin in until mri results incase need IR draining of collections Above management discussed with patient family in detail length.? Currently will continue antibiotic management ID and neuro followup- recommendation appreciated Quality Stroke Does the patient have a stroke diagnosis?: No VTE Prior VTE?: No VTE Risk Level:: Medical - moderate - high VTE Device Contraindication: Treatment Not Indicated VTE Drug Contraindication: N/A - Med Ordered
[2021-04-26] MEDS: Potassium Chloride Packet 20 MEQ PACKET 40 MEQ PO ×2 (13:19→17:16)
--- NOTE | 2021-04-26 18:32 | P.PNNE_ITS ---
Subjective Subjective Date of Service: 04/26/21 Interval History: pt seen and examined at bedside.Family at bedside. she is eating and drinking better, feeling much better. walked to the bathroom. Pain is a lot better Denies any numbness, tingling, or weakness, no abd pain, no n/v, no diarrhea or constipation Critical Care Time (minutes): 0 Physical Exam Vital Signs: Vital Signs: Last Vital Signs Temp 98 F 04/26/21 15:43 Pulse 63 04/26/21 15:43 Resp 16 04/26/21 15:43 BP 116/57 L 04/26/21 15:43 Pulse Ox 92 04/26/21 15:43 Oxygen Flow Rate 2 04/18/21 14:24 Body Mass Index 27.4 Const: General: cooperative, healthy appearing, comfortable, no acute distress, alert, awake and tired appearing Nutritional Appearance: overweight Orientation/consciousness: patient oriented x3 HENMT: Head: Yes normal to inspection, Yes normocephalic and Yes atraumatic General nose exam: No nasal polyps present and No nasal discharge present Face and sinus: Yes normal facial exam and Yes sinuses nontender Mouth: No rmal oral and palatal mucosa present, oropharynx normal and moist mucous membranes Throat: Yes posterior oropharynx normal Eyes: General: appearance normal, both eyes and all related structures Neck: Neck: Yes normal visual inspection, Yes full ROM, Yes no lymphade nopathy, Yes trachea midline, Yes supple and Yes no JVD Thyroid: Thyroid normal Chest: Chest palpation & inspection: normal inspection of the chest, normal palpation of entire chest wall and no tenderness Resp: Other: Breath sounds are distant with prolonged expiratory phase. There are inspiratory crackles over the basilar areas, no wheezes. Effort & Inspection: normal respiratory effort, able to speak in complete sentences and no respiratory distress Auscultation: clear to auscultation bilaterally, no crackles, no rales, no wheezes and diminished lung sounds Cardio: Jugular venous distension: no JVD Palpation: normal PMI Rate: regular rate Rhythm: regular rhythm Heart sounds: S1 normal heart sound present, S2 normal heart sound present, no click, no gallops and no murmurs GI: Inspection: Yes normal to inspection Palpation (GI): Soft to palpation, nontender, No hepatosplenomegaly present and no masses Auscultation: normal bowel sounds Back/Spine/Pelvis: Other: Could not examine , patient is relatively a.m. 0 by limb the bed. Cervical Spine: normal cervical lordosis Thoracic/Lumbar Sp ine: thoracic and lumbar spine normal to inspection and thoracic spinal tenderness Skin: General skin exam: no rashes or lesions noted Neuro: Other: No neurological deficits General: patient oriented x3, gait normal, tone normal, moves all extremities and no focal motor deficits Cranial nerves: Yes CN's II-XII intact bilaterally Cognition (Neuro): normal cognition Extrem: General: Yes normal to inspection, Yes capillary refill normal, Yes normal exam except as noted, Yes no pedal edema, Yes no calf tenderness and Yes venous stasis dermatitis Psych: Speech and movement: Normal speech and movement present Objective Data Labs CBC & Chem 7: 04/22/21 05:20 04/26/21 10:31 Labs: Laboratory Results - last 24 hr 04/26/21 10:31 Sodium 132 L Potassium 2.9 L Chloride 85 L Carbon Dioxide 36 H Anion Gap 14 BUN 20 H Creatinine 1.76 H Estim Creat Clear Calc 25.8 Estimated GFR 28 Random Glucose 153 H Calcium 8.3 L Microbiology Microbiology Results: Microbiology 04/23/21 15:09 Blood - Venous Blood Culture - Final Methicillin Res Staph Aureus 04/23/21 15:05 Blood - Venous Blood Culture - Final Methicillin Res Staph Aureus 04/17/21 10:15 Blood - Venous Blood Culture - Final Methicillin Res Staph Aureus 04/17/21 10:07 Blood - Venous Blood Culture - Final Methicillin Res Staph Aureus 04/14/21 10:05 Blood - Venous Blood Culture - Final Methicillin Res Staph Aureus 04/14/21 10:05 Blood - Venous Blood Culture - Final Methicillin Res Staph Aureus 04/14/21 Unknown Urine Catheterized - Straight Catheter Urine Culture - Final Methicillin Res Staph Aureus Progress Note: A&P Assessment and plan (1) Psoas abscess, right: Status: Acute Assessment and Plan: Followup MRI was reviewed. The phlegmon is still present and there is some tracking down the right psoas sheath of the past discharge. Clinically the patient is much improved. I discussed with the patient and her family. I would continue with the IV antibiotics as long as there is clinical improvement. 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, most recently done on 04/11 came to the hospital on 04/14 with high grade fever, bacteremia and stent migration as well as sepsis required yet removal and reposition of the stent found to have epidural abscess currently on IV abx 1/ Sesis- resolved - d/t infected stent, as well as 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 - T spine MRI:bilateral retrocrural inflammation with fluid collection on the left measuring up to 3.1 cm and on the right measuring up to 1.9 cm-concerning abscesses - Discussed possible IR drainage with pt and her daughter-in law, pt would like to discuss case further with neurology and ID continue IV vanco , close monitering vanco levels , bmp and electrolytes. 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 - echo noted EF is 60-65%, mild or moderate TR. - Patient management discussed with [facility] neurosurgery Jose Contreras -ramandeep moore did not recommend any neurosurgical intervention after reviewing images on [place]. Again discussed with the family that we can offer IR guided drainage of the abscesses but patient and family's declined again today-risks discussed with them in detail-patient condition can get worse including . 3.Acute hypoxemic respiratory failure -probably multifactorial Chf excerebation , atelectasis-probable diastolic - Dyspnea improved - echo noted EF is 60-65%, mild or moderate TR. - bnp 380 -improving to 190. - pleural effusions - Swithced to po lasix, hypoxia and oxygen demand improving.? Does not appear to be significantly of fluid overloaded. - moniter i/o - cardio eval noted. 4. hypokalemia - repleted - follow bmp 5. CKD 3 - stable, - Cr at baseline 6.Diabetes-- - No Metformin, SSI - diabetic diet 7. HTN -stop Losartan due to renal failure, continue atenolol and cardizem, 6/COPD, - no exacerbation, continue inhaler 7/Neuropathy--Neurontin 8/HLD--Lipitor 9/Anxiey--Xanax 10GERD--Prilosec 11/Fibromyalgia--Elavil DVT prophylaxis - on hold for Heparin in until mri results incase need IR draining of collections Above management discussed with patient family in detail length.? Currently will continue antibiotic management ID and neuro followup- recommendation appreciated Fall Risk Details Current Medications: Current Medications Atenolol (Atenolol 25 Mg Tablet) 25 mg PO DAILY [facility]; Protocol Last Admin: 04/26/21 09:17 Dose: 25 mg Documented by: Atorvastatin Calcium (Atorvastatin Calcium 10 Mg Tablet) 10 mg PO BEDTIME [facility] Last Admin: 04/25/21 21:45 Dose: 10 mg Documented by: Carbidopa/Levodopa (Carbidopa/Levodopa 25/100 Tablet) 1 tab PO BID [facility] Last Admin: 04/26/21 09:17 Dose: 1 tab Documented by: Diltiazem HCl (Diltiazem Hcl Cd 180 Mg Cap.Er.24h) 180 mg PO DAILY [facility]; Protocol Last Admin: 04/26/21 09:17 Dose: 180 mg Documented by: Furosemide (Furosemide 40 Mg Tablet) 80 mg PO DAILY [facility]; Protocol Last Admin: 04/26/21 09:17 Dose: 80 mg Documented by: Heparin Sodium (Porcine) (Heparin Sodium,Porcine 5,000 Unit/Ml Vial) 5,000 unit SUBCUT Q12H [facility] Last Admin: 04/25/21 03:08 Dose: 5,000 unit Documented by: Daptomycin 600 mg/ Sodium (Chloride) 62 mls @ 100 mls/hr IV Q48H [facility] [place] Last Infusion: 04/25/21 21:01 Dose: Infused Documented by: Ipratropium [place] (Ipratropium [place] 1 Puff/17 Mcg Inhaler) 2 puff INHALE QID PRN PRN Reason: Shortness Of Breath Or Wheezing Magnesium Oxide (Magnesium Oxide 400 Mg Tablet) 800 mg PO DAILY [facility] [place] Last Admin: 04/26/21 09:17 Dose: 800 mg Documented by: Morphine Sulfate (Morphine Sulfate 2 Mg/Ml Cartridge) 0.5 mg IVPUSH Q6H PRN; Protocol PRN Reason: Pain, Severe (Pain Scale 7-10) Last Admin: 04/26/21 10:56 Dose: 0.5 mg Documented by: Omeprazole (Omeprazole 40 Mg Capsule.Dr) 40 mg PO DAILY [facility] [place] Last Admin: 04/26/21 09:17 Dose: 40 mg Documented by: Ondansetron HCl (Ondansetron Hcl 4 Mg/2 Ml Vial) 4 mg IVPUSH ONCE PRN PRN Reason: Nausea and Vomiting Last Admin: 04/17/21 11:42 Dose: 4 mg Documented by: Ondansetron HCl (Ondansetron Odt 4 Mg Tab.Rapdis) 4 mg TRANSLINGU Q6H PRN PRN Reason: Nausea Last Admin: 04/24/21 06:04 Dose: 4 mg Documented by: Pharmacy Consult (Consult Rx Perform Med Rec) 1 each MISCELLANE ONCE PRN PRN Reason: Consult order Pharmacy Consult (Consult Rx Vancomycin Dosing) 1 each MISCELLANE DAILY PRN PRN Reason: Consult order Sodium Chloride (0.9 % Sodium Chloride Flush 3 Ml Syringe) 3 ml IVFLUSH [facility] Last Admin: 04/26/21 17:16 Dose: 3 ml Documented by: Tramadol HCl (Tramadol Hcl 50 Mg Tablet) 25 mg PO Q6H PRN PRN Reason: Pain, Mild (Pain Scale 1-3) Last Admin: 04/26/21 09:24 Dose: 25 mg Documented by: Time Spent With Patient Time: Total time spent is greater than 50% in coordination of care (as documented) at patient's floor/unit and/or counseling patient: Time with patient: 15 - 24 minutes Procedures Date of Service Date of Service: 04/26/21 Quality Stroke Does the patient have a stroke diagnosis?: No VTE Prior VTE?: No VTE Risk Level:: Medical - moderate - high VTE Device Contraindication: Treatment Not Indicated VTE Drug Contraindication: N/A - Med Ordered
[2021-04-26] MEDS: Atorvastatin Calcium 10 MG TABLET PO (20:05)
[2021-04-27] VITALS (7 sets, daily range): BP systolic 116–135; BP diastolic 52–62; PULSE 53–64; RESP 16–18; TEMP 36–36.3; O2SAT 93–100
[2021-04-27] MEDS: traMADoL HCL 50 MG TABLET 25 MG PO ×3 (04:35→21:20)
[2021-04-27] MEDS: Furosemide 40 MG TABLET 80 MG PO (09:26)
[2021-04-27] MEDS: Omeprazole 40 MG CAPSULE.DR PO (09:26)
[2021-04-27] MEDS: Magnesium Oxide 400 MG TABLET 800 MG PO (09:26)
[2021-04-27] MEDS: dilTIAZem HCL CD 180 MG CAP.ER.24H PO (09:26)
[2021-04-27] MEDS: Carbidopa/Levodopa 25/100 TABLET 1 TAB PO ×2 (09:26→20:48)
[2021-04-27] MEDS: atenoloL 25 MG TABLET PO (09:27)
[2021-04-27] MEDS: 0.9 % Sodium Chloride Flush 3 ML SYRINGE IVFLUSH ×3 (09:27→20:48)
--- NOTE | 2021-04-27 10:21 | HO.PM.IMPN ---
Subjective Subjective Date of Service: 04/27/21 Interval History: pt seen and examined at bedside. She reports no worsened back pain, pain is well controlled , no fever overnight. she is eating and drinking well Denies any numbness, tingling, or weakness, she has been walking to the bathroom by herself with the use of her walker. No abd pain, no n/v, no diarrhea or constipation Review of Systems Review of Systems: Yes all other systems are reviewed and are negative Physical Exam Vital Signs: Vital Signs: Last Vital Signs Temp 97.3 F 04/27/21 08:00 Pulse 61 04/27/21 08:45 Resp 18 04/27/21 08:00 BP 124/58 L 04/27/21 08:45 Pulse Ox 100 04/27/21 08:45 Oxygen Flow Rate 2 04/18/21 14:24 Body Mass Index 27.4 Const: General: cooperative and no acute distress Orientation/consciousness: patient oriented x3 Resp: Effort & Inspection: normal respiratory effort Auscultation: clear to auscultation bilaterally Cardio: Rate: regular rate Rhythm: regular rhythm Neuro: Other: No neurological deficits General: patient oriented x3 Cognition (Neuro): normal cognition Extrem: General: Yes normal to inspection and Yes no pedal edema Objective Data Active Medications Atenolol (Atenolol 25 Mg Tablet) 25 mg PO DAILY [facility]; Protocol Last Admin: 04/27/21 09:27 Dose: 25 mg Documented by: MELINDA Atorvastatin Calcium (Atorvastatin Calcium 10 Mg Tablet) 10 mg PO BEDTIME [facility] Last Admin: 04/26/21 20:05 Dose: 10 mg Documented by: TAWANA Carbidopa/Levodopa (Carbidopa/Levodopa 25/100 Tablet) 1 tab PO BID [facility] Last Admin: 04/27/21 09:26 Dose: 1 tab Documented by: MELINDA Diltiazem HCl (Diltiazem Hcl Cd 180 Mg Cap.Er.24h) 180 mg PO DAILY [facility]; Protocol Last Admin: 04/27/21 09:26 Dose: 180 mg Documented by: MELINDA Furosemide (Furosemide 40 Mg Tablet) 80 mg PO DAILY [facility]; Protocol Last Admin: 04/27/21 09:26 Dose: 80 mg Documented by: MELINDA Heparin Sodium (Porcine) (Heparin Sodium,Porcine 5,000 Unit/Ml Vial) 5,000 unit SUBCUT Q12H [facility] Last Admin: 04/25/21 03:08 Dose: 5,000 unit Documented by: JUNO Daptomycin 600 mg/ Sodium (Chloride) 62 mls @ 100 mls/hr IV Q48H [facility] Last Infusion: 04/25/21 21:01 Dose: 0 mls/hr Documented by: JUNO Ipratropium [place] (Ipratropium [place] 1 Puff/17 Mcg Inhaler) 2 puff INHALE QID PRN PRN Reason: Shortness Of Breath Or Wheezing Magnesium Oxide (Magnesium Oxide 400 Mg Tablet) 800 mg PO DAILY [facility] Last Admin: 04/27/21 09:26 Dose: 800 mg Documented by: MELINDA Morphine Sulfate (Morphine Sulfate 2 Mg/Ml Cartridge) 0.5 mg IVPUSH Q6H PRN; Protocol PRN Reason: Pain, Severe (Pain Scale 7-10) Last Admin: 04/26/21 20:05 Dose: 0.5 mg Documented by: TAWANA Omeprazole (Omeprazole 40 Mg Capsule.Dr) 40 mg PO DAILY [facility] Last Admin: 04/27/21 09:26 Dose: 40 mg Documented by: MELINDA Ondansetron HCl (Ondansetron Hcl 4 Mg/2 Ml Vial) 4 mg IVPUSH ONCE PRN PRN Reason: Nausea and Vomiting Last Admin: 04/17/21 11:42 Dose: 4 mg Documented by: JULIANE Ondansetron HCl (Ondansetron Odt 4 Mg Tab.Rapdis) 4 mg TRANSLINGU Q6H PRN PRN Reason: Nausea Last Admin: 04/24/21 06:04 Dose: 4 mg Documented by: GRAY Pharmacy Consult (Consult Rx Perform Med Rec) 1 each MISCELLANE ONCE PRN PRN Reason: Consult order Pharmacy Consult (Consult Rx Vancomycin Dosing) 1 each MISCELLANE DAILY PRN PRN Reason: Consult order Sodium Chloride (0.9 % Sodium Chloride Flush 3 Ml Syringe) 3 ml IVFLUSH QSHIFT [facility] Last Admin: 04/27/21 09:27 Dose: 3 ml Documented by: MELINDA Tramadol HCl (Tramadol Hcl 50 Mg Tablet) 25 mg PO Q6H PRN PRN Reason: Pain, Mild (Pain Scale 1-3) Last Admin: 04/27/21 04:35 Dose: 25 mg Documented by: TAWANA Labs CBC & Chem 7: 04/22/21 05:20 04/26/21 10:31 Labs: Laboratory Results - last 24 hr 04/26/21 10:31 Anion Gap 14 Estim Creat Clear Calc 25.8 Estimated GFR 28 Random Glucose 153 H Calcium 8.3 L Microbiology Microbiology Results: Microbiology 04/23/21 15:09 Blood Culture - Final Blood - Venous Methicillin Res Staph Aureus 04/23/21 15:05 Blood Culture - Final Blood - Venous Methicillin Res Staph Aureus Assessment and Plan (1) Psoas abscess, right: Status: Acute (2) Discitis thoracic region: Status: Acute (3) MRSA bacteremia: Status: Acute (4) Bacteremia: Status: Acute (5) Sepsis: Status: Acute (6) Hypokalemia: Status: Acute Assessment and Plan: This is an 80 female with COPD, history of bladder cancer with 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, most recently done on 04/11 came to the hospital on 04/14 with high grade fever, bacteremia and stent migration as well as sepsis required yet removal and reposition of the stent found to have epidural abscess currently on IV abx 1/ Sesis- resolved - 2/2 infected stent, as well as 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 Psoas abscess - neurology discussed case with pt and family. Ok to continue IV abx for now as long as pain does not worsen and pt does not develop fever - Will reculture - ID following 3.Acute hypoxemic respiratory failure - Probably multifactorial, Chf excerebation , atelectasis-probable diastolic - Dyspnea improved - Echo noted EF is 60-65%, mild or moderate TR. - CXR showed pleural effusions - Swithced to po lasix, hypoxia and oxygen demand improving.? Does not appear to be in fluid overload at this time - moniter i/o 4. hypokalemia - repleted - rpt bmp and check mag level 5. CKD 3 - stable, - Cr at baseline 6.Diabetes-- - No Metformin, SSI - diabetic diet 7. HTN -stop Losartan due to renal failure, continue atenolol and cardizem, 6/COPD, - no exacerbation, continue inhaler 7/Neuropathy--Neurontin 8/HLD--Lipitor 9/Anxiey--Xanax 10GERD--Prilosec 11/Fibromyalgia--Elavil DVT prophylaxis - on hold for Heparin in until mri results incase need IR draining of collections Above management discussed with patient . will continue IV abx, rpt cultures Quality Stroke Does the patient have a stroke diagnosis?: No VTE Prior VTE?: No VTE Risk Level:: Medical - moderate - high VTE Device Contraindication: Treatment Not Indicated VTE Drug Contraindication: N/A - Med Ordered
--- NOTE | 2021-04-27 11:32 | MHC.CM.PN ---
EMR REVIEWED, PT ABX CHANGED TO [facility] AFTER 3 POS BC'S, 4TH SET DRAWN TODAY, PT WILL HAVE PICC/MIDLINE ONCE BC'S ARE NEG AND BE ABLE TO D/C, CM SPOKE W/DTR DANO AT 11:30AM TO LET HER KNOW PT IS IN AGREEMENT TO GO TO [facility], [facility] HAS OFFERED BED AND FOLLOWING, REFERRAL UPDATED VIA [facility]. CM WILL CONT TO FOLLOW D/C NEEDS.
[2021-04-27 11:37] LABS: Anion Gap 12 (12-20); Blood Urea Nitrogen 18 mg/dL (9-16); Calcium 8.8 mg/dL (8.4-10.2); Carbon Dioxide 39 mmol/L (22-29); Chloride 87 mmol/L (96-108); Creatinine Clr Calc Pharmacy 24.9; Estimated Glomerular Filt Rate 27; Glucose Random 164 mg/dL (60-115); Magnesium 1.9 mg/dL (1.6-2.6); Sodium 134 mmol/L (135-145)
--- NOTE | 2021-04-27 13:06 | PM.UROPN ---
Subjective Subjective Date of Service: 04/27/21 Interval history: Continues to improve Back pain has declined imaging being performed to decide whether to drain retrocrural abscess Creatinine stable at baseline Continue to follow ID recommendations Physical Exam Vital Signs: Vital Signs: Last Vital Signs Temp 97.0 F 04/27/21 12:00 Pulse 63 04/27/21 12:00 Resp 16 04/27/21 12:00 BP 125/58 L 04/27/21 12:00 Pulse Ox 99 04/27/21 12:00 Oxygen Flow Rate 2 04/18/21 14:24 Body Mass Index 27.4 Const: General: cooperative, healthy appearing, comfortable and no acute distress Orientation/consciousness: patient oriented x3 HENMT: Face and sinus: Yes normal facial exam Mouth: moist mucous membranes Neck: Neck: Yes normal visual inspection, Yes full ROM and Yes trachea midline Chest: Chest palpation & inspection: normal inspection of the chest Resp: Effort & Inspection: normal respiratory effort, able to speak in complete sentences and no respiratory distress GI: Inspection: Yes normal to inspection Back/Spine/Pelvis: Cervical Spine: normal cervical lordosis Thoracic/Lumbar Spine: thoracic and lumbar spine normal to inspection Skin: General skin exam: no rashes or lesions noted Neuro: General: patient oriented x3, gait normal, tone normal and moves all extremities Extrem: General: Yes normal to inspection and Yes capillary refill normal Urology Results Labs CBC & Chem 7: 04/22/21 05:20 04/27/21 10:27 Labs: Laboratory Results - last 24 hr 04/27/21 10:27 Sodium 134 L Potassium 4.0 D Chloride 87 L Carbon Dioxide 39 H Anion Gap 12 BUN 18 H Creatinine 1.82 H Estim Creat Clear Calc 24.9 Estimated GFR 27 Random Glucose 164 H Calcium 8.8 D Magnesium 1.9 Progress Note: A&P Assessment and plan (1) Discitis thoracic region: Status: Acute (2) Psoas abscess, right: Status: Acute Assessment and Plan: Continue to follow ID recommendations Fall Risk Details Current Medications: Current Medications Atenolol (Atenolol 25 Mg Tablet) 25 mg PO DAILY [facility]; Protocol Last Admin: 04/27/21 09:27 Dose: 25 mg Documented by: Atorvastatin Calcium (Atorvastatin Calcium 10 Mg Tablet) 10 mg PO BEDTIME [facility] Last Admin: 04/26/21 20:05 Dose: 10 mg Documented by: Carbidopa/Levodopa (Carbidopa/Levodopa 25/100 Tablet) 1 tab PO BID [facility] Last Admin: 04/27/21 09:26 Dose: 1 tab Documented by: Diltiazem HCl (Diltiazem Hcl Cd 180 Mg Cap.Er.24h) 180 mg PO DAILY [facility]; Protocol Last Admin: 04/27/21 09:26 Dose: 180 mg Documented by: Furosemide (Furosemide 40 Mg Tablet) 80 mg PO DAILY [facility]; Protocol Last Admin: 04/27/21 09:26 Dose: 80 mg Documented by: Heparin Sodium (Porcine) (Heparin Sodium,Porcine 5,000 Unit/Ml Vial) 5,000 unit SUBCUT Q12H [facility] Last Admin: 04/25/21 03:08 Dose: 5,000 unit Documented by: Daptomycin 600 mg/ Sodium (Chloride) 62 mls @ 100 mls/hr IV Q48H [facility] Last Infusion: 04/25/21 21:01 Dose: Infused Documented by: Ipratropium [place] (Ipratropium [place] 1 Puff/17 Mcg Inhaler) 2 puff INHALE QID PRN PRN Reason: Shortness Of Breath Or Wheezing Magnesium Oxide (Magnesium Oxide 400 Mg Tablet) 800 mg PO DAILY [facility] Last Admin: 04/27/21 09:26 Dose: 800 mg Documented by: Morphine Sulfate (Morphine Sulfate 2 Mg/Ml Cartridge) 0.5 mg IVPUSH Q6H PRN; Protocol PRN Reason: Pain, Severe (Pain Scale 7-10) Last Admin: 04/26/21 20:05 Dose: 0.5 mg Documented by: Omeprazole (Omeprazole 40 Mg Capsule.Dr) 40 mg PO DAILY [facility] [place] Last Admin: 04/27/21 09:26 Dose: 40 mg Documented by: Ondansetron HCl (Ondansetron Hcl 4 Mg/2 Ml Vial) 4 mg IVPUSH ONCE PRN PRN Reason: Nausea and Vomiting Last Admin: 04/17/21 11:42 Dose: 4 mg Documented by: Ondansetron HCl (Ondansetron Odt 4 Mg Tab.Rapdis) 4 mg TRANSLINGU Q6H PRN PRN Reason: Nausea Last Admin: 04/24/21 06:04 Dose: 4 mg Documented by: Pharmacy Consult (Consult Rx Perform Med Rec) 1 each MISCELLANE ONCE PRN PRN Reason: Consult order Pharmacy Consult (Consult Rx Vancomycin Dosing) 1 each MISCELLANE DAILY PRN PRN Reason: Consult order Sodium Chloride (0.9 % Sodium Chloride Flush 3 Ml Syringe) 3 ml IVFLUSH QSHIFT [facility] Last Admin: 04/27/21 09:27 Dose: 3 ml Documented by: Time Spent With Patient Time: Total time spent is greater than 50% in coordination of care (as documented) at patient's floor/unit and/or counseling patient: Time with patient: less than 15 minutes Progress Note: Quality Stroke Does the patient have a stroke diagnosis?: No
[2021-04-27] MEDS: DAPTOmycin 600 MG in 0.9 % Sodium Chloride 50 ML 100 MG IV (17:18)
[2021-04-27] MEDS: Morphine Sulfate 2 MG/ML CARTRIDGE 0.5 MG IVPUSH (18:29)
[2021-04-27] MEDS: Atorvastatin Calcium 10 MG TABLET PO (20:48)
[2021-04-28] VITALS: BP 114/58; PULSE 58; RESP 16; TEMP 36.7; O2SAT 98
[2021-04-28 04:00] VITALS: BP 114/56; PULSE 72; RESP 16; TEMP 36.6; O2SAT 98
[2021-04-28 07:59] VITALS: BP 126/59; PULSE 63; RESP 18; TEMP 36.7; O2SAT 98
[2021-04-28 08:36] LABS: Anion Gap 13 (12-20); Blood Urea Nitrogen 16 mg/dL (9-16); Calcium 8.2 mg/dL (8.4-10.2); Carbon Dioxide 38 mmol/L (22-29); Chloride 86 mmol/L (96-108); Estimated Glomerular Filt Rate 31; Glucose Random 143 mg/dL (60-115); Potassium 3.7 mmol/L (3.3-5.1); Sodium 133 mmol/L (135-145)
[2021-04-28] MEDS: Omeprazole 40 MG CAPSULE.DR PO (09:24)
[2021-04-28] MEDS: dilTIAZem HCL CD 180 MG CAP.ER.24H PO (09:24)
[2021-04-28] MEDS: Magnesium Oxide 400 MG TABLET 800 MG PO (09:24)
[2021-04-28] MEDS: Carbidopa/Levodopa 25/100 TABLET 1 TAB PO ×2 (09:24→20:32)
[2021-04-28] MEDS: 0.9 % Sodium Chloride Flush 3 ML SYRINGE IVFLUSH ×3 (09:24→20:33)
[2021-04-28] MEDS: Furosemide 40 MG TABLET 80 MG PO (09:24)
[2021-04-28] MEDS: atenoloL 25 MG TABLET PO (09:24)
[2021-04-28 12:00] VITALS: BP 112/54; PULSE 65; RESP 17; TEMP 36.7; O2SAT 93
--- NOTE | 2021-04-28 13:44 | HO.PM.IMPN ---
Subjective Subjective Date of Service: 04/28/21 Interval History: seen and examined this AM reports no new back pain or muscle weakness denies any fevers or chills Review of Systems negative except what is mentioned in interval history Physical Exam Vital Signs: Vital Signs: Last Vital Signs Temp 98.0 F 04/28/21 12:00 Pulse 65 04/28/21 12:00 Resp 17 04/28/21 12:00 BP 112/54 L 04/28/21 12:00 Pulse Ox 93 04/28/21 12:00 Oxygen Flow Rate 2 04/18/21 14:24 Body Mass Index 27.4 Const: Other: General - no acute distress, appears comfortable Cardiovascular - regular rate and rhythm, S1-S2 Lungs - normal respiratory effort, clear to auscultation bilaterally, no wheezing Abdomen - soft, nontender, no rebound or guarding Extremities - no edema bilaterally Neuro - awake and alert; bilateral LE strength equal and likely 4+ Objective Data Active Medications Atenolol (Atenolol 25 Mg Tablet) 25 mg PO DAILY [facility]; Protocol Last Admin: 04/28/21 09:24 Dose: 25 mg Documented by: MELINDA Atorvastatin Calcium (Atorvastatin Calcium 10 Mg Tablet) 10 mg PO BEDTIME [facility] Last Admin: 04/27/21 20:48 Dose: 10 mg Documented by: TAWANA Carbidopa/Levodopa (Carbidopa/Levodopa 25/100 Tablet) 1 tab PO BID [facility] Last Admin: 04/28/21 09:24 Dose: 1 tab Documented by: MELINDA Diltiazem HCl (Diltiazem Hcl Cd 180 Mg Cap.Er.24h) 180 mg PO DAILY [facility]; Protocol Last Admin: 04/28/21 09:24 Dose: 180 mg Documented by: MELINDA Furosemide (Furosemide 40 Mg Tablet) 80 mg PO DAILY [facility]; Protocol Last Admin: 04/28/21 09:24 Dose: 80 mg Documented by: MELINDA Heparin Sodium (Porcine) (Heparin Sodium,Porcine 5,000 Unit/Ml Vial) 5,000 unit SUBCUT Q12H [facility] Last Admin: 04/25/21 03:08 Dose: 5,000 unit Documented by: JUNO Daptomycin 600 mg/ Sodium (Chloride) 62 mls @ 100 mls/hr IV Q48H [facility] Last Infusion: 04/27/21 18:01 Dose: 0 mls/hr Documented by: TK Ipratropium [place] (Ipratropium [place] 1 Puff/17 Mcg Inhaler) 2 puff INHALE QID PRN PRN Reason: Shortness Of Breath Or Wheezing Magnesium Oxide (Magnesium Oxide 400 Mg Tablet) 800 mg PO DAILY [facility] Last Admin: 04/28/21 09:24 Dose: 800 mg Documented by: MELINDA Morphine Sulfate (Morphine Sulfate 2 Mg/Ml Cartridge) 0.5 mg IVPUSH Q6H PRN; Protocol PRN Reason: Pain, Severe (Pain Scale 7-10) Last Admin: 04/27/21 18:29 Dose: 0.5 mg Documented by: SAUL Omeprazole (Omeprazole 40 Mg Capsule.Dr) 40 mg PO DAILY [facility] Last Admin: 04/28/21 09:24 Dose: 40 mg Documented by: MELINDA Ondansetron HCl (Ondansetron Hcl 4 Mg/2 Ml Vial) 4 mg IVPUSH ONCE PRN PRN Reason: Nausea and Vomiting Last Admin: 04/17/21 11:42 Dose: 4 mg Documented by: JULIANE Ondansetron HCl (Ondansetron Odt 4 Mg Tab.Rapdis) 4 mg TRANSLINGU Q6H PRN PRN Reason: Nausea Last Admin: 04/24/21 06:04 Dose: 4 mg Documented by: GRAY Pharmacy Consult (Consult Rx Perform Med Rec) 1 each MISCELLANE ONCE PRN PRN Reason: Consult order Pharmacy Consult (Consult Rx Vancomycin Dosing) 1 each MISCELLANE DAILY PRN PRN Reason: Consult order Sodium Chloride (0.9 % Sodium Chloride Flush 3 Ml Syringe) 3 ml IVFLUSH QSHIFT [facility] Last Admin: 04/28/21 09:24 Dose: 3 ml Documented by: MELINDA Tramadol HCl (Tramadol Hcl 50 Mg Tablet) 25 mg PO Q6H PRN PRN Reason: Pain, Moderate (Pain Scale 4-6 Last Admin: 04/27/21 21:20 Dose: 25 mg Documented by: TAWANA Labs CBC & Chem 7: 04/22/21 05:20 04/28/21 07:51 Labs: Laboratory Results - last 24 hr 04/28/21 07:51 Anion Gap 13 Estim Creat Clear Calc 28.0 Estimated GFR 31 Random Glucose 143 H Calcium 8.2 L D Microbiology Microbiology Results: Microbiology 04/27/21 11:05 Blood Culture - Preliminary Blood - Venous No growth after 24 hours. 04/27/21 11:05 Blood Culture - Preliminary Blood - Venous No growth after 24 hours. Assessment and Plan (1) MRSA bacteremia: Status: Acute Assessment and Plan: This is an 80 yo F with a PMH of COPD, bladder CA, Ureteral obstruction causing R hydronephrosis requiring multiple stents, most recently on 04/11 who presented to the hospital on 04/14 with high grade fevers, weakness and back pain. 1. Sepsis secondary to MRSA bactermia, secondary to infected stent 1a. 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 Her case has been previously discussed (by prior providers) with [facility] who felt that intervention was not required at that time. Furthermore, Nuerology has discussed her case with the patients family (Daughter in law Claudia who is HCP) and decision has been made to treat with IV antibiotics. If cultures negative at 48 hours -- will place PICC line and plan for IV Dapto (6 weeks, will confirm duration with ID) at SNF. 2. Acute Hypoxic resp failure was on >5L during this hopsitalization, but now on RA multifactorial - including atelectasis / CHF 3. Acute Diastolic CHF s/p IV diuresis, now appears evoluemic continue oral lasix 4. CKD3 4a. HypoK stable, monitor improved 5. HTN BP controlled on current regime -- Atenolol, Cardizem, Lasix (on Losartan at home, which has been held) 6. DM sliding scale 7. COPD continue baseline inhalers, not in exacerbation DNR Resume Subcut. heparin Quality Stroke Does the patient have a stroke diagnosis?: No VTE Prior VTE?: No VTE Risk Level:: Medical - moderate - high VTE Device Contraindication: Treatment Not Indicated VTE Drug Contraindication: N/A - Med Ordered
[2021-04-28 15:49] VITALS: BP 118/57; PULSE 65; RESP 18; TEMP 36.4; O2SAT 100
[2021-04-28] MEDS: Heparin Sodium,Porcine 5,000 UNIT/ML VIAL 5000 UNIT SUBCUT (16:00)
[2021-04-28 19:37] VITALS: BP 118/55; PULSE 63; RESP 18; TEMP 36.8; O2SAT 100
[2021-04-28] MEDS: Atorvastatin Calcium 10 MG TABLET PO (20:32)
--- NOTE | 2021-04-28 20:32 | MHC.PIE ---
p; b cx + for gram + cocci in cluster. note; pt on cubicin I; dr toth notified e; will cont to monitor
[2021-04-28] MEDS: traMADoL HCL 50 MG TABLET 25 MG PO (20:33)
[2021-04-29] VITALS (7 sets, daily range): BP systolic 111–146; BP diastolic 45–64; PULSE 61–82; RESP 18–20; TEMP 36.3–36.7; O2SAT 91–100
[2021-04-29] MEDS: Heparin Sodium,Porcine 5,000 UNIT/ML VIAL 5000 UNIT SUBCUT ×2 (02:27→18:00)
[2021-04-29] MEDS: Morphine Sulfate 2 MG/ML CARTRIDGE 0.5 MG IVPUSH (02:40)
[2021-04-29 05:42] LABS: Hemoglobin 8.3 g/dl (12.0-16.0); Mean Corpuscular HGB Conc 31.9 g/dl (31.0-35.0); Mean Corpuscular Hemoglobin 27.7 pg (27.0-33.0); Mean Corpuscular Volume 86.7 fL (80.0-98.0); Mean Platelet Volume 10.7 fL (9.4-12.3); Platelet Count 139 X10*3/uL (160-400); Red Cell Distribution Width 13.6 % (11.0-16.0); White Blood Count 8.4 X10*3/uL (4.8-10.8)
[2021-04-29 05:56] LABS: Anion Gap 14 (12-20); Blood Urea Nitrogen 16 mg/dL (9-16); Calcium 8.5 mg/dL (8.4-10.2); Carbon Dioxide 36 mmol/L (22-29); Chloride 88 mmol/L (96-108); Creatinine Clr Calc Pharmacy 27.3; Estimated Glomerular Filt Rate 30; Glucose Random 133 mg/dL (60-115); Potassium 3.6 mmol/L (3.3-5.1); Sodium 134 mmol/L (135-145)
--- NOTE | 2021-04-29 06:51 | MHC.PIE ---
P: Critcal blood culture2/2 results of GPC in clusters I: Dr. Urbina was notified and textback to notify next MD E: will cont to minitor, next RN was made aware.
[2021-04-29] MEDS: traMADoL HCL 50 MG TABLET 25 MG PO (08:53)
[2021-04-29] MEDS: Magnesium Oxide 400 MG TABLET 800 MG PO (08:53)
[2021-04-29] MEDS: Omeprazole 40 MG CAPSULE.DR PO (08:53)
[2021-04-29] MEDS: dilTIAZem HCL CD 180 MG CAP.ER.24H PO (08:53)
[2021-04-29] MEDS: Furosemide 40 MG TABLET 80 MG PO (08:53)
[2021-04-29] MEDS: atenoloL 25 MG TABLET PO (08:53)
[2021-04-29] MEDS: Carbidopa/Levodopa 25/100 TABLET 1 TAB PO ×2 (08:53→20:32)
[2021-04-29] MEDS: 0.9 % Sodium Chloride Flush 3 ML SYRINGE IVFLUSH ×2 (08:53→18:01)
--- NOTE | 2021-04-29 13:15 | HO.PM.IMPN ---
Subjective Subjective Date of Service: 04/29/21 Interval History: seen and examined this morning no overnight events No new back pain, no fevers, chills Review of Systems Review of Systems: Yes all other systems are reviewed and are negative Constitutional Constitutional: Denies chills and Denies fever(s) Cardiovascular Cardiovascular: Denies chest pain Respiratory Respiratory: Denies cough Gastrointestinal Gastrointestinal: Denies abdominal pain Physical Exam Vital Signs: Vital Signs: Last Vital Signs Temp 97.5 F 04/29/21 11:48 Pulse 61 04/29/21 11:48 Resp 20 04/29/21 11:48 BP 118/58 L 04/29/21 11:48 Pulse Ox 93 04/29/21 11:48 Oxygen Flow Rate 2 04/18/21 14:24 Body Mass Index 27.4 Const: General: cooperative, comfortable, alert and awake Nutritional Appearance: well nourished HENMT: Head: Yes normocephalic and Yes atraumatic Eyes: Sclerae: sclerae normal Resp: Effort & Inspection: normal respiratory effort and no respiratory distress Cardio: Rate: regular rate Heart sounds: S1 normal heart sound present and S2 normal heart sound present GI: Palpation (GI): Soft to palpation and nontender Neuro: Cranial nerves: Yes CN's II-XII intact bilaterally and Yes Bilaterally intact EOM present Extrem: Other: Able to move all 4 extremities spontaneously. No lower extremity edema Objective Data Active Medications Atenolol (Atenolol 25 Mg Tablet) 25 mg PO DAILY [facility]; Protocol Last Admin: 04/29/21 08:53 Dose: 25 mg Documented by: MELIDNA Atorvastatin Calcium (Atorvastatin Calcium 10 Mg Tablet) 10 mg PO BEDTIME [facility] Last Admin: 04/28/21 20:32 Dose: 10 mg Documented by: LUMA Carbidopa/Levodopa (Carbidopa/Levodopa 25/100 Tablet) 1 tab PO BID [facility] Last Admin: 04/29/21 08:53 Dose: 1 tab Documented by: MELINDA Diltiazem HCl (Diltiazem Hcl Cd 180 Mg Cap.Er.24h) 180 mg PO DAILY [facility]; Protocol Last Admin: 04/29/21 08:53 Dose: 180 mg Documented by: MELINDA Furosemide (Furosemide 40 Mg Tablet) 80 mg PO DAILY [facility]; Protocol Last Admin: 04/29/21 08:53 Dose: 80 mg Documented by: MELINDA Heparin Sodium (Porcine) (Heparin Sodium,Porcine 5,000 Unit/Ml Vial) 5,000 unit SUBCUT Q12H [facility] Last Admin: 04/29/21 02:27 Dose: 5,000 unit Documented by: LUMA Daptomycin 600 mg/ Sodium (Chloride) 62 mls @ 100 mls/hr IV Q48H [facility] Last Infusion: 04/27/21 18:01 Dose: 0 mls/hr Documented by: TK Ipratropium [place] (Ipratropium [place] 1 Puff/17 Mcg Inhaler) 2 puff INHALE QID PRN PRN Reason: Shortness Of Breath Or Wheezing Magnesium Oxide (Magnesium Oxide 400 Mg Tablet) 800 mg PO DAILY [facility] Last Admin: 04/29/21 08:53 Dose: 800 mg Documented by: MELINDA Morphine Sulfate (Morphine Sulfate 2 Mg/Ml Cartridge) 0.5 mg IVPUSH Q6H PRN; Protocol PRN Reason: Pain, Severe (Pain Scale 7-10) Last Admin: 04/29/21 02:40 Dose: 0.5 mg Documented by: LUMA Omeprazole (Omeprazole 40 Mg Capsule.Dr) 40 mg PO DAILY [facility] Last Admin: 04/29/21 08:53 Dose: 40 mg Documented by: MELINDA Ondansetron HCl (Ondansetron Hcl 4 Mg/2 Ml Vial) 4 mg IVPUSH ONCE PRN PRN Reason: Nausea and Vomiting Last Admin: 04/17/21 11:42 Dose: 4 mg Documented by: JULIANE Ondansetron HCl (Ondansetron Odt 4 Mg Tab.Rapdis) 4 mg TRANSLINGU Q6H PRN PRN Reason: Nausea Last Admin: 04/24/21 06:04 Dose: 4 mg Documented by: GRAY Pharmacy Consult (Consult Rx Perform Med Rec) 1 each MISCELLANE ONCE PRN PRN Reason: Consult order Sodium Chloride (0.9 % Sodium Chloride Flush 3 Ml Syringe) 3 ml IVFLUSH QSHIFT [facility] Last Admin: 04/29/21 08:53 Dose: 3 ml Documented by: MELINDA Tramadol HCl (Tramadol Hcl 50 Mg Tablet) 25 mg PO Q6H PRN PRN Reason: Pain, Moderate (Pain Scale 4-6 Last Admin: 04/29/21 08:53 Dose: 25 mg Documented by: MELINDA Labs CBC & Chem 7: 04/29/21 05:24 04/29/21 05:24 Labs: Laboratory Results - last 24 hr 04/29/21 04/29/21 05:24 05:24 MCV 86.7 MCH 27.7 MCHC 31.9 RDW 13.6 Plt Count 139 L D MPV 10.7 Absolute Nucleated RBC 0.000 Nucleated RBC % (auto) 0.0 Anion Gap 14 Estim Creat Clear Calc 27.3 Estimated GFR 30 Random Glucose 133 H Calcium 8.5 Microbiology Microbiology Results: Microbiology 04/27/21 11:05 Blood Culture - Preliminary Blood - Venous Prelim: GPC Gram Stain only 04/27/21 11:05 Blood Culture - Preliminary Blood - Venous Staphylococcus aureus Assessment and Plan (1) Psoas abscess, right: Status: Acute (2) Discitis thoracic region: Status: Acute (3) MRSA bacteremia: Status: Acute Assessment and Plan: This is an 80 yo F with a PMH of COPD, bladder CA, Ureteral obstruction causing R hydronephrosis requiring multiple stents, most recently on 04/11 who presented to the hospital on 04/14 with high grade fevers, weakness and back pain. 1. Sepsis secondary to MRSA bactermia, secondary to infected stent 1a. 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 Her case has been previously discussed (by prior providers) with [facility] Neurosurgery who felt that intervention was not required at that time. Furthermore, Nuerology has discussed her case with the patients family (Daughter in law Claudia who is HCP) and decision has been made to treat with IV antibiotics. If cultures negative at 48 hours -- will place PICC line and plan for IV Dapto (6 weeks, will confirm duration with ID) at [facility]. 2. Acute Hypoxic resp failure was on >5L during this hopsitalization, but now on RA multifactorial - including atelectasis / CHF 3. Acute Diastolic CHF s/p IV diuresis, now appears evoluemic continue oral lasix 4. CKD3 4a. HypoK stable, monitor improved 5. HTN BP controlled on current regime -- Atenolol, Cardizem, Lasix (on Losartan at home, which has been held) 6. DM sliding scale 7. COPD continue baseline inhalers, not in exacerbation DNR Resume Subcut. heparin attending: dr. parsons Quality Stroke Does the patient have a stroke diagnosis?: No VTE Prior VTE?: No VTE Risk Level:: Medical - moderate - high VTE Device Contraindication: Treatment Not Indicated VTE Drug Contraindication: N/A - Med Ordered
--- NOTE | 2021-04-29 14:47 | MHC.CM.PN ---
EMR REVIEWED, PT's 4TH SET OF BC CAME BACK POS, NEW SET DRAWN TODAY, PT WILL NEED PICC LINE ONCE BC'S COME BACK NEGATIVE, ANTIC D/C Sunday05/02/21, KARIN FOLLOWING AND REFERRAL UPDATED, CM WILL CONT TO FOLLOW D/C NEEDS.
--- NOTE | 2021-04-29 15:24 | MHC.CLN ---
NUTRITION PATIENT STATED THAT SHE HAS NOT HAD A GOOD APPETITE. REVIEW OF DOCUMENTATION SHOWS MANY MEALS APPROXIMATELY 25%. PATIENT WITH SNACKS IN HER ROOM, INCLUDING HIGH PROTEIN COOKIE THAT SHE LIKES. DRANK AN ENSURE SUPPLEMENT QUICKLY DURING VISIT AND STATED THAT LIKES SUPPLEMENT. ASKED ABOUT DM AND STATED DOES NOT TAKE MEDS FOR THAT. APPEARS WELL NOURISHED. CONTINUE CARDIAC DIET WITH ENSURE SUPPLEMENT TID. ENSURE PROVIDES 1050 KCAL AND 48-60 G PROTEIN.
[2021-04-29] MEDS: DAPTOmycin 600 MG in 0.9 % Sodium Chloride 50 ML 100 MG IV (18:01)
[2021-04-29] MEDS: Atorvastatin Calcium 10 MG TABLET PO (20:32)
[2021-04-30] VITALS (7 sets, daily range): BP systolic 121–137; BP diastolic 58–61; PULSE 56–62; RESP 17–18; TEMP 36–36.1; O2SAT 97–100
[2021-04-30] MEDS: 0.9 % Sodium Chloride Flush 3 ML SYRINGE IVFLUSH ×4 (00:20→23:50)
[2021-04-30] MEDS: Heparin Sodium,Porcine 5,000 UNIT/ML VIAL 5000 UNIT SUBCUT ×2 (04:24→16:43)
[2021-04-30 05:48] LABS: Hematocrit 26.9 % (37.0-47.0); Hemoglobin 8.3 g/dl (12.0-16.0); Mean Corpuscular HGB Conc 30.9 g/dl (31.0-35.0); Mean Corpuscular Hemoglobin 27.5 pg (27.0-33.0); Mean Corpuscular Volume 89.1 fL (80.0-98.0); Mean Platelet Volume 10.8 fL (9.4-12.3); Platelet Count 148 X10*3/uL (160-400); Red Blood Count 3.02 X10*6/uL (4.20-5.50); Red Cell Distribution Width 13.8 % (11.0-16.0); White Blood Count 7.2 X10*3/uL (4.8-10.8)
[2021-04-30 05:54] LABS: Anion Gap 15 (12-20); Blood Urea Nitrogen 17 mg/dL (9-16); Calcium 8.6 mg/dL (8.4-10.2); Carbon Dioxide 36 mmol/L (22-29); Chloride 90 mmol/L (96-108); Creatinine Clr Calc Pharmacy 24.9; Estimated Glomerular Filt Rate 27; Glucose Random 137 mg/dL (60-115); Potassium 3.8 mmol/L (3.3-5.1); Sodium 137 mmol/L (135-145)
[2021-04-30] MEDS: atenoloL 25 MG TABLET PO (09:52)
[2021-04-30] MEDS: Omeprazole 40 MG CAPSULE.DR PO (09:52)
[2021-04-30] MEDS: dilTIAZem HCL CD 180 MG CAP.ER.24H PO (09:52)
[2021-04-30] MEDS: Carbidopa/Levodopa 25/100 TABLET 1 TAB PO ×2 (09:53→21:27)
[2021-04-30] MEDS: Furosemide 40 MG TABLET 80 MG PO (09:53)
[2021-04-30] MEDS: Magnesium Oxide 400 MG TABLET 800 MG PO (09:53)
--- NOTE | 2021-04-30 11:23 | HO.PM.IMPN ---
Subjective Subjective Date of Service: 04/30/21 Interval History: No acute issues overnight Review of Systems Denies chest pain Denies shortness of breath Denies nausea vomiting diarrhea Physical Exam Vital Signs: Vital Signs: Last Vital Signs Temp 96.8 F 04/30/21 08:00 Pulse 62 04/30/21 09:52 Resp 17 04/30/21 08:00 BP 127/58 L 04/30/21 09:52 Pulse Ox 100 04/30/21 08:00 Oxygen Flow Rate 2 04/18/21 14:24 Body Mass Index 27.4 Const: Other: No acute distress Resp: Other: Clear to auscultation bilaterally no rales rhonchi wheezes Cardio: Other: No S4; positive S1-S2; no S3 murmurs rubs ago GI: Other: Soft nontender nondistended with normoactive bowel sounds Extrem: Other: No edema bilateral Objective Data Active Medications Atenolol (Atenolol 25 Mg Tablet) 25 mg PO DAILY [facility]; Protocol Last Admin: 04/30/21 09:52 Dose: 25 mg Documented by: TATI Atorvastatin Calcium (Atorvastatin Calcium 10 Mg Tablet) 10 mg PO BEDTIME [facility] Last Admin: 04/29/21 20:32 Dose: 10 mg Documented by: ANNA Carbidopa/Levodopa (Carbidopa/Levodopa 25/100 Tablet) 1 tab PO BID [facility] Last Admin: 04/30/21 09:53 Dose: 1 tab Documented by: TATI Diltiazem HCl (Diltiazem Hcl Cd 180 Mg Cap.Er.24h) 180 mg PO DAILY [facility]; Protocol Last Admin: 04/30/21 09:52 Dose: 180 mg Documented by: TATI Furosemide (Furosemide 40 Mg Tablet) 80 mg PO DAILY [facility]; Protocol Last Admin: 04/30/21 09:53 Dose: 80 mg Documented by: TATI Heparin Sodium (Porcine) (Heparin Sodium,Porcine 5,000 Unit/Ml Vial) 5,000 unit SUBCUT Q12H [facility] Last Admin: 04/30/21 04:24 Dose: 5,000 unit Documented by: TK Daptomycin 600 mg/ Sodium (Chloride) 62 mls @ 100 mls/hr IV Q48H [facility] Last Infusion: 04/29/21 19:40 Dose: 0 mls/hr Documented by: ANNA Ipratropium [place] (Ipratropium [place] 1 Puff/17 Mcg Inhaler) 2 puff INHALE QID PRN PRN Reason: Shortness Of Breath Or Wheezing Magnesium Oxide (Magnesium Oxide 400 Mg Tablet) 800 mg PO DAILY [facility] Last Admin: 04/30/21 09:53 Dose: 800 mg Documented by: TATI Morphine Sulfate (Morphine Sulfate 2 Mg/Ml Cartridge) 0.5 mg IVPUSH Q6H PRN; Protocol PRN Reason: Pain, Severe (Pain Scale 7-10) Last Admin: 04/29/21 02:40 Dose: 0.5 mg Documented by: LUMA Omeprazole (Omeprazole 40 Mg Capsule.Dr) 40 mg PO DAILY [facility] Last Admin: 04/30/21 09:52 Dose: 40 mg Documented by: TATI Ondansetron HCl (Ondansetron Hcl 4 Mg/2 Ml Vial) 4 mg IVPUSH ONCE PRN PRN Reason: Nausea and Vomiting Last Admin: 04/17/21 11:42 Dose: 4 mg Documented by: JULIANE Ondansetron HCl (Ondansetron Odt 4 Mg Tab.Rapdis) 4 mg TRANSLINGU Q6H PRN PRN Reason: Nausea Last Admin: 04/24/21 06:04 Dose: 4 mg Documented by: GRAY Pharmacy Consult (Consult Rx Perform Med Rec) 1 each MISCELLANE ONCE PRN PRN Reason: Consult order Sodium Chloride (0.9 % Sodium Chloride Flush 3 Ml Syringe) 3 ml IVFLUSH QSHIFT [facility] Last Admin: 04/30/21 09:52 Dose: 3 ml Documented by: TATI Tramadol HCl (Tramadol Hcl 50 Mg Tablet) 25 mg PO Q6H PRN PRN Reason: Pain, Moderate (Pain Scale 4-6 Last Admin: 04/29/21 08:53 Dose: 25 mg Documented by: MELINDA Labs CBC & Chem 7: 04/30/21 05:21 04/30/21 05:21 Labs: Laboratory Results - last 24 hr 04/30/21 04/30/21 05:21 05:21 MCV 89.1 MCH 27.5 MCHC 30.9 L RDW 13.8 Plt Count 148 L MPV 10.8 Absolute Nucleated RBC 0.000 Nucleated RBC % (auto) 0.0 Anion Gap 15 Estim Creat Clear Calc 24.9 Estimated GFR 27 Random Glucose 137 H Calcium 8.6 Microbiology Microbiology Results: Microbiology 04/29/21 09:00 Blood Culture - Preliminary Blood - Venous No growth after 24 hours. 04/29/21 09:01 Blood Culture - Preliminary Blood - Venous No growth after 24 hours. 04/27/21 11:05 Blood Culture - Final Blood - Venous Methicillin Res Staph Aureus 04/27/21 11:05 Blood Culture - Final Blood - Venous Methicillin Res Staph Aureus Assessment and Plan (1) MRSA bacteremia: Status: Acute (2) UTI (urinary tract infection): Status: Acute (3) DM type 2 (diabetes mellitus, type 2): Status: Acute Assessment and Plan: This is an 80 yo F with a PMH of COPD, bladder CA, Ureteral obstruction causing R hydronephrosis requiring multiple stents(04/11) presented to the hospital on 04/14 with high grade fevers, weakness and back pain likely complication of stenting 1. Sepsis secondary to MRSA bactermia, secondary to infected stent Continue daptomycin as per ID If cultures negative at 48 hours -- will place PICC line and plan for IV Dapto (6 weeks, will confirm duration with ID) at SNF. 2. Acute Hypoxic resp failure Resolved 3. Acute Diastolic CHF Acute issues resolved;continue oral lasix Follow renal function 4. CKD3 Stable. Continue follow renal function 5. HTN Atenolol, Cardizem, Lasix (on Losartan at home, which has been held) 6. DM Sliding-scale adjust as indicated 7. COPD Continue current inhalers; plan as ordered DNR/DNI Heparin Quality Stroke Does the patient have a stroke diagnosis?: No VTE Prior VTE?: No VTE Risk Level:: Medical - moderate - high VTE Device Contraindication: Treatment Not Indicated VTE Drug Contraindication: N/A - Med Ordered
[2021-04-30] MEDS: traMADoL HCL 50 MG TABLET 25 MG PO ×2 (16:44→23:47)
[2021-04-30] MEDS: Atorvastatin Calcium 10 MG TABLET PO (21:27)
[2021-05-01] VITALS (7 sets, daily range): BP systolic 112–138; BP diastolic 56–64; PULSE 55–61; RESP 16–18; TEMP 36–36.6; O2SAT 96–100
[2021-05-01 04:02] LABS: CDiff Gene PCR NEGATIVE (Negative)
[2021-05-01] MEDS: Heparin Sodium,Porcine 5,000 UNIT/ML VIAL 5000 UNIT SUBCUT ×2 (04:42→14:42)
[2021-05-01 05:25] LABS: MANUAL DIFF FLAG NO
[2021-05-01 05:31] LABS: Basophils Percent Auto 0.4 % (0-2); Eosinophils Absolute Auto 0.1 X10*3/uL (0.0-0.4); Eosinophils Percent Auto 2.5 % (0-4); Hematocrit 26.5 % (37.0-47.0); Hemoglobin 8.2 g/dl (12.0-16.0); Imm Gran Abs Auto 0.03 X10*3/uL (0.00-0.03); Imm Gran Pct Auto 0.5 % (0.0-0.4); Lymphocytes Percent Auto 17.4 % (20-40); Mean Corpuscular HGB Conc 30.9 g/dl (31.0-35.0); Mean Corpuscular Hemoglobin 27.6 pg (27.0-33.0); Mean Corpuscular Volume 89.2 fL (80.0-98.0); Mean Platelet Volume 10.7 fL (9.4-12.3); Monocytes Absolute Auto 0.7 X10*3/uL (0.1-1.2); Monocytes Percent Auto 11.4 % (2-11); Neutrophils Absolute Auto 3.9 x10*3/uL (2.0-8.3); Neutrophils Percent Auto 67.8 % (45-73); Platelet Count 154 X10*3/uL (160-400); Red Blood Count 2.97 X10*6/uL (4.20-5.50); Red Cell Distribution Width 13.6 % (11.0-16.0); White Blood Count 5.7 X10*3/uL (4.8-10.8)
[2021-05-01 05:54] LABS: Alanine Aminotransferase < 6 U/L (0-31); Alkaline Phosphatase 78 U/L (39-117); Anion Gap 17 (12-20); Aspartate Amino Transferase 10 U/L (5-31); Bilirubin Total 0.5 mg/dL (0.0-1.0); Blood Urea Nitrogen 17 mg/dL (9-16); Calcium 8.7 mg/dL (8.4-10.2); Carbon Dioxide 35 mmol/L (22-29); Chloride 90 mmol/L (96-108); Creatinine Clr Calc Pharmacy 25.8; Estimated Glomerular Filt Rate 28; Glucose Random 127 mg/dL (60-115); Potassium 4.1 mmol/L (3.3-5.1); Sodium 138 mmol/L (135-145)
[2021-05-01] MEDS: Furosemide 40 MG TABLET 80 MG PO (09:08)
[2021-05-01] MEDS: Magnesium Oxide 400 MG TABLET 800 MG PO (09:08)
[2021-05-01] MEDS: Carbidopa/Levodopa 25/100 TABLET 1 TAB PO ×2 (09:09→20:25)
[2021-05-01] MEDS: Omeprazole 40 MG CAPSULE.DR PO (09:09)
[2021-05-01] MEDS: 0.9 % Sodium Chloride Flush 3 ML SYRINGE IVFLUSH ×3 (09:09→20:25)
[2021-05-01] MEDS: atenoloL 25 MG TABLET PO (09:09)
[2021-05-01] MEDS: dilTIAZem HCL CD 180 MG CAP.ER.24H PO (09:09)
--- NOTE | 2021-05-01 09:15 | HO.PM.IMPN ---
Subjective Subjective Date of Service: 05/01/21 Interval History: F/u on Osteomyelisis / Disciits / Psoas abscess, MRSA bacteremia, clinically doing well, has no pain in the back, and ambulating Review of Systems Denies chest pain Denies shortness of breath Denies nausea vomiting diarrhea No back pain at present Physical Exam Vital Signs: Vital Signs: Last Vital Signs Temp 97.2 F 05/01/21 08:00 Pulse 61 05/01/21 08:00 Resp 18 05/01/21 08:00 BP 138/64 05/01/21 08:00 Pulse Ox 100 05/01/21 08:00 Oxygen Flow Rate 2 04/18/21 14:24 Body Mass Index 27.4 Const: Other: Other:? General - no acute distress, appears comfortab le Cardiovascular - regular rate and rhythm, S1-S2 Vesta gs - normal respir atory effort, jacqueline r to auscultation bilaterally, no wh eezing Abdomen - s oft, nontender, no rebound or guardi ng Extremities - n o edema bilaterall y Neuro - awake an d alert; bilateral LE strength equal and likely 4+ Objective Data Active Medications Atenolol (Atenolol 25 Mg Tablet) 25 mg PO DAILY LISANDRA; Protocol Last Admin: 05/01/21 09:09 Dose: 25 mg Documented by: JUSTINO Atorvastatin Calcium (Atorvastatin Calcium 10 Mg Tablet) 10 mg PO BEDTIME LISANDRA Last Admin: 04/30/21 21:27 Dose: 10 mg Documented by: SHANIKA Carbidopa/Levodopa (Carbidopa/Levodopa 25/100 Tablet) 1 tab PO BID LISANDRA Last Admin: 05/01/21 09:09 Dose: 1 tab Documented by: JUSTINO Diltiazem HCl (Diltiazem Hcl Cd 180 Mg Cap.Er.24h) 180 mg PO DAILY LISANDRA; Protocol Last Admin: 05/01/21 09:09 Dose: 180 mg Documented by: JUSTINO Furosemide (Furosemide 40 Mg Tablet) 80 mg PO DAILY LISANDRA; Protocol Last Admin: 05/01/21 09:08 Dose: 80 mg Documented by: JUSTINO Heparin Sodium (Porcine) (Heparin Sodium,Porcine 5,000 Unit/Ml Vial) 5,000 unit SUBCUT Q12H LISANDRA Last Admin: 05/01/21 04:42 Dose: 5,000 unit Documented by: ZACH Daptomycin 600 mg/ Sodium (Chloride) 62 mls @ 100 mls/hr IV Q48H [facility] Last Infusion: 04/29/21 19:40 Dose: 0 mls/hr Documented by: ANNA Ipratropium [place] (Ipratropium [place] 1 Puff/17 Mcg Inhaler) 2 puff INHALE QID PRN PRN Reason: Shortness Of Breath Or Wheezing Magnesium Oxide (Magnesium Oxide 400 Mg Tablet) 800 mg PO DAILY [facility] Last Admin: 05/01/21 09:08 Dose: 800 mg Documented by: JUSTINO Morphine Sulfate (Morphine Sulfate 2 Mg/Ml Cartridge) 0.5 mg IVPUSH Q6H PRN; Protocol PRN Reason: Pain, Severe (Pain Scale 7-10) Last Admin: 04/29/21 02:40 Dose: 0.5 mg Documented by: LUMA Omeprazole (Omeprazole 40 Mg Capsule.Dr) 40 mg PO DAILY [facility] Last Admin: 05/01/21 09:09 Dose: 40 mg Documented by: JUSTINO Ondansetron HCl (Ondansetron Hcl 4 Mg/2 Ml Vial) 4 mg IVPUSH ONCE PRN PRN Reason: Nausea and Vomiting Last Admin: 04/17/21 11:42 Dose: 4 mg Documented by: JULIANE Ondansetron HCl (Ondansetron Odt 4 Mg Tab.Rapdis) 4 mg TRANSLINGU Q6H PRN PRN Reason: Nausea Last Admin: 04/24/21 06:04 Dose: 4 mg Documented by: GRAY Pharmacy Consult (Consult Rx Perform Med Rec) 1 each MISCELLANE ONCE PRN PRN Reason: Consult order Sodium Chloride (0.9 % Sodium Chloride Flush 3 Ml Syringe) 3 ml IVFLUSH QSHIFT [facility] Last Admin: 05/01/21 09:09 Dose: 3 ml Documented by: JUSTINO Tramadol HCl (Tramadol Hcl 50 Mg Tablet) 25 mg PO Q6H PRN PRN Reason: Pain, Moderate (Pain Scale 4-6 Last Admin: 04/30/21 23:47 Dose: 25 mg Documented by: ZACH Labs CBC & Chem 7: 05/01/21 05:06 05/01/21 05:06 Labs: Laboratory Results - last 24 hr 04/30/21 05/01/2121 20:18 05:06 05:06 MCV 89.2 MCH 27.6 MCHC 30.9 L RDW 13.6 Plt Count 154 L MPV 10.7 Immature Gran % (Auto) 0.5 H Neut % (Auto) 67.8 Lymph % (Auto) 17.4 L [place] % (Auto) 11.4 H Eos % (Auto) 2.5 Baso % (Auto) 0.4 Lymph # (Auto) 1.0 L [place] # (Auto) 0.7 Eos # (Auto) 0.1 Baso # (Auto) 0.0 Abs Immat Gran (auto) 0.03 Absolute Neuts (auto) 3.9 Absolute Nucleated RBC 0.000 Nucleated RBC % (auto) 0.0 Anion Gap 17 Estim Creat Clear Calc 25.8 Estimated GFR 28 Random Glucose 127 H Calcium 8.7 Total Bilirubin 0.5 AST 10 ALT < 6 Alkaline Phosphatase 78 Total Protein 6.0 L Albumin 3.0 L D C. difficile Tox B Gene NEGATIVE Microbiology Microbiology Results: Microbiology 04/29/21 09:00 Blood Culture - Preliminary Blood - Venous No growth after 24 hours. 04/29/21 09:01 Blood Culture - Preliminary Blood - Venous No growth after 24 hours. 04/27/21 11:05 Blood Culture - Final Blood - Venous Methicillin Res Staph Aureus 04/27/21 11:05 Blood Culture - Final Blood - Venous Methicillin Res Staph Aureus Assessment and Plan (1) Psoas abscess, right: Status: Acute (2) Discitis thoracic region: Status: Acute (3) MRSA bacteremia: Status: Acute Assessment and Plan: 80 yo F with a PMH of COPD, bladder CA, Ureteral obstruction causing R hydronephrosis requiring multiple stents, most recently on 04/11 who presented to the hospital on 04/14 with high grade fevers, weakness and back pain and now with MRSA sepsis, bacteremia, Osteomyelisis / Disciits / Psoas abscess 1. Sepsis secondary to MRSA bactermia, secondary to infected stent further leading to L1/L2 Acute Osteomyelisis / Disciits / Psoas abscess Bacteremia persisted -- switched from vancocmyin to Dapto; repeat blood cx on 04/29 prelim neg at 24 hours. Clinically patient has improved. Her case has been previously discussed (by prior providers) with [facility] with no indication for intervention. Furthermore, [facility] has discussed her case with the patients family (Daughter in law Claudia who is HCP) and decision has been made to treat with IV antibiotics. If cultures negative at 48 hours -- will place PICC line and plan for IV Dapto (6 weeks, will confirm duration with ID) at SNF. 2. Acute Hypoxic resp failure was on >5L during this hopsitalization, but now on RA multifactorial - including atelectasis / CHF 3. Acute Diastolic CHF s/p IV diuresis, now appears evoluemic continue oral lasix 4. CKD3 4a. HypoK stable, monitor improved 5. HTN BP controlled on current regime -- Atenolol, Cardizem, Lasix (on Losartan at home, which has been held) 6. DM sliding scale 7. COPD continue baseline inhalers, not in exacerbation DNR Resume Subcut. heparin Quality Stroke Does the patient have a stroke diagnosis?: No VTE Prior VTE?: No VTE Risk Level:: Medical - moderate - high VTE Device Contraindication: Treatment Not Indicated VTE Drug Contraindication: N/A - Med Ordered
[2021-05-01] MEDS: traMADoL HCL 50 MG TABLET 25 MG PO ×2 (13:35→21:43)
--- NOTE | 2021-05-01 15:17 | MHC.CM.PN ---
PLAN IS FOR PICC INSERTION AND IV ABX AT SNF. CURRENTLY TIM AND [facility]IQU[facility] GANT ARE FOLLOWING [facility]AC[facility]IT[facility].
[2021-05-01] MEDS: DAPTOmycin 600 MG in 0.9 % Sodium Chloride 50 ML 100 MG IV (17:12)
[2021-05-01] MEDS: Atorvastatin Calcium 10 MG TABLET PO (20:25)
[2021-05-02] VITALS (8 sets, daily range): BP systolic 122–140; BP diastolic 57–64; PULSE 60–65; RESP 18; TEMP 36.2–36.6; O2SAT 92–100
[2021-05-02 06:04] LABS: MANUAL DIFF FLAG NO
[2021-05-02] MEDS: Heparin Sodium,Porcine 5,000 UNIT/ML VIAL 5000 UNIT SUBCUT ×2 (06:06→17:59)
[2021-05-02 06:10] LABS: Basophils Percent Auto 0.5 % (0-2); Eosinophils Absolute Auto 0.1 X10*3/uL (0.0-0.4); Eosinophils Percent Auto 1.7 % (0-4); Hematocrit 26.6 % (37.0-47.0); Hemoglobin 8.2 g/dl (12.0-16.0); Imm Gran Abs Auto 0.03 X10*3/uL (0.00-0.03); Imm Gran Pct Auto 0.5 % (0.0-0.4); Lymphocytes Absolute Auto 1.1 X10*3/uL (1.2-4.9); Lymphocytes Percent Auto 16.8 % (20-40); Mean Corpuscular HGB Conc 30.8 g/dl (31.0-35.0); Mean Corpuscular Hemoglobin 27.7 pg (27.0-33.0); Mean Corpuscular Volume 89.9 fL (80.0-98.0); Monocytes Absolute Auto 0.7 X10*3/uL (0.1-1.2); Monocytes Percent Auto 10.9 % (2-11); Neutrophils Absolute Auto 4.4 x10*3/uL (2.0-8.3); Neutrophils Percent Auto 69.6 % (45-73); Platelet Count 169 X10*3/uL (160-400); Red Blood Count 2.96 X10*6/uL (4.20-5.50); Red Cell Distribution Width 13.4 % (11.0-16.0); White Blood Count 6.3 X10*3/uL (4.8-10.8)
[2021-05-02 06:35] LABS: Alanine Aminotransferase < 6 U/L (0-31); Albumin Level 3.1 g/dL (3.5-5.0); Alkaline Phosphatase 79 U/L (39-117); Anion Gap 15 (12-20); Aspartate Amino Transferase 10 U/L (5-31); Bilirubin Total 0.4 mg/dL (0.0-1.0); Blood Urea Nitrogen 19 mg/dL (9-16); Calcium 8.7 mg/dL (8.4-10.2); Carbon Dioxide 36 mmol/L (22-29); Chloride 91 mmol/L (96-108); Creatinine Clr Calc Pharmacy 25.9; Estimated Glomerular Filt Rate 28; Glucose Random 134 mg/dL (60-115); Potassium 3.9 mmol/L (3.3-5.1); Sodium 138 mmol/L (135-145); Total Protein 6.1 g/dL (6.5-8.0)
[2021-05-02] MEDS: Magnesium Oxide 400 MG TABLET 800 MG PO (08:13)
[2021-05-02] MEDS: Carbidopa/Levodopa 25/100 TABLET 1 TAB PO ×2 (08:14→20:22)
[2021-05-02] MEDS: atenoloL 25 MG TABLET PO (08:14)
[2021-05-02] MEDS: Omeprazole 40 MG CAPSULE.DR PO (08:14)
[2021-05-02] MEDS: dilTIAZem HCL CD 180 MG CAP.ER.24H PO (08:14)
[2021-05-02] MEDS: Furosemide 40 MG TABLET 80 MG PO (08:15)
--- NOTE | 2021-05-02 08:55 | HO.PM.IMPN ---
Subjective Subjective Date of Service: 05/02/21 Interval History: F/u on Osteomyelisis / Disciits / Psoas abscess, MRSA bacteremia, clinically doing well, 5/10 back pain, no fever Review of Systems Denies chest pain Denies shortness of breath Denies nausea vomiting diarrhea some back pain at present Physical Exam Vital Signs: Vital Signs: Last Vital Signs Temp 97.4 F 05/02/21 07:53 Pulse 65 05/02/21 08:14 Resp 18 05/02/21 07:53 BP 128/60 05/02/21 08:14 Pulse Ox 94 05/02/21 07:53 Oxygen Flow Rate 2 04/18/21 14:24 Body Mass Index 27.4 Const: Other: Other:? General - no acute distress, appears comfortab le Cardiovascular - regular rate and rhythm, S1-S2 Vesta gs - normal respir atory effort, jacqueline r to auscultation bilaterally, no wh eezing Abdomen - s oft, nontender, no rebound or guardi ng Extremities - n o edema bilaterall y Neuro - awake an d alert; bilateral LE strength equal and likely 4+ Objective Data Active Medications Atenolol (Atenolol 25 Mg Tablet) 25 mg PO DAILY LISANDRA; Protocol Last Admin: 05/02/21 08:14 Dose: 25 mg Documented by: THOMAS Atorvastatin Calcium (Atorvastatin Calcium 10 Mg Tablet) 10 mg PO BEDTIME LISANDRA Last Admin: 05/01/21 20:25 Dose: 10 mg Documented by: LILI Carbidopa/Levodopa (Carbidopa/Levodopa 25/100 Tablet) 1 tab PO BID LISANDRA Last Admin: 05/02/21 08:14 Dose: 1 tab Documented by: THOMAS Diltiazem HCl (Diltiazem Hcl Cd 180 Mg Cap.Er.24h) 180 mg PO DAILY LSIANDRA; Protocol Last Admin: 05/02/21 08:14 Dose: 180 mg Documented by: THOMAS Furosemide (Furosemide 40 Mg Tablet) 80 mg PO DAILY LISANDRA; Protocol Last Admin: 05/02/21 08:15 Dose: 80 mg Documented by: THOMAS Heparin Sodium (Porcine) (Heparin Sodium,Porcine 5,000 Unit/Ml Vial) 5,000 unit SUBCUT Q12H LISANDRA Last Admin: 05/02/21 06:06 Dose: 5,000 unit Documented by: LILI Daptomycin 600 mg/ Sodium (Chloride) 62 mls @ 100 mls/hr IV Q48H [facility] Last Infusion: 05/01/21 18:05 Dose: 0 mls/hr Documented by: JUSTINO Ipratropium [place] (Ipratropium [place] 1 Puff/17 Mcg Inhaler) 2 puff INHALE QID PRN PRN Reason: Shortness Of Breath Or Wheezing Loperamide HCl (Loperamide Hcl 2 Mg Capsule) 2 mg PO Q4H PRN PRN Reason: Diarrhea Magnesium Oxide (Magnesium Oxide 400 Mg Tablet) 800 mg PO DAILY [facility] Last Admin: 05/02/21 08:13 Dose: 800 mg Documented by: THOMAS Omeprazole (Omeprazole 40 Mg Capsule.Dr) 40 mg PO DAILY [facility] Last Admin: 05/02/21 08:14 Dose: 40 mg Documented by: THOMAS Ondansetron HCl (Ondansetron Hcl 4 Mg/2 Ml Vial) 4 mg IVPUSH ONCE PRN PRN Reason: Nausea and Vomiting Last Admin: 04/17/21 11:42 Dose: 4 mg Documented by: JULIANE Ondansetron HCl (Ondansetron Odt 4 Mg Tab.Rapdis) 4 mg TRANSLINGU Q6H PRN PRN Reason: Nausea Last Admin: 04/24/21 06:04 Dose: 4 mg Documented by: GRAY Pharmacy Consult (Consult Rx Perform Med Rec) 1 each MISCELLANE ONCE PRN PRN Reason: Consult order Sodium Chloride (0.9 % Sodium Chloride Flush 3 Ml Syringe) [facility] Admin: 05/02/21 08:22 Dose: Not Given Documented by: THOMAS Non-Admin Reason: No Access Tramadol HCl (Tramadol Hcl 50 Mg Tablet) 25 mg PO Q6H PRN PRN Reason: Pain, Moderate (Pain Scale 4-6 Last Admin: 05/01/21 21:43 Dose: 25 mg Documented by: LILI Labs CBC & Chem 7: 05/02/21 05:29 05/02/21 05:29 Labs: Laboratory Results - last 24 hr 05/02/21 05/02/21 05:29 05:29 MCV 89.9 MCH 27.7 MCHC 30.8 L RDW 13.4 Plt Count 169 MPV 11.0 Immature Gran % (Auto) 0.5 H Neut % (Auto) 69.6 Lymph % (Auto) 16.8 L [place] % (Auto) 10.9 Eos % (Auto) 1.7 Baso % (Auto) 0.5 Lymph # (Auto) 1.1 L [place] # (Auto) 0.7 Eos # (Auto) 0.1 Baso # (Auto) 0.0 Abs Immat Gran (auto) 0.03 Absolute Neuts (auto) 4.4 Absolute Nucleated RBC 0.000 Nucleated RBC % (auto) 0.0 Anion Gap 15 Estim Creat Clear Calc 25.9 Estimated GFR 28 Random Glucose 134 H Calcium 8.7 Total Bilirubin 0.4 AST 10 ALT < 6 Alkaline Phosphatase 79 Total Protein 6.1 L Albumin 3.1 L Microbiology Microbiology Results: Microbiology 04/29/21 09:00 Blood Culture - Preliminary Blood - Venous No growth after 48 hours. 04/29/21 09:01 Blood Culture - Preliminary Blood - Venous No growth after 48 hours. Assessment and Plan (1) MRSA bacteremia: Status: Acute Assessment and Plan: 80 yo F with a PMH of COPD, bladder CA, Ureteral obstruction causing R hydronephrosis requiring multiple stents, most recently on 04/11 who presented to the hospital on 04/14 with high grade fevers, weakness and back pain and now with MRSA sepsis, bacteremia, Osteomyelisis / Disciits / Psoas abscess 1. Sepsis secondary to MRSA bactermia, originating from infected uro stent further leading to L1/L2 Acute Osteomyelisis / Disciits / Psoas abscess Had persistent bacteremia (samples from 04/14, , 04/23, 10 were all positive) while On Vancomycin (was on Vanco from 04/15 to 04/25), so was switched to Daptomycin on 04/25, last culture from 04/29 is negative > 48 Clinically patient has improved. Her case has been previously discussed (by prior providers) with [facility] with no indication for intervention. Furthermore, [facility] has discussed her case with the patients family (Daughter in law Claudia who is HCP) and decision has been made to treat with IV antibiotics. A PICC line is requested for 6 weeks of IV Daptomycin. 2. Acute Hypoxic resp failure was on >5L during this hopsitalization, but now on RA multifactorial - including atelectasis / CHF 3. Acute Diastolic CHF s/p IV diuresis, now appears evoluemic continue oral lasix 4. CKD3 4a. HypoK stable, monitor improved 5. HTN BP controlled on current regime -- Atenolol, Cardizem, Lasix (on Losartan at home, which has been held) 6. DM sliding scale 7. COPD continue baseline inhalers, not in exacerbation DNR Subcut. heparin Quality Stroke Does the patient have a stroke diagnosis?: No VTE Prior VTE?: No VTE Risk Level:: Medical - moderate - high VTE Device Contraindication: Treatment Not Indicated VTE Drug Contraindication: N/A - Med Ordered
--- NOTE | 2021-05-02 11:01 | MHC.CM.PN ---
NURSE CARE MANAGEMENT NOTE ELECTRONIC MEDICAL RECORD REVIEWED , PER DOCUMENTATION PATIENT ADMITTED WITH (SEPSIS SECONDARY TO MRSA BACTEREMIA, FROM INFECTED URO SETNT LEADING TO LIUMBAR 1-2 ACUTE OSTEOMYELITIS/DISCITIS/PSOAS ABSCESS CONTINUES ION IV DAPTOMYCIN WITH IS. PHYSICIAN RECOMENDATIONS FOR 6 WEEKS , PATIENT WILL BE GETTING A PIC LINE [facility] IV ABX . PLAN FOR SHORT TERM REHAB CONTINUES WITH IV HEPARIN DEPARTMENT CLINICIAN TO CONTINUE TO FOLLOW
--- NOTE | 2021-05-02 15:39 | HO.PICC ---
PICC Line Insertion NPICC Diagnosis: [Bacteremia] Indication: [alf antibiotics] Pertinent Labs: [Reviewed] Technique: Following informed consent including risks, benefits and alternatives and using sterile technique including cap and mask, sterile gown, glove and drape, the [right] arm was prepped and draped in the usual sterile fashion of full barrier technique with CHG. Following completion of [place] Protocol the skin and soft tissues were anesthetized with 1% Lidocaine plain. Using ultrasound guidance, [right brachial] vein access was obtained on first attempt. Over an 0.018 wire through peel-away sheath, a [4FR single lumen] PICC line was positioned. Catheter length is [39 CM] internal length, [0 CM at the hub] external length, for a total trimmed length of [39 CM]. The procedure was performed in [S272]. Tip verification was performed by Alexandro Mathew with Sherlock 3CG. Tip located in SVC. Ultrasound was used to document vein patency and for needle entry. A formal ultrasound picture and cardiac rhythm strip was recorded. [employer] has released the line for use and it is currently dressed with a StatLock, Tegaderm, and CHG disc. Verification has been performed for blood return and line patency. Arm Circumference: [31 CM] Equipment: [[employer] Power PICC Solo] Catheter Type: [4FR Single Lumen PICC] Lot #: [[id number]]
[2021-05-02] MEDS: 0.9 % Sodium Chloride Flush 3 ML SYRINGE IVFLUSH ×2 (16:27→20:22)
[2021-05-02] MEDS: Atorvastatin Calcium 10 MG TABLET PO (20:22)
[2021-05-03 03:19] VITALS: BP 123/58; PULSE 76; RESP 18; TEMP 36.2; O2SAT 92
[2021-05-03 05:25] LABS: MANUAL DIFF FLAG NO
[2021-05-03 05:31] LABS: Basophils Percent Auto 0.2 % (0-2); Eosinophils Absolute Auto 0.1 X10*3/uL (0.0-0.4); Eosinophils Percent Auto 1.5 % (0-4); Hematocrit 27.7 % (37.0-47.0); Hemoglobin 8.7 g/dl (12.0-16.0); Imm Gran Abs Auto 0.03 X10*3/uL (0.00-0.03); Imm Gran Pct Auto 0.5 % (0.0-0.4); Lymphocytes Absolute Auto 1.1 X10*3/uL (1.2-4.9); Mean Corpuscular HGB Conc 31.4 g/dl (31.0-35.0); Mean Corpuscular Hemoglobin 27.6 pg (27.0-33.0); Mean Corpuscular Volume 87.9 fL (80.0-98.0); Mean Platelet Volume 10.2 fL (9.4-12.3); Monocytes Absolute Auto 0.7 X10*3/uL (0.1-1.2); Monocytes Percent Auto 11.2 % (2-11); Neutrophils Absolute Auto 4.6 x10*3/uL (2.0-8.3); Neutrophils Percent Auto 69.6 % (45-73); Platelet Count 187 X10*3/uL (160-400); Red Blood Count 3.15 X10*6/uL (4.20-5.50); Red Cell Distribution Width 13.5 % (11.0-16.0); White Blood Count 6.5 X10*3/uL (4.8-10.8)
[2021-05-03 05:45] LABS: Alanine Aminotransferase < 6 U/L (0-31); Albumin Level 3.3 g/dL (3.5-5.0); Alkaline Phosphatase 86 U/L (39-117); Anion Gap 13 (12-20); Aspartate Amino Transferase 12 U/L (5-31); Bilirubin Total 0.4 mg/dL (0.0-1.0); Blood Urea Nitrogen 19 mg/dL (9-16); Calcium 9.1 mg/dL (8.4-10.2); Carbon Dioxide 38 mmol/L (22-29); Chloride 89 mmol/L (96-108); Creatinine Clr Calc Pharmacy 24.5; Estimated Glomerular Filt Rate 26; Glucose Random 139 mg/dL (60-115); Potassium 4.1 mmol/L (3.3-5.1); Sodium 136 mmol/L (135-145); Total Protein 6.4 g/dL (6.5-8.0)
[2021-05-03] MEDS: Heparin Sodium,Porcine 5,000 UNIT/ML VIAL 5000 UNIT SUBCUT (06:11)
[2021-05-03 07:35] VITALS: BP 127/60; PULSE 67; RESP 18; TEMP 36.5; O2SAT 91
--- NOTE | 2021-05-03 09:45 | P.DS_ITS ---
DS: Providers Provider Date of Service: 05/03/21 Date of admission: 04/14/21 17:31 Primary care physician: Edgardo Crandall MD Consults: 04/15/21 08:54 Consult to Hospitalist Routine Consulting Provider: Hospitalist Reason For Exam: sepsis 04/15/21 14:17 Consult to Infectious Diseases Routine Consulting Provider: Mayra Patricio Reason for consultation: Bacteremia 04/18/21 15:32 Consult to Neurology Routine Consulting Provider: [facility] Reason for consultation: Back pain, changes on MRI 04/20/21 08:08 Consult to Cardiology Routine Consulting Provider: Jose Alfredo Lugo Reason for consultation: chf excerebation Has provider been notified: No 04/20/21 09:16 Consult to Care Team Routine Comment: Reason for consultation: depression DS: Diagnosis Discharge Diagnosis (1) MRSA bacteremia: Status: Acute DS: Summary Hospital Course Hospital Course: 80 year old female? COPD, diabetes, history of bladder cancer diagnosed in august 2020 complicated by obstrutive uropathy and hydronephrosis on the right side. In August, she underwent 1. Cystoscopy and right retrograde 2. TURBT large of a circumferential frondular tumor from bladder base through intramural wall of bl adder 3. Right stent placement . In September, she had Cystoscopy, right retrograde, right stent removal, right ureteroscopy.? In February, she underwent ?Cystoscopy with bilateral retrograde for? Obstructed right distal ureter causing hydronephrosis. ? On april 11, she? underwent? ?right antegrade pyelogram,? dilate renal access under fluroscopy, antegrade ureteroscopy with laser of obliterated distal ureter retrograde stent placement. On 04/14 she came to the ED with weakness, fever of 105 and back pain and CT showed that indwelling stent has migrated out of the bladder. She was given broad spectrum antibiotics and underwent Cystoscopy, indwelling stent removal,? and nother stent placement. Presently her temperature has resolved, her back is better. Blood cultures are growing gram positive coocci. History obtained from record review and talking to [id number] Hospital course. 1/ She initially presented with Sepsis related to infected stent and had MRSA bacteremia and later developed back pain pain and MRI of the Lumbar spine on 04/16 showed T12 and L2, soft tissue fullness which may be consistent with evolving phlegmon There appear to be small retrocrural fluid collections this presumed to be related the MRSA. The case at that time was presented to [facility] Neuro Surgery and there was no indication for intervention. On 04/19 Thoracic spine MRI was done and showed Redemonstration of bilateral retrocrural inflammation with fluid collection on the left measuring up to 3.1 cm and on the right measuring up to 1.9 cm. The imaging features were concerning for abscesses.No findings specific for osteomyelitis/discitis seen in the thoracic spine. Redemonstration of abnormal fluid distending the L1-L2 disc space with enhancement along the ventral epidural space concerning for phlegmon Again the case was discussed with Neursugrgery at [facility] with no indication for procedure and rec. to continue antibiotics. She was persistently bacteremic? (samples from 04/14, , 04/23, were all positive) while On Vancomycin from04/15 to 04/25), so was she was switched to Daptomycin on 04/25, last culture from 04/29 is negative for more than 48 hours so a PICC is being inserted today (05/02) for 6 weeks of Daptomycin. Clinically patient is doing much better, her pain has signficantly improved shd is up an ambulating. She was seen by Neurology withe recommendation for Abx, patient herself is not keen on intervention. She had an echocardiogram that showed NO vegetation. 2. Acute Hypoxic resp failure was on >5L during this hopsitalization, but now on RA multifactorial - including atelectasis / CHF 3. Acute Diastolic CHF s/p IV diuresis, now appears evoluemic, continue oral lasix 4. CKD3/hypokalemia improved and remained stable 5. HTN BP controlled on current regime -- Atenolol, Cardizem, Lasix (on Losartan at home, which has been held) 6. DM blood sugars stable was on metformin at home that is held due to chronic kidney disease follow blood sugar closely and consider glipizide low-dose of noted to have elevated blood sugar 7. COPD continue baseline inhalers, not in exacerbation Time Spent with Patient Time attestation: Total time spent providing and/or coordinating discharge services: Discharge coordination time: Greater than 30 minutes Quality: Stroke Does the patient have a stroke diagnosis?: No Physical Exam Vital Signs: Vital Signs: Last Vital Signs Temp 97.7 F 05/03/21 07:35 Pulse 67 05/03/21 07:35 Resp 18 05/03/21 07:35 BP 127/60 05/03/21 07:35 Pulse Ox 91 L 05/03/21 07:35 Oxygen Flow Rate 2 04/18/21 14:24 Body Mass Index 27.4 General -no acute distress,?appears comfortable Cardiovascular- regular rate and?rhythm, S1-S2 Lungs - normal respiratory effort, clear to auscultation bilaterally, no wheezing Abdomen - soft, non tender, no?rebound or guarding Extremities - no edema bilaterally Neuro - awake and alert; bilateral?LE strength equal? DS: Data Data Completed and Pending Completed studies during hospitalization [Text1]: Procedures Dilation of Right Ureter with Intraluminal Device, Via Natural or Artificial Opening Endoscopic (08/16/20) Excision of Bladder, Via Natural or Artificial Opening Endoscopic (08/16/20) Fluoroscopy of Right Kidney, Ureter and Bladder (08/16/20) Labs on day of discharge: Laboratory Results - last 24 hr 05/03/21 05/03/21 05:15 05:15 WBC 6.5 RBC 3.15 L Hgb 8.7 L Hct 27.7 L MCV 87.9 MCH 27.6 MCHC 31.4 RDW 13.5 Plt Count 187 MPV 10.2 Immature Gran % (Auto) 0.5 H Neut % (Auto) 69.6 Lymph % (Auto) 17.0 L [place] % (Auto) 11.2 H Eos % (Auto) 1.5 Baso % (Auto) 0.2 Lymph # (Auto) 1.1 L [place] # (Auto) 0.7 Eos # (Auto) 0.1 Baso # (Auto) 0.0 Abs Immat Gran (auto) 0.03 Absolute Neuts (auto) 4.6 Absolute Nucleated RBC 0.000 Nucleated RBC % (auto) 0.0 Sodium 136 Potassium 4.1 Chloride 89 L Carbon Dioxide 38 H Anion Gap 13 BUN 19 H Creatinine 1.85 H Estim Creat Clear Calc 24.5 Estimated GFR 26 Random Glucose 139 H Calcium 9.1 Total Bilirubin 0.4 AST 12 ALT < 6 Alkaline Phosphatase 86 Total Protein 6.4 L Albumin 3.3 L Preliminary micro results at discharge 04/29/21 09:00 Blood Culture - Preliminary Blood - Venous No growth after 48 hours. 04/29/21 09:01 Blood Culture - Preliminary Blood - Venous No growth after 48 hours. Discharge Plan Discharge Patient Disposition: er [facility] Discharge Diagnosis: Sepsis due to MRSA bacteremia L1-L2 phlegmon being treated with antibiotics Acute hypoxic respiratory failure Acute diastolic heart failure Referrals: Edgardo Crandall MD [Primary Care Provider] - 1 Week Discharge Medications: New daptomycin 500 mg recon soln 600 mg IV Q48H Qty: 10 RF: 0 Continued atorvastatin 10 mg tablet 10 mg PO DAILY RF: 0 gabapentin 100 mg capsule 100 mg PO BID RF: 0 Atrovent HFA 17 mcg/actuation HFA aerosol inhaler 2 inh inhalation QID PRN (Reason: Shortness Of Breath Or Wheezing) RF: 0 diltiazem HCl [Tiadylt ER] 180 mg capsule,extended release 24 hr 180 mg PO DAILY RF: 0 potassium chloride [Klor-Con M10] 10 mEq tablet,ER particles/crystals 1 tab PO DAILY RF: 0 ipratropium-albuterol 0.5 mg-3 mg(2.5 mg base)/3 mL Solution For Nebulization 3 ml inhalation RQ6H WHILE AWAKE Qty: 30 RF: 0 tamsulosin 0.4 mg capsule 0.4 mg PO BEDTIME 14 Days Qty: 14 RF: 0 oxybutynin chloride 5 mg tablet 5 mg PO BID PRN (Reason: bladder spasms) Qty: 14 RF: 0 omeprazole 20 mg capsule,delayed release(DR/EC) 40 mg PO DAILY RF: 0 furosemide 40 mg tablet 80 mg PO DAILY RF: 0 atenolol 25 mg tablet 25 mg PO DAILY RF: 0 carbidopa-levodopa [Sinemet] 25-100 mg tablet 1 tab PO BID RF: 0 omega-3 fatty acids [Fish Oil Concentrate] 1,000 mg capsule 1,000 mg PO DAILY RF: 0 alprazolam 0.5 mg tablet 0.5 mg PO BEDTIME RF: 0 Held amitriptyline 10 mg tablet 20 mg PO BEDTIME RF: 0 Hold Instructions: Resume on 05/10/21. Discus with primary care physician before resuming amitriptyline. Discontinued metformin 500 mg tablet 500 mg PO DAILY Qty: 0 RF: 0 (DME) nebulizers Misc See Rx Instructions .ROUTE .MEDSUPPLY Qty: 1 RF: 0 ciprofloxacin HCl 250 mg tablet 250 mg PO DAILY 14 Days Qty: 14 RF: 0 tramadol 50 mg tablet 50 mg PO Q6H PRN (Reason: pain (scale score 4-6)) Qty: 14 RF: 0 lisinopril 5 mg tablet 5 mg PO DAILY RF: 0 Discharge Orders: Discharge Order (Routine); Ordered 05/03/21 Ordered By: Zeyad Blackman Diet: diabetic diet Activity on Discharge: As tolerated Stand Alone Forms: Patient Portal Discharge page Care Plan Goals: Finished course of antibiotic on June 10 as prescribed Check CPK, BMP and CBC Q weekly while on daptomycin Health Concerns: History of diabetes, was on metformin held due to renal insufficiency, blood sugars stable, follow blood sugar daily and consider glipizide if noted to have elevated blood sugar Plan of Treatment: Continue all medications as prescribed outpatient follow-up with primary care physician in next 1-2 weeks Assessment: as above
[2021-05-03] MEDS: Furosemide 40 MG TABLET 80 MG PO (10:04)
[2021-05-03] MEDS: dilTIAZem HCL CD 180 MG CAP.ER.24H PO (10:04)
[2021-05-03] MEDS: Omeprazole 40 MG CAPSULE.DR PO (10:04)
[2021-05-03] MEDS: atenoloL 25 MG TABLET PO (10:04)
[2021-05-03] MEDS: Carbidopa/Levodopa 25/100 TABLET 1 TAB PO (10:04)
[2021-05-03] MEDS: Magnesium Oxide 400 MG TABLET 800 MG PO (10:05)
[2021-05-03] MEDS: 0.9 % Sodium Chloride Flush 3 ML SYRINGE IVFLUSH ×2 (10:05→15:33)
--- NOTE | 2021-05-03 11:29 | MHC.CM.PN ---
Addendum entered by Radha Thurman RN 05/03/21 13:31: CM CONTACTED PT'S DTR DANO AT 1:25PM TO REVIEW D/C PLAN, DTR IS AGREEABLE FOR 3PM TXFR. Original Note: PT DISCHARGING TODAY AFTER DOSE OF IV DAPTOMYCIN THROUGH PICC LINE W/ACTION FOR BLS TRANSPORT.
[2021-05-03 11:30] VITALS: BP 126/58; PULSE 61; RESP 18; TEMP 36.7; O2SAT 91
[2021-05-03 14:04] LABS: Influenza A PCR NEGATIVE (Negative); Influenza B PCR NEGATIVE (Negative); Resp Syncy Virus RNA Qual PCR NEGATIVE (Negative); SARS COV2 PCR INHOUSE NEGATIVE (Negative)
[2021-05-03 15:08] VITALS: BP 121/68; PULSE 62; RESP 18; TEMP 36.3; O2SAT 100
[2021-05-03] MEDS: DAPTOmycin 600 MG in 0.9 % Sodium Chloride 50 ML 100 MG IV (15:33)
[2021-05-03] MEDS: Heparin Sodium,Porcine Flush 50 UNITS/5 ML SYRINGE IVFLUSH (16:28)
== END 2021-05-03 19:00 | disposition skilled nursing facility (03) | DRG 659 ==
LOC: HO.ED 14:32 → HO.EDOVER 17:37 → HO.S3 18:54
PROVIDERS: Hospitalist; Internal Medicine; Physician Assistant Medical; Admitting Provider Urology; Emergency Provider Emergency Medicine; PCP Internal Medicine; Visit Provider Hospitalist
PROC: 0T768DZ Dilation of Right Ureter with Intraluminal Device, Via Natural or Artificial Opening Endoscopic (ICD-10-PCS; principal; 2021-04-14 16:30)
DX: T83.593A Infection and inflammatory reaction due to other urinary stents, initial encounter (principal); A41.02 Sepsis due to Methicillin resistant Staphylococcus aureus; J96.01 Acute respiratory failure with hypoxia; I50.31 Acute diastolic (congestive) heart failure; K68.12 Psoas muscle abscess; N13.6 Pyonephrosis; J98.11 Atelectasis; I13.0 Hypertensive heart and chronic kidney disease with heart failure and stage 1 through stage 4 chronic kidney disease, or unspecified chronic kidney disease; M46.26 Osteomyelitis of vertebra, lumbar region; E78.5 Hyperlipidemia, unspecified; E11.40 Type 2 diabetes mellitus with diabetic neuropathy, unspecified; F41.9 Anxiety disorder, unspecified; E11.69 Type 2 diabetes mellitus with other specified complication; B95.62 Methicillin resistant Staphylococcus aureus infection as the cause of diseases classified elsewhere; M46.44 Discitis, unspecified, thoracic region; M79.7 Fibromyalgia; E11.22 Type 2 diabetes mellitus with diabetic chronic kidney disease; C67.9 Malignant neoplasm of bladder, unspecified; Z20.822 Contact with and (suspected) exposure to COVID-19; Z88.2 Allergy status to sulfonamides; Z88.5 Allergy status to narcotic agent; Z87.891 Personal history of nicotine dependence; Z79.899 Other long term (current) drug therapy; Z66 Do not resuscitate
CPT/HCPCS: 0241U; 36415; 36573; 71045; 72157; 72158; 74176; 80048; 80053; 80076; 80202; 81001; 82565; 82803; 82947; 83605; 83690; 83735; 83880; 84132; 84145; 84484; 85025; 85027; 85610; 87040; 87077; 87086; 87088; 87147; 87186; 87205; 87493; 93005; 93306; 94640; 97110; 97116; 97162; 99285; A9585; C1751; C1758; C1769; C1894; C2617; J0131; J0696; J0878; J1100; J1170; J1642; J1940; J1956; J2250; J2270; J2370; J2405; J3010; J3370; J3475; Q9967

== ENCOUNTER 2021-05-06 03:45 | Observation (INO) | payer MEDICARE, SELFPAY ==
--- NOTE | ~2021-05-06 | CT_ITS ---
EXAMINATION: CT ABDOMEN AND PELVIS WITHOUT CONTRAST CLINICAL INFORMATION: Recent right ureteral procedure with increased pain COMPARISON: 04/14/2021 TECHNIQUE: Multidetector volumetric imaging was performed from the superior aspect of the liver through the pubic symphysis. Sagittal and coronal reformatted images were obtained on the technologist's workstation. This CT examination was performed using dose optimization techniques as appropriate, variously including the following: *Automated exposure control *Adjustment of mA and/or kV according to patient size (this includes techniques or standardized protocols for targeted exams where dose is matched to indication/reason for exam; i.e. extremities or head) *Use of iterative reconstruction technique DLP: 621 mGy-cm FINDINGS: LUNG BASES: Curvilinear bibasilar opacities favor atelectasis. LIVER, GALLBLADDER, AND BILIARY TREE: The liver is normal in size, shape, and attenuation. No focal hepatic lesion or biliary ductal dilatation is present. The gallbladder is not visualized. PANCREAS: There is partial fatty atrophy of the pancreas. SPLEEN: Unremarkable. ADRENAL GLANDS: Unremarkable. KIDNEYS AND URETERS: A right-sided ureteral stent is present. The upper end of the stent lies within a mid renal calculus, while the distal end is in the region of the ureterovesicular junction. There is moderate to severe dilation of the right ureter which appears increased from prior. Moderate to severe pelvicalyceal dilation is also noted. No left-sided hydronephrosis. A few low-density lesions in the left kidney favor cysts; no follow-up recommended. BLADDER: Unremarkable. GASTROINTESTINAL TRACT: Colonic diverticulosis is noted. The small and large bowel are otherwise unremarkable without evidence of obstruction or pericolonic inflammatory change. No free fluid or free air is seen. ABDOMINAL WALL: No significant hernia is appreciated. LYMPH NODES: Normal. VASCULAR: There is atherosclerotic calcification along the aorta. PELVIC VISCERA: Patient is status post hysterectomy. OSSEOUS STRUCTURES: There is mild cortical irregularity/erosion surrounding the L1-L2 disc space, as well as increasing paravertebral soft tissue density, in keeping with findings of osteomyelitis on recent MRI 04/25/2021. Degenerative changes are noted in the spine. CT/CT abdomen pelvis wo con IMPRESSION: 1. Overall increased dilation of the right renal pelvis and ureter compared to 04/06/2021, with ureteral stent in place. Distal end of the stent lies in the region of the ureterovesicular junction. 2. Changes consistent with osteomyelitis at L1-L2, as seen on recent MRI 04/25/2021.
[2021-05-06 03:57] VITALS: BP 112/53; BP 130/70; PULSE 76; PULSE 80; RESP 16; O2SAT 88; BMI 22.4
[2021-05-06 04:42] VITALS: BP 130/48; PULSE 70; RESP 16; O2SAT 97
--- NOTE | 2021-05-06 05:31 | ED_ITS ---
HPI - Back Pain/Injury General Chief Complaint: Back Pain/Injury <Aleksey Silvestre MD - Last Filed: 05/06/21 08:41> Stated Complaint: back spasm x3 days <Aleksey Silvestre MD - Last Filed: 05/06/21 08:41> Time Seen by Provider: 05/06/21 05:31 <Aleksey Silvestre MD - Last Filed: 05/06/21 08:41> Source: patient <Aleksey Silvestre MD - Last Filed: 05/06/21 08:41> Mode of arrival: ambulatory <Aleksey Silvestre MD - Last Filed: 05/06/21 08:41> Limitations: no limitations <Aleksey Silvestre MD - Last Filed: 05/06/21 08:41> History of Present Illness HPI Narrative: Patient had bladder cancer and a renal stent. patient was admitted 2 weeks ago for dislodged ureteral stent with fever and hydronephrosis <Aleksey Silvestre MD - Last Filed: 05/06/21 08:41> MD elicited complaint: back pain <Aleksey Silvestre MD - Last Filed: 05/06/21 08:41> Pertinent past history: prior back pain and other (bladder and kidney surgery) <Aleksey Silvestre MD - Last Filed: 05/06/21 08:41> Onset (ago): day(s) <Aleksey Silvestre MD - Last Filed: 05/06/21 08:41> Timing: constant <Aleksey Silvestre MD - Last Filed: 05/06/21 08:41> Severity: mild <Aleksey Silvestre MD - Last Filed: 05/06/21 08:41> Location: right flank <Aleksey Silvestre MD - Last Filed: 05/06/21 08:41> Associated symptoms: fatigue and chills <Aleksey Silvestre MD - Last Filed: 05/06/21 08:41> Related Data Home Medications: Home Medications Medication Instructions Recorded Confirmed alprazolam 0.5 mg tablet 0.5 mg PO BEDTIME 07/20/20 05/06/21 atenolol 25 mg tablet 25 mg PO DAILY 07/20/20 05/06/21 carbidopa 25 mg-levodopa 100 mg 1 tab PO BID 07/20/20 05/06/21 tablet (Sinemet) furosemide 40 mg tablet 80 mg PO DAILY 07/20/20 05/06/21 omega-3 fatty acids 1,000 mg 1,000 mg PO DAILY 07/20/20 05/06/21 capsule (Fish Oil Concentrate) omeprazole 20 mg capsule,delayed 40 mg PO DAILY 07/20/20 05/06/21 release atorvastatin 10 mg tablet 10 mg PO DAILY 08/10/20 05/06/21 gabapentin 100 mg capsule 100 mg PO BID 08/10/20 05/06/21 ipratropium bromide 17 2 inh INHALATION Q6H PRN 08/10/20 05/06/21 mcg/actuation HFA aerosol inhaler (Atrovent HFA) diltiazem HCl 180 mg capsule,24 180 mg PO DAILY 08/16/20 05/06/21 hr,extended release (Tiadylt ER) potassium chloride 10 mEq 1 tab PO DAILY 08/16/20 05/06/21 tablet,extended release(part/cryst) (Klor-Con M) acetaminophen 325 mg tablet 650 mg PO Q6H PRN 05/06/21 05/06/21 loperamide 2 mg tablet 2 mg PO BID PRN 05/06/21 05/06/21 oxybutynin chloride 5 mg tablet 5 mg PO DAILY 05/06/21 05/06/21 tramadol 50 mg tablet 50 mg PO Q8H PRN 05/06/21 05/06/21 Previous Rx's Medication Instructions Recorded ipratropium 0.5 mg-albuterol 3 mg 3 ml INHALATION RQ6H WHILE AWAKE 08/21/20 (2.5 mg base)/3 mL nebulization #30 ml soln tamsulosin 0.4 mg capsule 0.4 mg PO BEDTIME 14 Days #14 cap 04/11/21 daptomycin 500 mg intravenous 600 mg IV Q48H #10 ea 05/03/21 solution <Aleksey Silvestre MD - Last Filed: 05/06/21 08:41> Allergies/Adverse Reactions: Allergies Allergy/AdvReac Type Severity Reaction Status Date / Time Sulfa (Sulfonamide Allergy Severe Anaphylaxis Verified 04/14/21 09:14 Antibiotics) sulfamethoxazole Allergy Severe ANAPHYLAXIS Verified 04/14/21 09:14 [From BACTRIM] influenza virus vaccine, Allergy Intermediate ARTHRITIC Verified 04/14/21 09:14 specific EFFECTS [FLU VACCINE] nitrofurantoin AdvReac Mild GI UPSET Verified 04/14/21 09:14 [From MACRODANTIN] oxycodone [From PERCOCET] AdvReac Mild GI UPSET Verified 04/14/21 09:14 <Aleksey Silvestre MD - Last Filed: 05/06/21 08:41> Review of Systems Constitutional: Constitutional: Reports no additional constitutional complaints <Aleksey Silvestre MD - Last Filed: 05/06/21 08:41> Eyes: Eyes: Reports no additional eye complaints <Aleksey Silvestre MD - Last Filed: 05/06/21 08:41> ENT: Denies dizziness <Aleksey Silvestre MD - Last Filed: 05/06/21 08:41> Cardiovascular: Cardiovascular: Reports no additional cardiovascular complaints <Aleksey Silvestre MD - Last Filed: 05/06/21 08:41> Respiratory: Respiratory: Reports as per HPI <Aleksey Silvestre MD - Last Filed: 05/06/21 08:41> Gastrointestinal: Gastrointestinal: Reports no additional gastrointestinal complaints <Aleksey Silvestre MD - Last Filed: 05/06/21 08:41> Genitourinary: Genitourinary: Reports no additional female genitourinary complaints <Aleksey Silvestre MD - Last Filed: 05/06/21 08:41> Musculoskeletal: Musculoskeletal: Reports no additional musculoskeletal complaints <Aleksey Silvestre MD - Last Filed: 05/06/21 08:41> Integumentary/Breasts: Skin/Breast: Denies rash <Aleksey Silvestre MD - Last Filed: 05/06/21 08:41> Neurologic: Reports system reviewed and no additional complaints, except as documented, Denies dizziness and Denies Sensory deficit (Neuro) <Aleksey Silvestre MD - Last Filed: 05/06/21 08:41> Psychiatric: Psychiatric: Denies anxiety <Aleksey Silvestre MD - Last Filed: 05/06/21 08:41> PMFSH Past Medical History Medical History: Medical History Acute respiratory failure with hypoxia ROMY (acute kidney injury) Anxiety Back pain Bladder mass CKD (chronic kidney disease) COPD (chronic obstructive pulmonary disease) Diverticulosis DM type 2 (diabetes mellitus, type 2) Elevated cholesterol Family history of anesthesia complication Fibromyalgia GERD (gastroesophageal reflux disease) Hiatal hernia Hypertension Mild basilar atelectasis of both lungs On beta elizabeth at home Osteoarthritis Peripheral neuropathy PONV (postoperative nausea and vomiting) Restless leg syndrome Ureteral stricture, right <Aleksey Silvestre MD - Last Filed: 05/06/21 08:41> Surgical History: Surgical History History of cholecystectomy History of cystoscopy History of hysterectomy History of total left knee replacement Hx of appendectomy Hx of bilateral cataract extraction Hx of colonoscopy Hx of tonsillectomy Nephrostomy status <Aleksey Silvestre MD - Last Filed: 05/06/21 08:41> Social History Social History: Social History Household Members: Family Housing: House Housing Other:: Lives with son and family Are you a primary care transition coordinator to a significant other at home: No Do you presently have visiting nurse or other home services: No Alcohol intake: never Patient Tobacco Use Status: Former Tobacco user Quit Date: 1994 Tobacco use type: Cigarette Cigarette Packs Per Day: 1 Cigarettes Per Day: 20.0 Years Smoked: 50 Use of substances other than those prescribed or required for medical reasons: No Advance Directives: Yes Advance Directives on File: Yes Advance Directives Date on File: 04/14/21 service: No Current occupational status: retired <Aleksey Silvestre MD - Last Filed: 05/06/21 08:41> Physical Exam Vital Signs: Vital Signs: Last Vital Signs Pulse 78 05/06/21 09:55 Resp 16 05/06/21 06:24 BP 102/46 L 05/06/21 06:24 Pulse Ox 94 05/06/21 09:55 Body Mass Index 22.4 <Aleksey Silvestre MD - Last Filed: 05/06/21 08:41> Vital Signs: Last Vital Signs Pulse 78 05/06/21 09:55 Resp 16 05/06/21 06:24 BP 102/46 L 05/06/21 06:24 Pulse Ox 94 05/06/21 09:55 Body Mass Index 22.4 <Mery Baires MD - Last Filed: 05/06/21 17:04> Const: Other: elderly female in mild pain <Aleksey Silvestre MD - Last Filed: 05/06/21 08:41> Nutritional Appearance: average body habitus <Aleksey Silvestre MD - Last Filed: 05/06/21 08:41> Orientation/consciousness: oriented to person and patient oriented x3 <Aleksey Silvestre MD - Last Filed: 05/06/21 08:41> Limitations: no limitations <Aleksey Silvestre MD - Last Filed: 05/06/21 08:41> HENMT: Head: Yes normal to inspection <Aleksey Silvestre MD - Last Filed: 05/06/21 08:41> Ears: external ears normal <Aleksey Silvestre MD - Last Filed: 05/06/21 08:41> General nose exam: Normal external nose present <Aleksey Silvestre MD - Last Filed: 05/06/21 08:41> Mouth: Normal oral and palatal mucosa present and oropharynx normal <Aleksey Silvestre MD - Last Filed: 05/06/21 08:41> Throat: Yes posterior oropharynx normal <Aleksey Silvestre MD - Last Filed: 05/06/21 08:41> Eyes: General: appearance normal, both eyes and all related structures < Aleksey Silvestre MD - Last Filed: 05/06/21 08:41> Neck: Other: supple <Aleksey Silvestre MD - Last Filed: 05/06/21 08:41> Neck: Yes normal visual inspection <Aleksey Silvestre MD - Last Filed: 05/06/21 08:41> Chest: Chest palpation & inspection: normal inspection of the chest <Aleksey Silvestre MD - Last Filed: 05/06/21 08:41> Resp: Auscultation: clear to auscultation bilaterally <Aleksey Silvestre MD - Last Filed: 05/06/21 08:41> Cardio: Jugular venous distension: no JVD <Aleksey Silvestre MD - Last Filed: 05/06/21 08:41> Rate: regular rate <Aleksey Silvestre MD - Last Filed: 05/06/21 08:41> Rhythm: regular rhythm <Aleksey Silvestre MD - Last Filed: 05/06/21 08:41> Heart sounds: S1 normal heart sound present and S2 normal heart sound present <Aleksey Silvestre MD - Last Filed: 05/06/21 08:41> GI: Inspection: Yes normal to inspection <Aleksey Silvestre MD - Last Filed: 05/06/21 08:41> Palpation (GI): Soft to palpation, nontender and No hepatosplenomegaly present <Aleksey Silvestre MD - Last Filed: 05/06/21 08:41> Auscultation: normal bowel sounds <Aleksey Silvestre MD - Last Filed: 05/06/21 08:41> : General: Yes no CVA tenderness <Aleksey Silvestre MD - Last Filed: 05/06/21 08:41> Back/Spine/Pelvis: Back: no CVA tenderness <Aleksey Silvestre MD - Last Filed: 05/06/21 08:41> Skin: General skin exam: no rashes or lesions noted <Aleksey Silvestre MD - Last Filed: 05/06/21 08:41> Neuro: General: oriented to person and patient oriented x3 <Aleksey Silvestre MD - Last Filed: 05/06/21 08:41> Cranial nerves: Yes CN's II-XII intact bilaterally <Aleksey Silvestre MD - Last Filed: 05/06/21 08:41> Motor exam (neuro): 5/5 motor strength present throughout <Aleksey Silvestre MD - Last Filed: 05/06/21 08:41> Sensory Exam: No Sensory deficit (Neuro) <Aleksey Silvestre MD - Last Filed: 05/06/21 08:41> Extrem: General: Yes normal to inspection <Aleksey Silvestre MD - Last Filed: 05/06/21 08:41> Psych: Appearance: grossly normal <Aleksey Silvestre MD - Last Filed: 05/06/21 08:41> Course Reevaluation(s) Reevaluation #1: discussed with Dr. Bernardo will need to adjust the ureteral stent and possibly admit <Aleksey Silvestre MD - Last Filed: 05/06/21 08:41> Time: 08:41 <Aleksey Silvestre MD - Last Filed: 05/06/21 08:41> MDM - Back Pain/Injury MDM Narrative Medical decision making narrative: At approximately 16:00 Patient eventually was evaluated by Dr. Bernardo in the emergency department. felt patient could be discharged follow up on an outpatient basis. Urine not infected. Dr. Bernardo aware of patient's condition. No urgent urology intervention needed. He reviewed patient's labs. Fell patient can be followed up. Patient in no distress. Will discharge home. <Mery Baires MD - Last Filed: 05/06/21 17:04> Medical Records Attestation: I reviewed the patient's medical records. <Mery Baires MD - Last Filed: 05/06/21 17:04> Lab Data Attestation: I reviewed the patient's lab results. <Mery Baires MD - Last Filed: 05/06/21 17:04> Result diagrams: : 05/06/21 06:16 05/06/21 06:15 <Aleksey Silvestre MD - Last Filed: 05/06/21 08:41> Labs: Lab Results 05/06/21 05/06/21 05/06/21 Range/Units 06:15 06:16 08:26 WBC 8.5 (4.8-10.8) X10*3/uL RBC 3.11 L (4.20-5.50) X10*6/uL Hgb 8.6 L (12.0-16.0) g/dl Hct 27.0 L (37.0-47.0) % MCV 86.8 (80.0-98.0) fL MCH 27.7 (27.0-33.0) pg MCHC 31.9 (31.0-35.0) g/dl RDW 13.8 (11.0-16.0) % Plt Count 184 (160-400) X10*3/uL MPV 10.2 (9.4-12.3) fL Immature Gran % (Auto) 0.4 (0.0-0.4) % Neut % (Auto) 78.7 H (45-73) % Lymph % (Auto) 10.8 L (20-40) % Lee % (Auto) 9.1 (2-11) % Eos % (Auto) 0.6 (0-4) % Baso % (Auto) 0.4 (0-2) % Lymph # (Auto) 0.9 L (1.2-4.9) X10*3/uL Lee # (Auto) 0.8 (0.1-1.2) X10*3/uL Eos # (Auto) 0.1 (0.0-0.4) X10*3/uL Baso # (Auto) 0.0 (0.0-0.2) X10*3/uL Abs Immat Gran (auto) 0.03 (0.00-0.03) X10*3/uL Absolute Neuts (auto) 6.7 (2.0-8.3) x10*3/uL Absolute Nucleated RBC 0.000 (0.0-0.012) X10*3/uL Nucleated RBC % (auto) 0.0 (0.0-0.2) /100WBC Sodium 131 L (135-145) mmol/L Potassium 4.0 (3.3-5.1) mmol/L Chloride 90 L (96-108) mmol/L Carbon Dioxide 28 (22-29) mmol/L Anion Gap 17 (12-20) BUN 27 H (9-16) mg/dL Creatinine 2.34 H (0.5-1.4) mg/dL Estim Creat Clear Calc 17.2 Estimated GFR 20 Random Glucose 133 H (60-115) mg/dL Calcium 8.4 D (8.4-10.2) mg/dL Urine Color YELLOW Urine Appearance CLEAR Urine pH 6.5 (5.0-8.0) Ur Specific [place] <= 1.005 (1.005-1.025) Urine Protein 1+ H (NEG-TRACE) MG/DL Urine Glucose (UA) NEG (NEG) MG/DL Urine Ketones NEG (NEG) MG/DL Urine Blood TRACE (NEG) Urine Nitrite NEG (NEG) Ur Leukocyte Esterase 1+ H (NEG) Urine RBC 0-2 (0) /HPF Urine WBC 1-4 (0-4) /HPF Ur Squamous Epith Cells 1+ /LPF Urine Bacteria NONE /LPF <Aleksey Silvestre MD - Last Filed: 05/06/21 08:41> Lab Results 05/06/21 05/06/21 05/06/21 Range/Units 06:15 06:16 08:26 WBC 8.5 (4.8-10.8) X10*3/uL RBC 3.11 L (4.20-5.50) X10*6/uL Hgb 8.6 L (12.0-16.0) g/dl Hct 27.0 L (37.0-47.0) % MCV 86.8 (80.0-98.0) fL MCH 27.7 (27.0-33.0) pg MCHC 31.9 (31.0-35.0) g/dl RDW 13.8 (11.0-16.0) % Plt Count 184 (160-400) X10*3/uL MPV 10.2 (9.4-12.3) fL Immature Gran % (Auto) 0.4 (0.0-0.4) % Neut % (Auto) 78.7 H (45-73) % Lymph % (Auto) 10.8 L (20-40) % Lee % (Auto) 9.1 (2-11) % Eos % (Auto) 0.6 (0-4) % Baso % (Auto) 0.4 (0-2) % Lymph # (Auto) 0.9 L (1.2-4.9) X10*3/uL Lee # (Auto) 0.8 (0.1-1.2) X10*3/uL Eos # (Auto) 0.1 (0.0-0.4) X10*3/uL Baso # (Auto) 0.0 (0.0-0.2) X10*3/uL Abs Immat Gran (auto) 0.03 (0.00-0.03) X10*3/uL Absolute Neuts (auto) 6.7 (2.0-8.3) x10*3/uL Absolute Nucleated RBC 0.000 (0.0-0.012) X10*3/uL Nucleated RBC % (auto) 0.0 (0.0-0.2) /100WBC Sodium 131 L (135-145) mmol/L Potassium 4.0 (3.3-5.1) mmol/L Chloride 90 L (96-108) mmol/L Carbon Dioxide 28 (22-29) mmol/L Anion Gap 17 (12-20) BUN 27 H (9-16) mg/dL Creatinine 2.34 H (0.5-1.4) mg/dL Estim Creat Clear Calc 17.2 Estimated GFR 20 Random Glucose 133 H (60-115) mg/dL Calcium 8.4 D (8.4-10.2) mg/dL Urine Color YELLOW Urine Appearance CLEAR Urine pH 6.5 (5.0-8.0) Ur Specific [place] <= 1.005 (1.005-1.025) Urine Protein 1+ H (NEG-TRACE) MG/DL Urine Glucose (UA) NEG (NEG) MG/DL Urine Ketones NEG (NEG) MG/DL Urine Blood TRACE (NEG) Urine Nitrite NEG (NEG) Ur Leukocyte Esterase 1+ H (NEG) Urine RBC 0-2 (0) /HPF Urine WBC 1-4 (0-4) /HPF Ur Squamous Epith Cells 1+ /LPF Urine Bacteria NONE /LPF <Mery Baires MD - Last Filed: 05/06/21 17:04> Imaging Data CT scan - abdomen: Radiologist's impression: IMPRESSION: 1.? Overall increased dilation of the right renal pelvis and ureter compared to 04/06/2021, with ureteral stent in place. Distal end of the stent lies in the region of the ureterovesicular junction. 2.? Changes consistent with osteomyelitis at L1-L2, as seen on recent MRI 04/25/2021. <Aleksey Silvestre MD - Last Filed: 05/06/21 08:41> Discharge Plan Discharge Clinical Impression: ROMY (acute kidney injury) <Aleksey Silvestre MD - Last Filed: 05/06/21 08:41> Patient Disposition: Home, Self-Care <Aelksey Silvestre MD - Last Filed: 05/06/21 08:41>
--- NOTE | 2021-05-06 05:54 | PC.NURSE ---
provider in to assess pt, Will medicate pre order.
[2021-05-06 06:21] LABS: MANUAL DIFF FLAG NO
[2021-05-06] MEDS: Morphine Sulfate 4 MG/ML CARTRIDGE IVPUSH (06:22)
[2021-05-06] MEDS: 0.9 % Sodium Chloride 1,000 ML 200 ML IVCONT (06:22)
[2021-05-06 06:23] LABS: Basophils Percent Auto 0.4 % (0-2); Eosinophils Absolute Auto 0.1 X10*3/uL (0.0-0.4); Eosinophils Percent Auto 0.6 % (0-4); Hemoglobin 8.6 g/dl (12.0-16.0); Imm Gran Abs Auto 0.03 X10*3/uL (0.00-0.03); Imm Gran Pct Auto 0.4 % (0.0-0.4); Lymphocytes Absolute Auto 0.9 X10*3/uL (1.2-4.9); Lymphocytes Percent Auto 10.8 % (20-40); Mean Corpuscular HGB Conc 31.9 g/dl (31.0-35.0); Mean Corpuscular Hemoglobin 27.7 pg (27.0-33.0); Mean Corpuscular Volume 86.8 fL (80.0-98.0); Mean Platelet Volume 10.2 fL (9.4-12.3); Monocytes Absolute Auto 0.8 X10*3/uL (0.1-1.2); Monocytes Percent Auto 9.1 % (2-11); Neutrophils Absolute Auto 6.7 x10*3/uL (2.0-8.3); Neutrophils Percent Auto 78.7 % (45-73); Platelet Count 184 X10*3/uL (160-400); Red Blood Count 3.11 X10*6/uL (4.20-5.50); Red Cell Distribution Width 13.8 % (11.0-16.0); White Blood Count 8.5 X10*3/uL (4.8-10.8)
[2021-05-06 06:24] VITALS: BP 102/46; RESP 16
--- NOTE | 2021-05-06 06:30 | PC.NURSE ---
Medicated per mar. placed pure wick in place. pt change into hospital attire. Iv placed in left Ac, labs collected and sent.
[2021-05-06 06:38] LABS: Anion Gap 17 (12-20); Blood Urea Nitrogen 27 mg/dL (9-16); Calcium 8.4 mg/dL (8.4-10.2); Carbon Dioxide 28 mmol/L (22-29); Chloride 90 mmol/L (96-108); Creatinine Clr Calc Pharmacy 17.2; Estimated Glomerular Filt Rate 20; Glucose Random 133 mg/dL (60-115); Sodium 131 mmol/L (135-145)
[2021-05-06 08:33] LABS: Appearance Urine CLEAR; Color Urine YELLOW; Glucose Urine UA NEG (NEG); Leukocyte Esterase Urine 1+ (NEG); Nitrite Urine NEG (NEG); PH 6.5 (5.0-8.0); Specific Gravity - Urine <= 1.005 (1.005-1.025); UACC Culture Trigger YES; Urine Blood TRACE (NEG); Urine Ketones NEG (NEG); Urine Protein 1+ MG/DL (NEG-TRACE)
[2021-05-06 08:49] LABS: RBC Urine 0-2 /HPF (0); Squamous Epithelial Cell Urine 1+ /LPF
[2021-05-06 09:55] VITALS: PULSE 78; O2SAT 94
[2021-05-06] MEDS: cefTRIAXone sodium 1 GM in 0.9 % Sodium Chloride 50 ML IV (09:57)
--- NOTE | 2021-05-06 13:11 | PHA.MEDREC ---
Pharmacy Consult ? Medication Reconciliation Pharmacy has completed the medication reconciliation. Patient came from [facility]. Patient is on daptomycin Q48H, last dose was given 05/05/2021 @ 0900. 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 Yolanda Valera, PharmD
--- NOTE | 2021-05-06 14:32 | PC.NURSE ---
PT HAS GIVEN HER PERMISSION TO SHARE HER CARE PLAN, RESULTS AND STATUS WITH HER DAUGHTER N LAW, DANO RODRIGUEZ
--- NOTE | 2021-05-06 15:10 | PM.IMHP ---
History of Present Illness Date of Service: 05/06/21 <KALIE New - Last Filed: 05/06/21 15:43> Attending physician on admission: Zeyad Blackman <KALIE New - Last Filed: 05/06/21 15:43> Chief Complaint: Back spasm <KALIE New Last Filed: 05/06/21 15:43> this is an 80 year female sent from care home facility due to low oxygen levels. She reportedly had an O2 saturation of 88% on room air and she was sent the emergency department for evaluation. There is no documentation that the patient had any respiratory symptoms and the patient denies any shortness of breath or cough and is currently saturating 94% on room air. Due to her back pain she had a CT scan of the abdomen which showed overall increased dilation of the right renal pelvis and ureter compared to 04/06/2021 with ureteral stent in place. The case was discussed with Dr. Bernardo of Urology who felt that the stent might need to be adjusted. Lab work revealed romy with creatinine of 2.34. In regards to the patient's back pain she states that it has been persistent since onset and no worse than usual. She denies any leg weakness, difficulty urinating. Due to her elevated renal function incision was made to admit her overnight for observation. Of note patient was recently admitted for MRSA bacteremia secondary to infected ureteral stent and subsequent osteomyelitis/discitis of lumbar spine. She was discharged to SNF on 05/03 with 6 weeks of IV Daptomycin. <KALIE New - Last Filed: 05/06/21 15:43> Review of Systems Review of Systems: +back pain. no change since discharge from hospital. located in lumbar spine area <KALIE New Last Filed: 05/06/21 15:43> Yes all other systems are reviewed and are negative <KALIE New Last Filed: 05/06/21 15:43> Constitutional: Constitutional: Denies chills and Denies fever(s) <KALIE New Last Filed: 05/06/21 15:43> Cardiovascular: Cardiovascular: Denies chest pain <KALIE New Last Filed: 05/06/21 15:43> Respiratory: Respiratory: Denies cough <KALIE New - Last Filed: 05/06/21 15:43> Gastrointestinal: Gastrointestinal: Denies abdominal pain <KALIE New - Last Filed: 05/06/21 15:43> [facility] Medical History: Medical History Acute respiratory failure with hypoxia ROMY (acute kidney injury) Anxiety Back pain Bladder mass CKD (chronic kidney disease) COPD (chronic obstructive pulmonary disease) Diverticulosis DM type 2 (diabetes mellitus, type 2) Elevated cholesterol Family history of anesthesia complication Fibromyalgia GERD (gastroesophageal reflux disease) Hiatal hernia Hypertension Mild basilar atelectasis of both lungs On beta elizabeth at home Osteoarthritis Peripheral neuropathy PONV (postoperative nausea and vomiting) Restless leg syndrome Ureteral stricture, right <KALIE New - Last Filed: 05/06/21 15:43> Pertinent family history: no history of CAD <KALIE New - Last Filed: 05/06/21 15:43> Surgical History: Surgical History History of cholecystectomy History of cystoscopy History of hysterectomy History of total left knee replacement Hx of appendectomy Hx of bilateral cataract extraction Hx of colonoscopy Hx of tonsillectomy Nephrostomy status <KALIE New - Last Filed: 05/06/21 15:43> Social History: Social History Household Members: Family Housing: House Housing Other:: Lives with son and family Are you a primary ambulatory care coordinator to a significant other at home: No Do you presently have visiting nurse or other home services: No Alcohol intake: never Patient Tobacco Use Status: Former Tobacco user Quit Date: 1994 Tobacco use type: Cigarette Cigarette Packs Per Day: 1 Cigarettes Per Day: 20.0 Years Smoked: 50 Use of substances other than those prescribed or required for medical reasons: No Advance Directives: Yes Advance Directives on File: Yes Advance Directives Date on File: 04/14/21 service: No Current occupational status: retired <KALIE New - Last Filed: 05/06/21 15:43> Meds Allergies/Adverse reactions: Allergies Allergy/AdvReac Type Severity Reaction Status Date / Time Sulfa (Sulfonamide Allergy Severe Anaphylaxis Verified 04/14/21 09:14 Antibiotics) sulfamethoxazole Allergy Severe ANAPHYLAXIS Verified 04/14/21 09:14 [From BACTRIM] influenza virus vaccine, Allergy Intermediate ARTHRITIC Verified 04/14/21 09:14 specific EFFECTS [FLU VACCINE] nitrofurantoin AdvReac Mild GI UPSET Verified 04/14/21 09:14 [From MACRODANTIN] oxycodone [From PERCOCET] AdvReac Mild GI UPSET Verified 04/14/21 09:14 <Ivette Baxter PA - Last Filed: 05/06/21 15:43> Active Medications: Current Medications Acetaminophen (Acetaminophen 325 Mg Tablet) 650 mg PO Q6H PRN PRN Reason: Pain, Mild (Pain Scale 1-3) Albuterol/Ipratropium (Albuterol/Iprat 2.5/0.5mg 3 Ml Ampul.Neb) 3 ml INHALE RQ6H WHILE AWAKE [facility] Alprazolam (Alprazolam 0.5 Mg Tablet) 0.5 mg PO BEDTIME [facility] Atenolol (Atenolol 25 Mg Tablet) 25 mg PO DAILY [facility]; Protocol Atorvastatin Calcium (Atorvastatin Calcium 10 Mg Tablet) 10 mg PO DAILY [facility] Carbidopa/Levodopa (Carbidopa/Levodopa 25/100 Tablet) 1 tab PO BID [facility] Daptomycin (Daptomycin 500 Mg/10 Ml Vial) 600 mg IV Q48H [facility] Diltiazem HCl (Diltiazem Hcl Cd 180 Mg Cap.Er.24h) 180 mg PO DAILY [facility]; Protocol Docusate Sodium (Docusate Sodium 100 Mg Capsule) 100 mg PO DAILY PRN PRN Reason: Constipation Gabapentin (Gabapentin 100 Mg Capsule) 100 mg PO BID [facility] Heparin Sodium (Porcine) (Heparin Sodium,Porcine 5,000 Unit/Ml Vial) 5,000 unit SUBCUT Q12H [facility] Ipratropium [place] (Ipratropium [place] 1 Puff/17 Mcg Inhaler) 2 puff INHALE Q6H PRN PRN Reason: Shortness Of Breath Or Wheezing Non-Formulary Medication (Loperamide) 2 mg PO BID PRN PRN Reason: Loose Stool Non-Formulary Medication ([place]-3 Fatty Acids [Fish Oil Concentrate]) 1,000 mg PO DAILY [facility] Non-Formulary Medication (Oxybutynin Chloride) 5 mg PO DAILY [facility] Omeprazole (Omeprazole 40 Mg Capsule.Dr) 40 mg PO DAILY [facility] Ondansetron HCl (Ondansetron Hcl 4 Mg/2 Ml Vial) 4 mg IVPUSH Q8H PRN PRN Reason: Nausea and Vomiting Sodium Chloride (0.9 % Sodium Chloride Flush 3 Ml Syringe) 3 ml IVFLUSH QSHIFT [facility] Tamsulosin HCl (Tamsulosin Hcl 0.4 Mg Capsule) 0.4 mg PO BEDTIME [facility] Tramadol HCl (Tramadol Hcl 50 Mg Tablet) 50 mg PO Q8H PRN PRN Reason: Pain, Moderate (Pain Scale 4-6 <KALIE New - Last Filed: 05/06/21 15:43> Home medications: Home Medications Medication Instructions Recorded Confirmed Last Taken Type alprazolam 0.5 mg tablet 0.5 mg PO BEDTIME 07/20/20 05/06/21 08/15/20 History atenolol 25 mg tablet 25 mg PO DAILY 07/20/20 05/06/21 08/16/20 06:50 History carbidopa 25 mg-levodopa 100 mg 1 tab PO BID 07/20/20 05/06/21 08/16/20 06:50 History tablet (Sinemet) furosemide 40 mg tablet 80 mg PO DAILY 07/20/20 05/06/21 08/15/20 History omega-3 fatty acids 1,000 mg 1,000 mg PO DAILY 07/20/20 05/06/21 02/27/21 08:30 History capsule (Fish Oil Concentrate) omeprazole 20 mg capsule,delayed 40 mg PO DAILY 07/20/20 05/06/21 08/16/20 06:50 History release atorvastatin 10 mg tablet 10 mg PO DAILY 08/10/20 05/06/21 08/15/20 History gabapentin 100 mg capsule 100 mg PO BID 08/10/20 05/06/21 08/16/20 06:50 History ipratropium bromide 17 2 inh INHALATION Q6H PRN 08/10/20 05/06/21 02/28/21 07:30 History mcg/actuation HFA aerosol inhaler (Atrovent HFA) diltiazem HCl 180 mg capsule,24 180 mg PO DAILY 08/16/20 05/06/21 08/15/20 History hr,extended release (Tiadylt ER) potassium chloride 10 mEq 1 tab PO DAILY 08/16/20 05/06/21 Unknown History tablet,extended release(part/cryst) (Klor-Con M) acetaminophen 325 mg tablet 650 mg PO Q6H PRN 05/06/21 05/06/21 Unknown History loperamide 2 mg tablet 2 mg PO BID PRN 05/06/21 05/06/21 Unknown History oxybutynin chloride 5 mg tablet 5 mg PO DAILY 05/06/21 05/06/21 Unknown History tramadol 50 mg tablet 50 mg PO Q8H PRN 05/06/21 05/06/21 Unknown History <KALIE New - Last Filed: 05/06/21 15:43> Physical Exam Vital Signs and Narrative: Vital Signs: Last Vital Signs Pulse 78 05/06/21 09:55 Resp 16 05/06/21 06:24 BP 102/46 L 05/06/21 06:24 Pulse Ox 94 05/06/21 09:55 Body Mass Index 22.4 <KALIE New - Last Filed: 05/06/21 15:43> Const: Nutritional Appearance: well nourished <KALIE New - Last Filed: 05/06/21 15:43> HENMT: Head: Yes normocephalic and Yes atraumatic <KALIE New - Last Filed: 05/06/21 15:43> Eyes: Sclerae: sclerae normal <KALIE New - Last Filed: 05/06/21 15:43> Resp: Effort & Inspection: normal respiratory effort and no respiratory distress <KALIE New Last Filed: 05/06/21 15:43> Cardio: Rate: regular rate <KALIE New Last Filed: 05/06/21 15:43> Rhythm: regular rhythm <KALIE New Last Filed: 05/06/21 15:43> GI: Palpation (GI): Soft to palpation and nontender <KALIE New Last Filed: 05/06/21 15:43> Neuro: Cranial nerves: Yes CN's II-XII intact bilaterally and Yes Bilaterally intact EOM present <KALIE New - Last Filed: 05/06/21 15:43> Extrem: Other: able to move all 4 extremities spontaneously <KALIE New - Last Filed: 05/06/21 15:43> Results Labs CBC and Chem 7: : 05/06/21 06:16 05/06/21 06:15 <KALIE New - Last Filed: 05/06/21 15:43> Labs: Laboratory Results - last 24 hr 05/06/21 05/06/21 05/06/21 06:15 06:16 08:26 MCV 86.8 MCH 27.7 MCHC 31.9 RDW 13.8 Plt Count 184 MPV 10.2 Immature Gran % (Auto) 0.4 Neut % (Auto) 78.7 H Lymph % (Auto) 10.8 L [place] % (Auto) 9.1 Eos % (Auto) 0.6 Baso % (Auto) 0.4 Lymph # (Auto) 0.9 L [place] # (Auto) 0.8 Eos # (Auto) 0.1 Baso # (Auto) 0.0 Abs Immat Gran (auto) 0.03 Absolute Neuts (auto) 6.7 Absolute Nucleated RBC 0.000 Nucleated RBC % (auto) 0.0 Anion Gap 17 Estim Creat Clear Calc 17.2 Estimated GFR 20 Random Glucose 133 H Calcium 8.4 D Urine Color YELLOW Urine Appearance CLEAR Urine pH 6.5 Ur Specific [place] <= 1.005 Urine Protein 1+ H Urine Glucose (UA) NEG Urine Ketones NEG Urine Blood TRACE Urine Nitrite NEG Ur Leukocyte Esterase 1+ H Urine RBC 0-2 Urine WBC 1-4 Ur Squamous Epith Cells 1+ Urine Bacteria NONE <KALIE New - Last Filed: 05/06/21 15:43> Imaging Radiologist's Impressions: Impressions Abdomen/Pelvis CT 05/06/21 05:39 IMPRESSION: 1. Overall increased dilation of the right renal pelvis and ureter compared to 04/06/2021, with ureteral stent in place. Distal end of the stent lies in the region of the ureterovesicular junction. 2. Changes consistent with osteomyelitis at L1-L2, as seen on recent MRI 04/25/2021. 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 followed by ureteric stricture and stent placement and subsequent stent infection/MRSA bacteremia stent replaced 04/14 CT today showing increased dilation of the right renal pelvis and ureter -urology consult to determine need for stent adjustment MRSA bacteremia/lumbar spine osteo dx on previous admission - continue IV daptomycin chronic pain r/t above lumbar spine osteo pain control HFpEF hold lasix for ROMY monitor fluid status closely COPD no actue exacerbation continue baseline inhalers DM SSI, POCs ADA diet hypertension blood pressure controlled continue atenolol, diltiazem HLD Continue statin gerd continue prilosec anxiety continue xanax h/o fibromyalgia continue gabapentin DVT prophylaxis -heparin given renal insufficiency attending-Dr. Blackman <KALIE New - Last Filed: 05/06/21 15:43> Quality Stroke Does the patient have a stroke diagnosis?: No <KALIE New - Last Filed: 05/06/21 15:43> VTE Prior VTE?: No <KALIE New - Last Filed: 05/06/21 15:43> VTE Risk Level:: Medical - moderate - high <KALIE New - Last Filed: 05/06/21 15:43> VTE Device Contraindication: Treatment Not Indicated <KALIE New - Last Filed: 05/06/21 15:43> VTE Drug Contraindication: N/A - Med Ordered <KALIE New - Last Filed: 05/06/21 15:43>
--- NOTE | 2021-05-06 17:04 | PM.UROCN ---
History of Present Illness Consult details Consult date: 05/06/21 Narrative: Seen in emergency room Has indwelling stent Not passing urine Cee catheter placed Good urine output Can be seen in office on Sunday for cystoscopy to review stent position Review of Systems Constitutional: Constitutional: Denies chills and Denies fever(s) Cardiovascular: Cardiovascular: Reports no additional cardiovascular complaints and Denies syncope Respiratory: Respiratory: Denies cough Gastrointestinal: Gastrointestinal: Denies abdominal pain and Denies heartburn Genitourinary: Genitourinary: Reports as per HPI and Denies change in libido Neurologic: Denies syncope Psychiatric: Psychiatric: Denies change in libido Endocrine: Endocrine: Denies change in libido [facility] Past Medical History Medical History Acute respiratory failure with hypoxia ROMY (acute kidney injury) Anxiety Back pain Bladder mass CKD (chronic kidney disease) COPD (chronic obstructive pulmonary disease) Diverticulosis DM type 2 (diabetes mellitus, type 2) Elevated cholesterol Family history of anesthesia complication Fibromyalgia GERD (gastroesophageal reflux disease) Hiatal hernia Hypertension Mild basilar atelectasis of both lungs On beta elizabeth at home Osteoarthritis Peripheral neuropathy PONV (postoperative nausea and vomiting) Restless leg syndrome Ureteral stricture, right Surgical History Surgical History History of cholecystectomy History of cystoscopy History of hysterectomy History of total left knee replacement Hx of appendectomy Hx of bilateral cataract extraction Hx of colonoscopy Hx of tonsillectomy Nephrostomy status Social History Social History Household Members: Family Housing: House Housing Other:: Lives with son and family Are you a primary health care manager to a significant other at home: No Do you presently have visiting nurse or other home services: No Alcohol intake: never Patient Tobacco Use Status: Former Tobacco user Quit Date: 1994 Tobacco use type: Cigarette Cigarette Packs Per Day: 1 Cigarettes Per Day: 20.0 Years Smoked: 50 Use of substances other than those prescribed or required for medical reasons: No Advance Directives: Yes Advance Directives on File: Yes Advance Directives Date on File: 04/14/21 service: No Current occupational status: retired Meds Allergies Allergy/AdvReac Type Severity Reaction Status Date / Time Sulfa (Sulfonamide Allergy Severe Anaphylaxis Verified 04/14/21 09:14 Antibiotics) sulfamethoxazole Allergy Severe ANAPHYLAXIS Verified 04/14/21 09:14 [From BACTRIM] influenza virus vaccine, Allergy Intermediate ARTHRITIC Verified 04/14/21 09:14 specific EFFECTS [FLU VACCINE] nitrofurantoin AdvReac Mild GI UPSET Verified 04/14/21 09:14 [From MACRODANTIN] oxycodone [From PERCOCET] AdvReac Mild GI UPSET Verified 04/14/21 09:14 Active Medications: Current Medications Acetaminophen (Acetaminophen 325 Mg Tablet) 650 mg PO Q6H PRN PRN Reason: Pain, Mild (Pain Scale 1-3) Albuterol/Ipratropium (Albuterol/Iprat 2.5/0.5mg 3 Ml Ampul.Neb) 3 ml INHALE RQ6H WHILE AWAKE [facility] Alprazolam (Alprazolam 0.5 Mg Tablet) 0.5 mg PO BEDTIME [facility] Atenolol (Atenolol 25 Mg Tablet) 25 mg PO DAILY [facility]; Protocol Atorvastatin Calcium (Atorvastatin Calcium 10 Mg Tablet) 10 mg PO DAILY [facility] Carbidopa/Levodopa (Carbidopa/Levodopa 25/100 Tablet) 1 tab PO BID [facility] Daptomycin (Daptomycin 500 Mg/10 Ml Vial) 600 mg IV Q48H [facility] Dextrose (Dextrose 50 % 25 Gm/50 Ml Vial) 25 gm IVPUSH Q15M PRN; Protocol PRN Reason: per Hypoglycemia Standing Ord. Diltiazem HCl (Diltiazem Hcl Cd 180 Mg Cap.Er.24h) 180 mg PO DAILY [facility]; Protocol Docusate Sodium (Docusate Sodium 100 Mg Capsule) 100 mg PO DAILY PRN PRN Reason: Constipation Gabapentin (Gabapentin 100 Mg Capsule) 100 mg PO BID [facility] Glucose (Glucose Gel 15 Gm Gel..Gram.) 15 gm PO Q15M PRN; Protocol PRN Reason: per Hypoglycemia Standing Ord. Heparin Sodium (Porcine) (Heparin Sodium,Porcine 5,000 Unit/Ml Vial) 5,000 unit SUBCUT Q12H [facility] Lactated Ringer's (Lr) 1,000 mls @ 80 mls/hr IVCONT .[id number] [facility] Stop: 05/07/21 03:44 Insulin Human Lispro (Insulin Lispro 100 Unit/Ml 3 Ml Vial) 0 unit SUBCUT QIDACHS [facility]; Protocol Loperamide HCl (Loperamide Hcl 2 Mg Capsule) 2 mg PO BID PRN PRN Reason: Loose Stool Omeprazole (Omeprazole 40 Mg Capsule.Dr) 40 mg PO DAILY@0630 [facility] Ondansetron HCl (Ondansetron Hcl 4 Mg/2 Ml Vial) 4 mg IVPUSH Q8H PRN PRN Reason: Nausea and Vomiting Oxybutynin Chloride (Oxybutynin Chloride Er 5 Mg Tab.Er.24) 5 mg PO DAILY [facility] Sodium Chloride (0.9 % Sodium Chloride Flush 3 Ml Syringe) 3 ml IVFLUSH QSHIFT [facility] Tamsulosin HCl (Tamsulosin Hcl 0.4 Mg Capsule) 0.4 mg PO BEDTIME [facility] Tiotropium [place] (Tiotropium [place] 18 Mcg Cap.W.Dev) 1 puff INHALE RDAILY [facility] Tramadol HCl (Tramadol Hcl 50 Mg Tablet) 50 mg PO Q8H PRN PRN Reason: Pain, Moderate (Pain Scale 4-6 Home Medications Medication Instructions Recorded Confirmed Last Taken Type alprazolam 0.5 mg tablet 0.5 mg PO BEDTIME 07/20/20 05/06/21 08/15/20 History atenolol 25 mg tablet 25 mg PO DAILY 07/20/20 05/06/21 08/16/20 06:50 History carbidopa 25 mg-levodopa 100 mg 1 tab PO BID 07/20/20 05/06/21 08/16/20 06:50 History tablet (Sinemet) furosemide 40 mg tablet 80 mg PO DAILY 07/20/20 05/06/21 08/15/20 History omega-3 fatty acids 1,000 mg 1,000 mg PO DAILY 07/20/20 05/06/21 02/27/21 08:30 History capsule (Fish Oil Concentrate) omeprazole 20 mg capsule,delayed 40 mg PO DAILY 07/20/20 05/06/21 08/16/20 06:50 History release atorvastatin 10 mg tablet 10 mg PO DAILY 08/10/20 05/06/21 08/15/20 History gabapentin 100 mg capsule 100 mg PO BID 08/10/20 05/06/21 08/16/20 06:50 History ipratropium bromide 17 2 inh INHALATION Q6H PRN 08/10/20 05/06/21 02/28/21 07:30 History mcg/actuation HFA aerosol inhaler (Atrovent HFA) diltiazem HCl 180 mg capsule,24 180 mg PO DAILY 08/16/20 05/06/21 08/15/20 History hr,extended release (Tiadylt ER) potassium chloride 10 mEq 1 tab PO DAILY 08/16/20 05/06/21 Unknown History tablet,extended release(part/cryst) (Klor-Con M) acetaminophen 325 mg tablet 650 mg PO Q6H PRN 05/06/21 05/06/21 Unknown History loperamide 2 mg tablet 2 mg PO BID PRN 05/06/21 05/06/21 Unknown History oxybutynin chloride 5 mg tablet 5 mg PO DAILY 05/06/21 05/06/21 Unknown History tramadol 50 mg tablet 50 mg PO Q8H PRN 05/06/21 05/06/21 Unknown History Physical Exam Vital Signs: Vital Signs: Last Vital Signs Pulse 78 05/06/21 09:55 Resp 16 05/06/21 06:24 BP 102/46 L 05/06/21 06:24 Pulse Ox 94 05/06/21 09:55 Body Mass Index 22.4 Const: General: cooperative, healthy appearing, comfortable and no acute distress Orientation/consciousness: patient oriented x3 HENMT: Face and sinus: Yes normal facial exam Mouth: moist mucous membranes Neck: Neck: Yes normal visual inspection, Yes full ROM and Yes trachea midline Chest: Chest palpation & inspection: normal inspection of the chest Resp: Effort & Inspection: normal respiratory effort, able to speak in complete sentences and no respiratory distress GI: Inspection: Yes normal to inspection Back/Spine/Pelvis: Cervical Spine: normal cervical lordosis Thoracic/Lumbar Spine: thoracic and lumbar spine normal to inspection Skin: General skin exam: no rashes or lesions noted Neuro: General: patient oriented x3, gait normal, tone normal and moves all extremities Extrem: General: Yes normal to inspection and Yes capillary refill normal Results Labs Result diagrams: 05/06/21 06:16 05/06/21 06:15 Labs: Abnormal lab results 05/06/21 05/06/21 05/06/21 Range/Units 06:15 06:16 08:26 RBC 3.11 L (4.20-5.50) X10*6/uL Hgb 8.6 L (12.0-16.0) g/dl Hct 27.0 L (37.0-47.0) % Neut % (Auto) 78.7 H (45-73) % Lymph % (Auto) 10.8 L (20-40) % Lymph # (Auto) 0.9 L (1.2-4.9) X10*3/uL Sodium 131 L (135-145) mmol/L Chloride 90 L (96-108) mmol/L BUN 27 H (9-16) mg/dL Creatinine 2.34 H (0.5-1.4) mg/dL Random Glucose 133 H (60-115) mg/dL Urine Protein 1+ H (NEG-TRACE) MG/DL Ur Leukocyte Esterase 1+ H (NEG) Short CBC 05/06/21 Range/Units 06:16 WBC 8.5 (4.8-10.8) X10*3/uL Hgb 8.6 L (12.0-16.0) g/dl Hct 27.0 L (37.0-47.0) % Plt Count 184 (160-400) X10*3/uL BMP 05/06/21 06:15 Sodium 131 L Potassium 4.0 Chloride 90 L Carbon Dioxide 28 BUN 27 H Creatinine 2.34 H Calcium 8.4 D Urine 05/06/21 Range/Units 08:26 Urine Color YELLOW Urine Appearance CLEAR Urine pH 6.5 (5.0-8.0) Ur Specific [place] <= 1.005 (1.005-1.025) Urine Protein 1+ H (NEG-TRACE) MG/DL Urine Glucose (UA) NEG (NEG) MG/DL All other labs normal. Assessment and Plan (1) Urinary retention with incomplete bladder emptying: Status: Acute Review Sunday for voiding trial and stent position with cystoscopy Procedures Date of Service Date of Service: 05/06/21
[2021-05-06 18:25] LABS: Glucose, Whole Blood 92 mg/dL (60-115)
[2021-05-06] MEDS: Lactated Ringers 1,000 ML 80 ML IVCONT (18:42)
--- NOTE | 2021-05-06 19:35 | PC.NURSE ---
pt resting in stretcher awaiting for room assignment. respirations easy, n/l. skin w/d. pt in NAD. Pt wakes to voice, resp easy, n/l. skin w/d. will continue to monitor pt.
[2021-05-06] MEDS: Albuterol/Iprat 2.5/0.5MG 3 ML AMPUL.NEB INHALE (19:38)
[2021-05-06 19:40] VITALS: PULSE 74; O2SAT 89
[2021-05-06] MEDS: traMADoL HCL 50 MG TABLET PO (20:15)
[2021-05-06] MEDS: Heparin Sodium,Porcine 5,000 UNIT/ML VIAL 5000 UNIT SUBCUT (20:15)
--- NOTE | 2021-05-06 20:30 | PC.NURSE ---
pt c/o back pain 02/25. pt medicated with tramodol and states nothing is helping my pain Hospitalist aware of pt's pain in lower back area. pt on commode. oneal draining clear yellow urine.
[2021-05-06] MEDS: Gabapentin 100 MG CAPSULE PO (21:07)
[2021-05-06] MEDS: ALPRAZolam 0.5 MG TABLET PO (21:07)
[2021-05-06] MEDS: Carbidopa/Levodopa 25/100 TABLET 1 TAB PO (21:07)
[2021-05-06] MEDS: Tamsulosin HCL 0.4 MG CAPSULE PO (21:07)
--- NOTE | 2021-05-06 23:30 | PC.NURSE ---
PT WAKES TO VOICE, RESPIRATIONS EASY, N/L. SKIN W/D. PT AWAITING FOR ROOM ASSIGNMENT. PT IN NAD.
[2021-05-07] VITALS (7 sets, daily range): BP systolic 109–124; BP diastolic 31–47; PULSE 67–78; RESP 16–18; TEMP 36.7–36.9; O2SAT 90–95
[2021-05-07 00:16] LABS: Glucose, Whole Blood 106 mg/dL (60-115)
[2021-05-07 01:07] LABS: COVID-19 Test Negative (Negative)
--- NOTE | 2021-05-07 02:15 | PC.NURSE ---
PT AWAITING FOR ROOM ASSIGNMENT. PT WAKES TO VOICE AND W/O COMPLAINTS. RESPIRATIONS EASY, N/L. SKIN W/D. SHAH DRAINING CLEAR YELLOW URINE.
[2021-05-07] MEDS: Heparin Sodium,Porcine 5,000 UNIT/ML VIAL 5000 UNIT SUBCUT ×2 (05:38→21:36)
[2021-05-07] MEDS: Omeprazole 40 MG CAPSULE.DR PO (05:38)
--- NOTE | 2021-05-07 05:51 | PC.NURSE ---
pt wakes to voice, pt medicated as per emar. pt awaiting for room assignment. oneal draining clear yellow urine. LR infusing on pump without difficulty. site intact. pt awaiting for pending orders. will continue to monitor pt.
[2021-05-07 07:20] LABS: Glucose, Whole Blood 99 mg/dL (60-115)
[2021-05-07] MEDS: Albuterol/Iprat 2.5/0.5MG 3 ML AMPUL.NEB INHALE ×3 (07:40→19:34)
[2021-05-07 08:32] LABS: Anion Gap 15 (12-20); Blood Urea Nitrogen 22 mg/dL (9-16); Calcium 7.9 mg/dL (8.4-10.2); Carbon Dioxide 26 mmol/L (22-29); Chloride 95 mmol/L (96-108); Estimated Glomerular Filt Rate 28; Glucose Random 104 mg/dL (60-115); Potassium 4.1 mmol/L (3.3-5.1); Sodium 132 mmol/L (135-145)
[2021-05-07] MEDS: Gabapentin 100 MG CAPSULE PO ×2 (10:02→21:34)
[2021-05-07] MEDS: Atorvastatin Calcium 10 MG TABLET PO (10:02)
[2021-05-07] MEDS: traMADoL HCL 50 MG TABLET PO (10:02)
[2021-05-07] MEDS: 0.9 % Sodium Chloride Flush 3 ML SYRINGE IVFLUSH (10:03)
[2021-05-07] MEDS: dilTIAZem HCL CD 180 MG CAP.ER.24H PO (10:03)
[2021-05-07] MEDS: Carbidopa/Levodopa 25/100 TABLET 1 TAB PO ×2 (10:03→21:35)
[2021-05-07] MEDS: atenoloL 25 MG TABLET PO (10:03)
--- NOTE | 2021-05-07 10:36 | PM.DS ---
DS: Providers Provider Date of Service: 05/07/21 Date of admission: 05/06/21 14:54 Primary care physician: Unknown Physician Consults: 05/06/21 14:59 Consult to Urology Routine Consulting Provider: Terence Bernardo Reason for consultation: ureteral stent ? placement; romy Has provider been notified: No 05/07/21 09:49 Consult to Infectious Diseases Stat Consulting Provider: Mayra Patricio Reason for consultation: NEW DAPTOMYCIN ORDER DS: Diagnosis Discharge Diagnosis (1) ROMY (acute kidney injury): Status: Acute DS: Summary Hospital Course Hospital Course: History of presenting illness Chief complain back spasm 80 year female sent from intermediate facility due to low oxygen levels.? She reportedly had an O2 saturation of 88% on room air and she was sent the emergency department for evaluation.? There is no documentation that the patient had any respiratory symptoms and the patient denies any shortness of breath or cough and is currently saturating 94% on room air. Due to her back pain she had a CT scan of the abdomen which showed? overall increased dilation of the right renal pelvis and ureter compared to 04/06/2021 with ure[address] stent in place.? The case was discussed with Dr. Bernardo of Urology who felt that the stent might need to be adjusted. Lab work revealed romy with creatinine of 2.34.? In regards to the patient's back pain she states that it has been persistent since onset and no worse than usual.? She denies any leg weakness, difficulty urinating.? Due to her elevated renal function incision was made to admit her overnight for observation. ?Of note patient was recently admitted for MRSA bacteremia secondary to infected ureteral stent and subsequent osteomyelitis/discitis of lumbar spine. She was discharged to SNF on 05/03 with 6 weeks of IV Daptomycin. 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 Bernardo he advanced a Cee catheter with good urine flow and recommend outpatient follow-up with him on Sunday for cystoscopy to review position of stent In regard MRSA bacteremia/lumbar spine osteo continue IV daptomycin and follow weekly CPK. LFTs and BMP chronic pain r/t above lumbar spine osteo Time Spent with Patient Time attestation: Total time spent providing and/or coordinating discharge services: Discharge coordination time: Greater than 30 minutes Quality: Stroke Does the patient have a stroke diagnosis?: No Physical Exam Vital Signs: Vital Signs: Last Vital Signs Temp 98.1 F 05/07/21 10:00 Pulse 75 05/07/21 10:00 Resp 18 05/07/21 10:00 BP 124/47 L 05/07/21 10:00 Pulse Ox 95 05/07/21 10:00 Body Mass Index 22.4 Patient resting comfortably awake alert in no distress Neck no JVD Heart regular rate rhythm Lungs clear to auscultation bilaterally no respiratory distress Abdomen soft nontender bowel sounds are audible Extremities no edema Neuro nonfocal DS: Data Data Completed and Pending Completed studies during hospitalization [Text1]: Procedures Dilation of Right Ureter with Intraluminal Device, Via Natural or Artificial Opening Endoscopic (04/14/21) Excision of Bladder, Via Natural or Artificial Opening Endoscopic (08/16/20) Fluoroscopy of Right Kidney, Ureter and Bladder (04/14/21) Insertion of Infusion Device into Superior Vena Cava, Percutaneous Approach (04/14/21) Removal of Intraluminal Device from Ureter, Via Natural or Artificial Opening Endoscopic (04/14/21) Labs on day of discharge: Laboratory Results - last 24 hr 05/06/21 05/07/21 05/07/21 18:17 00:12 00:40 Sodium Potassium Chloride Carbon Dioxide Anion Gap BUN Creatinine Estim Creat Clear Calc Estimated GFR POC Glucose 92 106 Random Glucose Calcium COVID-19 ([facility]AR) Negative COVID-19 Clin Com See Note 05/07/21 05/07/21 07:16 07:46 Sodium 132 L Potassium 4.1 Chloride 95 L Carbon Dioxide 26 Anion Gap 15 BUN 22 H Creatinine 1.75 H Estim Creat Clear Calc 23.0 Estimated GFR 28 POC Glucose 99 Random Glucose 104 Calcium 7.9 L COVID-19 ([facility]) COVID-19 Clin Com Discharge Plan Discharge Patient Disposition: Xfer SNF Discharge Diagnosis: Acute kidney injury Urinary retention Referrals: Terence Bernardo MD [Physician] - 2 days Physician,Daryl J [Primary Care Provider] - 1 Week Discharge Medications: Continued atorvastatin 10 mg tablet 10 mg PO DAILY RF: 0 gabapentin 100 mg capsule 100 mg PO BID RF: 0 Atrovent HFA 17 mcg/actuation HFA aerosol inhaler 2 inh inhalation Q6H PRN (Reason: Shortness Of Breath Or Wheezing) RF: 0 diltiazem HCl [Tiadylt ER] 180 mg capsule,extended release 24 hr 180 mg PO DAILY RF: 0 potassium chloride [Klor-Con M10] 10 mEq tablet,ER particles/crystals 1 tab PO DAILY RF: 0 ipratropium-albuterol 0.5 mg-3 mg(2.5 mg base)/3 mL Solution For Nebulization 3 ml inhalation RQ6H WHILE AWAKE Qty: 30 RF: 0 tamsulosin 0.4 mg capsule 0.4 mg PO BEDTIME 14 Days Qty: 14 RF: 0 daptomycin 500 mg recon soln 600 mg IV Q48H Qty: 10 RF: 0 tramadol 50 mg tablet 50 mg PO Q8H PRN (Reason: Pain) RF: 0 acetaminophen 325 mg Tablet 650 mg PO Q6H PRN (Reason: Pain) RF: 0 loperamide 2 mg Tablet 2 mg PO BID PRN (Reason: Loose Stool) RF: 0 oxybutynin chloride 5 mg tablet 5 mg PO DAILY RF: 0 omeprazole 20 mg capsule,delayed release(DR/EC) 40 mg PO DAILY RF: 0 furosemide 40 mg tablet 80 mg PO DAILY RF: 0 atenolol 25 mg tablet 25 mg PO DAILY RF: 0 carbidopa-levodopa [Sinemet] 25-100 mg tablet 1 tab PO BID RF: 0 omega-3 fatty acids [Fish Oil Concentrate] 1,000 mg capsule 1,000 mg PO DAILY RF: 0 alprazolam 0.5 mg tablet 0.5 mg PO BEDTIME RF: 0 Changed furosemide 40 mg tablet 60 mg PO DAILY Qty: 0 RF: 0 Discharge Orders: Discharge Order (Routine); Ordered 05/07/21 Ordered By: Zeyad Blackman Diet: low salt diet Activity on Discharge: As tolerated Stand Alone Forms: Patient Portal Discharge page Care Plan Goals: Acute renal failure resolved patient now at baseline creatinine dose of Lasix reduced to 60 mg by mouth daily in regard to urinary retention Cee catheter was advanced by Urology will need outpatient follow-up with Dr. Bernardo on 05/10 for cystoscopy to review is stent position Health Concerns: Continue all other home medications as before Plan of Treatment: Outpatient follow-up with primary care physician and Dr. Bernardo on 05/10 for cystoscopy Assessment: As above Patient Instructions: Acute Kidney Injury (DC)
[2021-05-07] MEDS: DAPTOmycin 600 MG in 0.9 % Sodium Chloride 50 ML 100 MG IV (11:02)
[2021-05-07 11:38] LABS: Glucose, Whole Blood 106 mg/dL (60-115)
--- NOTE | 2021-05-07 15:04 | PC.NURSE ---
Report called to nurse Olga pelayo
--- NOTE | 2021-05-07 16:57 | PC.NURSE ---
Pt discharged and has been awaiting ambulance transport. VSS and snack provided.
[2021-05-07 19:16] LABS: Glucose, Whole Blood 103 mg/dL (60-115)
[2021-05-07] MEDS: Acetaminophen 325 MG TABLET 650 MG PO (19:31)
[2021-05-07] MEDS: ALPRAZolam 0.5 MG TABLET PO (21:35)
[2021-05-07] MEDS: Tamsulosin HCL 0.4 MG CAPSULE PO (21:35)
[2021-05-07 21:45] LABS: Glucose, Whole Blood 95 mg/dL (60-115)
--- NOTE | 2021-05-07 21:45 | PC.NURSE ---
POC 95 pt given orange juice, crackers and cheese stick pt awaiting transport back to SNF
[2021-05-08] VITALS: RESP 16
== END 2021-05-08 00:46 | disposition skilled nursing facility (03) ==
LOC: HO.ED 12:48 → HO.EDOVER 15:01
PROVIDERS: Admitting Provider Physician Assistant Medical; Emergency Provider Emergency Medicine; Visit Provider Hospitalist
DX: R33.9 Retention of urine, unspecified (principal); N13.4 Hydroureter; N17.9 Acute kidney failure, unspecified; N18.30 Chronic kidney disease, stage 3 unspecified; N13.5 Crossing vessel and stricture of ureter without hydronephrosis; C67.6 Malignant neoplasm of ureteric orifice; A49.02 Methicillin resistant Staphylococcus aureus infection, unspecified site; J96.01 Acute respiratory failure with hypoxia; E11.65 Type 2 diabetes mellitus with hyperglycemia; E11.42 Type 2 diabetes mellitus with diabetic polyneuropathy; E11.22 Type 2 diabetes mellitus with diabetic chronic kidney disease; I12.9 Hypertensive chronic kidney disease with stage 1 through stage 4 chronic kidney disease, or unspecified chronic kidney disease; E78.00 Pure hypercholesterolemia, unspecified; K21.9 Gastro-esophageal reflux disease without esophagitis; K57.30 Diverticulosis of large intestine without perforation or abscess without bleeding; F41.9 Anxiety disorder, unspecified; Z87.891 Personal history of nicotine dependence; Z20.822 Contact with and (suspected) exposure to COVID-19; Z93.6 Other artificial openings of urinary tract status; Z96.0 Presence of urogenital implants; Z91.81 History of falling; Z90.49 Acquired absence of other specified parts of digestive tract; Z88.6 Allergy status to analgesic agent; Z88.1 Allergy status to other antibiotic agents; Z88.2 Allergy status to sulfonamides; Z88.7 Allergy status to serum and vaccine; Z79.4 Long term (current) use of insulin; Z79.899 Other long term (current) drug therapy
CPT/HCPCS: 36415; 74176; 80048; 81001; 82947; 85025; 87086; 87635; 94640; 96361; 96374; 96375; 99218; 99285; J0696; J0878; J2270